=== PATIENT | female | born 1955 | race Caucasian/White ===

== ENCOUNTER 2017-12-20 14:30 | Outpatient (RCR) | payer OTHER, SELFPAY ==
--- NOTE | 2017-11-09 14:10 | HP.SP.AD ---
History - History Date of Eval: 11/09/17 Medical Diagnosis (from RX): cva Date of Onset of Diagnosis: October 22, 2017 Previous speech therapy: Yes Results: Patient was on [facility]'s rehab for 2 weeks. Other Relevant Medical History/Diagnoses/Surgery: Diabetes Hx Smoking: No - Pain Is pain an issue with your current prescribed condition?: No - Personal Education History: High school graduate Occupation: Retired as a cook chili Right Hearing Abillity: Normal Left Hearing Abillity: Normal Visual Assistive Devices: Glasses Patients Living Arrangements: With Family Subjective Oral Motor - Comments Comments: Patient reported that her speech is nearly back to normal. No difficulty with being understood. Patient reported that her speech is 90-95% back to normal. Objective Oral Motor - Oral Status Dentition: Upper Dentures, Lower Dentures - Labial Impairment: WNL Observation at Rest: WNL Closure: WNL Pucker: WNL Retraction: WNL Alternating Pucker/Retraction: WNL Involuntary Movement noted: No - Lingual Impairment: WNL Protrusion: WNL Retraction: WNL Lateralization: WNL Involuntary Movement: No - Respiratory Status Respiratory Status: Room Air Subjective Dysphagia - Symptoms Reported Other: No deficits reported. Diet upon leaving hospital was regular foods/ thin. - Current Diet Solids Current Diet: Regular - Current Diet Liquids Current Liquids: Thin Subjective Cog/Ling/Com - Subjective Cognitive/Linguistic/Communication: No cognitive deficits reported by patient. Cognitive was not focused on in inpatient rehab. Patient was able to hold conversation and answer questions appropriately. Subjective Articulation/Phon - Subjective Concerns: Patient has no concerns. Evaluation was recommended by inpatient rehab. Additional Information: Patient reported only getting slightly slurred speech when very tired. Subjective Artic/Phon - Articulation Errors include: Initial Position: No errors noted on any sounds. Other Impressions - Comments Volume -: Average dB level in conversation was 72 which is appropriate for conversation. Note deficits noted as this is an area that the hospital therapists were addressing per the patient. She reported that since being home she is doing much better. Plan - Plan Plan: Speech therapy is not warranted at this time. - Recommendations Treatment Warranted: No Education - Patient has Indicated that the Following Identified Educational Needs: None The Patient has indicated that they have no educational or learning abilities that may effect their care.: Yes - Patient Instruction Patient Education: Diagnosis, Treatment Plan Person Taught: Patient Response to teaching: Verbalize understanding, Has Prior Knowledge
--- NOTE | 2017-11-10 17:57 | HP.PTEVAL_ITS ---
Patient's Visit Information BETI JAUREGUI is a 62 year old F referred to Physical Therapy by Pablito WILHELM with a diagnosis of CVA. Date of Evaluation: 11/10/17 Physical Therapist: Zohra Hills - Visit Plan Frequency: 2-3x /Week Duration: 4-6 Weeks Plan: GERNERAL JENNIFER UE AND LE STRENGTHENIG TAKING PAIN (ESPECIALLY RIGHT SHOULDER ) INTO CONSIDERATION. GAIT TRAINING PROGRESSING TO LEAST ASSISTIVE DEVICE FOR INDEP AND SAFE GAIT. HEP INSTRUCTION. ENDURANCE TRAINING. - Subjective Subjective: Work/Leisure: RETIRED. Disability: NO. Present symptoms: PATIENT REPORTS SHE HAD TWO STROKES ABOUT October AND AND WANTS TO GET BUILT BACK UP. SHE REPORTS SHE NOTICED HER SPEECH FIRST AND SHE DIDN'T THINK ANYTHING ELSE WAS WRONG BUT SHE GETS TIRED VERY EASILY AND SHE GETS REAL WEAK IN HER LEGS STANDING FOR SHORT PERIODS OF TIME. Present since: October. DID START GETTING SOB BACK IN JULY THOUGH AND IT PROGRESSIVELY GOT WORSE. ALSO HAVING RIGHT SHOULDER PAIN, JENNIFER KNEE AND JENNIFER ANKLE PAIN. LBP TOO. Pain Scale: RIGHT SHOULDER 2-9/10, KNEES 0-5/10, ANKLES 0-7/10, LOW BACK 0-7/ 10. Commenced as a result of: NO APPARENT REASON OTHER THAN POSSIBLY CHF OR ONSET OF DIABETES. Symptoms at onset: SOB. Worse: STANDING, WALKING, QUICK MVMTS. Better: [place], SITTING. Disturbed sleep: BACK TO SLEEPING IN BED FLAT BUT BOUGHT A WEDGE SHE IS GOING TO TRY. SLEEP IS DISTURBED BY RIGHT SHOULDER PAIN. Previous history/Previous treatment: PRIOR LEVEL OF FUNCTION - PATIENT REPORTS SHE WAS ABLE TO COOK FOR HOURS, TALK ON THE PHONE FOR HOURS WITH HER CHILDREN AND GRANDCHILDREN, DRIVE, AND BE ON THE GO FOR HOURS PRIOR TO THIS STROKE. SHE USE TO TRAVEL OUT OF STATE TO SEE FAMILY TOO. ALL OF THESE THINGS ARE NOT POSSIBLE RIGHT NOW. SHE ALSO USE TO DO CRAFTS BUT THE DESIRE IS NOT THERE RIGHT NOW. INDEP GAIT WITHOUT AD BEFORE STROKE UNLIMITED. Gait: NOT USING ANY ASSISTIVE DEVICES OR FURNITURE WALKING IN THE HOUSE. ROLLATOR FOR LONG DISTANCES. TRANSFERS AND SHOWERS WITH LOOSE SUPERVISION ONLY AT THIS TIME. PMH: CHF?, NIDDM, HTN, H/O RIGHT SHOULDER PAIN AND CORTISONE SHOT A FEW YEARS AGO THEN INCREASED VALENTINES DAY WHILE LIFTING DURING COOKING. CHRONIC LOW BACK, KNEE AND ANKLE PAIN. NO RECENT FALLS. Recent major surgery: 11 FX'S/ INJURIES IN RIGHT ANKLE - NO SURGERY. PATIENTS DAUGHTER (BASIL) IS PRESENT AND HELPFUL WITH PATIENTS MEDICAL HISTORY. PATIENTS DAUGHTER REPORTS THAT PATIENT APPEARS TO LOSE HER CONCENTRATION AND STARTS TO SLUR HER SPEECH NOW WHEN TALKING ON THE PHONE WITH FAMILY. SHE SEEMS TO HESITATE TO RESPOND TO FAMILY ON THE PHONE AND FATIGUE MUCH MORE QUICKLY THAN BEFORE THE STROKE. - Objective THIS PATIENT AMBULATES INDEP INTO PT WITH X APPROX 300 FEET WITH A FOUR WHEELED WALKER. SHE IS ACCOMPANIED BY HER DAUGHTER BASIL. PATIENT IS NOT VERY DEPENDENT UPON THE WALKER FOR BALANCE BUT SHE HAS DECREASED CADANCE AND SLOWED DOWN EVEN MORE AFTER ABOUT 250 FEET. NO LOSS OF BALANCE NOTED. INDEP TRANSFER FROM SIT TO STAND WITHOUT UE ASSIST. INDEP GAIT IN THE TREATMENT ROOM WITHOUT AD WITH FAIR BALANCE. SLS X EA LE X APPROX 5 SECONDS EACH. JENNIFER UE AND LE ROM IS WFL EXCEPT THE RIGHT SHOULDER. HER RIGHT SHOULDER ROM IS WFL EXCEPT INTO INTERNAL ROTATION WHICH IS ABOUT 50% LIMITED AND PAINFUL WITH MVMT ALL PLANES. JENNIFER UE AND LE STRENGTH WITH MMT'ING IS GROSSLY 4/5 WITH MMT'ING EXCEPT THE RIGHT SHOULDER WHICH IS 3-/5 WITH POSSIBLE POSITIVE RIGHT ROTATOR CUFF TEST. SHE HAS POOR CORE STRENGTH. JENNIFER UE LIGHT TOUCH SENSATION IS INTACT AND SYMMETRICAL. - Goals Goal 1:: DECREASE C/O RIGHT SHOULDER AND GENERAL BACK AND LE PAIN. Goal Time Frame: 4-6 Weeks Goal 2:: IMPROVE ENDURANCE, STANDING, WALKING, ADL, COOKING, TRAVEL AND OTHER RECREATIONAL FUNCTION. Goal Time Frame: 4-6 Weeks Goal 3:: INDEP AND SAFE GAIT ON ALL SURFACES WITH LEAST ASSISTIVE DEVICE. Goal Time Frame: 4-6 Weeks Goal 4:: INDEP HEP Goal Time Frame: 4-6 Weeks - Rehabilitation Potential Rehabilitation Potential: Good - Anticipated Interventions Patient/Client Instruction: Educate patient on: Condition, Plan of Care, Risk Factors, Benefits of Fitness Program For the Purpose of:: To improve self management Therapeutic Exercise to Include: Strength training, Endurance training, Balance training, Gait and locomotor training, Dynamic Lumbar Stabilization For the Purpose of:: To improve ability of physical actions for home/community/ work/leisure Thank you for the opportunity to evaluate your patient. For Medicare and Medicare HMO plans, please review the plan of care and approve it. It will need to be FAXED BACK to us at [phone] for Medicare purposes. Please let me know if there are questions or concerns regarding this plan of care. Physician Signature: Date:
--- NOTE | 2017-12-20 15:27 | HP.PTDCSUM ---
HP - PT D/C Summary It has been my pleasure to treat BETI JAUREGUI under orders from Pablito Mahoney, for the diagnosis of CVA for a total of 8 visit(s). Discharge Date: 12/20/17 Please see the following information for a summary of their discharge status. - Subjective Subjective: PATIENT REPORTS SHE IS MOVING FASTER THAN SHE WAS AND HER BREATHING IS MUCH BETTER. SHE ALSO REPORTS SHE HAS MORE ENERGY AND SHE ALMOST FEELS BACK TO HER NORMAL. SHE REPORTS SHE IS DOING HER HOME EX PROGRAM AND FOR HER THE EX'S ARE NOT TOO EASY AND NOT TO HARD - JUST RIGHT FOR ME. PATIENT REPORTS THAT IF SHE IS EXTREMELY TIRED HER WORDS WILL STILL BLEND TOGETHER. SHE WENT TO [place] THIS WEEKEND AND WAS BUSY AND HER WORDS RAN TOGETHER. - Overall Improvement % Improvement: 90 - Objective Objective/Function: LEFS HAS IMPROVED FROM 27 TO 59. THIS PATIENT AMBULATES INDEP'LY INTO PT X APPROXIMATELY 300 FEET WITHOUT LOB, WITHOUT AD AND WITHOUT SOB. SHE IS ABLE TO SLS X > 10 SEC ON EACH LEG. INDEP TRANSFERS SIT TO STAND WITHOUT UE ASSIST. JENNIFER LE STRENGTH WFL. RIGHT UE NOW HAS ROM WFL INCLUDING IR BUT SHE CONTINUES TO HAVE RIGHT ROTATOR CUFF WEAKNESS GRADED 3+/5. SHE DENIES INCREASED PAIN WITH RIGHT SHOULDER TESTING TODAY BUT AGAIN OBVIOUS WEAKNESS WITH TESTING. INDEP WITH HEP. ALL GOALS MET. - Goals Goal 1:: DECREASE C/O RIGHT SHOULDER AND GENERAL BACK AND LE PAIN. Goal Progress: Goal Met Goal 2:: IMPROVE ENDURANCE, STANDING, WALKING, ADL, COOKING, TRAVEL AND OTHER RECREATIONAL FUNCTION. Goal Progress: Goal Met Goal 3:: INDEP AND SAFE GAIT ON ALL SURFACES WITH LEAST ASSISTIVE DEVICE. Goal Progress: Goal Met Goal 4:: INDEP HEP Goal Progress: Goal Met - Plan Plan: D/C TO INDEP HEP - D/C Information If there are questions or concerns regarding this patient's physical therapy, please feel free to call me at [phone]. Thank you for the referral of this patient. Sincerely, Zohra Hills
== END 2017-12-20 19:00 | disposition home or self-care (01) ==
LOC: PT 14:30
PROVIDERS: Visit Provider Physical Medicine & Rehabilitation
DX: Z86.73 Personal history of transient ischemic attack (TIA), and cerebral infarction without residual deficits (principal)
CPT/HCPCS: 92522; 97110; 97162; 97530

== ENCOUNTER → 2021-05-26 15:44 | Outpatient (CLI) | payer MEDICARE, SELFPAY ==
[2021-05-26 17:50] LABS: Hematocrit 29.1 % (37-47); Hemoglobin 8.9 g/dL (12.0-15.0); Mean Corp Hgb Conc 30.6 g/dL (32-36); Mean Corpuscular Hgb 23.8 pg (27.0-32.0); Mean Corpuscular Volume 77.8 fL (81-99); Platelet Count 605 K/mm3 (150-450); RBC Distribution Width CV 18.9 % (11.6-14.6); Red Blood Count 3.74 M/mm3 (4.2-5.4); White Blood Count 10.5 K/mm3 (4.4-11.0)
[2021-05-26 18:34] LABS: Ferritin 95 ng/mL (8-252); Iron 20 ug/dL (50-170)
[2021-05-28 16:09] LABS: Endomysial Antibody IgA Negative (Negative)
[2021-05-28 16:47] LABS: Immunoglobulin A 292 mg/dL (87-352); t-Transglutaminase IgA <2 U/mL (0-3)
== END ==
PROVIDERS: Referring Provider Internal Medicine Gastroenterology; Visit Provider Internal Medicine Gastroenterology
DX: D50.9 Iron deficiency anemia, unspecified (principal)
CPT/HCPCS: 36415; 82728; 82784; 83516; 83540; 85027; 86140; 86255

== ENCOUNTER → 2021-06-13 16:02 | Outpatient (CLI) | payer MEDICARE, SELFPAY ==
--- NOTE | 2021-06-13 16:11 | CT_ITS ---
STUDY: CT CHEST WITHOUT CONTRAST REASON FOR EXAM: Female, 66 years old. MALIGNANT NEOPLASM OF SIGMOID COLON-new diagnoses RADIATION DOSAGE (If Supplied By Facility): CTDIvol = ( 13.89 ) mGy, DLP = ( 399.00 ) mGycm TECHNIQUE: Transaxial imaging was performed without the administration of intravenous contrast material. Individualized dose optimization techniques were used for this CT. COMPARISON: None. FINDINGS: Lungs: Patchy infiltrates in both upper lobes and right middle lobe. Ill-defined pulmonary nodules scattered bilaterally, the largest is in the right upper lobe measuring about 1.1 cm on image 33 series 4. No evidence of pleural effusions. Mediastinum: Multiple calcified mediastinal and right hilar nodes. Additional noncalcified nodes in anterior mediastinum, aortopulmonic window and anterior to the heart, the largest measures about 1.9 cm. Cardiovascular structures: Borderline cardiomegaly. No evidence of pericardial effusion. Coronary calcifications. Chest wall and axilla: Unremarkable. Upper abdomen: No demonstrated acute process on this noncontrast examination. Osseous structures: Degenerative changes in the spine. No demonstrated destructive bony process. CT/Chest without Contrast IMPRESSION: 1. Patchy bilateral infiltrates concerning for pneumonia. 2. Multiple ill-defined pulmonary nodules as described above which could be infectious. Metastatic disease cannot be excluded. 3. Calcified mediastinal and hilar nodes consistent with old granulomatous disease. 4. Additional noncalcified mediastinal nodes which could be reactive. Neoplastic process cannot excluded. 5. Follow-up examination with contrast following treatment is recommended. Electronically Signed: Umair Sesay MD at 10:23 EDT Tel , Service support ,
== END ==
LOC: CT 16:03
PROVIDERS: Visit Provider Internal Medicine Hematology & Oncology
DX: C18.7 Malignant neoplasm of sigmoid colon (principal); C19 Malignant neoplasm of rectosigmoid junction; C78.7 Secondary malignant neoplasm of liver and intrahepatic bile duct; C77.2 Secondary and unspecified malignant neoplasm of intra-abdominal lymph nodes
CPT/HCPCS: 71250

== ENCOUNTER 2021-06-19 16:59 | Inpatient (IN) | payer MEDICARE, SELFPAY ==
[2021-06-19] VITALS (9 sets, daily range): BP systolic 102–148; BP diastolic 69–102; PULSE 75–83; RESP 16–24; TEMP 36.2–37.1; O2SAT 94–100; BMI 34.3; BMI 33.0
--- NOTE | 2021-06-19 17:05 | CT_ITS ---
STUDY: CT BRAIN WITHOUT CONTRAST REASON FOR EXAM: Female, 66 years old. Weakness. Left facial droop. Weakness. Hypoglycemia and hypertension. History of CVA. RADIATION DOSAGE (If Supplied By Facility): CTDIvol = ( 44.99 ) mGy, DLP = ( 745.49 ) mGycm TECHNIQUE: Transaxial CT imaging of the brain was performed without administration of intravenous contrast material. Individualized dose optimization techniques were used for this CT. COMPARISON: No relevant priors. FINDINGS: There are soft tissue calcifications of the scalp. Question sebaceous cysts. Normal calvarium. Normal size ventricles and extra-axial spaces for the patient''s age. Normal white matter tracts of the cerebral hemispheres. Normal basal ganglia and thalami. Normal brainstem. Normal cerebellum. There is no intracranial hemorrhage. There are no findings of an acute ischemic infarction. Normal visualized paranasal sinuses. CT/Brain/Head without Contrast IMPRESSION: No acute intracranial or calvarial abnormality. If there is continued concern for acute stroke, MRI is recommended. Electronically Signed: Isael Christianson DO at 18:16 EDT Tel [phone], Service support ,
--- NOTE | 2021-06-19 17:05 | EKG12_ITS ---
Test Reason : STROKE LIKE Blood Pressure : / mmHG Vent. Rate : 079 BPM Atrial Rate : 079 BPM P-R Int : 166 ms QRS Dur : 074 ms QT Int : 374 ms P-R-T Axes : 033 -28 031 degrees QTc Int : 428 ms Normal sinus rhythm Low voltage QRS Septal infarct , age undetermined Abnormal ECG Confirmed by LIZ SIFUENTES, BREONNA ([id number]), editor in chief newspaper DARRION GLOVER ([id number]) on 06/20/2021 1:53:24 PM Referred By: BAKARI Confirmed By:BREONNA HILL MD
[2021-06-19 17:20] LABS: Bedside Glucose 255 mg/dL (70-110)
--- NOTE | 2021-06-19 17:26 | RAD_ITS ---
STUDY: X-RAY CHEST REASON FOR EXAM: Female, 66 years old. Weakness. TECHNIQUE: Single AP portable view of the chest. COMPARISON: CT of the chest, 06/13/2021. FINDINGS: The lungs are well expanded. There is increased density in the lower lungs bilaterally consistent with interstitial disease in nodularity seen on the CT scan. There is no demonstrated pleural abnormality. Normal size heart. Normal mediastinum and charbel. Normal visualized pulmonary arteries. Normal visualized aortic arch and descending thoracic aorta. There are diffuse degenerative changes of the visualized thoracic spine. Normal visualized ribs, clavicles, and shoulders. There is no demonstrated abnormality of the visualized soft tissue structures of the upper abdomen. RAD/Chest 1 View (Portable) IMPRESSION: Bibasilar densities. The findings are consistent with the interstitial changes in nodules present on a CT of 6 days earlier. Electronically Signed: Isael Christianson DO at 17:45 EDT Tel [phone], Service support ,
[2021-06-19 17:31] LABS: Absolute Neutrophil Count 8.8 X10^3/uL (2.0-7.7); Basophil# 0.03 X10^3/uL; Basophil% 0.3 % (0-1); Eosinophils% 1.8 % (0-5); Hematocrit 28.1 % (37-47); Hemoglobin 8.5 g/dL (12.0-15.0); Lymphocyte % 9.9 % (19-41); Mean Corp Hgb Conc 30.2 g/dL (32-36); Mean Corpuscular Volume 79.4 fL (81-99); Mean Platelet Vol. 8.5 fl (6.2-12.0); Monocyte# 0.95 X10^3/uL; Monocyte% 8.6 % (0-10); NRBC Flagged by Analyzer 0 % (0-5); Neutrophil # 8.76 X10^3/uL (2.7-7.7); Neutrophil % 78.8 % (47-70); Platelet Count 501 K/mm3 (150-450); RBC Distribution Width CV 19.1 % (11.6-14.6); RBC Distribution Width SD 54.9 fl (35.1-43.9); Red Blood Count 3.54 M/mm3 (4.2-5.4); White Blood Count 11.1 K/mm3 (4.4-11.0)
[2021-06-19 17:37] LABS: Partial Thromboplast Time 26.5 Seconds (24.1-36.2)
[2021-06-19 17:39] LABS: International Normalized Ratio 1.3; Prothrombin Time (Protime)PT. 15.2 SECONDS (11.7-14.9)
[2021-06-19 17:45] LABS: Anion Gap 6 (5-15); BUN 12 mg/dL (7-18); BUN/Creat Ratio 13.1 RATIO (10-20); Calcium,Total 7.9 mg/dL (8.5-10.1); Chloride 104 mmol/L (98-107); Creatinine, Serum 0.91 mg/dL (0.55-1.02); EST Glomerular Filtration Rate 66 mL/min (>60); Est Glom Filt Rate - Afr Amer 79 mL/min (>60); Estimated Creatinine Clearance 43.68 ml/min; Glucose 228 mg/dL (74-106); Potassium 5.2 mmol/L (3.5-5.1); Sodium Level 136 mmol/L (136-145); Troponin-I HS 4 pg/mL (3.0-54.0)
--- NOTE | 2021-06-19 18:48 | CM.ED ---
SW Note Referral Source : Stroke Alert Referral Reason: Stroke Alert SW responded to stroke alert. Patient was alert x3. Reports her daughter is coming. SW met with patient and her daughter. They report no issues or concerns. No needs voiced. SW remains available. Plan: Emotional Support provided Merly RAMIREZ
--- NOTE | 2021-06-19 19:26 | TELEMED_ITS ---
[facility] Telemed has confirmed receipt of a request for visit. This document confirms receipt of the order initiating the consult. To find the results of the consultation, please view the patient's reports for the scanned Telemed Consult.
[2021-06-19] MEDS: Aspirin 81 MG TAB.CHEW PO (20:39)
--- NOTE | 2021-06-19 20:51 | EX.ED.DYSGE1 ---
HPI History of Present Illness Chief Complaint: Neuro S/Sx Narrative Narrative: Patient is a 66-year-old female with past medical history of CVA as well as new diagnosis of cancer. She states she was taken off her Plavix about 20 days ago as she is to have a port placed tomorrow. She states that today she was up around 8 or 9 AM and went to write a letter to her sister. She states when she went to this she could not write but only make lines which she realized was abnormal. She states this eventually resolved but then later and they noticed left-sided facial droop and with concern for stroke since she has had this in the past EMS was called to bring her in for evaluation [facility] Medical History Abnormal nuclear stress test Anemia Arthritis Cancer Cardiomyopathy Carotid artery stenosis Congenital talipes calcaneovalgus of left foot COPD (chronic obstructive pulmonary disease) Diabetes mellitus type II, uncontrolled Diastolic congestive heart failure Essential hypertension History of CHF (congestive heart failure) History of CVA (cerebrovascular accident) (10/21/17) History of pleural effusion (10/21/17) History of renal disease Hyperlipidemia Low iron Nonrheumatic mitral valve regurgitation Nonrheumatic tricuspid valve regurgitation Preop cardiovascular exam Renal insufficiency Shortness of breath on exertion Snoring Tricuspid regurgitation Wears dentures Home Medications atorvastatin 40 mg tablet 40 mg PO QHS 11/22/19 [History Last Taken 06/18/21] carvedilol 25 mg tablet 25 mg PO BID 11/22/19 [History Last Taken 06/19/21] furosemide 40 mg tablet 40 mg PO DAILY 11/22/19 [History Last Taken 06/19/21] metformin 500 mg tablet 500 mg PO DAILY 11/22/19 [History Last Taken 06/19/21] psyllium [Metamucil] 1 packet PO DAILY 06/18/21 [History Last Taken 06/19/21] amlodipine 5 mg PO DAILY 06/19/21 [History Last Taken 06/19/21] aspirin [Aspirin Low-Strength] 81 mg PO DAILY 06/19/21 [History Last Taken 06/17/21] cinnamon bark [Cinnamon] 1,000 mg PO BID 06/19/21 [History Last Taken 06/19/21] potassium chloride 16 meq PO DAILY 06/19/21 [History Last Taken 06/19/21] Allergy/AdvReac Type Severity Reaction Status Date / Time latex Allergy Severe Hives Verified 06/19/21 17:04 codeine AdvReac Unknown unknown Verified 06/19/21 17:04 Family History (Updated 11/22/19 @ 16:37 by Tegan Sanchez) Mother Bleeding disorder Diabetes CAD (coronary artery disease) Hypertension Hyperlipidemia Kidney disease Sister Asthma CAD (coronary artery disease) Hyperlipidemia Father Cancer CAD (coronary artery disease) Hypertension Hyperlipidemia CVA (cerebral vascular accident) Brother CAD (coronary artery disease) Hyperlipidemia Surgical History History of cardiac catheterization History of colonoscopy History of foot surgery Hx of cataract surgery Social History (Updated 11/22/19 @ 16:35 by Tegan Sanchez) Smoking Status: Never smoker ROS ROS ED Constitutional Constitutional ED: Denies chills or fever(s) ENT ENT ED: Denies sore throat Cardiovascular Cardiovascular: Denies chest pain Respiratory/Chest Respiratory/Chest: Denies cough or dyspnea Gastrointestinal Gastrointestinal: Denies abdominal pain, diarrhea, nausea or vomiting Genitourinary Genitourinary ED: Denies dysuria Musculoskeletal Musculoskeletal: Denies myalgias Integumentary Denies rash Neurologic Neurologic: Denies headache(s) Hematologic/Lymphatic Hematologic/Lymphatic: Reports easy bleeding and easy bruising EXAM Physical Exam Const Vital Signs: 06/19/21 17:05 06/19/21 17:49 06/19/21 18:31 Temperature 98.7 F Temperature Source Oral Pulse Rate 81 78 79 Respiratory Rate 20 H 20 H 18 Blood Pressure 117/69 136/78 H 102/70 Blood Pressure Mean 85 97 80 Pulse Ox 100 98 99 Oxygen Delivery Method Room Air Room Air Room Air 06/19/21 19:00 06/19/21 20:00 Temperature Temperature Source Pulse Rate 75 76 Respiratory Rate 21 H 24 H Blood Pressure 148/80 H 136/102 H Blood Pressure Mean 102 113 Pulse Ox 98 94 Oxygen Delivery Method Room Air Positive well nourished and well developed General Appearance ED: well developed HEENT Reports moist mucous membranes Eyes PERRL and EOMs intact bilaterally Neck supple Resp normal respiratory effort and clear to auscultation bilaterally Cardio regular rate and regular rhythm GI normal to inspection, nondistended, normoactive bowel sounds, non-tender, non-distended and no masses Auscultation: normoactive bowel sounds Palpation: soft Extremity Extremity Narrative: Patient has chronic +3 pitting edema to the bilateral lower extremities that is equal and symmetric Neuro oriented x3 Neuro Narrative: Patient has a left-sided facial droop noted and received an NIH stroke scale score of 1 for this otherwise neuro exam reveals no focal deficits Sensorium / Orientation: alert Psych mental status grossly normal Skin no rashes or lesions noted MDM MDM MDM Narrative Medical decision making narrative: Patient presented to the ER approximately 8 hours from the onset of her symptoms and is therefore outside of the TPA window. Her stroke scale score is also 1 and therefore there will be no need to provide anticoagulation at this time. A basic work-up was obtained which revealed no acute finding. Her stroke scale score remained at 1 while in the ER. The case was discussed with neurology. They recommend that based on her low stroke scale score and the fact that she is not had any worsening of symptoms that patient does not need a CTA at this time but can be admitted for an MRI in the morning. As she is to have a port placed they recommend holding off on Plavix but placing her on a baby aspirin. Neurology does state that if for some reason the neuro exam changes throughout the evening she can have an emergent CTA and then also given a full-strength aspirin at that time. The plan of care was discussed with the patient and she is agreeable to this plan Lab Data Attestation: I reviewed the patient's lab results. Labs: Laboratory Results - last 24 hr 06/19/21 06/19/21 06/19/21 17:10 17:18 17:18 WBC RBC Hgb Hct MCV MCH MCHC RDW Std Deviation RDW Coeff of Dann Plt Count MPV Immature Gran % (Auto) Neut % (Auto) Lymph % (Auto) Hubbard % (Auto) Eos % (Auto) Baso % (Auto) Absolute Neuts (auto) Absolute Lymphs (auto) Nucleated RBC % PT 15.2 H INR 1.3 APTT 26.5 Sodium 136 Potassium 5.2 H Chloride 104 Carbon Dioxide 26.0 Anion Gap 6 BUN 12 Creatinine 0.91 Estim Creat Clear Calc 43.68 Est GFR (MDRD) Af Amer 79 Est GFR (MDRD) Non-Af 66 BUN/Creatinine Ratio 13.1 Glucose 228 H Calcium 7.9 L Magnesium 2.0 Troponin I High Sens 4 POC Glucose 255 H 06/19/21 17:20 WBC 11.1 H RBC 3.54 L Hgb 8.5 L Hct 28.1 L MCV 79.4 L MCH 24.0 L MCHC 30.2 L RDW Std Deviation 54.9 H RDW Coeff of Dann 19.1 H Plt Count 501 H MPV 8.5 Immature Gran % (Auto) 0.600 Neut % (Auto) 78.8 H Lymph % (Auto) 9.9 L Hubbard % (Auto) 8.6 Eos % (Auto) 1.8 Baso % (Auto) 0.3 Absolute Neuts (auto) 8.8 H Absolute Lymphs (auto) 1.10 Nucleated RBC % 0 PT INR APTT Sodium Potassium Chloride Carbon Dioxide Anion Gap BUN Creatinine Estim Creat Clear Calc Est GFR (MDRD) Af Amer Est GFR (MDRD) Non-Af BUN/Creatinine Ratio Glucose Calcium Magnesium Troponin I High Sens POC Glucose Radiography Diagnostic Testing: Clinical Impression(s) from Imaging Studies Brain CT 06/19/21 17:05 IMPRESSION: No acute intracranial or calvarial abnormality. If there is continued concern for acute stroke, MRI is recommended. Electronically Signed: Isael Christianson DO at 18:16 EDT Tel [phone], Service support , Chest X-Ray 06/19/21 17:26 IMPRESSION: Bibasilar densities. The findings are consistent with the interstitial changes in nodules present on a CT of 6 days earlier. Electronically Signed: Isael Christianson DO at 17:45 EDT Tel [phone], Service support , Critical Care Time Critical Care Time: Yes Critical care time (excluding procedures): - (Please note critical care time of 33 minutes) Discharge Plan Triage Chief Complaint: Neuro S/Sx ED Provider: Jackson Leal Dx/Rx/DC Orders Clinical Impression: Acute CVA (cerebrovascular accident) Prescriptions: No Action atorvastatin [Lipitor] 40 mg tablet 40 mg PO QHS RF: 0 carvedilol [Coreg] 25 mg tablet 25 mg PO BID RF: 0 furosemide [Lasix] 40 mg tablet 40 mg PO DAILY RF: 0 metformin 500 mg tablet 500 mg PO DAILY RF: 0 Metamucil Packet 1 packet PO DAILY RF: 0 amlodipine 2.5 mg tablet 5 mg PO DAILY RF: 0 potassium chloride 8 mEq capsule, extended release 16 meq PO DAILY RF: 0 aspirin [Aspirin Low-Strength] 81 mg Tablet,Delayed Release (Dr/Ec) 81 mg PO DAILY RF: 0 cinnamon bark [Cinnamon] 500 mg Capsule 1,000 mg PO BID RF: 0 Primary Care Provider: Emani Delgado Referrals: Emani Delgado, [Primary Care Provider] - Disposition Disposition: Acute Care Hospital [facility]
--- NOTE | 2021-06-19 21:15 | HP.PCM_ITS ---
Documented by User: AGUSTINA Albert 06/19/21 21:33 HPI - General General Date of Admission: 06/19/21 Date of Service: 06/19/21 Chief Complaint: Facial droop HPI Narrative BETI JAUREGUI, is a 66 F who presents with reports of a facial droop. Patient states that earlier this morning she went to write a letter however she is only able to write lines and not letters. Patient said she waited and this did re solve however when her family came over tonight they noticed that she had a left-sided facial droop. Patient has an NIH score of 1. Patient reports a history of CVA with her most recent one being 3 years ago. Patient was previously on Plavix however patient has been off of her Plavix for 21 days for a port placement with Dr. Resendiz tomorrow as patient has recently been diagnosed with colon cancer. Patient denies any weakness or other neurological symptoms. [facility] Medical History Abnormal nuclear stress test Anemia Arthritis Cancer Cardiomyopathy Carotid artery stenosis Congenital talipes calcaneovalgus of left foot COPD (chronic obstructive pulmonary disease) Diabetes mellitus type II, uncontrolled Diastolic congestive heart failure Essential hypertension History of CHF (congestive heart failure) History of CVA (cerebrovascular accident) (10/21/17) History of pleural effusion (10/21/17) History of renal disease Hyperlipidemia Low iron Nonrheumatic mitral valve regurgitation Nonrheumatic tricuspid valve regurgitation Preop cardiovascular exam Renal insufficiency Shortness of breath on exertion Snoring Tricuspid regurgitation Wears dentures Home Medications atorvastatin 40 mg tablet 40 mg PO QHS 11/22/19 [History Last Taken 06/18/21] carvedilol 25 mg tablet 25 mg PO BID 11/22/19 [History Last Taken 06/19/21] furosemide 40 mg tablet 40 mg PO DAILY 11/22/19 [History Last Taken 06/19/21] metformin 500 mg tablet 500 mg PO DAILY 11/22/19 [History Last Taken 06/19/21] psyllium [Metamucil] 1 packet PO DAILY 06/18/21 [History Last Taken 06/19/21] amlodipine 5 mg PO DAILY 06/19/21 [History Last Taken 06/19/21] aspirin [Aspirin Low-Strength] 81 mg PO DAILY 06/19/21 [History Last Taken 06/17/21] cinnamon bark [Cinnamon] 1,000 mg PO BID 06/19/21 [History Last Taken 06/19/21] potassium chloride 16 meq PO DAILY 06/19/21 [History Last Taken 06/19/21] Allergy/AdvReac Type Severity Reaction Status Date / Time latex Allergy Severe Hives Verified 06/19/21 17:04 codeine AdvReac Unknown unknown Verified 06/19/21 17:04 Family History Mother Bleeding disorder Diabetes CAD (coronary artery disease) Hypertension Hyperlipidemia Kidney disease Sister Asthma CAD (coronary artery disease) Hyperlipidemia Father Cancer CAD (coronary artery disease) Hypertension Hyperlipidemia CVA (cerebral vascular accident) Brother CAD (coronary artery disease) Hyperlipidemia Surgical History History of cardiac catheterization History of colonoscopy History of foot surgery Hx of cataract surgery Social History Smoking Status: Never smoker ROS Constitutional Constitutional: Denies anorexia, chills, fatigue, fever(s) or weakness Cardiovascular Cardiovascular: Denies chest pain, edema, palpitations or syncope Respiratory/Chest Respiratory/Chest: Denies cough, shortness of breath at rest, shortness of breath with exertion or wheezing Gastrointestinal Gastrointestinal: Denies abdominal pain, constipation, diarrhea, nausea or vomiting Genitourinary Genitourinary: Denies dysuria Musculoskeletal Musculoskeletal: Denies back pain, extremity pain, joint pain or joint stiffness Integumentary Integumentary: Denies dry skin or jaundice Neurologic Neurologic: Reports other Details: Left-sided facial droop Psychiatric Psychiatric: Denies anxiety or depression Endocrine Endocrinology: Denies change in body appearance Hematologic/Lymphatic Hematologic/Lymphatic: Denies anemia Vital Signs Vital Signs Vital Signs: 06/19/21 17:05 06/19/21 17:49 06/19/21 18:31 Temperature 98.7 F Temperature Source Oral Pulse Rate 81 78 79 Respiratory Rate 20 H 20 H 18 Blood Pressure 117/69 136/78 H 102/70 Blood Pressure Mean 85 97 80 Pulse Ox 100 98 99 Oxygen Delivery Method Room Air Room Air Room Air 06/19/21 19:00 06/19/21 20:00 06/19/21 21:11 Temperature 98.5 F Temperature Source Oral Pulse Rate 75 76 78 Respiratory Rate 21 H 24 H 16 Blood Pressure 148/80 H 136/102 H 142/93 H Blood Pressure Mean 102 113 109 Pulse Ox 98 94 99 Oxygen Delivery Method Room Air Room Air Weight Weight: 175 lb 14.862 oz Body Mass Index (BMI) 34.3 Physical Exam Const alert, oriented x3 and no apparent distress General Appearance: cooperative HEENT normocephalic and head/scalp atraumatic Eyes conjunctivae normal and no scleral icterus Neck supple General: trachea midline Resp normal respiratory effort, normal air movement and clear to auscultation bilaterally Cardio regular rate, regular rhythm, S1 normal heart sound, S2 normal heart sound and peripheral pulses 2+ throughout GI normal to inspection, nondistended, normoactive bowel sounds, soft to palpation and non-tender Extremity normal capillary refill General Extremity: edema bilateral lower extremity Details: moderate and no tenderness to palpation of joints or extremities Skin General Skin Exam: no breakdown and turgor normal Lesions: no lesions Rashes: no rashes Neuro oriented x3, moves all extremities, no focal motor deficits and no sensory deficits noted Sensorium / Orientation: awake and alert Cranial Nerves: CN IV (trochlear), CN V (trigeminal), CN (abducens), CN VII (facial) Laterality: left CN VII - Left: Positive for facial droop and CN XII (hypoglossal) Speech: speech normal Motor Exam: Negative for general weakness Psych thought process normal, cooperative and affect normal Appearance: appropriate Results Lab / Micro Data Result Diagrams: 06/19/21 17:20 06/19/21 17:18 Labs: Laboratory Results - last 24 hr 06/19/21 17:10: POC Glucose 255 H 06/19/21 17:18: PT 15.2 H, INR 1.3, APTT 26.5 06/19/21 17:18: Sodium 136, Potassium 5.2 H, Chloride 104, Carbon Dioxide 26.0, Anion Gap 6, BUN 12, Creatinine 0.91, Estim Creat Clear Calc 43.68, Est GFR (MDRD) Af Amer 79, Est GFR (MDRD) Non-Af 66, BUN/Creatinine Ratio 13.1, Glucose 228 H, Calcium 7.9 L, Magnesium 2.0, Troponin I High Sens 4 06/19/21 17:20: WBC 11.1 H, RBC 3.54 L, Hgb 8.5 L, Hct 28.1 L, MCV 79.4 L, MCH 24.0 L, MCHC 30.2 L, RDW Std Deviation 54.9 H, RDW Coeff of Dann 19.1 H, Plt C ount 501 H, MPV 8.5, Immature Gran % (Auto) 0.600, Neut % (Auto) 78.8 H, Lymph % (Auto) 9.9 L, [place] % (Auto) 8.6, Eos % (Auto) 1.8, Baso % (Auto) 0.3, Absolute Neuts (auto) 8.8 H, Absolute Lymphs (auto) 1.10, Nucleated RBC % [address] 06/19/21 17:05 IMPRESSION: No acute intracranial or calvarial abnormality. If there is continued concern for acute stroke, MRI is recommended. Electronically Signed: Isael Christianson DO at 18:16 EDT Tel [phone], Service support , Chest X-Ray 06/19/21 17:26 IMPRESSION: Bibasilar densities. The findings are consistent with the interstitial changes in nodules present on a CT of 6 days earlier. Electronically Signed: Isael Christianson DO at 17:45 EDT Tel [phone], Service support , Assessment & Plan Assessment/Plan (1) Acute CVA (cerebrovascular accident): PLAN: 1. CVA -Admit to PCU for observation -Cardiac monitoring ordered -NIH stroke scale and vital signs every 4 hours per stroke protocol, current NIH score 1 -CT negative, MRI and MRA ordered for a.m. -Echocardiogram in a.m. -CBC, BMP, lipid panel, TSH, magnesium ordered -PT OT ST to eval and treat -Trend cardiac enzymes -Patient previously on Plavix however it has been on hold for 20 days due to pending surgical procedure 2. Hypertension -Will hold amlodipine and carvedilol at this time -Vital signs per protocol -As needed labetalol and hydralazine ordered -We will continue Lasix at this time due to patient history of congestive heart failure 3. Hyperlipidemia -Lipid panel ordered for a.m. -Continue atorvastatin 4. Diabetes mellitus type 2 -Will hold Metformin at this time -AC at bedtime blood sugars with sliding scale insulin ordered 5. Colon cancer -Patient recently diagnosed, patient is to go for port placement with Dr. Resendiz tomorrow and due to this has not been on her Plavix for past 20 days DVT prophylaxis-SCDs only This patient was seen by AGUSTINA Albert under the supervision of Dr. Frazier. Documented by User: Dr. Hal Frazier MD 06/19/21 21:38 HPI - General General Date of Admission: 06/19/21 [facility] Medical History Abnormal nuclear stress test Anemia Arthritis Cancer Cardiomyopathy Carotid artery stenosis Congenital talipes calcaneovalgus of left foot COPD (chronic obstructive pulmonary disease) Diabetes mellitus type II, uncontrolled Diastolic congestive heart failure Essential hypertension History of CHF (congestive heart failure) History of CVA (cerebrovascular accident) (10/21/17) History of pleural effusion (10/21/17) History of renal disease Hyperlipidemia Low iron Nonrheumatic mitral valve regurgitation Nonrheumatic tricuspid valve regurgitation Preop cardiovascular exam Renal insufficiency Shortness of breath on exertion Snoring Tricuspid regurgitation Wears dentures Home Medications atorvastatin 40 mg tablet 40 mg PO QHS 11/22/19 [History Last Taken 06/18/21] carvedilol 25 mg tablet 25 mg PO BID 11/22/19 [History Last Taken 06/19/21] furosemide 40 mg tablet 40 mg PO DAILY 11/22/19 [History Last Taken 06/19/21] metformin 500 mg tablet 500 mg PO DAILY 11/22/19 [History Last Taken 06/19/21] psyllium [Metamucil] 1 packet PO DAILY 06/18/21 [History Last Taken 06/19/21] amlodipine 5 mg PO DAILY 06/19/21 [History Last Taken 06/19/21] aspirin [Aspirin Low-Strength] 81 mg PO DAILY 06/19/21 [History Last Taken 06/17/21] cinnamon bark [Cinnamon] 1,000 mg PO BID 06/19/21 [History Last Taken 06/19/21] potassium chloride 16 meq PO DAILY 06/19/21 [History Last Taken 06/19/21] Allergy/AdvReac Type Severity Reaction Status Date / Time latex Allergy Severe Hives Verified 06/19/21 17:04 codeine AdvReac Unknown unknown Verified 06/19/21 17:04 Family History Mother Bleeding disorder Diabetes CAD (coronary artery disease) Hypertension Hyperlipidemia Kidney disease Sister Asthma CAD (coronary artery disease) Hyperlipidemia Father Cancer CAD (coronary artery disease) Hypertension Hyperlipidemia CVA (cerebral vascular accident) Brother CAD (coronary artery disease) Hyperlipidemia Surgical History History of cardiac catheterization History of colonoscopy History of foot surgery Hx of cataract surgery Social History Smoking Status: Never smoker Results Lab / Micro Data Result Diagrams: 06/19/21 17:20 06/19/21 17:18 Charges/Coding Addendum Addendum: Patient was seen and examined independently. I agree with assessment and plan by Marlena Hawk NP-Clement In Summary, Patient is a 66-year-old female with a significant history of a CVA x2 who presents to the emergency department with strokelike symptoms. Several hours before presentation patient who is left-handed noticed that she could not write. Then she noted that she could not open her left hand fully. Thereafter family noticed the patient had a left facial droop. Of note patient was on Plavix but on 27 May 2021 her Plavix was stopped because cardiology was considering a heart cath. However, patient's cardiology changed his/her mind about a heart cath and referred the patient to GI. It was found that patient has metastatic colon cancer. And the plan was to place a Port-A-Cath on 06/20/2021 for infusion so Plavix remain held At the emergency department CT of the brain was negative. Emergent department doctor discussed the case with teleneurologist who recommended keeping aspirin on hold for starting patient on aspirin; if patient's symptoms get worse to get CTA head and neck if patient remained stable with an MRI be obtained. Physical exam: General: Well-nourished, well-developed. Head: Normocephalic, atraumatic, no tenderness Eyes: Miotic pupil, EOMI ENT, no trauma, moist mucous membranes, no rhinorrhea Neck: Nontender, full range of motion, no spinal tenderness, deformities, step- off CVS: Regular rate and rhythm. S1-S2 present. No murmur, gallop or rub. Respiratory : clear to auscultation bilaterally, chest wall nontender, no wheezing Abdomen: Soft, nontender, nondistended, normal bowel sounds, no masses : Deferred Back: Nontender, no CVA tenderness, no midline spinal tenderness, deformities, step-offs Extremities: Bilateral leg swelling. Nontender full range of motion, no trauma Skin: Normal color, no trauma, abrasions Neuro: Alert, oriented, cranial nerves II through XII grossly intact except patient has miotic pupil. Mild flattening of left nasolabial fold. [id number] testing intact. Patient is unable to do heal to kelly test secondary to bilateral leg swelling and bilateral weakness Psychiatry: Normal mood. Normal affect. Not depressed. Not anxious. Strokelike symptom Serial NINDS NIH Scale ordered Impression of head CT by radiology is as above Upon my personal head CT image review: I agree with radiologist interpretation Lipid profile Physical therapy, occupational therapy and speech therapy to work with patient. N.p.o. until bedside swallow eval. Daily aspirin. High intensity statin Permissive hypertension. Control blood pressure with labetalol for systolic blood pressure of more than 220 or diastolic blood pressure of more than 120. Hold all home blood pressure medications. MRI/MRA of head; brain; and neck. Echocardiogram ordered. Heart failure Systolic or diastolic unspecified. Stable. Continue Lasix. Carvedilol held for permissive hypertension. Diabetes mellitus Metformin held. Accu-Chek with correction scale insulin ordered. DVT prophylaxis: SCD ordered Visit Charges OBSV E&M: 14625 Initial observation care L2
--- NOTE | 2021-06-19 21:34 | ECHOD_ITS ---
Reason For Study: TIA/CVA Procedure This was a 2D Doppler, Color Flow transthoracic echocardiogram. Exam performed portable in patient room. Left Ventricle Normal left ventricle. The estimated ejection fraction is EF 55-60 %. Right Ventricle Normal right ventricle. Normal systolic function. Atria Normal left atrium. Normal right atrium. Intact atrial septum. Mitral Valve The mitral valve is structurally normal. No prolapse or stenosis seen. Tricuspid Valve Normal tricuspid valve. Trivial tricuspid valve insufficiency. Aortic Valve Moderate diffuse aortic valve thickening. Mild aortic stenosis. Pulmonic Valve The pulmonic valve is not well visualized. Great Vessels Normal aortic root. Pericardium/Pleural No pericardial effusion. Medication Performed a rapid injection of agitated mix of 9 cc saline and 1cc air to assess for atrial septal defect. MMode/2D Measurements & Calculations LVIDd: 4.1 cm IVSd: 0.86 cm LVOT diam: 2.0 cm LVIDs: 2.8 cm LVPWd: 0.86 cm RVDd: 3.4 cm FS: 32.2 % LVOT area: 3.1 cm2 Ao root diam: 3.5 cm LAV(MOD-bp): 57.8 ml LVAd ap4: 25.8 cm2 LAV(MOD-bp) Indexed: 33.3 ml/m2 LVLd ap4: 8.0 cm LAV(MOD-sp2): 51.1 ml EDV(MOD-sp4): 69.8 ml LAV(MOD-sp4): 60.1 ml EDV(sp4-el): 70.2 ml LVAs ap4: 13.7 cm2 LVLs ap4: 5.7 cm ESV(MOD-sp4): 28.3 ml ESV(sp4-el): 27.5 ml EF(MOD-sp4): 59.5 % EF(sp4-el): 60.8 % LVAd ap2: 24.3 cm2 SV(MOD-sp4): 41.6 ml SV(MOD-sp2): 41.7 ml LVLd ap2: 7.8 cm EDV(MOD-sp2): 65.0 ml EDV(sp2-el): 64.2 ml LVAs ap2: 12.4 cm2 LVLs ap2: 5.8 cm ESV(MOD-sp2): 23.3 ml ESV(sp2-el): 22.5 ml EF(MOD-sp2): 64.2 % SV(sp4-el): 42.6 ml Aortic Valve Planimetry: 1.7 cm2 LA A4 area: 21.1 cm2 LA dimension(2D): 4.5 cm RA A4 area: 10.6 cm2 Doppler Measurements & Calculations MV E max lev: 99.1 cm/sec Lat Peak E' Lev: 11.1 cm/sec Med Peak E' Lev: 6.0 cm/sec MV A max lev: 74.8 cm/sec E/E' lat: 8.9 E/E' med: 16.5 MV E/A: 1.3 Ao V2 max: 211.6 cm/sec LV V1 max: 99.8 cm/sec SV(LVOT): 73.6 ml Ao max P.9 mmHg LV V1 max P.0 mmHg Ao V2 mean: 153.4 cm/sec LV V1 mean P.8 mmHg Ao mean P.3 mmHg LV V1 mean: 81.2 cm/sec Ao V2 VTI: 43.5 cm LV V1 VTI: 23.5 cm CARLOS(I,D): 1.7 cm2 CARLOS(V,D): 1.5 cm2 TR max lev: 309.4 cm/sec TR max P.3 mmHg ECHO/Echo Complete Interpretation Summary The estimated ejection fraction is EF 55-60 %. Normal LV systolic function Mild Aortic Stenosis CARLOS 1.5 cm2 Intact interatrial septum with negative buble study Ordering Physician: Marlena Hawk Referring Physician: LETICIA REYNOLDS Performed By: Ekta Francisco, PIPE, RVT
[2021-06-19] MEDS: Atorvastatin Calcium 40 MG Tablet PO (22:25)
[2021-06-19 22:41] LABS: Troponin-I HS 5 pg/mL (3.0-54.0)
[2021-06-19 23:28] LABS: Troponin-I HS 6 pg/mL (3.0-54.0)
[2021-06-19 23:30] LABS: Bedside Glucose 179 mg/dL (70-110)
[2021-06-20] VITALS (13 sets, daily range): BP systolic 114–158; BP diastolic 57–90; PULSE 73–86; RESP 16–18; TEMP 36.6–37.4; O2SAT 92–98; BMI 33.0
[2021-06-20 06:23] LABS: Absolute Lymphocyte Count 1.18 X10^3/uL (0.83-4.51); Absolute Neutrophil Count 7.6 X10^3/uL (2.0-7.7); Basophil# 0.06 X10^3/uL; Basophil% 0.6 % (0-1); Eosinophil# 0.38 X10^3/uL; Eosinophils% 3.6 % (0-5); Hematocrit 25.2 % (37-47); Hemoglobin 7.8 g/dL (12.0-15.0); Lymphocyte # 1.18 X10^3/ul (0.83-4.51); Lymphocyte % 11.3 % (19-41); Mean Corpuscular Hgb 24.1 pg (27.0-32.0); Mean Corpuscular Volume 77.8 fL (81-99); Mean Platelet Vol. 8.7 fl (6.2-12.0); Monocyte# 1.16 X10^3/uL; Monocyte% 11.1 % (0-10); NRBC Flagged by Analyzer 0 % (0-5); Neutrophil # 7.59 X10^3/uL (2.7-7.7); Neutrophil % 72.9 % (47-70); Platelet Count 468 K/mm3 (150-450); RBC Distribution Width CV 19.3 % (11.6-14.6); RBC Distribution Width SD 54.5 fl (35.1-43.9); Red Blood Count 3.24 M/mm3 (4.2-5.4); White Blood Count 10.4 K/mm3 (4.4-11.0)
[2021-06-20 06:26] LABS: Bedside Glucose 95 mg/dL (70-110)
[2021-06-20 07:05] LABS: Anion Gap 5 (5-15); BUN 9 mg/dL (7-18); BUN/Creat Ratio 13.7 RATIO (10-20); Calcium,Total 7.8 mg/dL (8.5-10.1); Chloride 104 mmol/L (98-107); Cholesterol 55 mg/dL (200); Creatinine, Serum 0.66 mg/dL (0.55-1.02); EST Glomerular Filtration Rate 96 mL/min (>60); Est Glom Filt Rate - Afr Amer 116 mL/min (>60); Estimated Creatinine Clearance 39.75 ml/min; Glucose 87 mg/dL (74-106); High Density Lipoprotein 29 mg/dL; Potassium 4.5 mmol/L (3.5-5.1); Sodium Level 134 mmol/L (136-145); Thyroid Stim Hormone (TSH) 2.64 uIU/mL (0.358-3.74); Triglycerides 58 mg/dL; Very Low Density Lipoprotein 12 mg/dL (5-40)
[2021-06-20] MEDS: Aspirin E.C. 81 MG Tablet PO (08:21)
--- NOTE | 2021-06-20 09:00 | MRI_ITS ---
STUDY: MRA NECK WITH AND WITHOUT CONTRAST REASON FOR EXAM: Female, 66 years old. CVA TECHNIQUE: 3-D cobd-up-njkeik (TOF) imaging was performed in an 1.5 T MRI scanner. dotarem 16ml iv was administered for the contrast enhanced images. COMPARISON: None. FINDINGS: RIGHT CAROTID ARTERIES: Antegrade flow within the right common carotid artery (CCA). Antegrade flow within the right carotid bulb. There is severe atherosclerotic plaque formation of the origin of the right internal carotid artery with a near complete occlusion. Antegrade flow within the visualized cervical portion of the right internal carotid artery. LEFT CAROTID ARTERIES: Antegrade flow within the left common carotid artery (CCA). Antegrade flow within the left common carotid bulb. There is mild atherosclerotic plaque formation of the origin of the left internal carotid artery with less than 50% cross sectional diameter stenosis. Antegrade flow within the visualized cervical portion of the left internal carotid artery. VERTEBRAL ARTERIES: Antegrade flow within the bilateral vertebral artery. MRI/MRA Neck WITH and W/O Contrast IMPRESSION: Near occlusion of the right ICA. Vascular surgical consultation is recommended. N.B. : The above Results were Read Back by Jenni Tejada MD to Charge Nurse TAURUS Santana, and understanding confirmed on 06/20/2021 11:22:03 (ET). Electronically Signed: Jenni Tejada MD at 11:23 EDT Tel , Service support ,
--- NOTE | 2021-06-20 09:00 | MRI_ITS ---
STUDY: MRI BRAIN WITHOUT CONTRAST REASON FOR EXAM: Female, 66 years old. stroke TECHNIQUE: Standardized multiplanar fat and water weighted pulse sequences were obtained. COMPARISON: Data from yesterday CT of the head FINDINGS: Normal size of the ventricles and extra-axial spaces for the patient''s age. There are multiple white matter hyperintensities, distributed throughout the deep white matter tracts of the cerebral hemispheres, consistent with moderate chronic white matter ischemic changes. There are multiple small foci of restricted diffusion involving the right centrum semiovale and frontoparietal region in a watershed distribution. There is drop of signal on ADC map, consistent with acute infarctions. Normal bilateral basal ganglia. Normal thalami. There is no extra-axial fluid accumulation. Normal flow voids within the major intracranial circulation suggesting patency by spin echo criteria. Normal sella turcica, pituitary gland, infundibular stalk, optic chiasm and hypothalamus. Normal tectal plate and pineal gland. Normal midbrain, casimiro and medulla. Normal cerebellum. Normal basal cisterns. MRI/Brain without Contrast IMPRESSION: Acute right cerebral infarction foci, watershed distribution. N.B. : The above Results were Read Back by Jenni Tejada MD to Charge Nurse Max [phone], and understanding confirmed on 06/20/2021 11:22:09 (ET). Electronically Signed: Jenni Tejada MD at 11:23 EDT Tel , Service support ,
--- NOTE | 2021-06-20 09:00 | MRI_ITS ---
STUDY: MRA OF THE HEAD WITHOUT CONTRAST REASON FOR EXAM: Female, 66 years old. CVA. CVA TECHNIQUE: 3-D zncm-gv-memngi (TOF) imaging was performed with MIPs. The study was performed unenhanced. COMPARISON: None. FINDINGS: Patent right cavernous carotid artery. Patent left cavernous carotid artery. Patent right A1 segments of the anterior cerebral artery. Patent left A1 segments of the anterior cerebral artery. Unremarkable anterior communicating artery (ACOM) region. Normal bilateral A2 segments of the anterior cerebral arteries. Patent right M1 and M2 segments of the middle cerebral arteries, with a unremarkable M1 bifurcation. Patent left M1 and M2 segments of the middle cerebral arteries, with a unremarkable M1 bifurcation. There is non-visualization of the right posterior communicating artery (PCOM). There is non-visualization of the left posterior communicating artery (PCOM). Patent basilar artery with a normal basilar bifurcation. Patent bilateral posterior cerebral arteries. MRI/MRA Head ONLY without Contrast IMPRESSION: No large vessel occlusion. Electronically Signed: Jenni Tejada MD at 11:11 EDT Tel , Service support ,
--- NOTE | 2021-06-20 10:38 | NURSING ---
0827-[facility] and VS completed at this time d/t pt planned to leave floor for imaging at 0900.
--- NOTE | 2021-06-20 10:38 | PCS.PANDOC ---
PANDEMIC DOCUMENTATION INITIATED: Date: 04/07/2021 Time: 190
[2021-06-20 11:05] LABS: Bedside Glucose 111 mg/dL (70-110)
[2021-06-20] MEDS: Furosemide 40 MG Tablet PO (11:31)
[2021-06-20] MEDS: Glucerna Shake 120 ML LIQUID PO (11:32)
[2021-06-20] MEDS: Ferrous Sulfate 325 MG Tablet PO (11:37)
--- NOTE | 2021-06-20 12:17 | CASEMGMT ---
According to the [employer] website, the following are in-network tertiary facilities: [facility], [place], [place], [facility], [facility], [facility], and . Sharee CONDON CM
--- NOTE | 2021-06-20 12:53 | CT_ITS ---
EXAM: CT ANGIOGRAPHY HEAD AND NECK WITH INTRAVENOUS CONTRAST CLINICAL INDICATION: Stroke TECHNIQUE: Grady of Scales/head and neck CT angiography protocol performed with intravenous contrast. This CT exam was performed using one or more of the following dose reduction techniques: automated exposure control, adjustment of the mA and/or kV according to patient size, and/or use of iterative reconstruction technique. This report was created using Jam[employer] report generation technology. MIP reconstructed images were created and reviewed. CONTRAST: IV 100mL [id number] COMPARISON: MRA head and neck 06.20.21 FINDINGS: HEAD: RIGHT ANTERIOR CEREBRAL ARTERY: Unremarkable. No significant stenosis at the visualized segments. Anterior communicating artery is present. No aneurysm. RIGHT MIDDLE CEREBRAL ARTERY: Unremarkable. No significant stenosis at the visualized segments. No aneurysm. RIGHT POSTERIOR CEREBRAL ARTERY: Unremarkable. No occlusion or significant stenosis. No aneurysm. LEFT ANTERIOR CEREBRAL ARTERY: Unremarkable. No significant stenosis at the visualized segments. No aneurysm. LEFT MIDDLE CEREBRAL ARTERY: Unremarkable. No significant stenosis at the visualized segments. No aneurysm. LEFT POSTERIOR CEREBRAL ARTERY: Unremarkable. No occlusion or significant stenosis. No aneurysm. BASILAR ARTERY: Unremarkable. No significant stenosis. No aneurysm. GREAT VESSELS OF AORTIC ARCH: Unremarkable. Normal anatomy, patent. OTHER VASCULATURE: No vascular malformation. NECK: RIGHT COMMON CAROTID ARTERY: Unremarkable. No significant stenosis. No dissection or occlusion. RIGHT INTERNAL CAROTID ARTERY: There is calcified plaque formation of the right cavernous carotid artery, with a mild stenosis (less than 50%). There is calcified plaque formation of the left cavernous carotid artery, with a mild stenosis (less than 50%). ALL ABOVE CRITERIA BY NASCET. RIGHT EXTERNAL CAROTID ARTERY: Unremarkable. No occlusion. RIGHT VERTEBRAL ARTERY: Unremarkable. No significant stenosis. No dissection or occlusion. LEFT COMMON CAROTID ARTERY: Unremarkable. No significant stenosis. No dissection or occlusion. LEFT INTERNAL CAROTID ARTERY: There is atherosclerotic plaque formation of the origin of the left internal carotid artery with less than 50% cross sectional diameter stenosis. There is severe atherosclerotic plaque formation of the origin right internal carotid artery with a calculated stenosis of over 80%. ALL ABOVE CRITERIA BY NASCET. LEFT EXTERNAL CAROTID ARTERY: Unremarkable. No occlusion. LEFT VERTEBRAL ARTERY: Unremarkable. No significant stenosis. No dissection or occlusion. THYROID: The thyroid is heterogenous. It contains nodules. This should be further evaluated with ultrasound. This can be performed as an outpatient. Largest nodule is in the left thyroid lobe measuring 6 mm. LUNG APICES: Bilateral apical pneumonia. There is a nodule in the right upper lobe measuring 8.2 mm. This is likely related to the pneumonia. MEDIASTINUM: Diffuse lytic calcified lymph nodes in the mediastinum. SOFT TISSUES: Unremarkable. CAROTID STENOSIS REFERENCE USING NASCET CRITERIA: % ICA stenosis = (1 - narrowest ICA diameter/diameter of distal cervical ICA) x 100. Mild - <50% stenosis. Moderate - 50-69% stenosis. Severe - 70-94% stenosis. Near occlusion - 95-99% stenosis. Occluded - 100% stenosis. CT/CTA Head AND Neck W/ Contrast IMPRESSION: 1. Bilateral apical pneumonia. There is a nodule in the right upper lobe measuring 8.2 mm. This is likely related to the pneumonia. 2. The thyroid is heterogenous. It contains nodules. This should be further evaluated with ultrasound. This can be performed as an outpatient. Largest nodule is in the left thyroid lobe measuring 6 mm. 3. There is calcified plaque formation of the right cavernous carotid artery, with a mild stenosis (less than 50%). There is calcified plaque formation of the left cavernous carotid artery, with a mild stenosis (less than 50%). ALL ABOVE CRITERIA BY NASCET. 4. There is atherosclerotic plaque formation of the origin of the left internal carotid artery with less than 50% cross sectional diameter stenosis. 5. There is severe atherosclerotic plaque formation of the origin right internal carotid artery with a calculated stenosis of over 80%. ALL ABOVE CRITERIA BY NASCET. Electronically Signed: Rosalino Chou MD at 14:38 EDT , Service support ,
[2021-06-20 13:11] LABS: Hemoglobin A1c 6.5 % (3.8-5.6)
--- NOTE | 2021-06-20 14:42 | EX.PCM.CON.S ---
Assessment & Plan Assessment/Plan (1) Acute CVA (cerebrovascular accident): (2) Carotid artery stenosis: QUALIFIERS: Laterality: right Qualified Code(s): I65.21 - Occlusion and stenosis of right carotid artery (3) Rectal cancer: (4) Rectal cancer metastasized to liver: (5) Acute blood loss anemia: PLAN: This was a 45-minute [id number] consultation with the patient's daughter present. This is reasonable complex. She has newly diagnosed rectal cancer with apparent metastasis to liver and probable lung. She has significant blood loss anemia with current hemoglobin of 7.8. She has a history of previous stroke and a history of carotid artery disease according to her. Now she appears to have high-grade lesion of the right internal carotid. I do recommend a confirmatory study of this with either carotid duplex imaging or a CTA of the carotids. Her GI blood loss anemia makes anticoagulation difficult. Even 81 mg aspirin would pose risk to the patient but certainly her carotid disease places her at risk as well. The patient continues to state that she has known coronary disease and yet no intervention. I do not have access to clarification of this at this time. The patient states she was to have a cardiac catheterization within the next week or 2. The patient states that she has an appointment with colorectal surgeon Dr. Keenan Son on June 24, 2021 at [facility]. At this point I do not feel comfortable trying to address her carotid disease locally. I recommend coordination of her cardiology and vascular surgery and colorectal surgery and oncologic medicine per the [facility] service. I am anticipating that she will require tertiary level management of the complexities of her presentation. I appreciate the opportunity of assisting with her surgical care. Darrell Fernandez M.D., F.A.C.S. HPI Consult Data Date of Consult: 06/20/21 HPI Narrative HPI Narrative: BETI JAUREGUI, is a 66 F who presents with findings of acute left facial weakness and left upper extremity and lower extremity weakness. She was admitted on June 19, 2021. Her hemoglobin at that time was 8.5 with a hematocrit of 28.1. Today her hemoglobin is 7.8 with hematocrit of 25.2. Current platelet count is 40 68,000. Current potassium is 4.5. BUN is 9 and creatinine 0.66. Hemoglobin A1c is 6.5. On June [address] she [address] a brain [address] with no acute findings. Previously on June 13, 2021 at the [facility] she had a chest CT. Patchy bilateral infiltrates concerning for pneumonia. Multiple ill-defined pulmonary nodules possibly infectious possibly metastatic. The patient by report has been taken off her anticoagulant by her retail pharmacy technician so that he could perform a cardiac catheterization because she has known cardiac disease. She was told 3 years ago that she has a maker but no intervention was done at that time. In addition she was scheduled by Dr. Terra Resendiz to have a port placed because she has newly diagnosed rectal cancer. She has metastatic disease to liver and? Spleen. I do not have copies of those studies. Because of the patient's presentation with stroke that procedure was canceled. Apparently her cardiac catheterization is scheduled for the near future and her port was scheduled for prior to the heart cath. The patient states in 2017 she had a stroke. She claims she had a speech deficit. Rehab therapy however suggest that she had extremity weakness. She claims her retail pharmacy technician Dr. Crane previously instructed to her that she had carotid disease in addition to her coronary disease but it does not appear that either were addressed as best I can tell from the patient. She adamantly denies that she has any coronary stent in place. [facility] Medical History Abnormal nuclear stress test Anemia Arthritis Cancer Cardiomyopathy Carotid artery stenosis Congenital talipes calcaneovalgus of left foot COPD (chronic obstructive pulmonary disease) Diabetes mellitus type II, uncontrolled Diastolic congestive heart failure Essential hypertension History of CHF (congestive heart failure) History of CVA (cerebrovascular accident) (10/21/17) History of pleural effusion (10/21/17) History of renal disease Hyperlipidemia Low iron Nonrheumatic mitral valve regurgitation Nonrheumatic tricuspid valve regurgitation Preop cardiovascular exam Renal insufficiency Shortness of breath on exertion Snoring Tricuspid regurgitation Wears dentures Home Medications atorvastatin 40 mg tablet 40 mg PO QHS 11/22/19 [History Last Taken 06/18/21] carvedilol 25 mg tablet 25 mg PO BID 11/22/19 [History Last Taken 06/19/21] furosemide 40 mg tablet 40 mg PO DAILY 11/22/19 [History Last Taken 06/19/21] metformin 500 mg tablet 500 mg PO DAILY 11/22/19 [History Last Taken 06/19/21] psyllium [Metamucil] 1 packet PO DAILY 06/18/21 [History Last Taken 06/19/21] amlodipine 5 mg PO DAILY 06/19/21 [History Last Taken 06/19/21] aspirin [Aspirin Low-Strength] 81 mg PO DAILY 06/19/21 [History Last Taken 06/17/21] cinnamon bark [Cinnamon] 1,000 mg PO BID 06/19/21 [History Last Taken 06/19/21] potassium chloride 16 meq PO DAILY 06/19/21 [History Last Taken 06/19/21] Allergy/AdvReac Type Severity Reaction Status Date / Time latex Allergy Severe Hives Verified 06/19/21 17:04 codeine AdvReac Unknown unknown Verified 06/19/21 17:04 Family History Mother Bleeding disorder Diabetes CAD (coronary artery disease) Hypertension Hyperlipidemia Kidney disease Sister Asthma CAD (coronary artery disease) Hyperlipidemia Father Cancer CAD (coronary artery disease) Hypertension Hyperlipidemia CVA (cerebral vascular accident) Brother CAD (coronary artery disease) Hyperlipidemia Surgical History History of cardiac catheterization History of colonoscopy History of foot surgery Hx of cataract surgery Social History Smoking Status: Never smoker Lab / Micro Data Result Diagrams: 06/20/21 05:40 06/20/21 05:40 Labs: Laboratory Results - last 24 hr 06/19/21 17:10: POC Glucose 255 H 06/19/21 17:18: PT 15.2 H, INR 1.3, APTT 26.5 06/19/21 17:18: Sodium 136, Potassium 5.2 H, Chloride 104, Carbon Dioxide 26.0, Anion Gap 6, BUN 12, Creatinine 0.91, Estim Creat Clear Calc 43.68, Est GFR (MDRD) Af Amer 79, Est GFR (MDRD) Non-Af 66, BUN/Creatinine Ratio 13.1, Glucose 228 H, Calcium 7.9 L, Magnesium 2.0, Troponin I High Sens 4 06/19/21 17:18: Magnesium Cancelled 06/19/21 17:20: WBC 11.1 H, RBC 3.54 L, Hgb 8.5 L, Hct 28.1 L, MCV 79.4 L, MCH 24.0 L, MCHC 30.2 L, RDW Std Deviation 54.9 H, RDW Coeff of Dann 19.1 H, Plt Count 501 H, MPV 8.5, Immature Gran % (Auto) 0.600, Neut % (Auto) 78.8 H, Lymph % (Auto) 9.9 L, Kittson % (Auto) 8.6, Eos % (Auto) 1.8, Baso % (Auto) 0.3, Absolute Neuts (auto) 8.8 H, Absolute Lymphs (auto) 1.10, Nucleated RBC % 0 06/19/21 21:55: Troponin I High Sens 5 06/19/21 22:23: POC Glucose 179 H 06/19/21 23:05: Troponin I High Sens 6 06/20/21 05:40: WBC 10.4, RBC 3.24 L, Hgb 7.8 L, Hct 25.2 L, MCV 77.8 L, MCH 24.1 L, MCHC 31.0 L, RDW Std Deviation 54.5 H, RDW Coeff of Dann 19.3 H, Plt Count 468 H, MPV 8.7, Immature Gran % (Auto) 0.500, Neut % (Auto) 72.9 H, Lymph % (Auto) 11.3 L, Kittson % (Auto) 11.1 H, Eos % (Auto) 3.6, Baso % (Auto) 0.6, Absolute Neuts (auto) 7.6, Absolute Lymphs (auto) 1.18, Nucleated RBC % 0 06/20/21 05:40: Sodium 134 L, Potassium 4.5, Chloride 104, Carbon Dioxide 25.0, Anion Gap 5, BUN 9, Creatinine 0.66, Estim Creat Clear Calc 39.75, Est GFR (MDRD) Af Amer 116, Est GFR (MDRD) Non-Af 96, BUN/Creatinine Ratio 13.7, Glucose 87, Calcium 7.8 L, Triglycerides 58, Cholesterol 55, LDL Cholesterol 14, VLDL Cholesterol 12, HDL Cholesterol 29 L, TSH 2.64 06/20/21 05:40: Hemoglobin A1c 6.5 H 06/20/21 06:17: POC Glucose 95 06/20/21 11:02: POC Glucose 111 H Radiology Impression Brain CT 06/19/21 17:05 IMPRESSION: No acute intracranial or calvarial abnormality. If there is continued concern for acute stroke, MRI is recommended. Electronically Signed: Isael Christianson DO at 18:16 EDT Tel [phone], Service support , Chest X-Ray 06/19/21 17:26 IMPRESSION: Bibasilar densities. The findings are consistent with the interstitial changes in nodules present on a CT of 6 days earlier. Electronically Signed: Isael Christianson DO at 17:45 EDT Tel [phone], Service support , Echocardiogram 06/19/21 21:34 Interpretation Summary The estimated ejection fraction is EF 55-60 %. Normal LV systolic function Mild Aortic Stenosis CARLOS 1.5 cm2 Intact interatrial septum with negative buble study Ordering Physician: Marlena Hawk Referring Physician: LETICIA REYNOLDS Performed By: Ekta Francisco, ELOCS, RVT Brain MRI 06/20/21 09:00 IMPRESSION: Acute right cerebral infarction foci, watershed distribution. N.B. : The above Results were Read Back by Jenni Tejada MD to Charge Nurse Max [phone] RN, and understanding confirmed on 06/20/2021 11:22:09 (ET). Electronically Signed: Jenni Tejada MD at 11:23 EDT Tel , Service support , ADDENDUM: 06/20/21 1129 IMPRESSION: Acute right cerebral infarction foci, watershed distribution. N.B. : The above Results were Read Back by Jenni Tejada MD to Charge Nurse aMx [id number], RN, and understanding confirmed on 06/20/2021 11:22:09 (ET). Electronically Signed: Jenni Tejada MD at 11:23 EDT Tel , Service support , Head MRA 06/20/21 09:00 IMPRESSION: No large vessel occlusion. Electronically Signed: Jenni Tejada MD at 11:11 EDT Tel , Service support , Neck MRA 06/20/21 09:00 IMPRESSION: Near occlusion of the right ICA. Vascular surgical consultation is recommended. N.B. : The above Results were Read Back by Jenni Tejada MD to Charge Nurse Santana, RN, and understanding confirmed on 06/20/2021 11:22:03 (ET). Electronically Signed: Jenni Tejada MD at 11:23 EDT Tel , Service support , ADDENDUM: 06/20/21 1130 IMPRESSION: Near occlusion of the right ICA. Vascular surgical consultation is recommended. N.B. : The above Results were Read Back by Jenni Tejada MD to Charge Nurse Santana, RN, and understanding confirmed on 06/20/2021 11:22:03 (ET). Electronically Signed: Jenni Tejada MD at 11:23 EDT Tel , Service support , Head/Neck CTA 06/20/21 12:53 IMPRESSION: 1. Bilateral apical pneumonia. There is a nodule in the right upper lobe measuring 8.2 mm. This is likely related to the pneumonia. 2. The thyroid is heterogenous. It contains nodules. This should be further evaluated with ultrasound. This can be performed as an outpatient. Largest nodule is in the left thyroid lobe measuring 6 mm. 3. There is calcified plaque formation of the right cavernous carotid artery, with a mild stenosis (less than 50%). There is calcified plaque formation of the left cavernous carotid artery, with a mild stenosis (less than 50%). ALL ABOVE CRITERIA BY NASCET. 4. There is atherosclerotic plaque formation of the origin of the left internal carotid artery with less than 50% cross sectional diameter stenosis. 5. There is severe atherosclerotic plaque formation of the origin right internal carotid artery with a calculated stenosis of over 80%. ALL ABOVE CRITERIA BY NASCET. Electronically Signed: Rosalino Chou MD at 14:38 EDT , Service support ,
--- NOTE | 2021-06-20 15:50 | CASEMGMT ---
SW completed a PHQ9 with patient as she had a Stroke. Patient scored a 2 which indicates minimal depression. Patient feels her low energy level and poor appetite is from her cancer diagnosis. Patient was positive and told SW God is in control. Sophie Valverde MSW STEPAN
--- NOTE | 2021-06-20 17:03 | NURSING ---
1400 [facility] late d/t pt meeting with Dr Fernandez and SOC consultation.
--- NOTE | 2021-06-20 17:20 | PCM.PN.HOSP ---
Documented by User: Polo TURCIOS 06/20/21 17:33 Subjective Subjective Patient is a 66-year-old female comfortably resting in bed, alert and orient x3. Patient still has moderate left-sided ataxia in the left upper extremity. Patient denies development of any new symptoms overnight. Patient does not appear in acute distress. Objective Data Objective Data Vital Signs: Vital Signs Temp Pulse Resp BP Pulse Ox 98.5 F 86 16 142/86 H 98 06/20/21 16:50 06/20/21 16:50 06/20/21 16:50 06/20/21 16:50 06/20/21 16:50 Oxygen Delivery Method Room Air Weight: 169 lb 8.568 oz Body Mass Index (BMI) 33.0 Intake & Output: Intake and Output for Last 24 Hours 06/18/21 06/19/21 06/20/21 23:59 23:59 23:59 Intake Total 640 / 640 Output Total 50 / 50 Balance 590 / 590 Medical Nutrition Assessment Dietitian: Malnutrition Criteria Met Start: 06/20/21 15:11 Freq: Status: Active Protocol: Document 06/20/21 16:46 RMA (Rec: 06/20/21 16:46 RMA [id number]) Nutrition Malnutrition Evidence of Malnutrition Exists Yes Malnutrition (severe): Acute Illness/Injury Evidenced By Suboptimal Energy Intake ( Severe),Weight Loss (Severe) Clinical Problem Acute Disease or Injury Related Malnutrition Etiology Severe protein/calorie malnutrition in the context of acute illness related to inadequate oral intake Signs/Symptoms as evidenced by ~23% wt loss x 12 months, PO meeting less than 50% estimated nutrition needs x 12 months and need for ONS Status Active Problem Recommendation Dietitian Recommendations/Changes Will adjust diet to Carbohydrate-Controlled (no caloric restriction); no added salt--monitor need to restrict fluids. Will d/c glucerna shake w/ medpass. Will add 240ml strawberry glucerna shake TID w/meals as tolerated per pt request. Lab / Micro Data Result Diagrams: 06/20/21 05:40 06/20/21 05:40 Labs: Laboratory Results - last 24 hr 06/19/21 17:10: POC Glucose 255 H 06/19/21 17:18: PT 15.2 H, INR 1.3, APTT 26.5 06/19/21 17:18: Sodium 136, Potassium 5.2 H, Chloride 104, Carbon Dioxide 26.0, Anion Gap 6, BUN 12, Creatinine 0.91, Estim Creat Clear Calc 43.68, Est GFR (MDRD) Af Amer 79, Est GFR (MDRD) Non-Af 66, BUN/Creatinine Ratio 13.1, Glucose 228 H, Calcium 7.9 L, Magnesium 2.0, Troponin I High Sens 4 06/19/21 17:18: Magnesium Cancelled 06/19/21 17:20: WBC 11.1 H, RBC 3.54 L, Hgb 8.5 L, Hct 28.1 L, MCV 79.4 L, MCH 24.0 L, MCHC 30.2 L, RDW Std Deviation 54.9 H, RDW Coeff of Dann 19.1 H, Plt Count 501 H, MPV 8.5, Immature Gran % (Auto) 0.600, Neut % (Auto) 78.8 H, Lymph % (Auto) 9.9 L, [place] % (Auto) 8.6, Eos % (Auto) 1.8, Baso % (Auto) 0.3, Absolute Neuts (auto) 8.8 H, Absolute Lymphs (auto) 1.10, Nucleated RBC % 0 06/19/21 21:55: Troponin I High Sens 5 06/19/21 22:23: POC Glucose 179 H 06/19/21 23:05: Troponin I High Sens 6 06/20/21 05:40: WBC 10.4, RBC 3.24 L, Hgb 7.8 L, Hct 25.2 L, MCV 77.8 L, MCH 24.1 L, MCHC 31.0 L, RDW Std Deviation 54.5 H, RDW Coeff of Dann 19.3 H, Plt Count 468 H, MPV 8.7, Immature Gran % (Auto) 0.500, Neut % (Auto) 72.9 H, Lymph % (Auto) 11.3 L, [place] % (Auto) 11.1 H, Eos % (Auto) 3.6, Baso % (Auto) 0.6, Absolute Neuts (auto) 7.6, Absolute Lymphs (auto) 1.18, Nucleated RBC % 0 06/20/21 05:40: Sodium 134 L, Potassium 4.5, Chloride 104, Carbon Dioxide 25.0, Anion Gap 5, BUN 9, Creatinine 0.66, Estim Creat Clear Calc 39.75, Est GFR (MDRD) Af Amer 116, Est GFR (MDRD) Non-Af 96, BUN/Creatinine Ratio 13.7, Glucose 87, Calcium 7.8 L, Triglycerides 58, Cholesterol 55, LDL Cholesterol 14, VLDL Cholesterol 12, HDL Cholesterol 29 L, TSH 2.64 06/20/21 05:40: Hemoglobin A1c 6.5 H 06/20/21 06:17: POC Glucose 95 06/20/21 11:02: POC Glucose 111 H Radiography Diagnostic Testing: Radiology Impression Brain CT 06/19/21 17:05 IMPRESSION: No acute intracranial or calvarial abnormality. If there is continued concern for acute stroke, MRI is recommended. Electronically Signed: Isael Christianson DO at 18:16 EDT Tel [phone], Service support , Chest X-Ray 06/19/21 17:26 IMPRESSION: Bibasilar densities. The findings are consistent with the interstitial changes in nodules present on a CT of 6 days earlier. Electronically Signed: Isael Christianson DO at 17:45 EDT Tel [phone], Service support , Echocardiogram 06/19/21 21:34 Interpretation Summary The estimated ejection fraction is EF 55-60 %. Normal LV systolic function Mild Aortic Stenosis CARLOS 1.5 cm2 Intact interatrial septum with negative buble study Ordering Physician: Marlena Hawk Referring Physician: LETICIA REYNOLDS Performed By: Ekta Francisco, RDCS, RVT Brain MRI 06/20/21 09:00 IMPRESSION: Acute right cerebral infarction foci, watershed distribution. N.B. : The above Results were Read Back by Jenni Tejada MD to Charge Nurse Santana [phone], RN, and understanding confirmed on 06/20/2021 11:22:09 (ET). Electronically Signed: Jenni Tejada MD at 11:23 EDT Tel , Service support , ADDENDUM: 06/20/21 1129 IMPRESSION: Acute right cerebral infarction foci, watershed distribution. N.B. : The above Results were Read Back by Jenni Tejada MD to Charge Nurse Santana [phone], RN, and understanding confirmed on 06/20/2021 11:22:09 (ET). Electronically Signed: Jenni Tejada MD at 11:23 EDT Tel , Service support , Head MRA 06/20/21 09:00 IMPRESSION: No large vessel occlusion. Electronically Signed: Jenni Tejada MD at 11:11 EDT Tel , Service support , Neck MRA 06/20/21 09:00 IMPRESSION: Near occlusion of the right ICA. Vascular surgical consultation is recommended. N.B. : The above Results were Read Back by Jenni Tejada MD to Charge Nurse Max RN, and understanding confirmed on 06/20/2021 11:22:03 (ET). Electronically Signed: Jenni Tejada MD at 11:23 EDT Tel , Service support , ADDENDUM: 06/20/21 1130 IMPRESSION: Near occlusion of the right ICA. Vascular surgical consultation is recommended. N.B. : The above Results were Read Back by Jenni Tejada MD to Charge Nurse TAURUS Santana, and understanding confirmed on 06/20/2021 11:22:03 (ET). Electronically Signed: Jenni Tejada MD at 11:23 EDT Tel , Service support , Head/Neck CTA 06/20/21 12:53 IMPRESSION: 1. Bilateral apical pneumonia. There is a nodule in the right upper lobe measuring 8.2 mm. This is likely related to the pneumonia. 2. The thyroid is heterogenous. It contains nodules. This should be further evaluated with ultrasound. This can be performed as an outpatient. Largest nodule is in the left thyroid lobe measuring 6 mm. 3. There is calcified plaque formation of the right cavernous carotid artery, with a mild stenosis (less than 50%). There is calcified plaque formation of the left cavernous carotid artery, with a mild stenosis (less than 50%). ALL ABOVE CRITERIA BY NASCET. 4. There is atherosclerotic plaque formation of the origin of the left internal carotid artery with less than 50% cross sectional diameter stenosis. 5. There is severe atherosclerotic plaque formation of the origin right internal carotid artery with a calculated stenosis of over 80%. ALL ABOVE CRITERIA BY NASCET. Electronically Signed: Rosalino Chou MD at 14:38 EDT , Service support , Physical Exam Const alert, oriented x3 and no apparent distress HEENT head/scalp atraumatic, moist oral mucous membranes and oropharynx normal Head and Scalp: normocephalic Eyes PERRL, EOMs intact bilaterally and conjunctivae normal Neck no lymphadenopathy, supple and no JVD Resp normal respiratory effort, no retractions, no use of accessory muscles and clear to auscultation bilaterally Cardio regular rate, regular rhythm, no murmurs and no JVD GI normal to inspection, nondistended, normoactive bowel sounds, soft to palpation and non-tender Extremity normal to inspection, full ROM and no clubbing, cyanosis or edema Peripheral Pulses: Yes pulses 2+ throughout Skin no rashes or lesions noted, no wounds, skin turgor normal and no jaundice Neuro CN's II-XII intact bilaterally Psych affect normal Assessment & Plan Assessment/Plan (1) Acute CVA (cerebrovascular accident): PLAN: Day one Discharge planning: Attempted to transfer patient to [facility] for tertiary care. 1) acute CVA Brain MRI demonstrated acute right cerebral infarct. Head MRA and head and neck CTA both demonstrated greater than 80% stenosis of the right internal carotid artery. Left internal coronary did have 50% stenosis. SOC consult ordered as well as vascular surgery consult. Vascular surgery recommends transfer of patient to tertiary facility given colorectal comorbidities and upcoming cancer on June 24 with [facility] physician. Transfer to [facility] initiated/pending. Continue aspirin and statin. 2) rectal cancer metastasized to liver Patient to have colorectal surgeon at [facility] on 06/24/2021. 3) acute on chronic iron deficiency anemia Hemoglobin currently 7.8 with an iron of twenty and iron saturation. Replace iron. Transfuse 1 unit PRBCs trend CBC in a.m. DVT prophylaxis - not indicated Patient seen by Polo Goldsmith PA-C, under the supervision of Dr. Hardy. Documented by User: Dr. Geetha Hardy MD 06/20/21 18:25 Objective Data Lab / Micro Data Result Diagrams: 06/20/21 05:40 06/20/21 05:40 Charges/Coding Addendum Addendum: This patient was seen in conjunction with TAM Monroe. I have independently interviewed and examined the patient and reviewed pertinent historical, laboratory, and other data. Please refer to TAM Monroe's note for his patient's presentation, findings, and recommendations. I have reviewed and his note and concur with his documentation Patient was seen and examined. Daughter was at the bedside. She stated that she was feeling better. MRI of the brain showed acute right cerebral infarction foci, watershed distribution MRA of the head and neck showed near occlusion of the right ICA. Vascular surgery was consulted, recommended CTA of the head and neck. This showed 80% stenosis of the right ICA. Physical Exam: Gen: Comfortable, not pale, not jaundiced CVS:HS I +II, regular, no murmurs RESP: Diminished at lung bases GI: BS present and normal, soft, nontender, no palpable organs EXT:No edema ASSESSMENT: 1. Acute CVA 2. Acute right ICA occlusion 3. History of CVA 4. Metastatic colon CA 5. Hypertension 6. Hyperlipidemia 7. Severe anemia 8. Newly diagnosed DM Plan: Check iron profile Transfused 1 unit of packed RBC Repeat H&H in a.m. Continue on aspirin Allow permissive hypertension Transfer to [facility] Visit Charges OBSV E&M: 00616 Subsequent observation care L3
[2021-06-20 18:56] LABS: Bedside Glucose 211 mg/dL (70-110)
[2021-06-20] MEDS: 0.9% Normal Saline 1,000 ML 75 ML IV (19:02)
[2021-06-20] MEDS: Insulin Lispro 100 UNIT/ML INSULN.PEN SC (19:03)
[2021-06-20 19:59] LABS: Ferritin 111 ng/mL (8-252); Iron 22 ug/dL (50-170); Iron Binding Capacity,Total 222 ug/dL (250-450); PERCENT IRON SATURATION 9.9 % (15.0-55.0)
[2021-06-20] MEDS: Atorvastatin Calcium 40 MG Tablet PO (22:16)
[2021-06-20 22:50] LABS: Bedside Glucose 169 mg/dL (70-110)
[2021-06-21] VITALS (10 sets, daily range): BP systolic 124–162; BP diastolic 63–85; PULSE 83–85; RESP 16–20; TEMP 37.1–37.4; O2SAT 95–96; BMI 33.0
[2021-06-21] MEDS: 0.9% Saline Lock 10 ML Syringe IV (00:08)
[2021-06-21 06:05] LABS: Absolute Lymphocyte Count 1.36 X10^3/uL (0.83-4.51); Absolute Neutrophil Count 11.2 X10^3/uL (2.0-7.7); Basophil# 0.07 X10^3/uL; Basophil% 0.5 % (0-1); Eosinophil# 0.44 X10^3/uL; Hematocrit 30.8 % (37-47); Hemoglobin 9.9 g/dL (12.0-15.0); Lymphocyte # 1.36 X10^3/ul (0.83-4.51); Lymphocyte % 9.2 % (19-41); Mean Corp Hgb Conc 32.1 g/dL (32-36); Mean Corpuscular Hgb 25.4 pg (27.0-32.0); Mean Corpuscular Volume 79.2 fL (81-99); Mean Platelet Vol. 8.5 fl (6.2-12.0); Monocyte# 1.54 X10^3/uL; Monocyte% 10.5 % (0-10); NRBC Flagged by Analyzer 0 % (0-5); Neutrophil % 76.1 % (47-70); POSITIVE DIFFERENTIAL YES; Platelet Count 438 K/mm3 (150-450); RBC Distribution Width CV 18.8 % (11.6-14.6); Red Blood Count 3.89 M/mm3 (4.2-5.4); White Blood Count 14.7 K/mm3 (4.4-11.0)
[2021-06-21 06:07] LABS: Differential Indicated SCAN CRITERIA MET
[2021-06-21 06:24] LABS: Differential Comment SCANNED
[2021-06-21 06:55] LABS: Bedside Glucose 94 mg/dL (70-110)
--- NOTE | 2021-06-21 07:54 | NURSING ---
Informed during bedside report by PM RN that he attempted to call report, they took phone number and said they would call back. At 0745 this RN attempted to call report to [facility] main at [phone]. Spoke to TAURUS Brandon and was told by her that she would call back in 5 mins. Informed Roma that pt has already left with transport.
--- NOTE | 2021-06-21 10:51 | PCM.DC.SUM ---
Documented by User: Polo TURCIOS 06/21/21 10:58 Providers Date of Admission: 06/20/21 Primary Care Physician: Dr. Emani Delgado, Consultations 06/20/21 11:45 Consult: Vascular Surgery Routine Consulting Provider: Darrell Fernandez Reason for Consult: Near occlusion of the right ICA EMERGENT Consult: No MD Notified: Yes Date Notified: 06/20/21 Time Notified: 11:45 Method of Notification: Page Reason For Visit: TIA Diagnosis Discharge Diagnosis (1) Acute CVA (cerebrovascular accident): Status: Acute Code(s): I63.9 - Cerebral infarction, unspecified Medications at Discharge Home Medications atorvastatin 40 mg tablet 40 mg PO QHS 11/22/19 carvedilol 25 mg tablet 25 mg PO BID 11/22/19 furosemide 40 mg tablet 40 mg PO DAILY 11/22/19 metformin 500 mg tablet 500 mg PO DAILY 11/22/19 psyllium [Metamucil] 1 packet PO DAILY 06/18/21 amlodipine 5 mg PO DAILY 06/19/21 aspirin [Aspirin Low-Strength] 81 mg PO DAILY 06/19/21 cinnamon bark [Cinnamon] 1,000 mg PO BID 06/19/21 potassium chloride 16 meq PO DAILY 06/19/21 Hospital Course Summary of Care Provided Minutes Spent on Discharge: 35 Hospital Course: Disposition: Patient to be transferred to [facility] for tertiary level of care. 1) acute CVA Brain MRI demonstrated acute right cerebral infarct. Head MRA and head and neck CTA both demonstrated greater than 80% stenosis of the right internal carotid artery. Left internal coronary did have 50% stenosis. SOC consult ordered as well as vascular surgery consult. Vascular surgery recommends transfer of patient to tertiary facility given colorectal comorbidities and upcoming surgery on June 24 with [facility] physician. Neurology concurs with recommendation from vascular surgery. Transfer to [facility] completed on morning of 06/21/2021. 2) rectal cancer metastasized to liver Patient to have colorectal surgery at [facility] on 06/24/2021. 3) acute on chronic iron deficiency anemia Hemoglobin currently 7.8 with an iron of twenty and iron saturation. Iron was replaced and patient was transfused 1 unit of PRBCs. Patient seen by Polo Goldsmith PA-C, under the supervision of Dr. Hardy. Physical Exam Narrative Physical exam could not be completed on day of transfer due to patient being transferred overnight. Please refer to progress note from 06/20/2021 for appropriate physical exam findings. Weight / BMI Weight Weight: 169 lb 8.568 oz Body Mass Index (BMI) 33.0 ABG / Lab / Microbiology Data Result Diagrams: 06/21/21 05:32 06/20/21 05:40 Laboratory: Laboratory Results - last 24 hr 06/20/21 05:40: Hemoglobin A1c 6.5 H 06/20/21 11:02: POC Glucose 111 H 06/20/21 18:31: Blood Type O POSITIVE, Antibody Screen TNP, Crossmatch See Detail 06/20/21 18:31: Iron 22 L, TIBC 222 L, Iron Saturation 9.9 L, Ferritin 111 06/20/21 18:31: Antibody Screen NEGATIVE 06/20/21 18:42: POC Glucose 211 H 06/20/21 22:10: POC Glucose 169 H 06/21/21 05:32: WBC 14.7 H, RBC 3.89 L, Hgb 9.9 L, Hct 30.8 L, MCV 79.2 L, MCH 25.4 L, MCHC 32.1, RDW Std Deviation 54.0 H, RDW Coeff of Dann 18.8 H, Plt Count 438, MPV 8.5, Immature Gran % (Auto) 0.700, Neut % (Auto) 76.1 H, Lymph % (Auto) 9.2 L, [place] % (Auto) 10.5 H, Eos % (Auto) 3.0, Baso % (Auto) 0.5, Absolute Neuts (auto) 11.2 H, Absolute Lymphs (auto) 1.36, Nucleated RBC % 0, Differential Comment SCANNED, Diff Path Review December06/21/21 06:44: POC Glucose 94 Radiography Diagnostic Testing: Radiology Impression Brain MRI 06/20/21 09:00 IMPRESSION: Acute right cerebral infarction foci, watershed distribution. N.B. : The above Results were Read Back by Jenni Tejada MD to Charge Nurse Max [id number], and understanding confirmed on 06/20/2021 11:22:09 (ET). Electronically Signed: Jenni Tejada MD at 11:23 EDT Tel , Service support , ADDENDUM: 06/20/21 1129 IMPRESSION: Acute right cerebral infarction foci, watershed distribution. N.B. : The above Results were Read Back by Jenni Tejada MD to Charge Nurse Max [phone], RN, and understanding confirmed on 06/20/2021 11:22:09 (ET). Electronically Signed: Jenni Tejada MD at 11:23 EDT Tel , Service support , Head MRA 06/20/21 09:00 IMPRESSION: No large vessel occlusion. Electronically Signed: Jenni Tejada MD at 11:11 EDT Tel , Service support , Neck MRA 06/20/21 09:00 IMPRESSION: Near occlusion of the right ICA. Vascular surgical consultation is recommended. N.B. : The above Results were Read Back by Jenni Tejada MD to Charge Nurse Max, RN, and understanding confirmed on 06/20/2021 11:22:03 (ET). Electronically Signed: Jenni Tejada MD at 11:23 EDT Tel , Service support , ADDENDUM: 06/20/21 1130 IMPRESSION: Near occlusion of the right ICA. Vascular surgical consultation is recommended. N.B. : The above Results were Read Back by Jenni Tejada MD to Charge Nurse Santana, RN, and understanding confirmed on 06/20/2021 11:22:03 (ET). Electronically Signed: Jenni Tejada MD at 11:23 EDT Tel , Service support , Head/Neck CTA 06/20/21 12:53 IMPRESSION: 1. Bilateral apical pneumonia. There is a nodule in the right upper lobe measuring 8.2 mm. This is likely related to the pneumonia. 2. The thyroid is heterogenous. It contains nodules. This should be further evaluated with ultrasound. This can be performed as an outpatient. Largest nodule is in the left thyroid lobe measuring 6 mm. 3. There is calcified plaque formation of the right cavernous carotid artery, with a mild stenosis (less than 50%). There is calcified plaque formation of the left cavernous carotid artery, with a mild stenosis (less than 50%). ALL ABOVE CRITERIA BY NASCET. 4. There is atherosclerotic plaque formation of the origin of the left internal carotid artery with less than 50% cross sectional diameter stenosis. 5. There is severe atherosclerotic plaque formation of the origin right internal carotid artery with a calculated stenosis of over 80%. ALL ABOVE CRITERIA BY NASCET. Electronically Signed: Rosalino Chou MD at 14:38 EDT , Service support , Meaningful Use Info Meaningful Use Diagnoses (Choose all that apply): Ischemic CVA CVA Therapy Assessed for PT,OT and/or ST?: Yes Ischemic Stroke Antithrombotic order at d/c?: No Reason antithrombotic not ordered: Procedure not Indicated (Patient transferred to tertiary level of care.) Dx of Atrial fib/flutter?: No Reason anticoagulant not ordered: Procedure not Indicated (Patient transferred to tertiary level of care.) Statins at discharge?: No Reason Statin not ordered: Procedure not Indicated (Patient transferred to tertiary level of care.) Primary Dx Acute Ischemic CVA?: Yes IV tPA ordered during stay?: No Reason IV t-PA not ordered: Treatment not Indicated Discharge Plan Admission Admit Date/Time: 06/20/21 15:17 Attending Provider: Geetha Hardy Primary Care Provider: Emani Delgado Consulting Providers: Darrell Fernandez Additional Instructions / Restrictions: Patient Problems: Altered Health Status related to Hospitalization Patient Goals: *Optimal Level of Health *Keep Appointments *Medication Compliance *Remain Safe Discharge Orders/Prescriptions Prescriptions: No Action atorvastatin [Lipitor] 40 mg tablet 40 mg PO QHS RF: 0 carvedilol [Coreg] 25 mg tablet 25 mg PO BID RF: 0 furosemide [Lasix] 40 mg tablet 40 mg PO DAILY RF: 0 metformin 500 mg tablet 500 mg PO DAILY RF: 0 Metamucil Packet 1 packet PO DAILY RF: 0 amlodipine 2.5 mg tablet 5 mg PO DAILY RF: 0 potassium chloride 8 mEq capsule, extended release 16 meq PO DAILY RF: 0 aspirin [Aspirin Low-Strength] 81 mg Tablet,Delayed Release (Dr/Ec) 81 mg PO DAILY RF: 0 cinnamon bark [Cinnamon] 500 mg Capsule 1,000 mg PO BID RF: 0 Referrals / Follow Up: Emain Delgado DO [Primary Care Provider] - Disposition Discharge Orders: Discharge Patient (Routine); Ordered 06/21/21 Ordered By: Dr. Geetha Hardy Documented by User: Dr. Geetha Hardy MD 06/22/21 07:35 Providers Date of Admission: 06/20/21 Date of Discharge: 06/21/21 Reason For Visit: TIA Medications at Discharge Home Medications atorvastatin 40 mg tablet 40 mg PO QHS 11/22/19 carvedilol 25 mg tablet 25 mg PO BID 11/22/19 furosemide 40 mg tablet 40 mg PO DAILY 11/22/19 metformin 500 mg tablet 500 mg PO DAILY 11/22/19 psyllium [Metamucil] 1 packet PO DAILY 06/18/21 amlodipine 5 mg PO DAILY 06/19/21 aspirin [Aspirin Low-Strength] 81 mg PO DAILY 06/19/21 cinnamon bark [Cinnamon] 1,000 mg PO BID 06/19/21 potassium chloride 16 meq PO DAILY 06/19/21 ABG / Lab / Microbiology Data Result Diagrams: 06/21/21 05:32 06/20/21 05:40 Discharge Plan Admission Admit Date/Time: 06/20/21 15:17 Attending Provider: Geetha Hardy Primary Care Provider: Emani Delgado Consulting Providers: Darrell Fernandez Instructions Additional Instructions / Restrictions: Patient Problems: Altered Health Status related to Hospitalization Patient Goals: *Optimal Level of Health *Keep Appointments *Medication Compliance *Remain Safe Discharge Orders/Prescriptions Prescriptions: No Action atorvastatin [Lipitor] 40 mg tablet 40 mg PO QHS RF: 0 carvedilol [Coreg] 25 mg tablet 25 mg PO BID RF: 0 furosemide [Lasix] 40 mg tablet 40 mg PO DAILY RF: 0 metformin 500 mg tablet 500 mg PO DAILY RF: 0 Metamucil Packet 1 packet PO DAILY RF: 0 amlodipine 2.5 mg tablet 5 mg PO DAILY RF: 0 potassium chloride 8 mEq capsule, extended release 16 meq PO DAILY RF: 0 aspirin [Aspirin Low-Strength] 81 mg Tablet,Delayed Release (Dr/Ec) 81 mg PO DAILY RF: 0 cinnamon bark [Cinnamon] 500 mg Capsule 1,000 mg PO BID RF: 0 Referrals / Follow Up: Emani Delgado DO [Primary Care Provider] - Disposition Discharge Orders: Discharge Patient (Routine); Ordered 06/21/21 Ordered By: Dr. Geetha Hardy Charges/Coding Addendum Addendum: This patient was seen in conjunction with TAM Monroe. I have independently interviewed and examined the patient and reviewed pertinent historical, laboratory, and other data. Please refer to TAM Monroe's note for his patient's presentation, findings, and recommendations. I have reviewed and his note and concur with his documentation 60-year-old female with multiple comorbidities including newly diagnosed colon CA, metastatic who comes in with facial droop and inability to write. This appears to have resolved by the time she got here. Patient was on Plavix and has been off her Plavix for 21 days for port placement by general surgery. Patient was found to have acute CVA of the right cerebral region. MRA of the head and neck showed near occlusion of the right ICA. CTA of the head and neck showed 80% stenosis of the right ICA. The original plan was to get patient to the vascular surgeon the [facility] within a week. This was however had to achieve with the results come in on Wednesday night. The best route for patient to get care as soon as possible was care patient transferred to the main [facility]. Patient was accepted. Physical Exam: Gen: Comfortable, not pale, not jaundiced CVS:HS I +II, regular, no murmurs RESP: Diminished at lung bases GI: BS present and normal, soft, nontender, no palpable organs EXT:No edema
[2021-06-23 12:45] LABS: Pathologist Review Reviewed
== END 2021-06-21 07:49 | disposition short-term general hospital (02) | DRG 65 ==
LOC: ED 20:57 → PCU 21:59
PROVIDERS: Nurse Practitioner Family; Physician Assistant; Admitting Provider Hospitalist; Emergency Provider Emergency Medicine; Visit Provider Internal Medicine
DX: I63.9 Cerebral infarction, unspecified (principal); C78.7 Secondary malignant neoplasm of liver and intrahepatic bile duct; C20 Malignant neoplasm of rectum; I50.32 Chronic diastolic (congestive) heart failure; D50.9 Iron deficiency anemia, unspecified; I65.21 Occlusion and stenosis of right carotid artery; I69.993 Ataxia following unspecified cerebrovascular disease; R29.810 Facial weakness; R29.701 NIHSS score 1; I11.0 Hypertensive heart disease with heart failure; E78.5 Hyperlipidemia, unspecified; E11.9 Type 2 diabetes mellitus without complications; Z79.84 Long term (current) use of oral hypoglycemic drugs; Z79.899 Other long term (current) drug therapy
CPT/HCPCS: 36415; 70450; 70496; 70498; 70544; 70549; 70551; 71045; 80048; 80061; 82728; 82962; 83036; 83540; 83550; 83735; 84443; 84484; 85025; 85610; 85730; 86850; 86900; 86901; 92523; 92611; 93005; 93306; 94762; 97162; 97166; 97802; 99285; A9575; J7030; P9016; Q9967; A4216

== ENCOUNTER 2022-03-14 13:23 | Observation (INO) | payer MEDICARE, SELFPAY ==
[2022-03-14] VITALS (8 sets, daily range): BP systolic 122–169; BP diastolic 62–72; PULSE 66–86; RESP 14–18; TEMP 36.6–36.8; O2SAT 97–100; BMI 32.2
--- NOTE | 2022-03-14 13:53 | EDS_ITS ---
HPI HPI - GI History of Present Illness Chief Complaint: GI Bleed Detail of Chief Complaint: Rectal bleeding that started this morning Informant: patient Narrative Narrative: Patient presents the emergency department complaint of rectal bleeding that started this morning. Patient states that she went to the bathroom this morning and had a small bowel movement and when she wiped she noted blood on the toilet paper. Patient states that this afternoon she went to the restroom again and noted blood with clots. Patient does have a known colon cancer near the rectum. Patient tells me that a month ago she had a pelvic ultrasound and the tech accidentally stuck the probe in her rectum instead of in her vagina. Patient states that she only had a small amount of spotting related to that event. Patient currently on chemotherapy and gets IV chemo every 3 weeks and her last dose was 2 weeks ago. She had radiation treatment months ago. Patient denies abdominal pain. She denies fever. She denies rectal pain. Patient is on Eliquis. [facility] Medical History Abnormal nuclear stress test Anemia Arthritis Cancer Cardiomyopathy Carotid artery stenosis Congenital talipes calcaneovalgus of left foot COPD (chronic obstructive pulmonary disease) Diabetes mellitus type II, uncontrolled Diastolic congestive heart failure Essential hypertension History of CHF (congestive heart failure) History of CVA (cerebrovascular accident) (10/21/17) History of pleural effusion (10/21/17) History of renal disease Hyperlipidemia Low iron Nonrheumatic mitral valve regurgitation Nonrheumatic tricuspid valve regurgitation Preop cardiovascular exam Renal insufficiency Shortness of breath on exertion Snoring Tricuspid regurgitation Wears dentures Home Medications atorvastatin 40 mg tablet (Lipitor) 40 mg PO QHS CHOLESTEROL 11/22/19 [History Last Taken 06/18/21] carvedilol 25 mg tablet (Coreg) 25 mg PO BID 11/22/19 [History Last Taken 06/19/21] furosemide 40 mg tablet (Lasix) 60 mg PO DAILY 11/22/19 [History Last Taken 06/19/21] metformin 500 mg tablet 500 mg PO DAILY 11/22/19 [History Last Taken 06/19/21] psyllium 1 packet PO DAILY 06/18/21 [History Last Taken 06/19/21] amlodipine 2.5 mg tablet 5 mg PO DAILY 06/19/21 [History Last Taken 06/19/21] aspirin 81 mg tablet,delayed release 325 mg PO DAILY HEALTH MAINTENANCE 06/19/21 [History Last Taken 06/17/21] cinnamon bark 500 mg capsule (Cinnamon) 1,000 mg PO BID SUPPLEMENT 06/19/21 [History Last Taken 06/19/21] potassium chloride 8 mEq capsule,extended release 16 meq PO DAILY SUPPLEMENT 06/19/21 [History Last Taken 06/19/21] apixaban 5 mg tablet (Eliquis) 1 tab PO BID 03/14/22 [History Last Taken Unknown] polyethylene glycol 3350 17 gram/dose oral powder (Miralax) 17 g PO DAILY 03/14/22 [History Last Taken Unknown] Allergy/AdvReac Type Severity Reaction Status Date / Time latex Allergy Severe Hives Verified 03/14/22 13:27 codeine AdvReac Unknown unknown Verified 03/14/22 13:27 Family History Mother Bleeding disorder Diabetes CAD (coronary artery disease) Hypertension Hyperlipidemia Kidney disease Sister Asthma CAD (coronary artery disease) Hyperlipidemia Father Cancer CAD (coronary artery disease) Hypertension Hyperlipidemia CVA (cerebral vascular accident) Brother CAD (coronary artery disease) Hyperlipidemia Surgical History History of cardiac catheterization History of colonoscopy History of foot surgery Hx of cataract surgery Social History Smoking Status: Never smoker ROS ROS ED Constitutional Constitutional ED: Reports systems reviewed and no addt'l complaints, except as documented; Denies body ache(s), change in weight or chills Eyes Eyes: Denies acute decrease in peripheral vision, change in vision, double vision or loss of vision ENT ENT ED: Reports none; Denies ear pain, lip swelling, loss taste/smell, neck pain, otalgia or sore throat Cardiovascular Cardiovascular: Reports none; Denies abdominal pain, chest pain with activity, leg edema, lightheadedness, palpitations, rapid heart rate or syncope Respiratory/Chest Respiratory/Chest: Reports none; Denies change in mental status, dry cough, dyspnea, hemoptysis, shortness of breath at rest or shortness of breath with exertion Gastrointestinal Gastrointestinal: Reports none, hematochezia and rectal bleeding; Denies abdominal pain, change in stool character, diarrhea, hematemesis, melena or vomiting Genitourinary Genitourinary ED: Reports none; Denies abdominal discomfort, anuria, dysuria, genital pain or polyuria Musculoskeletal Musculoskeletal: Reports none; Denies arthralgias, back pain, difficulty walking, extremity pain, muscle weakness or myalgias Integumentary Reports none; Denies abscess or rash Neurologic Neurologic: Reports none; Denies abnormal gait, confusion, focal weakness, frequent falls, headache(s), loss of vision, numbness, paresthesias, radicular pain, vertigo or weakness Psychiatric Psychiatric: Reports systems reviewed and no addt'l complaints, except as documented and none; Denies behavioral changes, confusion, difficulty conc entrating, hallucinations, suicidal ideation, tactile hallucinations or visual hallucinations Endocrine Endocrinology: Denies none, cold intolerance, excessive sweating, fatigue or heat intolerance Hematologic/Lymphatic Hematologic/Lymphatic: Reports none; Denies anemia, easy bleeding or easy bruising Allergic/Immunologic Allergic/Immunologic ED: Denies as per HPI, none, lip swelling, mouth swelling, throat swelling, tongue swelling or hives EXAM Physical Exam Const Vital Signs: 03/14/22 13:24 Temperature 98.3 F Temperature Source Temporal Pulse Rate 81 Respiratory Rate 14 Blood Pressure 163/67 H Blood Pressure Mean 99 Pulse Ox 100 Oxygen Delivery Method Room Air Positive well nourished and well developed General Appearance ED: well developed and NAD HEENT Reports TM's clear and moist mucous membranes normocephalic and atraumatic; Negative for trauma or tenderness Tympanic Membrane ED: Yes TM's clear Eyes PERRL and EOMs intact bilaterally General Eye ED: Negative for pale conjunctiva or scleral icterus Neck no lymphadenopathy, supple and no JVD General: Negative for tenderness Chest Wall inspection of chest normal and palpation of chest normal Chest: Negative for tenderness Resp normal respiratory effort and clear to auscultation bilaterally Effort and Inspection: Negative for respiratory distress or pain with movement Auscultation: Negative for rhonchi, wheezes or diminished lung sounds Cardio regular rate, regular rhythm, S1 normal heart sound, S2 normal heart sound and no murmurs Peripheral Pulses: pulses 2+ throughout GI normal to inspection, nondistended, normoactive bowel sounds, soft to palpation, non-tender, non-distended and no masses GI Narrative: Rectal exam-no fissures noted and no hemorrhoids noted. No significant masses palpated in the rectal vault and she had brown stool. Hemoccult was sent. No gross blood present. Back/Spine no CVA tenderness and no thoracic nor lumbar tenderness Extremity normal to inspection General Extremety ED: Negative for edema General Extremity: Negative for edema Neuro oriented x3, CN's II-XII intact bilaterally, no sensory deficits noted and gait normal Sensorium / Orientation: awake, alert, oriented to person, oriented to place and oriented to time Motor Exam: strength 5/5 throughout and strength abnormal Psych mental status grossly normal Skin no rashes or lesions noted and no wounds MDM MDM MDM Narrative Medical decision making narrative: Line established on arrival. Patient had a type and screen ordered. Patient has a hemoglobin of 8.5. Last hemoglobin in May 2021 was 9.9. Due to the fact that patient chronically anticoagulated with Eliquis and having bright red blood per rectum recommended admission for at least observation and serial H&H's. Source of the bleeding is unclear. Lab Data Attestation: I reviewed the patient's lab results. Labs: Laboratory Results - last 24 hr 03/14/22 03/14/22 03/14/22 14:20 14:20 14:20 WBC 6.4 RBC 3.31 L Hgb 8.5 L Hct 28.3 L MCV 85.5 MCH 25.7 L MCHC 30.0 L RDW Std Deviation 47.8 H RDW Coeff of Dann 15.2 H Plt Count 401 MPV 8.2 Immature Gran % (Auto) 0.300 Neut % (Auto) 70.3 H Lymph % (Auto) 13.7 L King % (Auto) 10.2 H Eos % (Auto) 4.7 Baso % (Auto) 0.8 Absolute Neuts (auto) 4.5 Absolute Lymphs (auto) 0.87 Nucleated RBC % 0 Sodium 141 Potassium 3.8 Chloride 110 H Carbon Dioxide 24.0 Anion Gap 7 BUN 20 H Creatinine 1.14 H Estim Creat Clear Calc 34.87 Est GFR (MDRD) Af Amer 61 Est GFR (MDRD) Non-Af 51 L BUN/Creatinine Ratio 17.5 Glucose 126 H Calcium 8.8 Blood Type Not Reportable Antibody Screen TNP Antibody Identification 03/14/22 14:20 WBC RBC Hgb Hct MCV MCH MCHC RDW Std Deviation RDW Coeff of Dann Plt Count MPV Immature Gran % (Auto) Neut % (Auto) Lymph % (Auto) King % (Auto) Eos % (Auto) Baso % (Auto) Absolute Neuts (auto) Absolute Lymphs (auto) Nucleated RBC % Sodium Potassium Chloride Carbon Dioxide Anion Gap BUN Creatinine Estim Creat Clear Calc Est GFR (MDRD) Af Amer Est GFR (MDRD) Non-Af BUN/Creatinine Ratio Glucose Calcium Blood Type O POSITIVE Antibody Screen POSITIVE Antibody Identification ANTI-M Discharge Plan Dx/Rx/DC Orders Clinical Impression: Rectal bleeding, Chronic anticoagulation, Anemia Disposition Disposition: Acute Care Hospital [facility]
[2022-03-14] MEDS: 0.9% Normal Saline 1,000 ML 125 ML IV ×2 (14:30→20:58)
[2022-03-14 14:32] LABS: Absolute Lymphocyte Count 0.87 X10^3/uL (0.83-4.51); Absolute Neutrophil Count 4.5 X10^3/uL (2.0-7.7); Basophil# 0.05 X10^3/uL; Basophil% 0.8 % (0-1); Eosinophils% 4.7 % (0-5); Hematocrit 28.3 % (37-47); Hemoglobin 8.5 g/dL (12.0-15.0); Lymphocyte # 0.87 X10^3/ul (0.83-4.51); Lymphocyte % 13.7 % (19-41); Mean Corpuscular Hgb 25.7 pg (27.0-32.0); Mean Corpuscular Volume 85.5 fL (81-99); Mean Platelet Vol. 8.2 fl (6.2-12.0); Monocyte# 0.65 X10^3/uL; Monocyte% 10.2 % (0-10); NRBC Flagged by Analyzer 0 % (0-5); Neutrophil # 4.48 X10^3/uL (2.7-7.7); Neutrophil % 70.3 % (47-70); Platelet Count 401 K/mm3 (150-450); RBC Distribution Width CV 15.2 % (11.6-14.6); RBC Distribution Width SD 47.8 fl (35.1-43.9); Red Blood Count 3.31 M/mm3 (4.2-5.4); White Blood Count 6.4 K/mm3 (4.4-11.0)
[2022-03-14 14:44] LABS: Anion Gap 7 (5-15); BUN 20 mg/dL (7-18); BUN/Creat Ratio 17.5 RATIO (10-20); Calcium,Total 8.8 mg/dL (8.5-10.1); Chloride 110 mmol/L (98-107); Creatinine, Serum 1.14 mg/dL (0.55-1.02); EST Glomerular Filtration Rate 51 mL/min (>60); Est Glom Filt Rate - Afr Amer 61 mL/min (>60); Estimated Creatinine Clearance 34.87 ml/min; Glucose 126 mg/dL (74-106); Potassium 3.8 mmol/L (3.5-5.1); Sodium Level 141 mmol/L (136-145)
--- NOTE | 2022-03-14 15:23 | HP.PCM.HOS_ITS ---
HPI - General General Date of Admission: 03/14/22 Date of Service: 03/14/22 Chief Complaint: recta; bleeding HPI Narrative BETI JAUREGUI, is a 66 F with a PMH as outlined who presents via the ED with a complaint of rectal bleeding which started on the morning of admission. She went to the bathroom and noticed blood on wiping herself. She subsequently started having blood with clots. She has a history of colon cancer, with the tumor being close to the rectum; she is on chemotherapy, with her last dose being 2 weeks ago. She also had radiation some months ago. She denied any dizziness, nausea, vomiting or palpitations. She is on eliquis for a history of DVT. Vitals in the ED were BP of 163/67, W[place] of 81, RR of 14 and temp of 98.3F. She was saturating at 100% on room air. CBC showed hb of 8.5, wbc of 6.4, platelets of 401 and chemistry showed sodium of 141, potassium of 3.8 and Cr of 1.14. Stool for occult blood was positive. She is being admitted to be managed for rectal bleeding likely due to colorectal malignancy and exacerbated by eliquis. [facility] Medical History Abnormal nuclear stress test Anemia Arthritis Cancer Cardiomyopathy Carotid artery stenosis Congenital talipes calcaneovalgus of left foot COPD (chronic obstructive pulmonary disease) Diabetes mellitus type II, uncontrolled Diastolic congestive heart failure Essential hypertension History of CHF (congestive heart failure) History of CVA (cerebrovascular accident) (10/21/17) History of pleural effusion (10/21/17) History of renal disease Hyperlipidemia Low iron Nonrheumatic mitral valve regurgitation Nonrheumatic tricuspid valve regurgitation Preop cardiovascular exam Renal insufficiency Shortness of breath on exertion Snoring Tricuspid regurgitation Wears dentures Home Medications atorvastatin 40 mg tablet (Lipitor) 40 mg PO QHS CHOLESTEROL 11/22/19 [History Last Taken 06/18/21] carvedilol 25 mg tablet (Coreg) 25 mg PO BID 11/22/19 [History Last Taken 06/19/21] furosemide 40 mg tablet (Lasix) 60 mg PO DAILY 11/22/19 [History Last Taken 06/19/21] metformin 500 mg tablet 500 mg PO DAILY 11/22/19 [History Last Taken 06/19/21] psyllium 1 packet PO DAILY 06/18/21 [History Last Taken 06/19/21] amlodipine 2.5 mg tablet 5 mg PO DAILY 06/19/21 [History Last Taken 06/19/21] aspirin 81 mg tablet,delayed release 325 mg PO DAILY HEALTH MAINTENANCE 06/19/21 [History Last Taken 06/17/21] cinnamon bark 500 mg capsule (Cinnamon) 1,000 mg PO BID SUPPLEMENT 06/19/21 [History Last Taken 06/19/21] potassium chloride 8 mEq capsule,extended release 16 meq PO DAILY SUPPLEMENT 06/19/21 [History Last Taken 06/19/21] apixaban 5 mg tablet (Eliquis) 1 tab PO BID 03/14/22 [History Last Taken Unknown] polyethylene glycol 3350 17 gram/dose oral powder (Miralax) 17 g PO DAILY 03/14/22 [History Last Taken Unknown] Allergy/AdvReac Type Severity Reaction Status Date / Time latex Allergy Severe Hives Verified 03/14/22 13:27 codeine AdvReac Unknown unknown Verified 03/14/22 13:27 Family History Mother Bleeding disorder Diabetes CAD (coronary artery disease) Hypertension Hyperlipidemia Kidney disease Sister Asthma CAD (coronary artery disease) Hyperlipidemia Father Cancer CAD (coronary artery disease) Hypertension Hyperlipidemia CVA (cerebral vascular accident) Brother CAD (coronary artery disease) Hyperlipidemia Surgical History History of cardiac catheterization History of colonoscopy History of foot surgery Hx of cataract surgery Social History Smoking Status: Never smoker ROS Review of Systems ROS Unobtainable: Denies due to encephalopathy Constitutional Constitutional: Denies anorexia, chills, fatigue, fever(s), malaise or weakness Eyes Eyes: Denies change in vision ENT HEENT: Denies dysphagia, headache(s) or sore throat Cardiovascular Cardiovascular: Denies chest pain, dyspnea on exertion, edema, lightheadedness, orthopnea, palpitations, paroxysmal nocturnal dyspnea, rapid heart rate or syncope Respiratory/Chest Respiratory/Chest: Denies cough, dyspnea, hemoptysis, productive cough, shortness of breath at rest, shortness of breath with exertion or wheezing Gastrointestinal Gastrointestinal: Reports hematochezia; Denies abdominal pain, coffee ground emesis, constipation, diarrhea, dyspepsia, hematemesis, loose stools, melena, nausea or vomiting Genitourinary Genitourinary: Denies burning urination or dysuria Musculoskeletal Musculoskeletal: Denies joint pain Neurologic Neurologic: Denies confusion, dizziness, focal weakness, headache(s), numbness, seizures, syncope or tremor(s) Psychiatric Psychiatric: Denies anxiety or depression Hematologic/Lymphatic Hematologic/Lymphatic: Denies anemia Vital Signs Vital Signs Vital Signs: 03/14/22 13:24 Temperature 98.3 F Temperature Source Temporal Pulse Rate 81 Respiratory Rate 14 Blood Pressure 163/67 H Blood Pressure Mean 99 Pulse Ox 100 Oxygen Delivery Method Room Air Weight Weight: 165 lb Body Mass Index (BMI) 32.2 Physical Exam Const alert, oriented x3 and no apparent distress General Appearance: cooperative HEENT normocephalic, head/scalp atraumatic and hearing grossly normal bilaterally HEENT Narrative: has healing superficial ulcers on lips Eyes PERRL, EOMs intact bilaterally and conjunctivae normal Neck no lymphadenopathy and supple Resp normal respiratory effort, no retractions, no use of accessory muscles and clear to auscultation bilaterally Cardio regular rate, regular rhythm, S1 normal heart sound, S2 normal heart sound and no murmurs GI normal to inspection, nondistended, normoactive bowel sounds, soft to palpation, non-tender and non-distended Extremity normal to inspection, full ROM and no clubbing, cyanosis or edema Neuro oriented x3, CN's II-XII intact bilaterally and moves all extremities Sensorium / Orientation: awake and alert Motor Exam: strength 5/5 throughout Psych affect normal Results Lab / Micro Data Result Diagrams: 03/14/22 14:20 03/14/22 14:20 Labs: Laboratory Results - last 24 hr 03/14/22 14:20: WBC 6.4, RBC 3.31 L, Hgb 8.5 L, Hct 28.3 L, MCV 85.5, MCH 25.7 L , MCHC 30.0 L, RDW Std Deviation 47.8 H, RDW Coeff of Dann 15.2 H, Plt Count 401, MPV 8.2, Immature Gran % (Auto) 0.300, Neut % (Auto) 70.3 H, Lymph % (Auto) 13.7 L, [place]field % (Auto) 10.2 H, Eos % (Auto) 4.7, Baso % (Auto) 0.8, Absolute Neuts (auto) 4.5, Absolute Lymphs (auto) 0.87, Nucleated RBC % 0 03/14/22 14:20: Sodium 141, Potassium 3.8, Chloride 110 H, Carbon Dioxide 24.0, Anion Gap 7, BUN 20 H, Creatinine 1.14 H, Estim Creat Clear Calc 34.87, Est GFR (MDRD) Af Amer 61, Est GFR (MDRD) Non-Af 51 L, BUN/Creatinine Ratio 17.5, Glucose 126 H, Calcium 8.8 03/14/22 14:20: Blood Type Not Reportable, Antibody Screen TNP 03/14/22 14:20: Blood Type O POSITIVE, Antibody Screen POSITIVE, Antibody Identification ANTI-M Micro: Microbiology 03/14/22 14:00 Stool Stool Occult Blood (ALEJANDRA) - Final Occult Blood Positive Assessment & Plan Assessment/Plan (1) Rectal bleeding: PLAN: Plan #Rectal bleeding * in the setting of rectal cancer nad being on eliquis * I think this is likely due to her rectal cancer * admit to med surg * cycle H&H * hold eliquis and aspirin * she is on eliquis o/a of history of DVT in July 2021 * consult oncology * hydrate gently with IVF * type and cross for blood * #Rectal cancer s/p radiation * had radiation in June 2021 * now on keytruda * #History of DVT * had DVT in both LEs in July 2021 * on eliquis; will hold eliquis for now * #History of CVA * hold aspirin. On high iintensity statin * #HFrEF: not i exacerbation. on lasix. #Hypertension: on amlodipine and carvedilol #type 2 diabetes mellitus: hold metformin. ISS. Accuchecks ACHS DVT prophylaxis: SCDs Code status: full code * Patient and daughter counseled extensively about different types of CODE STATUS including full code, DNR CCA and DNR CCA. Patient elects to be full code. Total [id number] time 17 minutes. Charges/Coding Visit Charges OBSV E&M: 52827 Initial observation care L3 Procedures Hospitalists Procedures: 05034 Advncd Care Plan 30 Min
[2022-03-14] MEDS: Carvedilol 25 MG Tablet PO (20:58)
[2022-03-15] MEDS: 0.9% Normal Saline 1,000 ML 125 ML IV (03:33)
[2022-03-15 03:36] VITALS: BP 125/65; PULSE 80; RESP 18; TEMP 37.1; O2SAT 96
[2022-03-15] MEDS: 0.9% Saline Lock 10 ML Syringe IV (04:26)
[2022-03-15 04:32] LABS: Absolute Lymphocyte Count 0.68 X10^3/uL (0.83-4.51); Absolute Neutrophil Count 4.5 X10^3/uL (2.0-7.7); Basophil# 0.02 X10^3/uL; Basophil% 0.3 % (0-1); Eosinophil# 0.24 X10^3/uL; Hematocrit 25.7 % (37-47); Hemoglobin 7.8 g/dL (12.0-15.0); Lymphocyte # 0.68 X10^3/ul (0.83-4.51); Lymphocyte % 11.2 % (19-41); Mean Corp Hgb Conc 30.4 g/dL (32-36); Mean Corpuscular Volume 85.7 fL (81-99); Mean Platelet Vol. 7.9 fl (6.2-12.0); Monocyte# 0.62 X10^3/uL; Monocyte% 10.2 % (0-10); NRBC Flagged by Analyzer 0 % (0-5); Neutrophil # 4.48 X10^3/uL (2.7-7.7); Platelet Count 311 K/mm3 (150-450); RBC Distribution Width CV 15.1 % (11.6-14.6); RBC Distribution Width SD 46.7 fl (35.1-43.9); White Blood Count 6.1 K/mm3 (4.4-11.0)
[2022-03-15 04:47] LABS: Anion Gap 7 (5-15); BUN 17 mg/dL (7-18); BUN/Creat Ratio 18.5 RATIO (10-20); Calcium,Total 8.2 mg/dL (8.5-10.1); Chloride 113 mmol/L (98-107); Creatinine, Serum 0.92 mg/dL (0.55-1.02); EST Glomerular Filtration Rate 65 mL/min (>60); Est Glom Filt Rate - Afr Amer 78 mL/min (>60); Estimated Creatinine Clearance 43.21 ml/min; Glucose 104 mg/dL (74-106); Potassium 3.8 mmol/L (3.5-5.1); Sodium Level 143 mmol/L (136-145)
[2022-03-15] MEDS: Furosemide 20 MG Tablet 60 MG PO (08:19)
[2022-03-15] MEDS: amLODIPine 5 MG Tablet PO (08:19)
[2022-03-15] MEDS: Carvedilol 25 MG Tablet PO ×2 (08:19→21:14)
[2022-03-15] MEDS: Potassium Chloride Oral Soln 20 MEQ/15 ML UDC 10 MEQ PO (08:19)
[2022-03-15] MEDS: Polyethylene Glycol 3350 17 GM PACKET PO (08:22)
[2022-03-15 08:35] VITALS: BP 159/73; PULSE 74; RESP 18; TEMP 36.7; O2SAT 100
--- NOTE | 2022-03-15 09:30 | PN.HOSP_ITS ---
Subjective Subjective Patient seen and examined. She had no active complaints. She hasnt had any more rectal bleeding overnight. Review of systems is otherwise negative. Objective Data Objective Data Vital Signs: Vital Signs Temp Pulse Resp BP Pulse Ox O2 Del Method 98.0 F 74 18 159/73 H 100 Room Air 03/15/22 08:35 03/15/22 08:35 03/15/22 08:35 03/15/22 08:35 03/15/22 08:35 03/15/22 08:35 Oxygen Delivery Method Room Air Weight: 165 lb Body Mass Index (BMI) 32.2 Intake & Output: Intake and Output for Last 24 Hours 03/13/22 03/14/22 03/15/22 23:59 23:59 23:59 Intake Total 1353.33 / 1353.33 822.92 / 822.92 Output Total 500 / 500 Balance 853.33 / 853.33 822.92 / 822.92 Lab / Micro Data Result Diagrams: 03/15/22 04:25 03/15/22 04:25 Labs: Laboratory Results - last 24 hr 03/14/22 14:20: WBC 6.4, RBC 3.31 L, Hgb 8.5 L, Hct 28.3 L, MCV 85.5, MCH 25.7 L , MCHC 30.0 L, RDW Std Deviation 47.8 H, RDW Coeff of Dann 15.2 H, Plt Count 401, MPV 8.2, Immature Gran % (Auto) 0.300, Neut % (Auto) 70.3 H, Lymph % (Auto) 13.7 L, Brantley % (Auto) 10.2 H, Eos % (Auto) 4.7, Baso % (Auto) 0.8, Absolute Neuts (a uto) 4.5, Absolute Lymphs (auto) 0.87, Nucleated RBC % 0 03/14/22 14:20: Sodium 141, Potassium 3.8, Chloride 110 H, Carbon Dioxide 24.0, Anion Gap 7, BUN 20 H, Creatinine 1.14 H, Estim Creat Clear Calc 34.87, Est GFR (MDRD) Af Amer 61, Est GFR (MDRD) Non-Af 51 L, BUN/Creatinine Ratio 17.5, Glucose 126 H, Calcium 8.8 03/14/22 14:20: Blood Type Not Reportable, Antibody Screen TNP 03/14/22 14:20: Blood Type O POSITIVE, Antibody Screen POSITIVE, Antibody Identification ANTI-M 03/15/22 04:25: WBC 6.1, RBC 3.00 L, Hgb 7.8 L, Hct 25.7 L, MCV 85.7, MCH 26.0 L , MCHC 30.4 L, RDW Std Deviation 46.7 H, RDW Coeff of Dann 15.1 H, Plt Count 311, MPV 7.9, Immature Gran % (Auto) 0.300, Neut % (Auto) 74.0 H, Lymph % (Auto) 11.2 L, Brantley % (Auto) 10.2 H, Eos % (Auto) 4.0, Baso % (Auto) 0.3, Absolute Neuts (auto) 4.5, Absolute Lymphs (auto) 0.68 L, Nucleated RBC % 0 03/15/22 04:25: Sodium 143, Potassium 3.8, Chloride 113 H, Carbon Dioxide 23.0, Anion Gap 7, BUN 17, Creatinine 0.92, Estim Creat Clear Calc 43.21, Est GFR (MDRD) Af Amer 78, Est GFR (MDRD) Non-Af 65, BUN/Creatinine Ratio 18.5, Glucose 104, Calcium 8.2 L Micro: Microbiology 03/14/22 14:00 Stool Stool Occult Blood (ALEJANDRA) - Final Occult Blood Positive Physical Exam Const alert, oriented x3 and no apparent distress General Appearance: cooperative HEENT normocephalic, head/scalp atraumatic and hearing grossly normal bilaterally Head and Scalp: normocephalic Mouth: oral and palatal mucosa normal Eyes PERRL, EOMs intact bilaterally and conjunctivae normal Neck no lymphadenopathy and supple Resp normal respiratory effort, no retractions, no use of accessory muscles and clear to auscultation bilaterally Cardio regular rate, regular rhythm, S1 normal heart sound, S2 normal heart sound and no murmurs GI normal to inspection, nondistended, normoactive bowel sounds, soft to palpation, non-tender and non-distended Extremity normal to inspection, full ROM and no clubbing, cyanosis or edema Neuro oriented x3, CN's II-XII intact bilaterally, moves all extremities and no focal motor deficits Sensorium / Orientation: awake and alert Motor Exam: strength 5/5 throughout Psych affect normal Assessment & Plan Assessment/Plan (1) Rectal bleeding: PLAN: Plan #Rectal bleeding * in the setting of rectal cancer and being on eliquis * I think this is likely due to her rectal cancer * bleeding didnt recur overnight * Hb has dropped to 7.8 from 8.5 * eliquis and aspirin on hold * discussed with Dr Menjivar this morning; he is in agreement with stopping eliquis and aspirin for now. Patient will benefit from radiation therapy for cancer; to be set up by oncology when she follows up in the clinic. * * #Rectal cancer s/p radiation * had radiation in June 2021 * now on keytruda * #History of DVT * had DVT in both LEs in July 2021 * eliquis remains on hold. Per discussion with oncology, to dc eliquis and aspirin. * #History of CVA * hold aspirin. On high intensity statin * #HFrEF: not in exacerbation. on lasix. #Hypertension: on amlodipine and carvedilol #type 2 diabetes mellitus: hold metformin. ISS. Accuchecks ACHS DVT prophylaxis: SCDs Code status: full code * Disposition: for likely DC home tomorrow. She has an appointment with Dr Menjivar tomorrow afternoon. Charges/Coding Visit Charges Inpatient E&M: 14331 Subs Hosp L2
[2022-03-15 14:30] VITALS: BP 167/67; PULSE 81; RESP 18; TEMP 37; O2SAT 98
[2022-03-15 21:10] VITALS: BP 131/65; PULSE 82; RESP 18; TEMP 37; O2SAT 94
[2022-03-15] MEDS: Atorvastatin Calcium 40 MG Tablet PO (21:14)
[2022-03-16 04:00] VITALS: BP 125/60; PULSE 71; RESP 18; TEMP 36.5; O2SAT 94
[2022-03-16 04:46] LABS: Absolute Lymphocyte Count 0.98 X10^3/uL (0.83-4.51); Absolute Neutrophil Count 4.3 X10^3/uL (2.0-7.7); Basophil# 0.06 X10^3/uL; Eosinophil# 0.29 X10^3/uL; Eosinophils% 4.6 % (0-5); Hematocrit 27.7 % (37-47); Hemoglobin 8.3 g/dL (12.0-15.0); Lymphocyte # 0.98 X10^3/ul (0.83-4.51); Lymphocyte % 15.6 % (19-41); Mean Corpuscular Hgb 25.5 pg (27.0-32.0); Mean Platelet Vol. 8.1 fl (6.2-12.0); Monocyte# 0.69 X10^3/uL; NRBC Flagged by Analyzer 0 % (0-5); Neutrophil # 4.27 X10^3/uL (2.7-7.7); Neutrophil % 67.6 % (47-70); Platelet Count 383 K/mm3 (150-450); RBC Distribution Width CV 15.1 % (11.6-14.6); RBC Distribution Width SD 46.9 fl (35.1-43.9); Red Blood Count 3.26 M/mm3 (4.2-5.4); White Blood Count 6.3 K/mm3 (4.4-11.0)
[2022-03-16 05:00] LABS: Anion Gap 5 (5-15); BUN 15 mg/dL (7-18); BUN/Creat Ratio 16.1 RATIO (10-20); Calcium,Total 8.5 mg/dL (8.5-10.1); Chloride 111 mmol/L (98-107); Creatinine, Serum 0.93 mg/dL (0.55-1.02); EST Glomerular Filtration Rate 64 mL/min (>60); Est Glom Filt Rate - Afr Amer 77 mL/min (>60); Estimated Creatinine Clearance 42.74 ml/min; Glucose 117 mg/dL (74-106); Potassium 3.9 mmol/L (3.5-5.1); Sodium Level 141 mmol/L (136-145)
--- NOTE | 2022-03-16 08:10 | DS.PCM_ITS ---
Providers Date of Admission: 03/14/22 Primary Care Physician: Dr. Emani Delgado, DO Consultations 03/14/22 16:23 Consult: Oncology/Hematology Routine Consulting Provider: [facility] Reason for Consult: rectal bleeding, history of rectal cancer EMERGENT Consult: No MD Notified: Yes Date Notified: 03/14/22 Time Notified: 16:23 Method of Notification: Verbal Method of Consult:: In-Person Comments:: dr dalton answered to page and said he is covering Reason For Visit: RECTAL BLEED Diagnosis Discharge Diagnosis (1) Rectal bleeding: Status: Acute Code(s): K62.5 - Hemorrhage of anus and rectum Plan #Rectal bleeding * in the setting of rectal cancer and being on eliquis * I think this is likely due to her rectal cancer * bleeding didnt recur overnight * Hb has dropped to 7.8 from 8.5 * eliquis and aspirin on hold * discussed with Dr Gonzalez this morning; he is in agreement with stopping eliquis and aspirin for now. Patient will benefit from radiation therapy for cancer; to be set up by oncology when she follows up in the clinic. * * #Rectal cancer s/p radiation * had radiation in June 2021 * now on keytruda * #History of DVT * had DVT in both LEs in July 2021 * eliquis remains on hold. Per discussion with oncology, to dc eliquis and aspirin. * #History of CVA * hold aspirin. On high intensity statin * #HFrEF: not in exacerbation. on lasix. #Hypertension: on amlodipine and carvedilol #type 2 diabetes mellitus: hold metformin. ISS. Accuchecks ACHS DVT prophylaxis: SCDs Code status: full code * Disposition: for likely DC home tomorrow. She has an appointment with Dr Gonzalez tomorrow afternoon. Medications at Discharge Home Medications atorvastatin 40 mg tablet (Lipitor) 40 mg PO QHS CHOLESTEROL 11/22/19 carvedilol 25 mg tablet (Coreg) 25 mg PO BID 11/22/19 furosemide 40 mg tablet (Lasix) 60 mg PO DAILY 11/22/19 metformin 500 mg tablet 500 mg PO DAILY 11/22/19 psyllium 1 packet PO DAILY 06/18/21 amlodipine 2.5 mg tablet 5 mg PO DAILY 06/19/21 cinnamon bark 500 mg capsule (Cinnamon) 1,000 mg PO BID SUPPLEMENT 06/19/21 potassium chloride 8 mEq capsule,extended release 16 meq PO DAILY SUPPLEMENT 06/19/21 polyethylene glycol 3350 17 gram/dose oral powder (Miralax) 17 g PO DAILY 03/14/22 Hospital Course Operations None Procedures None Summary of Care Provided Minutes Spent on Discharge: 37 Hospital Course: BETI JAUREGUI, is a 66 F with a PMH as outlined who presents via the ED with a complaint of rectal bleeding which started on the morning of admission. She went to the bathroom and noticed blood on wiping herself. She subsequently started having blood with clots. She has a history of colorectal cancer, with the tumor being close to the rectum; she is on chemotherapy, with her last dose being 2 weeks ago. She also had radiation some months ago. She denied any dizziness, nausea, vomiting or palpitations. She is on eliquis for a history of DVT. Vitals in the ED were BP of 163/67, AZ of 81, RR of 14 and temp of 98.3F. She was saturating at 100% on room air. CBC showed hb of 8.5, wbc of 6.4, platelets of 401 and chemistry showed sodium of 141, potassium of 3.8 and Cr of 1.14. Stool for occult blood was positive. She was admitted to be managed for rectal bleeding likely due to colorectal malignancy and exacerbated by eliquis. The eliquis and aspirin were held and she was hydrated with IVF. The rectal bleeding didnt recur. Hemoglobin dropped initially to 7.8, but came up to 8.3, which was around her baseline. I discussed with her oncologist Dr Gonzalez about discontinuing her eliquis and aspirin, and he was in agreement. Patient remained stable and was discharged home on 03/16/2022. The eliquis and aspirin were discontinued for now, and her oncologist will determine when she can resume them. Per her oncologist, she will also see radiation oncology for further radiation to the rectal tumor. Patient was seen and examined prior to discharge. She felt well and had no active complaints. Rectal bleeding had not recurred. Review of symptoms otherwise negative. Labs and vitals reviewed. Home medication reviewed and reconciled. Physical Exam Const alert, oriented x3 and no apparent distress General Appearance: cooperative and comfortable Orientation / Consciousness: awake Exam Limitations: no limitations HEENT normocephalic, head/scalp atraumatic, hearing grossly normal bilaterally and moist oral mucous membranes HEENT Narrative: Has multiple oral ulcers. Eyes PERRL, EOMs intact bilaterally and conjunctivae normal Neck no lymphadenopathy and supple Resp normal respiratory effort, no retractions, no use of accessory muscles and clear to auscultation bilaterally Cardio regular rate, regular rhythm, S1 normal heart sound, S2 normal heart sound and no murmurs GI normal to inspection, nondistended, normoactive bowel sounds, soft to palpation, non-tender and non-distended Extremity normal to inspection, full ROM and no clubbing, cyanosis or edema Skin no rashes or lesions noted Neuro oriented x3, CN's II-XII intact bilaterally, moves all extremities and no focal motor deficits Sensorium / Orientation: awake and alert Motor Exam: strength 5/5 throughout Psych affect normal Weight / BMI Weight Weight: 165 lb Body Mass Index (BMI) 32.2 ABG / Lab / Microbiology Data Result Diagrams: 03/16/22 04:30 03/16/22 04:30 Laboratory: Laboratory Results - last 24 hr 03/16/22 04:30: WBC 6.3, RBC 3.26 L, Hgb 8.3 L, Hct 27.7 L, MCV 85.0, MCH 25.5 L , MCHC 30.0 L, RDW Std Deviation 46.9 H, RDW Coeff of Dann 15.1 H, Plt Count 383, MPV 8.1, Immature Gran % (Auto) 0.200, Neut % (Auto) 67.6, Lymph % (Auto) 15.6 L , Isabella % (Auto) 11.0 H, Eos % (Auto) 4.6, Baso % (Auto) 1.0, Absolute Neuts (auto) 4.3, Absolute Lymphs (auto) 0.98, Nucleated RBC % 0 03/16/22 04:30: Sodium 141, Potassium 3.9, Chloride 111 H, Carbon Dioxide 25.0, Anion Gap 5, BUN 15, Creatinine 0.93, Estim Creat Clear Calc 42.74, Est GFR (MDRD) Af Amer 77, Est GFR (MDRD) Non-Af 64, BUN/Creatinine Ratio 16.1, Glucose 117 H, Calcium 8.5 Microbiology: Microbiology 03/14/22 14:00 Stool Stool Occult Blood (ALEJANDRA) - Final Occult Blood Positive D/C Instructions Discharge Diet: 1800 Calorie Control Diet Call your doctor if you observe: Shortness of breath, Dizziness, Fainting spells and Uncontrolled pain Meaningful Use Info Meaningful Use Diagnoses (Choose all that apply): None applicable Discharge Plan Admission Admit Date/Time: 03/14/22 15:29 Primary Reason for Your Visit: lower GI bleed Attending Provider: Gisell Buchanan Primary Care Provider: Emani Delgado Consulting Providers: Des Lopez ; Geeta Greene ; Ariadna Shepard ; Saman Polanco ; Taye Gonzalez Instructions Patient Instructions: ED Lower GI Bleeding (Stable) Additional Instructions / Restrictions: aspirin and eliquis stopped. Dr Gonzalez to determine if and when it can be resumed. TO follow up with Dr Gonzalez and Dr Squires (radiation oncologist at [facility]) today Discharge Orders/Prescriptions Prescriptions: Continued atorvastatin [Lipitor] 40 mg tablet 40 mg PO QHS carvedilol [Coreg] 25 mg tablet 25 mg PO BID Rx Instructions: must administer with a meal/food furosemide [Lasix] 40 mg tablet 60 mg PO DAILY metformin 500 mg tablet 500 mg PO DAILY psyllium Packet 1 packet PO DAILY amlodipine 2.5 mg tablet 5 mg PO DAILY potassium chloride 8 mEq capsule, extended release 16 meq PO DAILY cinnamon bark [Cinnamon] 500 mg Capsule 1,000 mg PO BID polyethylene glycol 3350 [Miralax] 17 gram/dose Powder 17 g PO DAILY Discontinued aspirin [Aspirin Low-Strength] 81 mg Tablet,Delayed Release (Dr/Ec) 325 mg PO DAILY Label Comments: PT STATES HAS BEEN OFF FOR A FEW DAYS FOR UPCOMING SURGERY ON 06/20/21. Eliquis 5 mg tablet 1 tab PO BID Referrals / Follow Up: Emani Delgado DO [Primary Care Provider] - Within 2 Weeks Taye Gonzalez DO [STAFF PHYSICIAN] - (follow up with Dr Gonzalez as scheduled today) Disposition Disposition (needs filled in before D/C Order can be placed): Home, Self Care Charges/Coding Visit Charges Inpatient E&M: 60057 Disch Hosp
[2022-03-16 08:11] VITALS: BP 132/64; PULSE 78; RESP 18; TEMP 36.7; O2SAT 100
[2022-03-16] MEDS: amLODIPine 5 MG Tablet PO (08:20)
[2022-03-16] MEDS: Carvedilol 25 MG Tablet PO (08:20)
[2022-03-16] MEDS: Atorvastatin Calcium 40 MG Tablet PO (08:20)
--- NOTE | 2022-03-16 10:16 | PHA.DC.MR ---
Pharmacy Service has performed discharge medication reconciliation for this patient. The patient's discharge medication list was reviewed for discrepancies and discrepancies were resolved. Home Medications atorvastatin 40 mg tablet (Lipitor) 40 mg PO QHS CHOLESTEROL 11/22/19 carvedilol 25 mg tablet (Coreg) 25 mg PO BID 11/22/19 furosemide 40 mg tablet (Lasix) 60 mg PO DAILY 11/22/19 metformin 500 mg tablet 500 mg PO DAILY 11/22/19 psyllium 1 packet PO DAILY 06/18/21 amlodipine 2.5 mg tablet 5 mg PO DAILY 06/19/21 cinnamon bark 500 mg capsule (Cinnamon) 1,000 mg PO BID SUPPLEMENT 06/19/21 potassium chloride 8 mEq capsule,extended release 16 meq PO DAILY SUPPLEMENT 06/19/21 polyethylene glycol 3350 17 gram/dose oral powder (Miralax) 17 g PO DAILY 03/14/22
--- NOTE | 2022-03-16 10:24 | CASEMGMT ---
TAURUS LAGOS in to discuss SKINNER form with patient. TAURUS LAGOS explained SKINNER form, patient voiced understanding. Pt signed form and filed in chart. Pt provided with a copy of signed SKINNER form. Pt with family member at bedside. Pt denies concerns regarding going home. States she feels safe and is up indep at home. Patient had no further questions or concerns at this time.
[2022-03-16] MEDS: 0.9% Saline Lock 10 ML Syringe IV (10:26)
== END 2022-03-16 10:48 | disposition home or self-care (01) ==
LOC: ED 15:33 → MS3 15:56
PROVIDERS: Admitting Provider Student in an Organized Health Care Education/Training Program; Emergency Provider Emergency Medicine; Visit Provider Student in an Organized Health Care Education/Training Program
DX: C20 Malignant neoplasm of rectum (principal); J44.9 Chronic obstructive pulmonary disease, unspecified; I11.0 Hypertensive heart disease with heart failure; I42.9 Cardiomyopathy, unspecified; I50.32 Chronic diastolic (congestive) heart failure; E11.9 Type 2 diabetes mellitus without complications; K62.5 Hemorrhage of anus and rectum; Z86.718 Personal history of other venous thrombosis and embolism; Z79.84 Long term (current) use of oral hypoglycemic drugs; Z79.01 Long term (current) use of anticoagulants; E78.5 Hyperlipidemia, unspecified; Z79.82 Long term (current) use of aspirin; Z79.899 Other long term (current) drug therapy
CPT/HCPCS: 80048; 82274; 85025; 86850; 86870; 86900; 86901; 86902; 96360; 96361; 97802; 99218; 99283; J7030; A4216; G0378

== ENCOUNTER 2022-09-27 15:06 | Inpatient (IN) | payer MEDICARE, SELFPAY ==
[2022-09-27 15:08] VITALS: BP 154/77; PULSE 92; RESP 16; TEMP 36.1; O2SAT 99; BMI 31.2
--- NOTE | 2022-09-27 15:26 | EDS_ITS ---
HPI <TAM Craig - Last Filed: 09/27/22 18:33> History of Present Illness Chief Complaint: GI Bleed Narrative Narrative: 67-year-old female with PMH with rectal cancer, anemia, DVT on Eliquis presents with rectal bleeding. She has had 5 episodes of bright red blood and quarter size clots today. She states there is no stool, only blood. There is no associated abdominal pain, nausea or vomiting, dizziness or lightheadedness. She had an episode of GI bleeding in February 2022 and states she had a colonoscopy after that but was not sure of the results. She has had no bleeding again until today. She is on Eliquis due to history of bilateral leg DVTs. Her rectal cancer was diagnosed in May 2022 with mets to the liver. She is completed 2 rounds of radiation, chemotherapy, and is currently only on Keytruda. She is a patient of Dr. Menjivar. [facility] <TAM Craig - Last Filed: 09/27/22 18:33> [facility] Medical History Abnormal nuclear stress test Anemia Anemia Arthritis Cancer Cardiomyopathy Carotid artery stenosis Chronic anticoagulation Congenital talipes calcaneovalgus of left foot COPD (chronic obstructive pulmonary disease) Diabetes mellitus type II, uncontrolled Diastolic congestive heart failure Essential hypertension History of CHF (congestive heart failure) History of CVA (cerebrovascular accident) (10/21/17) History of pleural effusion (10/21/17) History of renal disease Hyperlipidemia Low iron Nonrheumatic mitral valve regurgitation Nonrheumatic tricuspid valve regurgitation Preop cardiovascular exam Rectal bleeding Renal insufficiency Shortness of breath on exertion Snoring Tricuspid regurgitation Wears dentures Home Medications atorvastatin 40 mg tablet (Lipitor) 40 mg PO QHS CHOLESTEROL 11/22/19 [History Last Taken 09/27/22 0700] carvedilol 25 mg tablet (Coreg) 6.25 mg PO BID Hypertension 11/22/19 [History La st Taken 09/27/22 0700] furosemide 40 mg tablet (Lasix) 60 mg PO DAILY 11/22/19 [History Last Taken 06/19/21] cinnamon bark 500 mg capsule (Cinnamon) 1,000 mg PO BID SUPPLEMENT 06/19/21 [History Last Taken 09/27/22 07] potassium chloride 8 mEq capsule,extended release 20 meq PO DAILY SUPPLEMENT 06/19/21 [History Last Taken 09/27/22 07] apixaban 2.5 mg tablet (Eliquis) 2.5 mg PO BID Blood thinner 09/27/22 [History Last Taken 09/27/22 07] dexamethasone 0.5 mg/5 mL oral elixir 1 mg PO Q6H Hypertensioin 09/27/22 [History Last Taken 09/27/22 07] empagliflozin 10 mg tablet (Jardiance) 10 mg PO DAILY Diabetes 09/27/22 [History Last Taken 09/27/22 07] glipizide 5 mg tablet 5 mg PO DAILY Diabetes 09/27/22 [History Last Taken 09/27/22699] Allergy/AdvReac Type Severity Reaction Status Date / Time latex Allergy Severe Hives Verified 09/27/22 15:10 codeine AdvReac Unknown unknown Verified 09/27/22 15:10 Family History Mother Bleeding disorder Diabetes CAD (coronary artery disease) Hypertension Hyperlipidemia Kidney disease Sister Asthma CAD (coronary artery disease) Hyperlipidemia Father Cancer CAD (coronary artery disease) Hypertension Hyperlipidemia CVA (cerebral vascular accident) Brother CAD (coronary artery disease) Hyperlipidemia Surgical History History of cardiac catheterization History of colonoscopy History of foot surgery Hx of cataract surgery Social History Smoking Status: Never smoker ROS <TAM Craig - Last Filed: 09/27/22 18:33> ROS ED ROS Narrative Constitutional: Negative for fever, chills, malaise. CVS: Negative for palpitations, chest pain, syncope. Respiratory: Negative for shortness of breath, cough, orthopnea. GI: Negative for abdominal pain, nausea, vomiting, diarrhea, constipation. Skin: Negative for rash, abscess, or wound. Musc: Negative for joint pain, swelling, trauma. EXAM <TAM Craig - Last Filed: 09/27/22 18:33> Physical Exam Narrative Exam Narrative: CONST: Patient sitting in no acute distress. NECK: Normal inspection. RESP: No respiratory distress, CTAB. CVS: Regular rate and rhythm, no murmur, no gallop. ABD: Soft and nontender, no guarding or rebound, nondistended. SKIN: Color normal, no rash, warm, dry, intact. EXTREMITIES: Normal appearance, no pedal edema. NEURO: Oriented x4. PSYCH: Normal affect. Const Vital Signs: 09/27/22 15:08 09/27/22 16:07 Temperature 97 F L Temperature Source Temporal Pulse Rate 92 Pulse Rate [Lying] 85 Pulse Rate [Sitting (for 1 minute prior to obtaining)] 87 Pulse Rate [Standing (for 1 minute prior to obtaining)] 90 Respiratory Rate 16 Blood Pressure 154/77 H Blood Pressure [Lying] 146/74 H Blood Pressure [Sitting (for 1 minute prior to obtaining)] 147/76 H Blood Pressure [Standing (for 1 minute prior to obtaining)] 121/64 H Blood Pressure Mean 102 Blood Pressure Mean [Lying] 98 Blood Pressure Mean [Sitting (for 1 minute prior to obtaining)] 99 Blood Pressure Mean [Standing (for 1 minute prior to obtaining)] 83 Pulse Ox 99 Oxygen Delivery Method Room Air <Dr. Dameon Bautista MD - Last Filed: 09/27/22 23:19> Physical Exam Const Vital Signs: 09/27/22 15:08 09/27/22 16:07 Temperature 97 F L Temperature Source Temporal Pulse Rate 92 Pulse Rate [Lying] 85 Pulse Rate [Sitting (for 1 minute prior to obtaining)] 87 Pulse Rate [Standing (for 1 minute prior to obtaining)] 90 Respiratory Rate 16 Blood Pressure 154/77 H Blood Pressure [Lying] 146/74 H Blood Pressure [Sitting (for 1 minute prior to obtaining)] 147/76 H Blood Pressure [Standing (for 1 minute prior to obtaining)] 121/64 H Blood Pressure Mean 102 Blood Pressure Mean [Lying] 98 Blood Pressure Mean [Sitting (for 1 minute prior to obtaining)] 99 Blood Pressure Mean [Standing (for 1 minute prior to obtaining)] 83 Pulse Ox 99 Oxygen Delivery Method Room Air MDM <TAM Craig - Last Filed: 09/27/22 18:33> MDM MDM Narrative Medical decision making narrative: I have personally performed a face to face assessment of the patient and have reviewed the GRETEL Note. I performed a substantive portion of the visit including all aspects of the following. My weinberg findings include: History is remarkable for bright red blood per rectum with clots the size of walnuts and larger. Patient is on anticoagulant because of bilateral lower extremity DVTs. She states she had a similar presentation for GI bleed. She had a 24-hour stay and was discharged to home. She denies orthostatic symptoms. She denies abdominal discomfort. Her care originated at [facility]. Her local oncologist is Dr. Taye Menjivar. She denies history of hemorrhoids. She denies dyspnea or dyspnea on exertion. She denies orthopnea. Patient states that her lower extremity are swollen due to prednisone that was started 3 weeks ago. She states she has stage IV colon cancer. She is uncertain if there are pelvic lymph nodes etc. Concern that this lymphedema is obstructive due to rectal carcinoma. Exam is H EENT exam is unremarkable. Conjunctive is pink. Heart is regular. There is no murmur, gallop or rub. Patient has a port that was placed at the [facility] right subclavian area. Lungs revealed no wheeze, rales or rhonchi. Abdomen is soft nontender. Bowel sounds are slightly diminished. There are no fissures, fistulas or hemorrhoids noted on rectal exam. The rectal mass is palpable on digital exam. There is brownish-red material noted in the rectal vault. This is consistent with blood. Patient does have significant edema of both the right and left lower extremity. Medical Decision Making Will obtain CBC to evaluate H&H. BMP was obtained to assess renal function, electrolytes and CO2 anion gap. She was typed and screened. She is on anticoagulant. She is presently on anticoagulant because of bilateral DVTs at multiple sites. This was diagnosed several months prior to her diagnosis of colon cancer, May 2022. Patient will require admission. Other additions or changes: Review of prior records confirms that patient had port placed to [facility]. Confirmed the patient has stage IV colon rectal cancer. Prior blood work was assessed. Hemoglobin is higher than most recent that was dated March 16, 2022. Creatinine is slightly elevated. It was elevated in February. It did normalize. Lab Data Attestation: I reviewed the patient's lab results. Lab results narrative: Patient with history of rectal cancer presents with rectal bleeding. She has had 5 large episodes of blood with clots today. She is on Eliquis. She appears well and nontoxic with normal vital signs. She does not appear pale. Abdomen is soft, nontender. Blood work will be obtained. CBC shows hemoglobin of 10.2. It looks like her baseline is around 8?10. BUN/creatinine is 19/1.11. Plan will be to hold Eliquis and patient will require admission for observation deletes to recheck an H&H. Case was discussed with the hospitalist. Labs: Laboratory Results - last 24 hr 09/27/22 09/27/22 09/27/22 15:52 15:52 15:52 WBC 10.1 RBC 3.63 L Hgb 10.2 L Hct 32.8 L MCV 90.4 MCH 28.1 MCHC 31.1 L RDW Std Deviation 55.8 H RDW Coeff of Dann 16.9 H Plt Count 397 MPV 8.2 Immature Gran % (Auto) 2.100 H Neut % (Auto) 75.5 H Lymph % (Auto) 9.9 L [place] % (Auto) 11.4 H Eos % (Auto) 0.4 Baso % (Auto) 0.7 Absolute Neuts (auto) 7.7 Absolute Lymphs (auto) 1.00 Nucleated RBC % 0 Sodium 138 Potassium 3.5 Chloride 106 Carbon Dioxide 25.0 Anion Gap 7 BUN 19 H Creatinine 1.11 H Estim Creat Clear Calc 35.33 Est GFR (MDRD) Af Amer 63 Est GFR (MDRD) Non-Af 52 L BUN/Creatinine Ratio 17.1 Glucose 105 Calcium 8.3 L Blood Type O POSITIVE Antibody Screen POSITIVE H Antibody Identification ANTI-M Antigen Identification E ANTIGEN - POSITIVE Crossmatch 09/27/22 15:52 WBC RBC Hgb Hct MCV MCH MCHC RDW Std Deviation RDW Coeff of Dann Plt Count MPV Immature Gran % (Auto) Neut % (Auto) Lymph % (Auto) [place] % (Auto) Eos % (Auto) Baso % (Auto) Absolute Neuts (auto) Absolute Lymphs (auto) Nucleated RBC % Sodium Potassium Chloride Carbon Dioxide Anion Gap BUN Creatinine Estim Creat Clear Calc Est GFR (MDRD) Af Amer Est GFR (MDRD) Non-Af BUN/Creatinine Ratio Glucose Calcium Blood Type Antibody Screen Antibody Identification Antigen Identification Crossmatch See Detail EKG Initial EKG: Comments: ED attending interpretation of EKG is normal sinus rhythm with no ischemic changes, 88 bpm OH interval 152 ms, QRS duration 84 ms, QTC 411 ms <Dr. Dameon Bautista MD - Last Filed: 09/27/22 23:19> [facility] MDM Narrative Medical decision making narrative: I have personally performed a face to face assessment of the patient and have reviewed the GRETEL Note. I performed a substantive portion of the visit including all aspects of the following. My weinberg findings include: History is remarkable for bright red blood per rectum with clots the size of walnuts and larger. Patient is on anticoagulant because of bilateral lower extremity DVTs. She states she had a similar presentation for GI bleed. She had a 24-hour stay and was discharged to home. She denies orthostatic symptoms. She denies abdominal discomfort. Her care originated at [facility]. Her local oncologist is Dr. Taye Menjivar. She denies history of h emorrhoids. She denies dyspnea or dyspnea on exertion. She denies orthopnea. Patient states that her lower extremity are swollen due to prednisone that was started 3 weeks ago. She states she has stage IV colon cancer. She is uncertain if there are pelvic lymph nodes etc. Concern that this lymphedema is obstructive due to rectal carcinoma. Exam is H EENT exam is unremarkable. Conjunctive is pink. Heart is regular. There is no murmur, gallop or rub. Patient has a port that was placed at the [facility] right subclavian area. Lungs revealed no wheeze, rales or rhonchi. Abdomen is soft nontender. Bowel sounds are slightly diminished. There are no fissures, fistulas or hemorrhoids noted on rectal exam. The rectal mass is palpable on digital exam. There is brownish-red material noted in the rectal vault. This is consistent with blood. Patient does have significant edema of both the right and left lower extremity. Medical Decision Making Will obtain CBC to evaluate H&H. BMP was obtained to assess renal function, electrolytes and CO2 anion gap. She was typed and screened. She is on anticoagulant. She is presently on anticoagulant because of bilateral DVTs at multiple sites. This was diagnosed several months prior to her diagnosis of colon cancer, May 2022. Patient will require admission. Other additions or changes: Review of prior records confirms that patient had port placed to [facility]. Confirmed the patient has stage IV colon rectal cancer. Prior blood work was assessed. Hemoglobin is higher than most recent that was dated March 16, 2022. Creatinine is slightly elevated. It was elevated in February. It did normalize. Lab Data Labs: Laboratory Results - last 24 hr 09/27/22 09/27/22 09/27/22 15:52 15:52 15:52 WBC 10.1 RBC 3.63 L Hgb 10.2 L Hct 32.8 L MCV 90.4 MCH 28.1 MCHC 31.1 L RDW Std Deviation 55.8 H RDW Coeff of Dann 16.9 H Plt Count 397 MPV 8.2 Immature Gran % (Auto) 2.100 H Neut % (Auto) 75.5 H Lymph % (Auto) 9.9 L [place] % (Auto) 11.4 H Eos % (Auto) 0.4 Baso % (Auto) 0.7 Absolute Neuts (auto) 7.7 Absolute Lymphs (auto) 1.00 Nucleated RBC % 0 Sodium 138 Potassium 3.5 Chloride 106 Carbon Dioxide 25.0 Anion Gap 7 BUN 19 H Creatinine 1.11 H Estim Creat Clear Calc 35.33 Est GFR (MDRD) Af Amer 63 Est GFR (MDRD) Non-Af 52 L BUN/Creatinine Ratio 17.1 Glucose 105 Calcium 8.3 L Blood Type O POSITIVE Antibody Screen POSITIVE H Antibody Identification ANTI-M Antigen Identification E ANTIGEN - POSITIVE Crossmatch 09/27/22 15:52 WBC RBC Hgb Hct MCV MCH MCHC RDW Std Deviation RDW Coeff of Dann Plt Count MPV Immature Gran % (Auto) Neut % (Auto) Lymph % (Auto) [place] % (Auto) Eos % (Auto) Baso % (Auto) Absolute Neuts (auto) Absolute Lymphs (auto) Nucleated RBC % Sodium Potassium Chloride Carbon Dioxide Anion Gap BUN Creatinine Estim Creat Clear Calc Est GFR (MDRD) Af Amer Est GFR (MDRD) Non-Af BUN/Creatinine Ratio Glucose Calcium Blood Type Antibody Screen Antibody Identification Antigen Identification Crossmatch See Detail EKG Initial EKG: Attestation: I personally reviewed and interpreted this EKG as follows: Interpretation: Sinus Rhythm (Sinus rhythm with a ventricular rate of 88. OH interval is 152 ms. QS duration 84 ms. QT duration 340 ms. Placida is normal. There is decreased anterior force.) Prior: Unchanged Discharge Plan Dx/Rx/DC Orders Clinical Impression: Acute GI bleeding, History of rectal cancer, Anemia, Hyperlipidemia, Elevated blood pressure reading, Anticoagulant long-term use, History of deep venous thrombosis (DVT) of distal vein of left lower extremity, History of deep venous thrombosis (DVT) of distal vein of right lower extremity, History of diabetes mellitus, type II Disposition Disposition: Acute Care Hospital [facility] Discharge Date/Time: 09/27/22 18:38
--- NOTE | 2022-09-27 15:34 | EKG12_ITS ---
Test Reason : GI BLEED Blood Pressure : / mmHG Vent. Rate : 088 BPM Atrial Rate : 088 BPM P-R Int : 152 ms QRS Dur : 084 ms QT Int : 340 ms P-R-T Axes : 004 -29 053 degrees QTc Int : 411 ms Normal sinus rhythm Minimal voltage criteria for LVH, may be normal variant ( R in aVL ) Septal infarct , age undetermined Abnormal ECG Confirmed by BULMARO SIFUENTES, KALLI ([id number]), index editor DARRION GLOVER ([id number]) on 09/28/2022 1:10:11 PM Referred By: Confirmed By:KALLI CHAMBERLAIN MD
[2022-09-27 16:07] VITALS: BP 121/64; BP 146/74; BP 147/76; PULSE 85; PULSE 87; PULSE 90
[2022-09-27 16:12] LABS: Anion Gap 7 (5-15); BUN 19 mg/dL (7-18); BUN/Creat Ratio 17.1 RATIO (10-20); Calcium,Total 8.3 mg/dL (8.5-10.1); Chloride 106 mmol/L (98-107); Creatinine, Serum 1.11 mg/dL (0.55-1.02); EST Glomerular Filtration Rate 52 mL/min (>60); Est Glom Filt Rate - Afr Amer 63 mL/min (>60); Estimated Creatinine Clearance 35.33 ml/min; Glucose 105 mg/dL (74-106); Potassium 3.5 mmol/L (3.5-5.1); Sodium Level 138 mmol/L (136-145)
[2022-09-27 16:31] LABS: Absolute Neutrophil Count 7.7 X10^3/uL (2.0-7.7); Basophil# 0.07 X10^3/uL; Basophil% 0.7 % (0-1); Eosinophil# 0.04 X10^3/uL; Eosinophils% 0.4 % (0-5); Hematocrit 32.8 % (37-47); Hemoglobin 10.2 g/dL (12.0-15.0); Lymphocyte % 9.9 % (19-41); Mean Corp Hgb Conc 31.1 g/dL (32-36); Mean Corpuscular Hgb 28.1 pg (27.0-32.0); Mean Corpuscular Volume 90.4 fL (81-99); Mean Platelet Vol. 8.2 fl (6.2-12.0); Monocyte# 1.16 X10^3/uL; Monocyte% 11.4 % (0-10); NRBC Flagged by Analyzer 0 % (0-5); Neutrophil # 7.66 X10^3/uL (2.7-7.7); Neutrophil % 75.5 % (47-70); Platelet Count 397 K/mm3 (150-450); RBC Distribution Width CV 16.9 % (11.6-14.6); RBC Distribution Width SD 55.8 fl (35.1-43.9); Red Blood Count 3.63 M/mm3 (4.2-5.4); White Blood Count 10.1 K/mm3 (4.4-11.0)
--- NOTE | 2022-09-27 17:45 | PCM.HP.STD ---
[facility] - [facility] Date of Service: 09/27/22 Chief Complaint: rectal bleeding. [facility] Narrative BETI JAUREGUI, is a 67 F who presents with rectal bleeding. Symptoms began this morning where patient had some bleeding and blood clots in the bowl. Went to jehovah's witness and continue to progress and so came into the emergency room for evaluation. In total, patient had 5 bloody bowel movements. This is similar to her presentation that she had last year. Patient did not have any endoscopy during that time but did follow-up with Dr. Keene and he attempted a colonoscopy or sigmoidoscopy was unable to advance the scope beyond the rectal mass that she has. Patient has not had any further bleeding since then and has continued to take her blood thinners with exception of holding it for bronchoscopy at some point. [facility] Medical History Abnormal nuclear stress test Anemia Anemia Arthritis Cancer Cardiomyopathy Carotid artery stenosis Chronic anticoagulation Congenital talipes calcaneovalgus of left foot COPD (chronic obstructive pulmonary disease) Diabetes mellitus type II, uncontrolled Diastolic congestive heart failure Essential hypertension History of CHF (congestive heart failure) History of CVA (cerebrovascular accident) (10/21/17) History of pleural effusion (10/21/17) History of renal disease Hyperlipidemia Low iron Nonrheumatic mitral valve regurgitation Nonrheumatic tricuspid valve regurgitation Preop cardiovascular exam Rectal bleeding Renal insufficiency Shortness of breath on exertion Snoring Tricuspid regurgitation Wears dentures Home Medications atorvastatin 40 mg tablet (Lipitor) 40 mg PO QHS CHOLESTEROL 11/22/19 [History Last Taken 06/18/21] carvedilol 25 mg tablet (Coreg) 25 mg PO BID 11/22/19 [History Last Taken 06/19/21] furosemide 40 mg tablet (Lasix) 60 mg PO DAILY 11/22/19 [History Last Taken 06/19/21] metformin 500 mg tablet 500 mg PO DAILY 11/22/19 [History Last Taken 06/19/21] psyllium 1 packet PO DAILY 06/18/21 [History Last Taken 06/19/21] amlodipine 2.5 mg tablet 5 mg PO DAILY 06/19/21 [History Last Taken 06/19/21] cinnamon bark 500 mg capsule (Cinnamon) 1,000 mg PO BID SUPPLEMENT 06/19/21 [History Last Taken 06/19/21] potassium chloride 8 mEq capsule,extended release 16 meq PO DAILY SUPPLEMENT 06/19/21 [History Last Taken 06/19/21] polyethylene glycol 3350 17 gram/dose oral powder (Miralax) 17 g PO DAILY 03/14/22 [History Last Taken Unknown] Allergy/AdvReac Type Severity Reaction Status Date / Time latex Allergy Severe Hives Verified 09/27/22 15:10 codeine AdvReac Unknown unknown Verified 09/27/22 15:10 Family History Mother Bleeding disorder Diabetes CAD (coronary artery disease) Hypertension Hyperlipidemia Kidney disease Sister Asthma CAD (coronary artery disease) Hyperlipidemia Father Cancer CAD (coronary artery disease) Hypertension Hyperlipidemia CVA (cerebral vascular accident) Brother CAD (coronary artery disease) Hyperlipidemia Surgical History History of cardiac catheterization History of colonoscopy History of foot surgery Hx of cataract surgery Social History Smoking Status: Never smoker ROS ROS Narrative No abdominal pain. Patient does have a chronic lower extremity edema but is actually improved from previous. All review of systems were negative except as mentioned above in the history of present illness and the other review of systems. Vital Signs Vital Signs Vital Signs: 09/27/22 15:08 09/27/22 16:07 Temperature 36.1 C L Temperature Source Temporal Pulse Rate 92 Pulse Rate [Lying] 85 Pulse Rate [Sitting (for 1 minute prior to obtaining)] 87 Pulse Rate [Standing (for 1 minute prior to obtaining)] 90 Respiratory Rate 16 Blood Pressure 154/77 H Blood Pressure [Lying] 146/74 H Blood Pressure [Sitting (for 1 minute prior to obtaining)] 147/76 H Blood Pressure [Standing (for 1 minute prior to obtaining)] 121/64 H Blood Pressure Mean 102 Blood Pressure Mean [Lying] 98 Blood Pressure Mean [Sitting (for 1 minute prior to obtaining)] 99 Blood Pressure Mean [Standing (for 1 minute prior to obtaining)] 83 Pulse Ox 99 Oxygen Delivery Method Room Air Weight Weight: 72.575 kg Body Mass Index (BMI) 31.2 Physical Exam Const alert and no apparent distress HEENT normocephalic, head/scalp atraumatic, hearing grossly normal bilaterally and moist oral mucous membranes Resp normal respiratory effort, no retractions, no use of accessory muscles and clear to auscultation bilaterally Cardio regular rate, regular rhythm, S1 normal heart sound and S2 normal heart sound GI normal to inspection, nondistended, normoactive bowel sounds, soft to palpation, non-tender and non-distended GI Narrative: Rectal exam. No obvious hemorrhoids or fissures. Extremity Extremity Narrative: 2+ lower extremity edema Neuro moves all extremities Psych affect normal Results Lab / Micro Data Result Diagrams: 09/27/22 15:52 09/27/22 15:52 Labs: Laboratory Results - last 24 hr 09/27/22 15:52: WBC 10.1, RBC 3.63 L, Hgb 10.2 L, Hct 32.8 L, MCV 90.4, MCH 28.1, MCHC 31.1 L, RDW Std Deviation 55.8 H, RDW Coeff of Dann 16.9 H, Plt Count 397, MPV 8.2, Immature Gran % (Auto) 2.100 H, Neut % (Auto) 75.5 H, Lymph % (Auto) 9.9 L, [place] % (Auto) 11.4 H, Eos % (Auto) 0.4, Baso % (Auto) 0.7, Absolute Neuts (auto) 7.7, Absolute Lymphs (auto) 1.00, Nucleated RBC % 0 09/27/22 15:52: Sodium 138, Potassium 3.5, Chloride 106, Carbon Dioxide 25.0, Anion Gap 7, BUN 19 H, Creatinine 1.11 H, Estim Creat Clear Calc 35.33, Est GFR (MDRD) Af Amer 63, Est GFR (MDRD) Non-Af 52 L, BUN/Creatinine Ratio 17.1, Glucose 105, Calcium 8.3 L 09/27/22 15:52: Blood Type O POSITIVE, Antibody Screen POSITIVE H Assessment & Plan Assessment/Plan (1) GI bleed: PLAN: Presumably, this is due to her known rectal cancer but also being on apixaban for history of DVTs. Hemoglobin is currently stable at 10.2. Patient does not require transfusion at this point I do not feel that she has an ulcer as this is blood and she stable so I would not be start her on any PPIs I did recommend gastroenterology to see her. She is unsure as she would prefer to follow-up with Dr. Sorenson. She understands the Dr. Keene does not come into the hospital anymore. She would like to think about it. Told her that if she does not wish to see her counter weigher to let us know sooner if she is able. Additionally, we will hold the apixaban. Would recommend holding that for the next 48 to 96 hours. Clear liquid diet for now PLAN: Plan Chronic conditions VTE: Apixaban on hold given GI bleed Rectal cancer: Patient does take Keytruda. Follows with Dr. Menjivar Diabetes mellitus type 2: Hold metformin. Sliding scale insulin. Check an A1c. Sarcoidosis: Had been on prednisone but discontinued due to extremely high blood sugars. Follow-up with pulmonology as outpatient. Lower extremity edema: Not heart failure at this point in time. Patient did have an echocardiogram from May 2021 where her EF was 55 to 60%. Continue with furosemide and potassium supplementation. VTE prophylaxis: SCDs. Charges/Coding Visit Charges Inpatient E&M: 52890 Init Hosp L3
--- NOTE | 2022-09-27 18:14 | NURSING ---
MED SURG JOPPERI GI BLEED
[2022-09-27 18:20] VITALS: BP 139/81; PULSE 70; RESP 16; TEMP 36.7; O2SAT 97
[2022-09-27 18:56] VITALS: BMI 31.2
[2022-09-27 19:01] VITALS: BP 149/71; PULSE 86; RESP 18; TEMP 36.7; O2SAT 100
[2022-09-27 19:31] LABS: Bedside Glucose 74 mg/dL (74-106)
[2022-09-27] MEDS: Carvedilol 25 MG Tablet PO (22:22)
[2022-09-27 22:32] LABS: Hematocrit 29.2 % (37-47); Hemoglobin 9.5 g/dL (12.0-15.0)
[2022-09-27 22:50] LABS: Bedside Glucose 123 mg/dL (74-106)
[2022-09-27 23:42] VITALS: BP 150/70; PULSE 86; RESP 16; TEMP 37; O2SAT 94
[2022-09-28 06:00] VITALS: BP 126/78; PULSE 82; RESP 16; TEMP 36.9; O2SAT 92
[2022-09-28 06:12] LABS: Absolute Lymphocyte Count 0.91 X10^3/uL (0.83-4.51); Absolute Neutrophil Count 6.5 X10^3/uL (2.0-7.7); Basophil# 0.04 X10^3/uL; Basophil% 0.5 % (0-1); Eosinophil# 0.03 X10^3/uL; Eosinophils% 0.4 % (0-5); Hematocrit 29.6 % (37-47); Hemoglobin 9.2 g/dL (12.0-15.0); Lymphocyte # 0.91 X10^3/ul (0.83-4.51); Lymphocyte % 10.7 % (19-41); Mean Corp Hgb Conc 31.1 g/dL (32-36); Mean Corpuscular Hgb 27.8 pg (27.0-32.0); Mean Corpuscular Volume 89.4 fL (81-99); Mean Platelet Vol. 8.3 fl (6.2-12.0); Monocyte# 0.84 X10^3/uL; Monocyte% 9.9 % (0-10); NRBC Flagged by Analyzer 0 % (0-5); Neutrophil # 6.52 X10^3/uL (2.7-7.7); Platelet Count 319 K/mm3 (150-450); Red Blood Count 3.31 M/mm3 (4.2-5.4); White Blood Count 8.5 K/mm3 (4.4-11.0)
[2022-09-28 06:26] LABS: International Normalized Ratio 1.3; Prothrombin Time (Protime)PT. 15.7 SECONDS (11.7-14.9)
[2022-09-28 06:54] LABS: Anion Gap 7 (5-15); BUN 17 mg/dL (7-18); BUN/Creat Ratio 20.1 RATIO (10-20); Calcium,Total 8.1 mg/dL (8.5-10.1); Chloride 106 mmol/L (98-107); Creatinine, Serum 0.85 mg/dL (0.55-1.02); EST Glomerular Filtration Rate 71 mL/min (>60); Est Glom Filt Rate - Afr Amer 86 mL/min (>60); Estimated Creatinine Clearance 46.13 ml/min; Glucose 73 mg/dL (74-106); Potassium 3.2 mmol/L (3.5-5.1); Sodium Level 139 mmol/L (136-145)
[2022-09-28 07:15] LABS: Bedside Glucose 73 mg/dL (74-106)
--- NOTE | 2022-09-28 07:40 | PN.HOSP_ITS ---
Subjective Subjective Patient is a 67-year-old lady with past medical history significant rectal CA, history of DVTs on apixaban presented to the emergency department with rectal bleeding with clots Objective Data Objective Data Vital Signs: Vital Signs Temp Pulse Resp BP Pulse Ox O2 Del Method 98.5 F 82 16 126/78 H 92 Room Air 09/28/22 06:00 09/28/22 06:00 09/28/22 06:00 09/28/22 06:00 09/28/22 06:00 09/28/22 06:00 Oxygen Delivery Method Room Air Weight: 72.575 kg Body Mass Index (BMI) 31.2 Lab / Micro Data Result Diagrams: 09/28/22 05:53 09/28/22 05:53 Labs: Laboratory Results - last 24 hr 09/27/22 15:52: WBC 10.1, RBC 3.63 L, Hgb 10.2 L, Hct 32.8 L, MCV 90.4, MCH 28.1, MCHC 31.1 L, RDW Std Deviation 55.8 H, RDW Coeff of Dann 16.9 H, Plt Count 397, MPV 8.2, Immature Gran % (Auto) 2.100 H, Neut % (Auto) 75.5 H, Lymph % (Auto) 9.9 L, [place] % (Auto) 11.4 H, Eos % (Auto) 0.4, Baso % (Auto) 0.7, Absolute Neuts (auto) 7.7, Absolute Lymphs (auto) 1.00, Nucleated RBC % 0 09/27/22 15:52: Sodium 138, Potassium 3.5, Chloride 106, Carbon Dioxide 25.0, Anion Gap 7, BUN 19 H, Creatinine 1.11 H, Estim Creat Clear Calc 35.33, Est GFR (MDRD) Af Amer 63, Est GFR (MDRD) Non-Af 52 L, BUN/Creatinine Ratio 17.1, Glucose 105, Calcium 8.3 L 09/27/22 15:52: Blood Type O POSITIVE, Antibody Screen POSITIVE H, Antibody Identification ANTI-M, Antigen Identification E ANTIGEN - POSITIVE 09/27/22 15:52: Crossmatch See Detail 09/27/22 19:07: POC Glucose 74 09/27/22 22:25: Hgb 9.5 L, Hct 29.2 L 09/27/22 22:26: POC Glucose 123 H 09/28/22 05:53: WBC 8.5, RBC 3.31 L, Hgb 9.2 L, Hct 29.6 L, MCV 89.4, MCH 27.8, MCHC 31.1 L, RDW Std Deviation 55.0 H, RDW Coeff of Dann 17.0 H, Plt Count 319, MPV 8.3, Immature Gran % (Auto) 1.500 H, Neut % (Auto) 77.0 H, Lymph % (Auto) 10.7 L, [place] % (Auto) 9.9, Eos % (Auto) 0.4, Baso % (Auto) 0.5, Absolute Neuts (auto) 6.5, Absolute Lymphs (auto) 0.91, Nucleated RBC % 0 09/28/22 05:53: PT 15.7 H, INR 1.3 09/28/22 05:53: Sodium 139, Potassium 3.2 L, Chloride 106, Carbon Dioxide 26.0, Anion Gap 7, BUN 17, Creatinine 0.85, Estim Creat Clear Calc 46.13, Est GFR (MDRD) Af Amer 86, Est GFR (MDRD) Non-Af 71, BUN/Creatinine Ratio 20.1 H, Glucose 73 L, Calcium 8.1 L 09/28/22 06:27: POC Glucose 73 L Assessment & Plan Assessment/Plan (1) Acute GI bleeding: PLAN: Plan Patient is a 67-year-old lady with past medical history significant rectal CA, history of DVTs on apixaban presented to the emergency department with rectal bleeding with clots 1. Rectal bleed ? Secondary to rectal carcinoma in the setting of systemic anticoagulation use. Admitted to regular nursing floor monitor H&H. Patient apparently will prefer to follow-up with her own human resources designate Dr. Keene ? 09/28/2022 Case was discussed with Dr. Turner Keene patient human resources designate plan is to observe patient for 1 more day and obtain CT of the abdomen and pelvis to rule out diverticulitis. Keytruda induced colitis also possibility. 2. Rectal carcinoma ? Patient is on Keytruda. With Dr. Menjivar as outpatient 3. Lower extremity DVT ? Patient is on apixaban held in view of rectal bleed 4. Sarcoidosis ? Patient is followed by pulmonology here as outpatient 5. Diabetes mellitus type 2 ? On metformin held please on Accu-Cheks before meals and at bedtime with sliding scale coverage 6. DVT prophylaxis ? Bilateral SCDs Time spent in the patient's overall evaluation,decision-making process, review of diagnostic data, adjustment of management, discussion with other providers, nursing nursing and ancillary staff involved in patient's care documentation 38 Minutes Charges/Coding Visit Charges Inpatient E&M: 23150 Subs Hosp L2
[2022-09-28 08:50] VITALS: BP 130/64; PULSE 79; RESP 16; TEMP 37; O2SAT 96
[2022-09-28 08:52] LABS: Hemoglobin A1c 8.5 % (3.8-5.6)
[2022-09-28] MEDS: Furosemide 20 MG Tablet 60 MG PO (08:53)
[2022-09-28] MEDS: Carvedilol 25 MG Tablet PO ×2 (08:53→16:29)
[2022-09-28] MEDS: Atorvastatin Calcium 40 MG Tablet PO (08:53)
[2022-09-28] MEDS: amLODIPine 5 MG Tablet PO (08:53)
[2022-09-28] MEDS: Potassium Chloride Oral Tablet 20 MEQ PO (08:53)
--- NOTE | 2022-09-28 09:33 | CT_ITS ---
STUDY: CT ABDOMEN AND PELVIS WITH CONTRAST REASON FOR EXAM: Female, 67 years old. History of prior rectal cancer. Rectal bleeding. RADIATION DOSAGE (If Supplied By Facility): CTDIvol = ( 15.79 ) mGy, DLP = ( 1144.44 ) mGycm TECHNIQUE: Transaxial images were obtained from the dome of the diaphragm to the symphysis pubis with oral contrast. Oral and amp;amp; IV Gastrografin and amp;amp; 100mL Isovue-300 was administered. Sagittal and coronal images were reconstructed. Individualized dose optimization techniques were used for this CT. COMPARISON: Comparison is made with prior CT scan of the chest dated 06/13/2021. FINDINGS: Persistent nodular density in the lingular segment of the left upper lobe. This has decreased in size. It presently measures 1.8 cm x 1.3 cm. Persistent bronchiectasis and scarring in the posterior aspect of the right middle lobe as well as at the lung bases. Coronary artery calcification. There is decreased attenuation of the liver consistent with steatosis. There is a 2.3 cm x 2.1 cm hypodensity in the lateral aspect of the right lobe of liver with peripheral enhancement suggestive of possible hemangioma. A neoplastic process cannot be ruled out. Normal gallbladder and extrahepatic biliary system. Normal spleen. Normal pancreas. There is a small, circumscribed, smooth, low attenuation left adrenal mass, consistent with an adrenal adenoma. Normal right adrenal gland. Mild to moderate degree of right hydronephrosis and the right hydroureter down to the right ureterovesical junction. Questionable tiny stone at that site. Normal left kidney. Normal visualized stomach. Normal small intestine. There are multiple colonic diverticula consistent with diverticulosis. There is diffuse circumferential wall thickening of the rectum. Findings suggestive of colitis of the rectosigmoid colon. The appendix is visualized and appears normal. There is diffuse atherosclerotic calcification of the abdominal aorta, without a demonstrated aneurysm. Normal inferior vena cava. Normal retroperitoneum. Diffuse wall thickening of the urinary bladder. Cystitis should BE ruled out. Normal abdominal wall. There are diffuse degenerative changes of the visualized lumbar spine. Mild degree of anterior listhesis of L4 on L5. CT/Abdomen/Pelvis WITH Contrast IMPRESSION: Persistent nodular densities and scarring at the lung bases although there has been improvement as compared to prior study. Moderate degree of right hydronephrosis and right hydroureter due to a tiny calculus in the distal portion of the right ureter just proximal to the ureterovesical junction. Findings suggestive of colitis of the rectosigmoid colon. Electronically Signed: Carloz Velasquez MD at 13:57 EST ,
--- NOTE | 2022-09-28 10:50 | CASEMGMT ---
RN?CM?STORAGE BATTERY INSPECTOR?CM?to room to meet with patient for initial transition planning/care coordination?assessment.?RN?CM?introduced self and role at [facility].? Pt voices understanding and consents to?assessment?at this time.? Pt resting in bed in no distress at this time.?Pt's friend @ bedside and pt agreeable to her being present during assessment. Pt is A/O at this time and answers all questions appropriately.?? Care providers, pharmacy, and demographics verified/updated at this time.? PCP:?Dr Delgado in [place]. Pt states she is switching to another PCP in [place], but does not remember the name Specialists:?Dr Menjivar-oncology, Dr Crane- vp cardiovascular service line in [place], Dr Kathy eNves-pulmonology Preferred Pharmacy:?[facility] Insurance:?[place] [facility] Prescription Benefit:??Yes Living Will/HPOA:??Has both LW and HCPOA, who is her daughter, Padmini LNOK:?dtr/POA, Padmini. Brother, Silvio Living Arrangements:?Lives w/her in one-story home w/5 steps to enter w/railing on both sides. Independent and manages her own medications. helps w/laundry. Transportation:?Pt states drives self and states no transportation concerns at this time.?? does not drive. DME: ?States has the following DME:??functioning glucometer w/supplies. Has a shower chair. Also has a cane and walker, but does not use. ? Pt states no need for further DME at this time.?? HHC/SNF:?No hx of SNF. Has had HHC in the past. Pt denies need of HHC @ discharge. Pt wishes to return home and states has no concerns with going home at time of discharge.???CM?to follow for any discharge planning/needs.? Pt voices no concerns/needs at this time.? Advised pt to ask for?CM?if any questions/concerns/needs arise.? Voices understanding.? PLAN:??[facility] [place] BSN?RN?CM
[2022-09-28] MEDS: Ondansetron 4 MG/2 ML Vial IV (11:59)
[2022-09-28 12:06] LABS: Bedside Glucose 104 mg/dL (74-106)
[2022-09-28 14:39] VITALS: BP 115/61; PULSE 86; RESP 16; TEMP 36.6; O2SAT 97
[2022-09-28 16:56] LABS: Bedside Glucose 276 mg/dL (74-106)
[2022-09-28 20:29] VITALS: BP 155/62; PULSE 85; RESP 16; TEMP 37.1; O2SAT 97
[2022-09-28 22:51] LABS: Bedside Glucose 138 mg/dL (74-106)
[2022-09-29 02:54] VITALS: BP 115/54; PULSE 81; RESP 16; TEMP 36.9; O2SAT 95
[2022-09-29] MEDS: 0.9% Saline Lock 10 ML Syringe IV ×3 (05:02→14:02)
[2022-09-29 05:23] LABS: Absolute Lymphocyte Count 0.86 X10^3/uL (0.83-4.51); Absolute Neutrophil Count 6.7 X10^3/uL (2.0-7.7); Basophil# 0.04 X10^3/uL; Basophil% 0.5 % (0-1); Eosinophil# 0.05 X10^3/uL; Eosinophils% 0.6 % (0-5); Hematocrit 29.3 % (37-47); Hemoglobin 9.2 g/dL (12.0-15.0); Lymphocyte # 0.86 X10^3/ul (0.83-4.51); Lymphocyte % 9.8 % (19-41); Mean Corp Hgb Conc 31.4 g/dL (32-36); Mean Corpuscular Hgb 28.1 pg (27.0-32.0); Mean Corpuscular Volume 89.6 fL (81-99); Mean Platelet Vol. 8.3 fl (6.2-12.0); Monocyte# 0.97 X10^3/uL; NRBC Flagged by Analyzer 0.2 % (0-5); Neutrophil # 6.74 X10^3/uL (2.7-7.7); Neutrophil % 76.5 % (47-70); Platelet Count 324 K/mm3 (150-450); RBC Distribution Width CV 17.1 % (11.6-14.6); RBC Distribution Width SD 55.6 fl (35.1-43.9); Red Blood Count 3.27 M/mm3 (4.2-5.4); White Blood Count 8.8 K/mm3 (4.4-11.0)
[2022-09-29 05:41] LABS: Anion Gap 8 (5-15); BUN 13 mg/dL (7-18); BUN/Creat Ratio 13.6 RATIO (10-20); Chloride 105 mmol/L (98-107); Creatinine, Serum 0.95 mg/dL (0.55-1.02); EST Glomerular Filtration Rate 62 mL/min (>60); Est Glom Filt Rate - Afr Amer 75 mL/min (>60); Estimated Creatinine Clearance 41.28 ml/min; Glucose 112 mg/dL (74-106); Phosphorus 3.1 mg/dL (2.5-4.9); Potassium 3.2 mmol/L (3.5-5.1); Sodium Level 139 mmol/L (136-145)
[2022-09-29 07:11] LABS: Bedside Glucose 115 mg/dL (74-106)
--- NOTE | 2022-09-29 07:52 | PCM.PN.HOSP ---
Subjective Subjective Denies any further bleeding. Case was discussed with patient oncologist Dr. Menjivar patient will be discharged home and her apixaban held.. Patient also to follow-up with Dr. Keene as outpatient Objective Data Objective Data Vital Signs: Vital Signs Temp Pulse Resp BP Pulse Ox O2 Del Method 98.4 F 81 16 115/54 L 95 Room Air 09/29/22 02:54 09/29/22 02:54 09/29/22 02:54 09/29/22 02:54 09/29/22 02:54 09/29/22 02:54 Oxygen Delivery Method Room Air Weight: 72.575 kg Body Mass Index (BMI) 31.2 Intake & Output: Intake and Output for Last 24 Hours 09/27/22 09/28/22 09/29/22 23:59 23:59 23:59 Intake Total 600 / 600 Output Total 400 / 400 Balance 200 / 200 Lab / Micro Data Result Diagrams: 09/29/22 05:00 09/29/22 05:00 Labs: Laboratory Results - last 24 hr 09/28/22 05:53: Hemoglobin A1c 8.5 H 09/28/22 11:43: POC Glucose 104 09/28/22 16:28: POC Glucose 276 H 09/28/22 22:22: POC Glucose 138 H 09/29/22 05:00: WBC 8.8, RBC 3.27 L, Hgb 9.2 L, Hct 29.3 L, MCV 89.6, MCH 28.1, MCHC 31.4 L, RDW Std Deviation 55.6 H, RDW Coeff of Dann 17.1 H, Plt Count 324, MPV 8.3, Immature Gran % (Auto) 1.600 H, Neut % (Auto) 76.5 H, Lymph % (Auto) 9.8 L, [place] % (Auto) 11.0 H, Eos % (Auto) 0.6, Baso % (Auto) 0.5, Absolute Neuts (auto) 6.7, Absolute Lymphs (auto) 0.86, Nucleated RBC % 0.2 09/29/22 05:00: Sodium 139, Potassium 3.2 L, Chloride 105, Carbon Dioxide 26.0, Anion Gap 8, BUN 13, Creatinine 0.95, Estim Creat Clear Calc 41.28, Est GFR (MDRD) Af Amer 75, Est GFR (MDRD) Non-Af 62, BUN/Creatinine Ratio 13.6, Glucose 112 H, Calcium 8.0 L, Phosphorus 3.1, Magnesium 2.0 09/29/22 06:23: POC Glucose 115 H Radiography Diagnostic Testing: Radiology Impression Abdomen/Pelvis CT 09/28/22 09:33 IMPRESSION: Persistent nodular densities and scarring at the lung bases although there has been improvement as compared to prior study. Moderate degree of right hydronephrosis and right hydroureter due to a tiny calculus in the distal portion of the right ureter just proximal to the ureterovesical junction. Findings suggestive of colitis of the rectosigmoid colon. Electronically Signed: Carloz Velasquez MD at 13:57 EST , Physical Exam Narrative GENERAL: cooperative HEENT: Atraumatic; normocephalic EYES; Anicteric, Normal Conjunctiva NECK; supple, normal thyroid, RESPIRATORY: Diminished to auscultation CARDIOVASCULAR: Regular S1 S2, GI: soft, normoactive bowel sounds, : No Renal angle tenderness; EXTREMITIES: No edema, no clubbing, MUSCULOSKELETAL: no muscle wasting NEURO: Awake; no lateralizing signs. SKIN: No Rash PSYCH; Flat affect Assessment & Plan Assessment/Plan (1) Acute GI bleeding: PLAN: Plan Patient is a 67-year-old lady with past medical history significant rectal CA, history of DVTs on apixaban presented to the emergency department with rectal bleeding with clots 1. Rectal bleed ? Secondary to rectal carcinoma in the setting of systemic anticoagulation use. Admitted to regular nursing floor monitor H&H. Patient apparently will prefer to follow-up with her own slice cutting machine operator Dr. Keene ? 09/28/2022 Case was discussed with Dr. Turner Keene patient slice cutting machine operator plan is to observe patient for 1 more day and obtain CT of the abdomen and pelvis to rule out diverticulitis. Keytruda induced colitis also possibility. ?09/29/2022 CT of the abdomen and pelvis that showed Persistent nodular densities and scarring at the lung bases although there has been improvement as compared to prior study. Moderate degree of right hydronephrosis and right hydroureter due to a tiny calculus in the distal portion of the right ureter just proximal to theureterovesical junction.Findings suggestive of colitis of the rectosigmoid colon. -Denies any further bleeding. Case was discussed with patient oncologist Dr. Menjivar patient will be discharged home and her apixaban held.. Patient also to follow-up with Dr. Keene as outpatient 2. Rectal carcinoma ? Patient is on Keytruda. With Dr. Menjivar as outpatient 3. Lower extremity DVT ? Patient is on apixaban held in view of rectal bleed 4. Sarcoidosis ? Patient is followed by pulmonology here as outpatient 5. Diabetes mellitus type 2 ? On metformin held please on Accu-Cheks before meals and at bedtime with sliding scale coverage 6. DVT prophylaxis ? Bilateral SCDs Time spent in the patient's overall evaluation,decision-making process, review of diagnostic data, adjustment of management, discussion with other providers, nursing nursing and ancillary staff involved in patient's care documentation 38 Minutes Charges/Coding Visit Charges Inpatient E&M: 63044 Subs Hosp L2 Reason for Visit Reason for Visit: Diagnoses Gastrointestinal hemorrhage, unspecified (09/27/22)
[2022-09-29 08:07] VITALS: BP 115/74; PULSE 86; RESP 22; TEMP 36.6; O2SAT 98
[2022-09-29] MEDS: Potassium Chloride Oral Tablet 20 MEQ PO (08:59)
[2022-09-29] MEDS: Carvedilol 25 MG Tablet PO (08:59)
[2022-09-29] MEDS: Furosemide 20 MG Tablet 60 MG PO (09:00)
[2022-09-29] MEDS: amLODIPine 5 MG Tablet PO (09:01)
[2022-09-29] MEDS: Atorvastatin Calcium 40 MG Tablet PO (09:01)
[2022-09-29] MEDS: Potassium Chloride 10mEq/100mL 10 MEQ/100 ML IV.SOLN. 100 MEQ IV BOLUS ×4 (09:28→12:50)
--- NOTE | 2022-09-29 09:28 | DS.PCM_ITS ---
Providers Date of Admission: 09/27/22 Date of Discharge: 09/29/22 Primary Care Physician: Dr. Emani Delgado, Reason For Visit: GI BLEED Diagnosis Discharge Diagnosis (1) Acute GI bleeding: Status: Acute Code(s): K92.2 - Gastrointestinal hemorrhage, unspecified Plan Patient is a 67-year-old lady with past medical history significant rectal CA, history of DVTs on apixaban presented to the emergency department with rectal bleeding with clots 1. Rectal bleed ? Secondary to rectal carcinoma in the setting of systemic anticoagulation use. Admitted to regular nursing floor monitor H&H. Patient apparently will prefer to follow-up with her own preventive maintenance coordinator Dr. Keene ? 09/28/2022 Case was discussed with Dr. Turner Keene patient preventive maintenance coordinator plan is to observe patient for 1 more day and obtain CT of the abdomen and pelvis to rule out diverticulitis. Keytruda induced colitis also possibility. ?09/29/2022 CT of the abdomen and pelvis that showed Persistent nodular densities and scarring at the lung bases although there has been improvement as compared to prior study. Moderate degree of right hydronephrosis and right hydroureter due to a tiny calculus in the distal portion of the right ureter just proximal to theureterovesical junction.Findings suggestive of colitis of the rectosigmoid colon. -Denies any further bleeding. Case was discussed with patient oncologist Dr. Yasmeen murphy patient will be discharged home and her apixaban held.. Patient also to follow-up with Dr. Keene as outpatient 2. Rectal carcinoma ? Patient is on Keytruda. With Dr. Menjivar as outpatient 3. Lower extremity DVT ? Patient is on apixaban held in view of rectal bleed 4. Sarcoidosis ? Patient is followed by pulmonology here as outpatient 5. Diabetes mellitus type 2 ? On metformin held please on Accu-Cheks before meals and at bedtime with sliding scale coverage 6. DVT prophylaxis ? Bilateral SCDs Time spent in the patient's overall evaluation,decision-making process, review of diagnostic data, adjustment of management, discussion with other providers, nursing nursing and ancillary staff involved in patient's care documentation 38 Minutes Medications at Discharge Home Medications atorvastatin 40 mg tablet (Lipitor) 40 mg PO QHS CHOLESTEROL 11/22/19 carvedilol 25 mg tablet (Coreg) 6.25 mg PO BID Hypertension 11/22/19 furosemide 40 mg tablet (Lasix) 60 mg PO DAILY 11/22/19 cinnamon bark 500 mg capsule (Cinnamon) 1,000 mg PO BID SUPPLEMENT 06/19/21 potassium chloride 8 mEq capsule,extended release 20 meq PO DAILY SUPPLEMENT 06/19/21 apixaban 2.5 mg tablet (Eliquis) 2.5 mg PO BID Blood thinner 09/27/22 empagliflozin 10 mg tablet (Jardiance) 10 mg PO DAILY Diabetes 09/27/22 glipizide 5 mg tablet 5 mg PO DAILY Diabetes 09/27/22 Hospital Course Summary of Care Provided Minutes Spent on Discharge: 38 Physical Exam Narrative GENERAL: cooperative HEENT: Atraumatic; normocephalic EYES; Anicteric, Normal Conjunctiva NECK; supple, normal thyroid, RESPIRATORY: Diminished to auscultation CARDIOVASCULAR: Regular S1 S2, GI: soft, normoactive bowel sounds, : No Renal angle tenderness; EXTREMITIES: No edema, no clubbing, MUSCULOSKELETAL: no muscle wasting NEURO: Awake; no lateralizing signs. SKIN: No Rash PSYCH; Flat affect Weight / BMI Weight Weight: 72.575 kg Body Mass Index (BMI) 31.2 ABG / Lab / Microbiology Data Result Diagrams: 09/29/22 05:00 09/29/22 05:00 Laboratory: Laboratory Results - last 24 hr 09/28/22 11:43: POC Glucose 104 09/28/22 16:28: POC Glucose 276 H 09/28/22 22:22: POC Glucose 138 H 09/29/22 05:00: WBC 8.8, RBC 3.27 L, Hgb 9.2 L, Hct 29.3 L, MCV 89.6, MCH 28.1, MCHC 31.4 L, RDW Std Deviation 55.6 H, RDW Coeff of Dann 17.1 H, Plt Count 324, MPV 8.3, Immature Gran % (Auto) 1.600 H, Neut % (Auto) 76.5 H, Lymph % (Auto) 9.8 L, [place] % (Auto) 11.0 H, Eos % (Auto) 0.6, Baso % (Auto) 0.5, Absolute Neuts (auto) 6.7, Absolute Lymphs (auto) 0.86, Nucleated RBC % 0.2 09/29/22 05:00: Sodium 139, Potassium 3.2 L, Chloride 105, Carbon Dioxide 26.0, Anion Gap 8, BUN 13, Creatinine 0.95, Estim Creat Clear Calc 41.28, Est GFR (MDRD) Af Amer 75, Est GFR (MDRD) Non-Af 62, BUN/Creatinine Ratio 13.6, Glucose 112 H, Calcium 8.0 L, Phosphorus 3.1, Magnesium 2.0 09/29/22 06:23: POC Glucose 115 H Radiography Diagnostic Testing: Radiology Impression Abdomen/Pelvis CT 09/28/22 09:33 IMPRESSION: Persistent nodular densities and scarring at the lung bases although there has been improvement as compared to prior study. Moderate degree of right hydronephrosis and right hydroureter due to a tiny calculus in the distal portion of the right ureter just proximal to the ureterovesical junction. Findings suggestive of colitis of the rectosigmoid colon. Electronically Signed: Carloz Velasquez MD at 13:57 EST , D/C Instructions Discharge Diet: No restrictions Discharge Activity: Return to Normal Activity Call your doctor if you observe: Fever of 101 or Higher, Shortness of breath, Fainting spells and Chest pain Meaningful Use Info Meaningful Use Diagnoses (Choose all that apply): None applicable Discharge Plan Admission Admit Date/Time: 09/27/22 17:41 Attending Provider: Reilly Gomes Primary Care Provider: Emani Delgado Consulting Providers: Mario Gutierrez Discharge Orders/Prescriptions Prescriptions: Continued atorvastatin [Lipitor] 40 mg tablet 40 mg PO QHS carvedilol [Coreg] 25 mg tablet 6.25 mg PO BID Rx Instructions: must administer with a meal/food furosemide [Lasix] 40 mg tablet 60 mg PO DAILY Rx Instructions: 40 mg in the morning, 20 mg at 1500 potassium chloride 8 mEq capsule, extended release 20 meq PO DAILY cinnamon bark [Cinnamon] 500 mg Capsule 1,000 mg PO BID glipizide 5 mg tablet 5 mg PO DAILY Jardiance 10 mg tablet 10 mg PO DAILY Held Eliquis 2.5 mg tablet 2.5 mg PO BID Hold Instructions: Resume on 10/14/22. Label Comments: TAKE 1 TABLET BY MOUTH TWICE A DAY Referrals / Follow Up: Emani Delgado DO [Primary Care Provider] - Taye Menjivar DO [Med Staff - Active Staff] - 10/05/22 Turner Keene MD [Non-Staff] - In 1 Week NOT,DEFINED [Non-Staff] - Disposition Disposition (needs filled in before D/C Order can be placed): Home, Self Care Charges/Coding Visit Charges Inpatient E&M: 12644 Disch Hosp >30min
--- NOTE | 2022-09-29 11:15 | PHA.DC.MR ---
Pharmacy Service has performed discharge medication reconciliation for this patient. The patient's discharge medication list was reviewed for discrepancies and discrepancies were resolved. Home Medications atorvastatin 40 mg tablet (Lipitor) 40 mg PO QHS CHOLESTEROL 11/22/19 carvedilol 25 mg tablet (Coreg) 6.25 mg PO BID Hypertension 11/22/19 furosemide 40 mg tablet (Lasix) 60 mg PO DAILY 11/22/19 cinnamon bark 500 mg capsule (Cinnamon) 1,000 mg PO BID SUPPLEMENT 06/19/21 potassium chloride 8 mEq capsule,extended release 20 meq PO DAILY SUPPLEMENT 06/19/21 apixaban 2.5 mg tablet (Eliquis) 2.5 mg PO BID Blood thinner 09/27/22 empagliflozin 10 mg tablet (Jardiance) 10 mg PO DAILY Diabetes 09/27/22 glipizide 5 mg tablet 5 mg PO DAILY Diabetes 09/27/22
[2022-09-29 12:01] LABS: Bedside Glucose 239 mg/dL (74-106)
[2022-09-29 12:48] VITALS: BP 114/61; PULSE 79; RESP 16; TEMP 36.4; O2SAT 95
== END 2022-09-29 15:00 | disposition home or self-care (01) | DRG 378 ==
LOC: ED 18:10 → MS3 18:16
PROVIDERS: Physician Assistant; Emergency Provider Emergency Medicine; Visit Provider Internal Medicine
DX: K92.2 Gastrointestinal hemorrhage, unspecified (principal); C20 Malignant neoplasm of rectum; I42.9 Cardiomyopathy, unspecified; I50.32 Chronic diastolic (congestive) heart failure; I11.0 Hypertensive heart disease with heart failure; E11.9 Type 2 diabetes mellitus without complications; J44.9 Chronic obstructive pulmonary disease, unspecified; E78.5 Hyperlipidemia, unspecified; D86.9 Sarcoidosis, unspecified; T45.515A Adverse effect of anticoagulants, initial encounter; Z79.84 Long term (current) use of oral hypoglycemic drugs; Z79.01 Long term (current) use of anticoagulants; Z79.899 Other long term (current) drug therapy; Z86.73 Personal history of transient ischemic attack (TIA), and cerebral infarction without residual deficits; Z86.718 Personal history of other venous thrombosis and embolism
CPT/HCPCS: 36591; 74177; 80048; 82962; 83036; 83735; 84100; 85014; 85018; 85025; 85610; 86850; 86870; 86900; 86901; 86902; 86905; 86920; 86922; 93005; 99285; Q9967; A4216; J2405

== ENCOUNTER 2022-10-13 18:04 | Observation (INO) | payer MEDICARE, SELFPAY ==
[2022-10-13 18:05] VITALS: PULSE 87; RESP 14; TEMP 36.7; O2SAT 96; BMI 36.4
--- NOTE | 2022-10-13 18:21 | EX.ED.DYSGE1 ---
HPI History of Present Illness Chief Complaint: Hypoglycemia Narrative Narrative: 67-year-old female past medical history of hypertension, diabetes, on oral medications only presents via EMS with hypoglycemic episode. She states that she took her glipizide this morning but did not take her Jardiance. She had cottage cheese for breakfast, then sweet potatoes and small amount of green beans for lunch, then they went to [facility] after her appointment for iron infusion this morning, and she had a few fries and chicken nuggets or 2. She felt weak getting out of the car, and was seeing double vision converging into 1. She states she fell onto her buttocks, but did not strike her head or lose consciousness afterwards, but she was walking, felt weak, and the next thing she remembers she was on the ground. She denies any headache currently, patient presents reporting that her blood sugar was low at 33. Upon arrival to the emergency department is in the 50s. [facility] Medical History Abnormal nuclear stress test Anemia Anemia Arthritis Cancer Cardiomyopathy Carotid artery stenosis Chronic anticoagulation Congenital talipes calcaneovalgus of left foot COPD (chronic obstructive pulmonary disease) Diabetes mellitus type II, uncontrolled Diastolic congestive heart failure Essential hypertension History of CHF (congestive heart failure) History of CVA (cerebrovascular accident) (10/21/17) History of deep venous thrombosis (DVT) of distal vein of left lower extremity History of deep venous thrombosis (DVT) of distal vein of right lower extremity History of pleural effusion (10/21/17) History of renal disease Hyperlipidemia Low iron Nonrheumatic mitral valve regurgitation Nonrheumatic tricuspid valve regurgitation Preop cardiovascular exam Rectal bleeding Renal insufficiency Shortness of breath on exertion Snoring Tricuspid regurgitation Wears dentures Home Medications atorvastatin 40 mg tablet (Lipitor) 40 mg PO QHS CHOLESTEROL 11/22/19 [History Last Taken 09/27/22 0700] carvedilol 25 mg tablet (Coreg) 6.25 mg PO BID Hypertension 11/22/19 [History Last Taken 09/27/22 07] furosemide 40 mg tablet (Lasix) 60 mg PO DAILY 11/22/19 [History Last Taken 06/19/21] cinnamon bark 500 mg capsule (Cinnamon) 1,000 mg PO BID SUPPLEMENT 06/19/21 [History Last Taken 09/27/22 0700] potassium chloride 8 mEq capsule,extended release 20 meq PO DAILY SUPPLEMENT 06/19/21 [History Last Taken 09/27/22 07] apixaban 2.5 mg tablet (Eliquis) 2.5 mg PO BID Blood thinner 09/27/22 [History Last Taken 09/27/22 07] empagliflozin 10 mg tablet (Jardiance) 10 mg PO DAILY Diabetes 09/27/22 [History Last Taken 09/27/22 07] glipizide 5 mg tablet 5 mg PO DAILY Diabetes 09/27/22 [History Last Taken 09/27/22 07] Allergy/AdvReac Type Severity Reaction Status Date / Time latex Allergy Severe Hives Verified 10/13/22 18:10 codeine AdvReac Unknown unknown Verified 10/13/22 18:10 Family History Mother Bleeding disorder Diabetes CAD (coronary artery disease) Hypertension Hyperlipidemia Kidney disease Sister Asthma CAD (coronary artery disease) Hyperlipidemia Father Cancer CAD (coronary artery disease) Hypertension Hyperlipidemia CVA (cerebral vascular accident) Brother CAD (coronary artery disease) Hyperlipidemia Surgical History History of cardiac catheterization History of colonoscopy History of foot surgery Hx of cataract surgery Social History Smoking Status: Never smoker ROS ROS ED ROS Narrative Constitutional: No fever, no chills. HEENT: No sore throat. No neck pain. No loss of vision. No rhinorrhea. Double vision. Cardiovascular: No chest pain. No palpitations. No pedal edema. Respiratory: No cough, no shortness of breath. Abdominal: No abdominal pain. No nausea. No vomiting. Genitourinary: No dysuria. No hematuria. Musculoskeletal: No myalgias. No arthralgias. Neurologic: No headaches. No dizziness. No lightheadedness. Generalized weakness. Skin: No rash. No change in color. Psychiatric: No depression. No anxiety. EXAM Physical Exam Const Vital Signs: 10/13/22 18:05 10/13/22 18:10 10/13/22 20:00 Temperature 98.0 F Temperature Source Temporal Pulse Rate 87 87 Respiratory Rate 14 16 Respiratory Effort Normal Non-Labored Respiratory Pattern Normal Blood Pressure 153/103 H Blood Pressure Mean 119 Pulse Ox 96 94 Oxygen Delivery Method Room Air Room Air MDM MDM MDM Narrative Medical decision making narrative: Patient does take Eliquis. She is unsure if she hit her head. Given her syncopal episode I will obtain an EKG and CT imaging of her brain as she may be a head injury on anticoagulant. I will also check basic laboratory work. She was given a p.o. challenge, regular diet here. I reviewed her laboratory work and she has slightly elevated white count of 14.6, hemoglobin stable at 7.9, chronic anemia. Platelet count normal at 359. Her electrolyte panel shows a BUN of 33 with a creatinine of 1.0. Glucose borderline normal/low at 70 with an anion gap of 7. CT of the brain was obtained, and I reviewed the radiology results which shows no evidence of acute hemorrhage. She did eat a few crackers and drink orange juice, but her blood sugar was reported to be low at 52. She was given an amp of D50 and told that it is important that she eat more in the emergency department. After her amp of D50, her blood sugar was in the 160s, but upon repeat examination, it has dropped back down to 82. Her relative who is at the bedside states that her blood sugars have been fluctuating all week. Patient reiterated that she did not take her Jardiance today. They also took her off her Lasix. She is on Keytruda and sees Dr. Menjivar. She does have history of stage IV colon cancer. I fear that her blood sugar will continue to drop as it should have remained elevated after the amp of D50 and her eating. I will discuss the patient with Dr. Boyd for observation. Disposition is assigned to observation. Patient is in stable condition. Lab Data Attestation: I reviewed the patient's lab results. Labs: Laboratory Results - last 24 hr 10/13/22 10/13/22 10/13/22 18:10 18:30 18:30 WBC 14.6 H RBC 2.78 L Hgb 7.9 L Hct 25.0 L MCV 89.9 MCH 28.4 MCHC 31.6 L RDW Std Deviation 59.8 H RDW Coeff of Dann 18.3 H Plt Count 359 MPV 8.5 Immature Gran % (Auto) 2.400 H Neut % (Auto) 86.4 H Lymph % (Auto) 4.2 L Glynn % (Auto) 5.4 Eos % (Auto) 1.3 Baso % (Auto) 0.3 Absolute Neuts (auto) 12.6 H Absolute Lymphs (auto) 0.61 L Nucleated RBC % 0 Sodium 136 Potassium 4.4 Chloride 106 Carbon Dioxide 23.0 Anion Gap 7 BUN 33 H Creatinine 1.01 Estim Creat Clear Calc 38.82 Est GFR (MDRD) Af Amer 70 Est GFR (MDRD) Non-Af 58 L BUN/Creatinine Ratio 32.7 H Glucose 70 L Calcium 7.7 L POC Glucose 52 L 10/13/22 10/13/22 10/13/22 19:23 19:50 21:13 WBC RBC Hgb Hct MCV MCH MCHC RDW Std Deviation RDW Coeff of Dann Plt Count MPV Immature Gran % (Auto) Neut % (Auto) Lymph % (Auto) Glynn % (Auto) Eos % (Auto) Baso % (Auto) Absolute Neuts (auto) Absolute Lymphs (auto) Nucleated RBC % Sodium Potassium Chloride Carbon Dioxide Anion Gap BUN Creatinine Estim Creat Clear Calc Est GFR (MDRD) Af Amer Est GFR (MDRD) Non-Af BUN/Creatinine Ratio Glucose Calcium POC Glucose 56 L 167 H 82 Radiography Diagnostic Testing: Clinical Impression(s) from Imaging Studies Brain CT 10/13/22 18:24 IMPRESSION: Mild periventricular white matter ischemic changes. No evidence for acute intracranial bleed. Electronically Signed: Ector Goss MD at 19:20 EST , Discharge Plan Dx/Rx/DC Orders Clinical Impression: Hypoglycemia, Renal insufficiency, Rectal cancer metastasized to liver, Fall Disposition Disposition: Acute Care [facility]
--- NOTE | 2022-10-13 18:24 | CT_ITS ---
STUDY: CT BRAIN WITHOUT CONTRAST REASON FOR EXAM: Female, 67 years old. Head injury on anticoagulant RADIATION DOSAGE (If Supplied By Facility): CTDIvol = ( 44.99 ) mGy, DLP = ( 812.98 ) mGycm TECHNIQUE: Transaxial CT imaging of the brain was performed without administration of intravenous contrast material. Individualized dose optimization techniques were used for this CT. COMPARISON: No relevant priors. FINDINGS: Calcified density noted within the scalp overlying the left parietal lobe. No evidence for acute skull fracture Normal size ventricles and extra-axial spaces for the patient''s age. Mild periventricular white matter ischemic changes.. Normal basal ganglia and thalami. Normal brainstem. Normal cerebellum. There is no intracranial hemorrhage. There are no findings of an acute ischemic infarction. Postsurgical changes of the orbits Normal visualized paranasal sinuses. Right carotid stent is noted CT/Brain/Head without Contrast IMPRESSION: Mild periventricular white matter ischemic changes. No evidence for acute intracranial bleed. Electronically Signed: Ector Goss MD at 19:20 EST ,
--- NOTE | 2022-10-13 18:24 | EKG12_ITS ---
Test Reason : DYSRHYTHMIA Blood Pressure : / mmHG Vent. Rate : 086 BPM Atrial Rate : 086 BPM P-R Int : 150 ms QRS Dur : 086 ms QT Int : 368 ms P-R-T Axes : 022 004 034 degrees QTc Int : 440 ms Sinus rhythm with Premature atrial complexes Septal infarct , age undetermined Abnormal ECG Confirmed by BULMARO SIFUENTES, KALLI ([id number]), scientific editor DARRION GLOVER ([id number]) on 10/14/2022 9:03:49 AM Referred By: PASCUAL Confirmed By:KALLI CHAMBERLAIN MD
[2022-10-13 18:30] LABS: Bedside Glucose 52 mg/dL (74-106)
[2022-10-13 18:43] LABS: Absolute Lymphocyte Count 0.61 X10^3/uL (0.83-4.51); Absolute Neutrophil Count 12.6 X10^3/uL (2.0-7.7); Basophil# 0.04 X10^3/uL; Basophil% 0.3 % (0-1); Eosinophil# 0.19 X10^3/uL; Eosinophils% 1.3 % (0-5); Hemoglobin 7.9 g/dL (12.0-15.0); Lymphocyte # 0.61 X10^3/ul (0.83-4.51); Lymphocyte % 4.2 % (19-41); Mean Corp Hgb Conc 31.6 g/dL (32-36); Mean Corpuscular Hgb 28.4 pg (27.0-32.0); Mean Corpuscular Volume 89.9 fL (81-99); Mean Platelet Vol. 8.5 fl (6.2-12.0); Monocyte# 0.78 X10^3/uL; Monocyte% 5.4 % (0-10); NRBC Flagged by Analyzer 0 % (0-5); Neutrophil % 86.4 % (47-70); Platelet Count 359 K/mm3 (150-450); RBC Distribution Width CV 18.3 % (11.6-14.6); RBC Distribution Width SD 59.8 fl (35.1-43.9); Red Blood Count 2.78 M/mm3 (4.2-5.4); White Blood Count 14.6 K/mm3 (4.4-11.0)
[2022-10-13 18:56] LABS: Anion Gap 7 (5-15); BUN 33 mg/dL (7-18); BUN/Creat Ratio 32.7 RATIO (10-20); Calcium,Total 7.7 mg/dL (8.5-10.1); Chloride 106 mmol/L (98-107); Creatinine, Serum 1.01 mg/dL (0.55-1.02); EST Glomerular Filtration Rate 58 mL/min (>60); Est Glom Filt Rate - Afr Amer 70 mL/min (>60); Estimated Creatinine Clearance 38.82 ml/min; Glucose 70 mg/dL (74-106); Potassium 4.4 mmol/L (3.5-5.1); Sodium Level 136 mmol/L (136-145)
--- NOTE | 2022-10-13 18:57 | ED.RN ---
MULTIPLE FAMILY MEMBERS IN PT ROOMS. EXPLAINED ONLY TWO VISITORS AND NO SWITCHING. THIS IS STUPID, WHY CAN'T WE WAIT IN THE WAITING ROOM, WE DID WHEN WE WERE HERE A COUPLE OF WEEKS AGO. EXPLAINED THAT THERE ARE SPECIAL CIRCUMSTANCES, WELL WHAT ARE THOSE?. , HOSPICE, LIFE FLIGHT, ANY THING THAT THE NURSE FEELS IS CRITICAL. YOU ARE MEAN AND RIDICULOUS. FAMILY MUMBLING UNDER THERE BREATH ABOUT THIS RN. THIS RN APOLOGIZED MULTIPLE TIMES, YEAH RIGHT YOU ARE.
[2022-10-13] MEDS: Dextrose 50%-Water 25 GM/50 ML DISP.SYRIN IV (19:37)
[2022-10-13 19:46] LABS: Bedside Glucose 56 mg/dL (74-106)
[2022-10-13 20:00] VITALS: BP 153/103; PULSE 87; RESP 16; O2SAT 94
[2022-10-13 20:11] LABS: Bedside Glucose 167 mg/dL (74-106)
[2022-10-13 21:31] LABS: Bedside Glucose 82 mg/dL (74-106)
--- NOTE | 2022-10-13 21:34 | PCM.HP.STD ---
HPI - General General Date of Admission: 10/13/22 Date of Service: 10/13/22 Chief Complaint: Syncope event with hypoglycemia HPI Narrative The patient is a 67 y/o F w/ PMHx: Obesity, Diastolic CHF, Hx CVA, HTN, HLD, COPD, Chronic anemia/Fe Deficiency anemia w/ recent GI Bleeding as noted, Rectal carcinoma s/p radiation and ongoing chemotherapy on Keytruda following with Dr. Menjivar and GI Dr. Keene, Recent LE DVT, Sarcoidosis following with Pulmonary, Diabetes mellitus type II, recent discharge 09/29/22 following admission for acute GI bleed with rectal bleeding secondary to rectal carcinoma in the setting of systemic anticoagulation with some concern for possibly Keytruda induced colitis with CT abdomen pelvis noting colitis of the rectosigmoid colon region with upon discharge at that time apixaban held with follow-up with Dr. Keene patient's director of residential services who now re-presents to the [facility] ED on 10/13/22 with history of taking her glipizide this morning however she did not take her Jardiance with an appropriate amount of oral intake supposedly also going to 1 days after her iron infusion and despite this she felt weak getting out of the car with onset of double vision, lightheadedness with a fall onto her buttock with no loss of consciousness or trauma to the head but continued weakness and fatigue with EMS call as she eventually quite potentially lost consciousness secondary to hypoglycemia with EMS noting blood sugars in the 30s prompting ED D transition for evaluation. Her family notes that she has been having issues with hypoglycemia through the week. Patient in August toward the end of the month reports being started on Jardiance in addition to glipizide secondary to hyperglycemia at that time with issues with hypoglycemia more pronounced over the last several weeks. She does report that since her discharge she has followed up with both gastroenterology and oncology. She is yet to be restarted on her anticoagulant therapy and has had occasional rectal bleeding but not as severe as it had been upon presentation during her recent admission. She had at her discharge prior gone home and had recurrent bleeding with clots however this subsided in 12 to 24 hours therefore she did not represent to the ED. Work-up in the ED included T98, heart rate 87, BP 153/103, respiratory rate 14, 96% on room air, CBC with WBC 14.6, hemoglobin 7.9, MCV 89.9, platelets 359 with left shift and lymphopenia, BMP with BUN/creatinine 33/1.01, glucose 70, calcium 7.7, glucose POC assessments with initial 18:10 blood sugar 52 with repeat 19:23 blood sugar 56 and most recently 19:50 blood sugar 167 and most recent repeat 82, CT head with mild periventricular white matter ischemic changes with no evidence of any acute intracranial findings. In the ED patient administered dextrose amp and allowed a general liberalize diet. [facility] Medical History Abnormal nuclear stress test Anemia Anemia Arthritis Cancer Cardiomyopathy Carotid artery stenosis Chronic anticoagulation Congenital talipes calcaneovalgus of left foot COPD (chronic obstructive pulmonary disease) Diabetes mellitus type II, uncontrolled Diastolic congestive heart failure Essential hypertension History of CHF (congestive heart failure) History of CVA (cerebrovascular accident) (10/21/17) History of deep venous thrombosis (DVT) of distal vein of left lower extremity History of deep venous thrombosis (DVT) of distal vein of right lower extremity History of pleural effusion (10/21/17) History of renal disease Hyperlipidemia Low iron Nonrheumatic mitral valve regurgitation Nonrheumatic tricuspid valve regurgitation Preop cardiovascular exam Rectal bleeding Renal insufficiency Shortness of breath on exertion Snoring Tricuspid regurgitation Wears dentures Home Medications atorvastatin 40 mg tablet (Lipitor) 40 mg PO QHS CHOLESTEROL 11/22/19 [History Last Taken 09/27/22 07] carvedilol 25 mg tablet (Coreg) 6.25 mg PO BID Hypertension 11/22/19 [History Last Taken 09/27/22 07] furosemide 40 mg tablet (Lasix) 60 mg PO DAILY 11/22/19 [History Last Taken 06/19/21] cinnamon bark 500 mg capsule (Cinnamon) 1,000 mg PO BID SUPPLEMENT 06/19/21 [History Last Taken 09/27/22 07] potassium chloride 8 mEq capsule,extended release 20 meq PO DAILY SUPPLEMENT 06/19/21 [History Last Taken 09/27/22 07] apixaban 2.5 mg tablet (Eliquis) 2.5 mg PO BID Blood thinner 09/27/22 [History Last Taken 09/27/22 07] empagliflozin 10 mg tablet (Jardiance) 10 mg PO DAILY Diabetes 09/27/22 [History Last Taken 09/27/22 07] glipizide 5 mg tablet 5 mg PO DAILY Diabetes 09/27/22 [History Last Taken 09/27/22 0700] Allergy/AdvReac Type Severity Reaction Status Date / Time latex Allergy Severe Hives Verified 10/13/22 18:10 codeine AdvReac Unknown unknown Verified 10/13/22 18:10 Family History Mother Bleeding disorder Diabetes CAD (coronary artery disease) Hypertension Hyperlipidemia Kidney disease Sister Asthma CAD (coronary artery disease) Hyperlipidemia Father Cancer CAD (coronary artery disease) Hypertension Hyperlipidemia CVA (cerebral vascular accident) Brother CAD (coronary artery disease) Hyperlipidemia Surgical History History of cardiac catheterization History of colonoscopy History of foot surgery Hx of cataract surgery Social History (Updated 10/13/22 @ 22:[address] Alexia Boyd MD) household members: spouse Smoking Status: Never smoker alcohol intake: never substance use type: does not use ROS ROS Narrative Admission Review of Systems: CONSTITUTIONAL: No weight loss, fever, chills, + weakness or fatigue. HEENT: + Lightheaded, dizzy, double vision with syncopal event. Eyes: No yellow sclerae. Ears, Nose, Throat: No hearing loss, sneezing, congestion, runny nose or sore throat. SKIN: No rash or itching, lesions, wounds. CARDIOVASCULAR: + Syncopal event, chronic bilateral lower extremity edema. No chest pain, chest pressure or chest discomfort, palpitations, orthopnea. RESPIRATORY: No shortness of breath, cough or sputum, wheezing, hemoptysis. GASTROINTESTINAL: + Still occasional intermittent bright red blood per rectum. No anorexia, nausea, vomiting or diarrhea, abdominal pain, melena. GENITOURINARY: No dysuria, frequency, urgency or retention. NEUROLOGICAL: + Lightheadedness, dizziness, syncopal event. No headache, paralysis, ataxia, numbness or tingling in the extremities, focal weakness, change in bowel or bladder control, seizure. MUSCULOSKELETAL: + muscle, back pain, joint pain or stiffness. HEMATOLOGIC: + anemia, bleeding or bruising. LYMPHATICS: No enlarged nodes. No history of splenectomy. PSYCHIATRIC: No history of depression or anxiety. ENDOCRINOLOGIC: No reports of sweating, cold or heat intolerance. No polyuria or polydipsia. ALLERGIES: + history of hives. Vital Signs Vital Signs Vital Signs: 10/13/22 18:05 10/13/22 18:10 10/13/22 20:00 Temperature 98.0 F Temperature Source Temporal Pulse Rate 87 87 Respiratory Rate 14 16 Respiratory Effort Normal Non-Labored Respiratory Pattern Normal Blood Pressure 153/103 H Blood Pressure Mean 119 Pulse Ox 96 94 Oxygen Delivery Method Room Air Room Air Weight Weight: 186 lb 8.177 oz Body Mass Index (BMI) 36.4 Physical Exam Narrative Physical Examination: General: Awake, alert, oriented x 3 and cooperative, seated upright in the ED bed, fatigued appearing otherwise denies any acute distress. Skin: Normal color, normal turgor, no icterus, no cyanosis except occasional staged ecchymoses. HEENT: AT/NC, EOMI, PERRLA, mildly dry MM, no carotid bruits or JVD noted. Lungs: Mildly diminished, bases, appropriate effort no rales, ronchi or wheezing. Heart: Regular rate and rhythm; no gallop, rub audible. Abdomen: Soft, obese, NTTP, ND, mildly hyperactive diffuse BS, no markedly noted HSM. Extremities: No cyanosis, no clubbing, significant pedal to proximal kelly 3+ pitting edema which she notes is chronic. Neurological: Patient awake, alert, oriented as noted, cognitive function intact; pupils equally reactive to light and accommodation, cranial nerves II-XII grossly normal, moving all 4 extremities, no focal deficits, strength moderately global decrease secondary to acute presentation and underlying comorbidities Psychiatric: Affect appears flat, fatigued, no acute evidence of depressive or anxiety feelings. Results Lab / Micro Data Result Diagrams: 10/13/22 18:30 10/13/22 18:30 Labs: Laboratory Results - last 24 hr 10/13/22 18:10: POC Glucose 52 L 10/13/22 18:30: WBC 14.6 H, RBC 2.78 L, Hgb 7.9 L, Hct 25.0 L, MCV 89.9, MCH 28.4, MCHC 31.6 L, RDW Std Deviation 59.8 H, RDW Coeff of Dann 18.3 H, Plt Count 359, MPV 8.5, Immature Gran % (Auto) 2.400 H, Neut % (Auto) 86.4 H, Lymph % (Auto) 4.2 L, Nobles % (Auto) 5.4, Eos % (Auto) 1.3, Baso % (Auto) 0.3, Absolute Neuts (auto) 12.6 H, Absolute Lymphs (auto) 0.61 L, Nucleated RBC % 0 10/13/22 18:30: Sodium 136, Potassium 4.4, Chloride 106, Carbon Dioxide 23.0, Anion Gap 7, BUN 33 H, Creatinine 1.01, Estim Creat Clear Calc 38.82, Est GFR (MDRD) Af Amer 70, Est GFR (MDRD) Non-Af 58 L, BUN/Creatinine Ratio 32.7 H, Glucose 70 L, Calcium 7.7 L 10/13/22 19:23: POC Glucose 56 L 10/13/22 19:50: POC Glucose 167 H 10/13/22 21:13: POC Glucose [address] 10/13/22 18:24 IMPRESSION: Mild periventricular white matter ischemic changes. No evidence for acute intracranial bleed. Electronically Signed: Ector Goss MD at 19:20 EST Reading Location ID and State: [facility] / [place] , Service support , Assessment & Plan Assessment/Plan (1) Hypoglycemia: PLAN: Plan The patient is a 67 y/o F w/ PMHx: Obesity, Diastolic CHF, Hx CVA, HTN, HLD, COPD, Chronic anemia/Fe Deficiency anemia w/ recent GI Bleeding as noted, Rectal carcinoma s/p radiation and ongoing chemotherapy on Keytruda following with Dr. Menjivar and GI Dr. Keene, Recent LE DVT, Sarcoidosis following with Pulmonary, Diabetes mellitus type II, recent discharge 09/29/22 following admission for acute GI bleed with rectal bleeding secondary to rectal carcinoma in the setting of systemic anticoagulation who now re-presents to the [facility] ED on 10/13/22 with history of taking her glipizide this morning however she did not take her Jardiance with an appropriate amount of oral intake supposedly also going to 1 days after her iron infusion and despite this she felt weak getting out of the car with onset of double vision, lightheadedness with a fall onto her buttock with no loss of consciousness or trauma to the head but continued weakness and fatigue with EMS call as she eventually quite potentially lost consciousness secondary to hypoglycemia with EMS noting blood sugars in the 30s. #1. Syncopal event secondary to Acute Hypoglycemia with recurrent reported events of hypoglycemia, likely medication related: Will admit to PCU to be cautious and for frequent BS assessments, will continue liberalize diet, hold all oral diabetic regimen, hemoglobin A1c requested, will check blood sugars every 30 minutes until clinically improving and blood sugars greater than 110x4 with transition to more liberal blood sugar assessment if appropriate, once improving we will transition also to Accu-Chek with insulin sliding scale and will request nutrition involvement for education and teaching on appropriate oral intake and diabetic education, maintain on fall and aspiration precautions, if not improving low threshold to transition to a dextrose drip. Given onset of hypoglycemic events following initiation of Jardiance in addition to patient's glipizide, likely etiology and would certainly plan discontinuation of this medication. #2. Chronic normocytic anemia/iron deficiency anemia with recent acute blood loss anemia secondary to GI bleed: Admission hemoglobin 7.9, baseline hemoglobin has vacillated between primarily 7-9, most recently prior hemoglobin 9.2, will continue to closely trend. Patient continues to have outpatient iron transfusions including 1 on day of presentation and one 1 week prior #3. Recent acute GI bleed secondary to rectal bleeding suspected secondary to colitis possibly treated induced: Patient has noted with recent discharge 09/29/2022, CT scan with evidence of colitis at that time, discharged with close follow-up with oncology as well as patient's director of residential services with ongoing hold on her anticoagulant therapy, continue to closely monitor CBC. #4. Rectal carcinoma: Patient s/p radiation and ongoing chemotherapy on Keytruda following with Dr. Menjivar and GI Dr. Keene, encourage continued outpatient follow-up and evaluation, complicated by recent admission with GI bleed felt secondary to colitis possibly Keytruda induced. #5. Chronic bilateral lower extremity swelling/lymphedema: Patient with chronic lower extremity swelling unable to tolerate any compression stockings and refused placement of Brock wrap's at this time. Patient recently also had been taken off of her Lasix but the reasoning is not quite clear but encouraged strongly close early follow-up as she would benefit from bilateral lower extremity snug Brock wraps, elevation and diuresis. #6. Recent LE DVT: Patient followed up following her recent GI bleed with gastroenterology, she has yet to restart her low-dose Eliquis therapy and is closely following with oncology as well. #7. Chart Reported Diastolic CHF: 06/19/2021 echocardiogram with EF 55 to 60%, normal LV systolic function, mild aortic stenosis, CARLOS 1.5 cm?, negative bubble study at that time with no mention of diastolic function patient has not resumed her low dose Eliquis but is closely following with GI and oncology, we will continue patient statin, Coreg, recently taken off her lasix regimen for unclear exact reasons with recommendation for early follow-up and resumption if amenable, not on BROCK/ARB. #8. Sarcoidosis, unclear exact extent: Per records patient following with Pulmonary, no CT chest imaging noted in the system, encourage continued outpatient follow-up. #9. History CVA: Patient has not resumed her low dose Eliquis but is closely following with GI and oncology, we will continue patient statin, Coreg. #10. Chronic COPD: Not on any chronic inhalers nor chronic oxygen supplementation, PRN albuterol, HOB, IS parameters. #11. Hypertension: Continue home regimen including Coreg with hold parameters as needed, PRN hydralazine. Patient previously had also been on Lasix but she reports this was recently held but unfortunately the reasoning given is unclear. Would benefit from resumption especially given significant lower extremity swelling which is chronic. #12. Hyperlipidemia: We will continue patient home statin therapy. #13. Obesity: Weight loss and lifestyle changes encouraged. #14. DVT prophylaxis: SCDs if patient is able to tolerate, patient still with ongoing hold on her low-dose Eliquis therapy, following outpatient closely with GI and oncology. #15. CODE status: Patient DOMINIC is her daughter and living will is currently in place. Discussed CODE status at length including difference between FULL code, DNR-CCA and DNR-CC status. Following discussions about the differences in these status, requested Full Code status at this time she notes. Advanced Care Planning Face to Face Time: 17 minutes. Admission Evaluation Time spent evaluating chart, patient history, patient evaluation, care planning and discussion with specialists: 60 minutes. Charges/Coding Visit Charges Inpatient E&M: 54897 Init Hosp L2 Procedures Hospitalists Procedures: 40727 Advncd Care Plan 30 Min
[2022-10-14 00:06] VITALS: BP 157/79; PULSE 96; RESP 21; TEMP 36.7; O2SAT 94
[2022-10-14 00:22] VITALS: BMI 32.6
[2022-10-14 00:40] VITALS: BP 150/52; PULSE 96; RESP 18; TEMP 36.9; O2SAT 94
[2022-10-14 01:16] LABS: Bedside Glucose 58 mg/dL (74-106)
--- NOTE | 2022-10-14 01:58 | CPS ---
Pt sleeping, IS and PEP left in room
[2022-10-14] MEDS: 0.9% Saline Lock 10 ML Syringe IV ×4 (02:37→14:36)
[2022-10-14] MEDS: Dextrose 5%/0.9% NaCl 1,000 ML 100 ML IV (02:37)
[2022-10-14 03:26] LABS: Bedside Glucose 85 mg/dL (74-106)
[2022-10-14 03:26] LABS: Bedside Glucose 94 mg/dL (74-106)
[2022-10-14 03:26] LABS: Bedside Glucose 87 mg/dL (74-106)
[2022-10-14 03:26] LABS: Bedside Glucose 99 mg/dL (74-106)
[2022-10-14 03:53] VITALS: BP 150/52; PULSE 96; RESP 18; TEMP 36.9; O2SAT 94
[2022-10-14 04:51] LABS: Bedside Glucose 105 mg/dL (74-106)
[2022-10-14 04:51] LABS: Bedside Glucose 110 mg/dL (74-106)
[2022-10-14 04:51] LABS: Bedside Glucose 118 mg/dL (74-106)
[2022-10-14 05:00] VITALS: BP 107/46; PULSE 95; RESP 18; TEMP 37.3; O2SAT 93
[2022-10-14 05:53] VITALS: BMI 32.6
[2022-10-14 06:09] LABS: Absolute Lymphocyte Count 0.66 X10^3/uL (0.83-4.51); Basophil# 0.03 X10^3/uL; Basophil% 0.3 % (0-1); Eosinophil# 0.16 X10^3/uL; Eosinophils% 1.5 % (0-5); Hematocrit 23.4 % (37-47); Hemoglobin 7.4 g/dL (12.0-15.0); Lymphocyte # 0.66 X10^3/ul (0.83-4.51); Mean Corp Hgb Conc 31.6 g/dL (32-36); Mean Corpuscular Hgb 27.7 pg (27.0-32.0); Mean Corpuscular Volume 87.6 fL (81-99); Mean Platelet Vol. 8.5 fl (6.2-12.0); Monocyte# 0.89 X10^3/uL; Monocyte% 8.1 % (0-10); NRBC Flagged by Analyzer 0 % (0-5); Neutrophil # 8.99 X10^3/uL (2.7-7.7); Neutrophil % 82.1 % (47-70); Platelet Count 329 K/mm3 (150-450); RBC Distribution Width CV 18.3 % (11.6-14.6); RBC Distribution Width SD 58.9 fl (35.1-43.9); Red Blood Count 2.67 M/mm3 (4.2-5.4)
[2022-10-14 06:25] LABS: Bedside Glucose 120 mg/dL (74-106)
[2022-10-14 06:25] LABS: Bedside Glucose 106 mg/dL (74-106)
[2022-10-14 06:25] LABS: Bedside Glucose 112 mg/dL (74-106)
[2022-10-14 06:49] LABS: ALB/GLOB Ratio 0.3 RATIO (0.9-2.4); AST(SGOT) 36 U/L (15-37); Alanine Aminotransfer ALT/SGPT 18 U/L (13-56); Albumin, Serum 1.2 g/dL (3.2-5.0); Alkaline Phosphatase 95 U/L (45-117); Anion Gap 5 (5-15); BUN 30 mg/dL (7-18); Calcium,Total 7.5 mg/dL (8.5-10.1); Chloride 107 mmol/L (98-107); Creatinine, Serum 0.97 mg/dL (0.55-1.02); EST Glomerular Filtration Rate 61 mL/min (>60); Est Glom Filt Rate - Afr Amer 74 mL/min (>60); Estimated Creatinine Clearance 40.42 ml/min; Globulin 3.5 g/dL (2.2-4.2); Glucose 109 mg/dL (74-106); Potassium 4.6 mmol/L (3.5-5.1); Protein, Total 4.7 g/dL (6.4-8.2); Sodium Level 136 mmol/L (136-145)
[2022-10-14 07:10] LABS: Bedside Glucose 116 mg/dL (74-106)
[2022-10-14 08:00] VITALS: BP 125/67; PULSE 87; RESP 22; TEMP 36.9; O2SAT 93
--- NOTE | 2022-10-14 08:13 | PN.HOSP_ITS ---
Reason for Visit Reason for Visit: Diagnoses Hypoglycemia, unspecified (10/14/22) Subjective Subjective Feels well. Denies passing out. States that she did feel woozy when her blood sugar got low and then lowered herself to the ground. Objective Data Objective Data Vital Signs: Vital Signs Temp Pulse Resp BP Pulse Ox O2 Del Method 37.3 C H 95 18 107/46 L 93 Room Air 10/14/22 05:00 10/14/22 05:00 10/14/22 05:00 10/14/22 05:00 10/14/22 05:00 10/14/22 05:00 Oxygen Delivery Method Room Air Weight: 75.9 kg Body Mass Index (BMI) 32.6 Intake & Output: Intake and Output for Last 24 Hours 10/12/22 10/13/22 10/14/22 23:59 23:59 23:59 Intake Total 300 / 300 Output Total 340 / 340 Balance -40 / -40 Lab / Micro Data Result Diagrams: 10/14/22 05:55 10/14/22 05:55 Labs: Laboratory Results - last 24 hr 10/13/22 18:10: POC Glucose 52 L 10/13/22 18:30: WBC 14.6 H, RBC 2.78 L, Hgb 7.9 L, Hct 25.0 L, MCV 89.9, MCH 28.4, MCHC 31.6 L, RDW Std Deviation 59.8 H, RDW Coeff of Dann 18.3 H, Plt Count 359, MPV 8.5, Immature Gran % (Auto) 2.400 H, Neut % (Auto) 86.4 H, Lymph % (Auto) 4.2 L, Wirt % (Auto) 5.4, Eos % (Auto) 1.3, Baso % (Auto) 0.3, Absolute Neuts (auto) 12.6 H, Absolute Lymphs (auto) 0.61 L, Nucleated RBC % 0 10/13/22 18:30: Sodium 136, Potassium 4.4, Chloride 106, Carbon Dioxide 23.0, Anion Gap 7, BUN 33 H, Creatinine 1.01, Estim Creat Clear Calc 38.82, Est GFR (MDRD) Af Amer 70, Est GFR (MDRD) Non-Af 58 L, BUN/Creatinine Ratio 32.7 H, Glucose 70 L, Calcium 7.7 L 10/13/22 19:23: POC Glucose 56 L 10/13/22 19:50: POC Glucose 167 H 10/13/22 21:13: POC Glucose 82 10/14/22 00:36: POC Glucose 58 L 10/14/22 01:27: POC Glucose 87 10/14/22 02:02: POC Glucose 94 10/14/22 02:35: POC Glucose 85 10/14/22 03:06: POC Glucose 99 10/14/22 03:38: POC Glucose 105 10/14/22 04:05: POC Glucose 110 H 10/14/22 04:32: POC Glucose 118 H 10/14/22 05:13: POC Glucose 120 H 10/14/22 05:39: POC Glucose 112 H 10/14/22 05:55: WBC 11.0, RBC 2.67 L, Hgb 7.4 L, Hct 23.4 L, MCV 87.6, MCH 27.7, MCHC 31.6 L, RDW Std Deviation 58.9 H, RDW Coeff of Dann 18.3 H, Plt Count 329, MPV 8.5, Immature Gran % (Auto) 2.000 H, Neut % (Auto) 82.1 H, Lymph % (Auto) 6.0 L, Wirt % (Auto) 8.1, Eos % (Auto) 1.5, Baso % (Auto) 0.3, Absolute Neuts (auto) 9.0 H, Absolute Lymphs (auto) 0.66 L, Nucleated RBC % 0 10/14/22 05:55: Sodium 136, Potassium 4.6, Chloride 107, Carbon Dioxide 24.0, Anion Gap 5, BUN 30 H, Creatinine 0.97, Estim Creat Clear Calc 40.42, Est GFR (MDRD) Af Amer 74, Est GFR (MDRD) Non-Af 61, BUN/Creatinine Ratio 31.0 H, Glucose 109 H, Calcium 7.5 L, Total Bilirubin 0.40, AST 36, ALT 18, Alkaline Phosphatase 95, Total Protein 4.7 L, Albumin 1.2 L, Globulin 3.5, Albumin/Globulin Ratio 0.3 L 10/14/22 06:05: POC Glucose 106 10/14/22 06:51: POC Glucose 116 H Radiography Diagnostic Testing: Radiology Impression Brain CT 02/21/23 18:24 IMPRESSION: Mild periventricular white matter ischemic changes. No evidence for acute intracranial bleed. Electronically Signed: Ector Goss MD at 19:20 EST , Physical Exam Const alert and no apparent distress Resp normal respiratory effort, no retractions, no use of accessory muscles and clear to auscultation bilaterally Cardio regular rate, regular rhythm, S1 normal heart sound and S2 normal heart sound GI normal to inspection, nondistended, normoactive bowel sounds and soft to palpation Extremity Extremity Narrative: Bilateral lower extremity edema Assessment & Plan Assessment/Plan (1) Hypoglycemia: PLAN: Acute Hypoglycemia with recurrent reported events of hypoglycemia, likely medication related: Will admit to PCU to be cautious and for frequent BS assessments, will continue liberalize diet, hold all oral diabetic regimen, hemoglobin A1c requested, will check blood sugars every 30 minutes until clinically improving and blood sugars greater than 110x4 with transition to more liberal blood sugar assessment if appropriate, once improving we will transition also to Accu-Chek with insulin sliding scale and will request nutrition involvement for education and teaching on appropriate oral intake and diabetic education, maintain on fall and aspiration precautions, if not improving low threshold to transition to a dextrose drip. Given onset of hypoglycemic events following initiation of Jardiance in addition to patient's glipizide, likely etiology and would certainly plan discontinuation of this medication. Patient did have issues with her blood sugar previously she was on steroids at that time. It was stopped primarily for lower extremity edema but was subsequent started on Jardiance shortly afterwards. Patient blood sugars have been persistently low with the Jardiance. We will discharge patient home and have her resume her glipizide about 48 hours but to continue to hold off on the Jardiance for now. (2) Syncope: PLAN: Ruled out. Patient adamant that she did not lose consciousness. (3) GI bleed: PLAN: Ongoing. Subsequent encounters Recent acute GI bleed secondary to rectal bleeding suspected secondary to colitis possibly treated induced: Patient has noted with recent discharge 09/29/2022, CT scan with evidence of colitis at that time, discharged with close follow-up with oncology as well as patient's dot compliance specialist with ongoing hold on her anticoagulant therapy, continue to closely monitor CBC. Transfuse for Hg less than 7 No further bleeding recently. (4) Acute on chronic anemia: PLAN: Chronic normocytic anemia/iron deficiency anemia with recent acute blood loss anemia secondary to GI bleed: Admission hemoglobin 7.9, baseline hemoglobin has vacillated between primarily 7-9, most recently prior to hemoglobin 9.2, will continue to closely trend. Patient continues to have outpatient iron transfusions including 1 on day of presentation and one 1 week prior (5) Lymphedema: PLAN: Had been on 60 mg of furosemide recently but had been stopped. Will resume at 40 mg daily. Patient previously was on 60. PLAN: Plan Chronic conditions: * Rectal carcinoma: Patient s/p radiation and ongoing chemotherapy on Keytruda following with Dr. Menjivar and GI Dr. Keene, encourage continued outpatient follow-up and evaluation, complicated by recent admission with GI bleed felt secondary to colitis possibly Keytruda induced. * Chronic bilateral lower extremity swelling/lymphedema: Patient with chronic lower extremity swelling unable to tolerate any compression stockings and refused placement of Brock wrap's at this time. Patient recently also had been taken off of her Lasix but the reasoning is not quite clear but encouraged strongly close early follow-up as she would benefit from bilateral lower extremity snug Brock wraps, elevation and diuresis. * Recent LE DVT: Patient followed up following her recent GI bleed with gastroenterology, she has yet to restart her low-dose Eliquis therapy and is closely following with oncology as well. * Diastolic CHF: 06/19/2021 echocardiogram with EF 55 to 60%, normal LV systolic function, mild aortic stenosis, CARLOS 1.5 cm?, negative bubble study at that time with no mention of diastolic function patient has not resumed her low dose Eliquis but is closely following with GI and oncology, we will continue patient statin, Coreg, recently taken off her lasix regimen for unclear exact reasons with recommendation for early follow-up and resumption if amenable, not on BROCK/ARB. * Sarcoidosis, unclear exact extent: Per records patient following with Pulmonary, no CT chest imaging noted in the system, encourage continued outpatient follow-up. * History CVA: Patient has not resumed her low dose Eliquis but is closely following with GI and oncology, we will continue patient statin, Coreg. * Chronic COPD: Not on any chronic inhalers nor chronic oxygen supplementation, PRN albuterol, HOB, IS parameters. * Hypertension: Continue home regimen including Coreg with hold parameters as needed, PRN hydralazine. Patient previously had also been on Lasix but she reports this was recently held but unfortunately the reasoning given is unclear. Would benefit from resumption especially given significant lower extremity swelling which is chronic * Hyperlipidemia: We will continue patient home statin therapy. * Obesity: Weight loss and lifestyle changes encouraged. DVT prophylaxis: SCDs if patient is able to tolerate, patient still with ongoing hold on her low-dose Eliquis therapy, following outpatient closely with GI and oncology. .
[2022-10-14 08:16] LABS: Bedside Glucose 119 mg/dL (74-106)
[2022-10-14] MEDS: Glucerna Shake 120 ML LIQUID PO ×2 (08:32→11:29)
[2022-10-14] MEDS: Carvedilol 6.25 MG Tablet PO (08:32)
[2022-10-14 09:21] LABS: Bedside Glucose 167 mg/dL (74-106)
--- NOTE | 2022-10-14 10:10 | CASEMGMT ---
RN CM Face to Face with patient for initial transition planning/care coordination assessment. RN CM introduced self and role at [facility]. Patient lying in bed, alert and oriented. Patient willing to participate in assessment and is able to answer all questions appropriately. Care providers, pharmacy, and demographics verified. Patient wishes to discharge home, denies need for home health at this time. Patient states she has no further needs or concerns at this time. CM to follow for discharge planning needs that may arise. PCP: Danny Specialists: Tiara, oncologist; Jorge Neves, obstetrician/gynecologist; Royce, warehouse record clerk; [facility] wound center Preferred Pharmacy: [email or web address] [place] Insurance: [employer] Prescription Benefit: yes Living Will/HPOA: yes, daughter Padmini Inman LNOK: , daughter Living Arrangements: Patient lives with in a first floor apartment with 5 steps and railing to enter the home. Patient states she is independent at home. Transportation: self, daughter DME/HHC: Patient states she has shower chair, grab bars, cane, and walker at home. Patient has had [facility] in the past. Patient declined HHC or outpatient therapy stating she will go with her sisters to the [facility] with silver sneakers program. Disposition Plan: Patient to discharge home with family support and follow-up plans in place. Tiffanie VAZQUEZ, RN, CM
--- NOTE | 2022-10-14 10:31 | DCINST_ITS ---
Discharge Instructions Diet Discharge Diet: 2000 Calorie Control Diet, 8 Cup Fluid Restriction and - Dressing / Incision Call your doctor if you observe: Fainting spells Follow Up Care Test Results: Test results from this visit will be discussed in further detail at your follow- up appointment, if applicable. Discharge Plan Admission Admit Date/Time: 10/14/22 06:37 Primary Reason for Your Visit: hypoglycemia Attending Provider: Mario Gutierrez Primary Care Provider: Emani Delgado Consulting Providers: Alexia Boyd Discharge Orders/Prescriptions Prescriptions: New furosemide 40 mg tablet 40 mg PO DAILY Qty: 30 0RF Continued carvedilol [Coreg] 25 mg tablet 6.25 mg PO BID Rx Instructions: must administer with a meal/food potassium chloride 8 mEq capsule, extended release 20 meq PO DAILY cinnamon bark [Cinnamon] 500 mg Capsule 1,000 mg PO BID Eliquis 2.5 mg tablet 2.5 mg PO BID Hold Instructions: Resume on 10/14/22. Label Comments: TAKE 1 TABLET BY MOUTH TWICE A DAY Held glipizide 5 mg tablet 5 mg PO DAILY Hold Instructions: Resume on 10/16/22. Discontinued Jardiance 10 mg tablet 10 mg PO DAILY Referrals / Follow Up: Emani Delgado DO [Primary Care Provider] - Within 2 Weeks Taye Menjivar DO [Med Staff - Active Staff] - Within 1 Month Turner Keene MD [Non-Staff] - Within 1 Month Disposition Disposition (needs filled in before D/C Order can be placed): Home, Self Care
--- NOTE | 2022-10-14 10:35 | DS.PCM_ITS ---
Providers Date of Admission: 10/14/22 Primary Care Physician: Dr. Emani Delgado, DO Reason For Visit: HYPOGLYCEMIA WITH SYNCOPAL EVENT Diagnosis Discharge Diagnosis (1) Hypoglycemia: Status: Acute Code(s): E16.2 - Hypoglycemia, unspecified Plan: Acute Hypoglycemia with recurrent reported events of hypoglycemia, likely medication related: Will admit to PCU to be cautious and for frequent BS assessments, will continue liberalize diet, hold all oral diabetic regimen, hemoglobin A1c requested, will check blood sugars every 30 minutes until clinically improving and blood sugars greater than 110x4 with transition to more liberal blood sugar assessment if appropriate, once improving we will transition also to Accu-Chek with insulin sliding scale and will request nutrition involvement for education and teaching on appropriate oral intake and diabetic education, maintain on fall and aspiration precautions, if not improving low threshold to transition to a dextrose drip. Given onset of hypoglycemic events following initiation of Jardiance in addition to patient's glipizide, likely etiology and would certainly plan discontinuation of this medication. Patient did have issues with her blood sugar previously she was on steroids at that time. It was stopped primarily for lower extremity edema but was subsequent started on Jardiance shortly afterwards. Patient blood sugars have been persistently low with the Jardiance. We will discharge patient home and have her resume her glipizide about 48 hours but to continue to hold off on the Jardiance for now. (2) Syncope: Status: Acute Code(s): R55 - Syncope and collapse Plan: Ruled out. Patient adamant that she did not lose consciousness. (3) GI bleed: Status: Acute Code(s): K92.2 - Gastrointestinal hemorrhage, unspecified Plan: Ongoing. Subsequent encounters Recent acute GI bleed secondary to rectal bleeding suspected secondary to c olitis possibly treated induced: Patient has noted with recent discharge 09/29/2022, CT scan with evidence of colitis at that time, discharged with close follow-up with oncology as well as patient's company controller with ongoing hold on her anticoagulant therapy, continue to closely monitor CBC. Transfuse for Hg less than 7 No further bleeding recently. (4) Acute on chronic anemia: Status: Chronic Code(s): D64.9 - Anemia, unspecified Plan: Chronic normocytic anemia/iron deficiency anemia with recent acute blood loss anemia secondary to GI bleed: Admission hemoglobin 7.9, baseline hemoglobin has vacillated between primarily 7-9, most recently prior to hemoglobin 9.2, will continue to closely trend. Patient continues to have outpatient iron transfusions including 1 on day of presentation and one 1 week prior (5) Lymphedema: Status: Acute Code(s): I89.0 - Lymphedema, not elsewhere classified Plan: Had been on 60 mg of furosemide recently but had been stopped. Will resume at 4 0 mg daily. Patient previously was on 60. Plan Chronic conditions: * Rectal carcinoma: Patient s/p radiation and ongoing chemotherapy on Keytruda following with Dr. Menjivar and GI Dr. Keene, encourage continued outpatient follow-up and evaluation, complicated by recent admission with GI bleed felt secondary to colitis possibly Keytruda induced. * Chronic bilateral lower extremity swelling/lymphedema: Patient with chronic lower extremity swelling unable to tolerate any compression stockings and refused placement of Brock wrap's at this time. Patient recently also had been taken off of her Lasix but the reasoning is not quite clear but encouraged strongly close early follow-up as she would benefit from bilateral lower extremity snug Brock wraps, elevation and diuresis. * Recent LE DVT: Patient followed up following her recent GI bleed with gastr oenterology, she has yet to restart her low-dose Eliquis therapy and is closely following with oncology as well. * Diastolic CHF: 06/19/2021 echocardiogram with EF 55 to 60%, normal LV systolic function, mild aortic stenosis, CARLOS 1.5 cm?, negative bubble study at that time with no mention of diastolic function patient has not resumed her low dose Eliquis but is closely following with GI and oncology, we will continue patient statin, Coreg, recently taken off her lasix regimen for unclear exact reasons with recommendation for early follow-up and resumption if amenable, not on BROCK/ARB. * Sarcoidosis, unclear exact extent: Per records patient following with Pulmonary, no CT chest imaging noted in the system, encourage continued outpatient follow-up. * History CVA: Patient has not resumed her low dose Eliquis but is closely following with GI and oncology, we will continue patient statin, Coreg. * Chronic COPD: Not on any chronic inhalers nor chronic oxygen supplementation, PRN albuterol, HOB, IS parameters. * Hypertension: Continue home regimen including Coreg with hold parameters as needed, PRN hydralazine. Patient previously had also been on Lasix but she reports this was recently held but unfortunately the reasoning given is unclear. Would benefit from resumption especially given significant lower extremity swelling which is chronic * Hyperlipidemia: We will continue patient home statin therapy. * Obesity: Weight loss and lifestyle changes encouraged. DVT prophylaxis: SCDs if patient is able to tolerate, patient still with ongoing hold on her low-dose Eliquis therapy, following outpatient closely with GI and oncology. Patient being discharged today. Patient improved much faster than initially anticipated initial presentation. Medications at Discharge Home Medications carvedilol 25 mg tablet (Coreg) 6.25 mg PO BID Hypertension 11/22/19 cinnamon bark 500 mg capsule (Cinnamon) 1,000 mg PO BID SUPPLEMENT 06/19/21 potassium chloride 8 mEq capsule,extended release 20 meq PO DAILY SUPPLEMENT 06/19/21 apixaban 2.5 mg tablet (Eliquis) 2.5 mg PO BID Blood thinner 09/27/22 glipizide 5 mg tablet 5 mg PO DAILY Diabetes 09/27/22 furosemide 40 mg tablet 40 mg PO DAILY #30 tabs 10/14/22 Weight / BMI Weight Weight: 75.9 kg Body Mass Index (BMI) 32.6 ABG / Lab / Microbiology Data Result Diagrams: 10/14/22 05:55 10/14/22 05:55 Laboratory: Laboratory Results - last 24 hr 10/13/22 18:10: POC Glucose 52 L 10/13/22 18:30: WBC 14.6 H, RBC 2.78 L, Hgb 7.9 L, Hct 25.0 L, MCV 89.9, MCH 28.4, MCHC 31.6 L, RDW Std Deviation 59.8 H, RDW Coeff of Dann 18.3 H, Plt Count 359, MPV 8.5, Immature Gran % (Auto) 2.400 H, Neut % (Auto) 86.4 H, Lymph % (Aut o) 4.2 L, Grimes % (Auto) 5.4, Eos % (Auto) 1.3, Baso % (Auto) 0.3, Absolute Neuts (auto) 12.6 H, Absolute Lymphs (auto) 0.61 L, Nucleated RBC % 0 10/13/22 18:30: Sodium 136, Potassium 4.4, Chloride 106, Carbon Dioxide 23.0, Anion Gap 7, BUN 33 H, Creatinine 1.01, Estim Creat Clear Calc 38.82, Est GFR (MDRD) Af Amer 70, Est GFR (MDRD) Non-Af 58 L, BUN/Creatinine Ratio 32.7 H, Glucose 70 L, Calcium 7.7 L 10/13/22 19:23: POC Glucose 56 L 10/13/22 19:50: POC Glucose 167 H 10/13/22 21:13: POC Glucose 82 10/14/22 00:36: POC Glucose 58 L 10/14/22 01:27: POC Glucose 87 10/14/22 02:02: POC Glucose 94 10/14/22 02:35: POC Glucose 85 10/14/22 03:06: POC Glucose 99 10/14/22 03:38: POC Glucose 105 10/14/22 04:05: POC Glucose 110 H 10/14/22 04:32: POC Glucose 118 H 10/14/22 05:13: POC Glucose 120 H 10/14/22 05:39: POC Glucose 112 H 10/14/22 05:55: WBC 11.0, RBC 2.67 L, Hgb 7.4 L, Hct 23.4 L, MCV 87.6, MCH 27.7, MCHC 31.6 L, RDW Std Deviation 58.9 H, RDW Coeff of Dann 18.3 H, Plt Count 329, MPV 8.5, Immature Gran % (Auto) 2.000 H, Neut % (Auto) 82.1 H, Lymph % (Auto) 6.0 L, Grimes % (Auto) 8.1, Eos % (Auto) 1.5, Baso % (Auto) 0.3, Absolute Neuts (auto) 9.0 H, Absolute Lymphs (auto) 0.66 L, Nucleated RBC % 0 10/14/22 05:55: Sodium 136, Potassium 4.6, Chloride 107, Carbon Dioxide 24.0, Anion Gap 5, BUN 30 H, Creatinine 0.97, Estim Creat Clear Calc 40.42, Est GFR (MDRD) Af Amer 74, Est GFR (MDRD) Non-Af 61, BUN/Creatinine Ratio 31.0 H, Glucose 109 H, Calcium 7.5 L, Total Bilirubin 0.40, AST 36, ALT 18, Alkaline Phosphatase 95, Total Protein 4.7 L, Albumin 1.2 L, Globulin 3.5, Albumin/Globulin Ratio 0.3 L 10/14/22 06:05: POC Glucose 106 10/14/22 06:51: POC Glucose 116 H 10/14/22 07:51: POC Glucose 119 H 10/14/22 09:01: POC Glucose 167 H Radiography Diagnostic Testing: Radiology Impression Brain CT 10/13/22 18:24 IMPRESSION: Mild periventricular white matter ischemic changes. No evidence for acute intracranial bleed. Electronically Signed: Ector Goss MD at 19:20 EST Reading Location ID and State: [facility] / [place] , Service support , D/C Instructions Discharge Diet: 2000 Calorie Control Diet, 8 Cup Fluid Restriction and - Call your doctor if you observe: Fainting spells Meaningful Use Info Meaningful Use Diagnoses (Choose all that apply): None applicable Discharge Plan Admission Admit Date/Time: 10/14/22 06:37 Primary Reason for Your Visit: hypoglycemia Attending Provider: Mario Gutierrez Primary Care Provider: Emani Delgado Consulting Providers: Alexia Boyd Discharge Orders/Prescriptions Prescriptions: New furosemide 40 mg tablet 40 mg PO DAILY Qty: 30 0RF Continued carvedilol [Coreg] 25 mg tablet 6.25 mg PO BID Rx Instructions: must administer with a meal/food potassium chloride 8 mEq capsule, extended release 20 meq PO DAILY cinnamon bark [Cinnamon] 500 mg Capsule 1,000 mg PO BID Eliquis 2.5 mg tablet 2.5 mg PO BID Hold Instructions: Resume on 10/14/22. Label Comments: TAKE 1 TABLET BY MOUTH TWICE A DAY Held glipizide 5 mg tablet 5 mg PO DAILY Hold Instructions: Resume on 10/16/22. Discontinued Jardiance 10 mg tablet 10 mg PO DAILY Referrals / Follow Up: Emani Delgado DO [Primary Care Provider] - Within 2 Weeks Taye Menjivar DO [Med Staff - Active Staff] - Within 1 Month Turner Keene MD [Non-Staff] - Within 1 Month Disposition Disposition (needs filled in before D/C Order can be placed): Home, Self Care Charges/Coding Visit Charges Inpatient E&M: 39491 Disch Hosp
--- NOTE | 2022-10-14 10:51 | PHA.DC.MR ---
Pharmacy Service has performed discharge medication reconciliation for this patient. The patient's discharge medication list was reviewed for discrepancies and discrepancies were resolved. Home Medications carvedilol 25 mg tablet (Coreg) 6.25 mg PO BID Hypertension 11/22/19 cinnamon bark 500 mg capsule (Cinnamon) 1,000 mg PO BID SUPPLEMENT 06/19/21 potassium chloride 8 mEq capsule,extended release 20 meq PO DAILY SUPPLEMENT 06/19/21 apixaban 2.5 mg tablet (Eliquis) 2.5 mg PO BID Blood thinner 09/27/22 glipizide 5 mg tablet 5 mg PO DAILY Diabetes 09/27/22 furosemide 40 mg tablet 40 mg PO DAILY #30 tabs 10/14/22
[2022-10-14 11:05] LABS: Hemoglobin A1c 7.3 % (3.8-5.6)
[2022-10-14 11:46] LABS: Bedside Glucose 240 mg/dL (74-106)
[2022-10-14 13:00] VITALS: BP 148/71; PULSE 83; RESP 22; TEMP 36.8; O2SAT 97
== END 2022-10-14 15:09 | disposition home or self-care (01) | DRG 638 ==
LOC: ED 21:35 → PCU 21:57
PROVIDERS: Admitting Provider Family Medicine; Emergency Provider Emergency Medicine
DX: E11.649 Type 2 diabetes mellitus with hypoglycemia without coma (principal); C78.7 Secondary malignant neoplasm of liver and intrahepatic bile duct; J44.9 Chronic obstructive pulmonary disease, unspecified; I42.9 Cardiomyopathy, unspecified; I50.32 Chronic diastolic (congestive) heart failure; I11.0 Hypertensive heart disease with heart failure; C20 Malignant neoplasm of rectum; D50.9 Iron deficiency anemia, unspecified; K92.2 Gastrointestinal hemorrhage, unspecified; D86.9 Sarcoidosis, unspecified; E78.5 Hyperlipidemia, unspecified; I89.0 Lymphedema, not elsewhere classified; Z92.3 Personal history of irradiation; Z79.01 Long term (current) use of anticoagulants; Z79.84 Long term (current) use of oral hypoglycemic drugs; Z86.73 Personal history of transient ischemic attack (TIA), and cerebral infarction without residual deficits; Z79.899 Other long term (current) drug therapy; Z86.718 Personal history of other venous thrombosis and embolism; E66.9 Obesity, unspecified; Z68.32 Body mass index [BMI] 32.0-32.9, adult
CPT/HCPCS: 36591; 70450; 80048; 80053; 82962; 83036; 85025; 93005; 94668; 96361; 96374; 99221; 99285; A4216; G0378

== ENCOUNTER 2022-10-28 08:23 | Outpatient (RCR) | payer MEDICARE, SELFPAY ==
[2022-10-28 09:01] VITALS: BP 140/60; PULSE 101; RESP 16; TEMP 36.2; BMI 32.2
--- NOTE | 2022-10-28 11:25 | PCM.WC.HP ---
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 And she also has edema bilateral lower legs History of Wound: 67-year-old white female that has many comorbidities with diabetes renal cardiac disease is here for [facility] consult for colorectal cancer. 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 Her big complaint is edema both bilateral lower legs she has a hard time walking because of her hardware in her feet and ankles and she has developed severe edema probably from renal and cardiac issues patient. We will start the wraps here and she can continue wrapping her legs so she can get them thinned down to wear a compression stocking. [facility] Medical History (Updated 10/28/22 @ 11:40 by Nayla Pacheco PROGRAMMER, PROGRAMMER-C) Abnormal nuclear stress test Acute CVA (cerebrovascular accident) Anemia Anemia Anemia Anticoagulant long-term use Arthritis Cancer Cardiomyopathy Carotid artery stenosis Chronic anticoagulation Congenital talipes calcaneovalgus of left foot COPD (chronic obstructive pulmonary disease) Diabetes mellitus type II, uncontrolled Diastolic congestive heart failure Essential hypertension GI bleed History of CHF (congestive heart failure) History of CVA (cerebrovascular accident) (10/21/17) History of deep venous thrombosis (DVT) of distal vein of left lower extremity History of deep venous thrombosis (DVT) of distal vein of right lower extremity History of diabetes mellitus, type II History of pleural effusion (10/21/17) History of rectal cancer History of renal disease Hyperlipidemia Low iron Lymphedema Nonrheumatic mitral valve regurgitation Nonrheumatic tricuspid valve regurgitation Preop cardiovascular exam Rectal bleeding Rectal cancer metastasized to liver Renal insufficiency Shortness of breath on exertion Snoring Tricuspid regurgitation Wears dentures Home Medications carvedilol 25 mg tablet (Coreg) 6.25 mg PO BID Hypertension 11/22/19 [History Last Taken 09/27/22 07] cinnamon bark 500 mg capsule (Cinnamon) 1,000 mg PO BID SUPPLEMENT 06/19/21 [History Last Taken 09/27/22 07] potassium chloride 8 mEq capsule,extended release 20 meq PO DAILY SUPPLEMENT 06/19/21 [History Last Taken 09/27/22 0700] apixaban 2.5 mg tablet (Eliquis) 2.5 mg PO BID Blood thinner 09/27/22 [History Last Taken 09/27/22 0700] glipizide 5 mg tablet 5 mg PO DAILY Diabetes 09/27/22 [History Last Taken 09/27/22 0700] furosemide 40 mg tablet 40 mg PO DAILY #30 tabs 10/14/22 [Rx Last Taken Unknown] clobetasol 0.05 % topical cream 1 applic topical DAILY PRN Itching 10/28/22 [History Last Taken Unknown] dexamethasone 0.5 mg/5 mL oral elixir 0.5 mg PO BID PRN SORE MOUTH 10/28/22 [History Last Taken Unknown] vitamin B12 0.5 mg-folic acid 1 mg tablet 1 tab PO DAILY 10/28/22 [History Last Taken Unknown] Allergy/AdvReac Type Severity Reaction Status Date / Time latex Allergy Severe Hives Verified 10/28/22 09:26 codeine AdvReac Unknown unknown Verified 10/28/22 09:26 Family History Mother Bleeding disorder Diabetes CAD (coronary artery disease) Hypertension Hyperlipidemia Kidney disease Sister Asthma CAD (coronary artery disease) Hyperlipidemia Father Cancer CAD (coronary artery disease) Hypertension Hyperlipidemia CVA (cerebral vascular accident) Brother CAD (coronary artery disease) Hyperlipidemia Surgical History History of cardiac catheterization History of colonoscopy History of foot surgery Hx of cataract surgery Social History household members: spouse Smoking Status: Never smoker alcohol intake: never substance use type: does not use ROS Constitutional Constitutional: Reports systems reviewed and no addt'l complaints, except as documented Eyes Eyes: Reports systems reviewed and no addt'l complaints, except as documented ENT HEENT: Reports systems reviewed and no addt'l complaints, except as documented Cardiovascular Cardiovascular: Reports systems reviewed and no addt'l complaints, except as documented Respiratory/Chest Respiratory/Chest: Reports systems reviewed and no addt'l complaints, except as documented Gastrointestinal Gastrointestinal: Reports systems reviewed and no addt'l complaints, except as documented Genitourinary Genitourinary: Reports systems reviewed and no addt'l complaints, except as documented Musculoskeletal Musculoskeletal: Reports systems reviewed and no addt'l complaints, except as documented Integumentary Integumentary: Reports other Details: Bilateral lower leg edema Neurologic Neurologic: Reports systems reviewed and no addt'l complaints, except as documented Psychiatric Psychiatric: Reports systems reviewed and no addt'l complaints, except as documented Endocrine Endocrinology: Reports systems reviewed and no addt'l complaints, except as documented Hematologic/Lymphatic Hematologic/Lymphatic: Reports systems reviewed and no addt'l complaints, except as documented Allergic/Immunologic Allergic/Immunologic: Reports systems reviewed and no addt'l complaints, except as documented Vital Signs Vital Signs Vital Signs: 10/28/22 09:01 Temperature 97.2 F L Temperature Source Temporal Pulse Rate 101 H Respiratory Rate 16 Blood Pressure 140/60 H Blood Pressure Mean 86 Blood Pressure Source Monitor Blood Pressure Position Sitting Blood Pressure Location Left Arm Oxygen Delivery Method Room Air Weight Weight: 165 lb Body Mass Index (BMI) 32.2 Physical Exam Const oriented x3 General Appearance: cooperative Exam Limitations: no limitations Eyes PERRL General Eye: normal appearance of both eyes Resp normal respiratory effort Effort and Inspection: able to speak in complete sentences Auscultation: clear to auscultation bilaterally Cardio regular rate and regular rhythm Palpation: normal PMI Rate: regular rate Rhythm: regular rhythm GI Auscultation: normoactive bowel sounds Palpation: soft and no hepatosplenomegaly external exam normal Extremity normal to inspection General Extremity: normal exam except as noted Skin no rashes or lesions noted Neuro oriented x3 Psych Appearance: grossly normal Speech: normal speech Thought Content: normal thought content Judgement: judgement good Debridement Note Debridement Note No debridement was completed: No debridement was completed today Post-Debridement Measurements and Additional Note: Post-Debridement Measurements/Treatment - Nurse 1 - General Ulcer Assessment Start: 10/28/22 08:57 Freq: Status: Active Protocol: BRITANY Activity Type Activity Date Activity User E-sign Co-sign Detail Recorded Client Recorded Date Recorded By Document 10/28/22 09:01 [facility] [id number] 10/28/22 09:06 [facility] 10/28/22 09:01 - Today's Visit Information Type of service Initial Visit Arrival Mode Ambulatory,Cane Transfer Assistance None Accompanied by dakota Patient Identification Verified (Name & Yes ) Height and Weight Height 5 ft Weight 165 lb Weight in Pounds 165.0 lbs Weight Measurement Method Estimated by Patient Body Mass Index (BMI) 32.2 BMI Classification Obese BSA - Gael 1.72 Vital Signs Temperature (97.8 F-99.1 F) 97.2 F L Temperature Source Temporal Pulse Rate (60-100) 101 H Pulse Location Monitor Respiratory Rate (12-18) 16 Respiratory rate source Observation Oxygen Delivery Method Room Air Blood Pressure (90/60-120/80) 140/60 H Blood Pressure Mean 86 Source Monitor Position Sitting Blood Pressure Location Left Arm History Since Last Visit- (Skip if this is Patient's initial visit) Left Footwear Slipper Right Footwear Slipper Pain Scale: 0-10 Numeric Is Patient Pain Free? Yes Lower Extremity Assessment/ Foot Assessment/ Toe Nail Assessment Right -Lower Extremity Comment (If N/A Above ^ edema to ble ) -Posterior Tibial Doppler Monophasic -Dorsalis Pedis Doppler Monophasic -Extremity Color Pale -Hair Growth on Legs No -Hair Growth on Toes No -Thick No -Discolored No -Deformed No -Improper Length & Hygeine No Left -Lower Extremity Comment (If N/A Above ^ edema to ble ) -Posterior Tibial Doppler Monophasic -Dorsalis Pedis Doppler Monophasic -Extremity Color Pale -Hair Growth on Legs No -Hair Growth on Toes No -Thick No -Discolored No -Deformed No -Improper Length & Hygeine No Communication Assessment Preferred language [place] [employer] Clerk Required No Able to Read Yes Able to Write Yes Communication Tools None Right Hearing Abillity Normal Left Hearing Abillity Normal Visual Assistive Devices Glasses Teaching Assessment Preferences Verbal,Written, Audio/Visual, Demonstration Barriers to Learning None Readiness To Learn Excellent Willingness to Engage in Self Management High Activies Readiness to Engage in Self Management High Activities Anxiety Level Calm Cooperation Cooperative Perception Coherent Interest in Health Problem Asks Questions Smoking Status Never smoker Is Patient Diabetic Yes Functional Assessment Recent Decline in Ability to Perform Denies Any Declines Culture/Scientology/Medical Stenographer Cultural/Scientology Needs that may affect No Treatment Plan WC - Nurse 1 - General Ulcer Measurement Start: 10/28/22 08:57 Freq: Status: Active Protocol: Activity Type Activity Date Activity User E-sign Co-sign Detail Recorded Client Recorded Date Recorded By Document 10/28/22 09:01 [facility] [id number] 10/28/22 09:06 [facility] 10/28/22 09:01 Wound Center Nurse 1 Lower Limb Edema Present Yes Right Calf (cm) 39 Right Ankle (cm) 28.5 Point of measurement (cm from the medial 41 instep) Point of Measurement (cm from the medial 29.5 instep) WC - Nurse 3 - General Ulcer D/C NN Start: 10/28/22 08:57 Freq: Status: Active Protocol: Activity Type Activity Date Activity User E-sign Co-sign Detail Recorded Client Recorded Date Recorded By Document 10/28/22 10:03 [facility] [id number] 10/28/22 10:04 [facility] 10/28/22 10:03 Wound Care Center Nurse 3 BLE -Compression Wrap Surepress ($) Treatment Response Procedure Tolerated Well Pain Scale: 0-10 Numeric Is Patient Pain Free? Yes WC - Visit Discharge Discharge Condition Stable Ambulatory Status Ambulatory,Cane Transportation Private Auto Accompanied by DAKOTA Assessment/Plan Assessment/Plan (1) Soft tissue radionecrosis: CODE(S): L59.8 - Other specified disorders of the skin and subcutaneous tissue related to radiation; Y84.2 - Radiological procedure and radiotherapy as the cause of abnormal reaction of the patient, or of later complication, without mention of misadventure at the time of the procedure PLAN: CT of the lungs has been established and done which were clear EKG has already been done we will get a copy We will repeat her CBC and A1c for HBO and apparently we already have permission from insurance company to go ahead with HBO treatments. Eventually patient will be ordered to [facility] treatments with no breaks 2 hours for approximately 20-30 treatments to start (2) Bilateral lower extremity edema: CODE(S): R60.0 - Localized edema (3) History of rectal cancer: CODE(S): Z85.048 - Personal history of other malignant neoplasm of rectum, rectosigmoid junction, and anus
== END 2022-11-20 23:59 | disposition home or self-care (01) ==
LOC: WC 08:23
PROVIDERS: PCP Family Medicine; Referring Provider Nurse Practitioner; Visit Provider Nurse Practitioner
DX: L59.8 Other specified disorders of the skin and subcutaneous tissue related to radiation (principal); J44.9 Chronic obstructive pulmonary disease, unspecified; I11.0 Hypertensive heart disease with heart failure; I42.9 Cardiomyopathy, unspecified; I50.32 Chronic diastolic (congestive) heart failure; C19 Malignant neoplasm of rectosigmoid junction; E11.9 Type 2 diabetes mellitus without complications; Z79.01 Long term (current) use of anticoagulants; E78.5 Hyperlipidemia, unspecified; Y84.2 Radiological procedure and radiotherapy as the cause of abnormal reaction of the patient, or of later complication, without mention of misadventure at the time of the procedure; R60.0 Localized edema; Z85.048 Personal history of other malignant neoplasm of rectum, rectosigmoid junction, and anus
CPT/HCPCS: 99213; G0463

== ENCOUNTER 2023-04-20 09:58 | Outpatient (RCR) | payer MEDICARE, SELFPAY ==
[2022-11-21 00:38] VITALS: BP 140/60; PULSE 101; RESP 16; TEMP 36.2; BMI 32.2
[2023-04-20 10:18] VITALS: BP 172/71; PULSE 113; RESP 18; TEMP 36; BMI 33.9
--- NOTE | 2023-04-20 15:43 | PCM.WC.HP ---
History of Present Illness Date of Service: 04/20/23 Chief Complaint: Bilateral lower extremity swelling, edema, and lymphedema -left greater than right History of Wound: This is a 67-year-old female who presented to the [facility] stating that she is here for treatment of her lower extremity swelling, edema, and lymphedema, expecting that hyperbaric oxygen therapy will be the mainstay of of her treatment. The patient has a long history of lower extremity swelling edema and lymphedema, extending back for several years. Her past medical history is complicated. Records have been provided from the [facility] [place]. 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 The patient had received a series of radiation treatments for rectal cancer. Plans had been made to proceed with hyperbaric oxygen therapy. At that time, the patient was having significant rectal bleeding, and hyperbaric oxygen therapy was felt to be warranted. However, hyperbaric oxygen therapy was not instituted, and the patient subsequently underwent end colostomy in November 2022. The patient states that her surgeon was Dr. Osman Abad. Subsequent to her end colostomy, patient indicates that she has only had intermittent bleeding from the rectum, and not as severe as previous to her fecal diversion procedure. According the patient, her surgeon is not concerned about her rectal bleeding, and her serial blood work has been good. The patient states I am not worried about the rectal bleeding. Rather, her concerns appear to be relative to her lower extremity swelling, and she has been given the impression that hyperbaric oxygen therapy is indicated as a cornerstone of treatment for her swelling. It appears as though the patient's rectal cancer was metastatic to liver. She is also known to have multiple pre-existing medical problems, which are listed below. She has a history of bilateral lower extremity deep vein thrombosis on at least 3 occasions, and is currently on systemic anticoagulation with Eliquis. She has a history of right hemispheric embolic stroke, and has had stenting of the right internal carotid artery. The patient also has a parastomal hernia, which is being observed and managed conservatively by her surgeon. With respect to the patient's lower extremity swelling, she is relatively inactive. She sits for long periods each day. She ambulates very slowly and in limited fashion with the assistance of a cane. She is mildly obese with a BMI of 33.9. She sleeps in a recliner, with her legs chronically dependent. She denies pain in her lower extremities. [facility] Medical History (Updated 04/20/23 @ 16:[address] 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 Cardiomyopathy Carotid artery stenosis Carotid artery stenosis with cerebral infarction Chronic anticoagulation Chronic kidney disease, stage III (moderate) Congenital talipes calcaneovalgus of left foot COPD (chronic obstructive pulmonary disease) Coronary artery disease Diabetes mellitus Diabetes mellitus type II, uncontrolled Diastolic congestive heart failure Edema of left lower extremity Edema of right lower extremity Essential hypertension GI bleed History of CHF (congestive heart failure) History of CVA (cerebrovascular accident) (10/21/17) History of deep vein thrombosis (DVT) of lower extremity History of deep venous thrombosis (DVT) of distal vein of left lower extremity History of deep venous thrombosis (DVT) of distal vein of right lower extremity History of diabetes mellitus, type II History of pleural effusion (10/21/17) History of rectal cancer History of renal disease Hyperlipidemia Hypertension Left leg swelling Low iron Lymphedema Lymphedema of left leg Nonrheumatic mitral valve regurgitation Nonrheumatic tricuspid valve regurgitation Parastomal hernia Postphlebitic syndrome with inflammation Preop cardiovascular exam Radiation proctitis Rectal bleeding Rectal cancer metastasized to liver Renal insufficiency Right leg swelling Sarcoidosis Shortness of breath on exertion Snoring Steroid long-term use Tricuspid regurgitation Wears dentures Home Medications carvedilol 25 mg tablet (Coreg) 6.25 mg PO BID Hypertension 11/22/19 [History Last Taken 09/27/22 07] cinnamon bark 500 mg capsule (Cinnamon) 1,000 mg PO BID SUPPLEMENT 06/19/21 [History Last Taken 09/27/22 07] potassium chloride 8 mEq capsule,extended release 20 meq PO DAILY SUPPLEMENT 06/19/21 [History Last Taken 09/27/22 07] apixaban 2.5 mg tablet (Eliquis) 2.5 mg PO BID Blood thinner 09/27/22 [History Last Taken 09/27/22 07] glipizide 5 mg tablet 5 mg PO DAILY Diabetes 09/27/22 [History Last Taken 09/27/22 0700] furosemide 40 mg tablet 40 mg PO DAILY #30 tabs 10/14/22 [Rx Last Taken Unknown] clobetasol 0.05 % topical cream 1 applic topical DAILY PRN Itching 10/28/22 [History Last Taken Unknown] dexamethasone 0.5 mg/5 mL oral elixir 0.5 mg PO BID PRN SORE MOUTH 10/28/22 [History Last Taken Unknown] vitamin B12 0.5 mg-folic acid 1 mg tablet 1 tab PO DAILY 10/28/22 [History Last Taken Unknown] Allergy/AdvReac Type Severity Reaction Status Date / Time latex Allergy Severe Hives Verified 10/28/22 09:26 codeine AdvReac Unknown unknown Verified 10/28/22 09:26 Family History Mother Bleeding disorder Diabetes CAD (coronary artery disease) Hypertension Hyperlipidemia Kidney disease Sister Asthma CAD (coronary artery disease) Hyperlipidemia Father Cancer CAD (coronary artery disease) Hypertension Hyperlipidemia CVA (cerebral vascular accident) Brother CAD (coronary artery disease) Hyperlipidemia Surgical History History of cardiac catheterization History of cataract surgery History of colonoscopy History of colostomy History of foot surgery Hx of cataract surgery Social History household members: spouse Smoking Status: Never smoker alcohol intake: never substance use type: does not use Vital Signs Vital Signs Vital Signs: 04/20/23 10:18 Temperature 96.8 F L Temperature Source Temporal Pulse Rate 113 H Respiratory Rate 18 Blood Pressure 172/71 H Blood Pressure Mean 104 Blood Pressure Source Monitor Blood Pressure Position Semi-Fowlers Blood Pressure Location Left Arm Weight Weight: 174 lb Body Mass Index (BMI) 33.9 Physical Exam Const alert, oriented x3, no apparent distress and well nourished Constitutional Narrative: The patient is mildly obese, with a BMI of 33.9. General Appearance: cooperative, comfortable, well kempt and well developed Orientation / Consciousness: awake, oriented to person, oriented to place and oriented to time HEENT normocephalic, head/scalp atraumatic and hearing grossly normal bilaterally Head and Scalp: normal to inspection, normocephalic and atraumatic External Ear: external ears normal Eyes PERRL and EOMs intact bilaterally General Eye: normal appearance of both eyes Resp normal respiratory effort, normal air movement, no retractions and no use of accessory muscles Effort and Inspection: able to speak in complete sentences GI GI Narrative: A colostomy is noted with an intact colostomy bag. Thecolostomy appears to be functional. Extremity no calf tenderness Extremity Narrative: Examination of the lower extremities reveals no open wounds or ulcerations. There are no significant skin changes. Severe swelling and edema are noted in the lower extremities bilaterally. This appears to be more pronounced in the left lower extremity, which clearly demonstrates lymphedema. There is no significant tenderness due to palpation. Pedal pulses are strong and multiphasic by Doppler signal assessment. General Extremity: Negative for clubbing or cyanosis Neuro oriented x3, CN's II-XII intact bilaterally, moves all extremities and no focal motor deficits Sensorium / Orientation: awake, alert, oriented to person, oriented to place and oriented to time Psych Appearance: grossly normal and appropriate Attitude: calm Activity / Motor Behavior: appropriate eye contact Speech: normal speech Mood & Affect: euthymic mood Thought Process: normal thought process Thought Content: normal thought content Attention / Concentration: attention grossly intact Debridement Note Debridement Note No debridement was completed: No debridement was completed today (There are no open wounds or ulcerations.) Post-Debridement Measurements and Additional Note: Post-Debridement Measurements/Treatment - Nurse 1 - General Ulcer Assessment Start: 04/20/23 10:18 Freq: Status: Active Protocol: .LOWSUZETTE Activity Type Activity Date Activity User E-sign Co-sign Detail Recorded Client Recorded Date Recorded By Document 04/20/23 10:18 [id number] 04/20/23 10:38 04/20/23 10:18 - Today's Visit Information Type of service Initial Visit Arrival Mode Ambulatory,Cane Accompanied by Patient Identification Verified (Name & Yes ) Patient Requires Transmission-Based No Precautions Height and Weight Height 5 ft 0.05 in Weight 174 lb Weight in Pounds 174.0 lbs Body Mass Index (BMI) 33.9 BMI Classification Obese BSA - Gael 1.76 Vital Signs Temperature (97.8 F-99.1 F) 96.8 F L Temperature Source Temporal Pulse Rate (60-100) 113 H Pulse Location Monitor Respiratory Rate (12-18) 18 Respiratory rate source Observation Blood Pressure (90/60-120/80) 172/71 H Blood Pressure Mean 104 Source Monitor Position Semi-Fowlers Blood Pressure Location Left Arm History Since Last Visit- (Skip if this is Patient's initial visit) Left Footwear Slipper Right Footwear Slipper Pain Scale: 0-10 Numeric Is Patient Pain Free? Yes Lower Extremity Assessment/ Foot Assessment/ Toe Nail Assessment Right -Posterior Tibial Palpable Yes -Posterior Tibial Doppler Multiphasic -Dorsalis Pedis Palpable Yes -Dorsalis Pedis Doppler Multiphasic Left -Posterior Tibial Palpable Yes -Posterior Tibial Doppler Multiphasic -Dorsalis Pedis Palpable Yes -Dorsalis Pedis Doppler Multiphasic Communication Assessment Preferred language Danish Press Feeder Broomcorn Required No Able to Read Yes Able to Write Yes Communication Tools None Caregiver Communication Skills No Impairment Impairment Right Hearing Abillity Normal Left Hearing Abillity Normal Visual Assistive Devices None Teaching Assessment Preferences Verbal,Written, Audio/Visual, Demonstration Barriers to Learning None Readiness To Learn Excellent Willingness to Engage in Self Management High Activies Readiness to Engage in Self Management High Activities Anxiety Level Calm Cooperation Cooperative Perception Coherent Interest in Health Problem Asks Questions Education Importance Acknowledges Need Does Patient Smoke tobacco or other No substances Smoking Status Never smoker Is Patient Diabetic Yes Functional Assessment Recent Decline in Ability to Perform Denies Any Declines Assistive Device With Patient cane Culture/Protestant/Commercial Airline Pilot Cultural/Protestant Needs that may affect No Treatment Plan Would you allow our hospital carbon capture power plant manager to No meet you for the purpose of spiritual/ emotional support? Commercial Airline Pilot to contact place of hindu No Teaching: Wound Center Compression Wraps & Stockings -Person Taught Patient -Teaching Method Discussion, Demonstration -Response to teaching Reinforcement needed MARYANNE - Nurse 1 - General Ulcer Measurement Start: 04/20/23 10:18 Freq: Status: Active Protocol: Activity Type Activity Date Activity User E-sign Co-sign Detail Recorded Client Recorded Date Recorded By Document 04/20/23 10:18 KARY [id number] 04/20/23 10:38 KARY 04/20/23 10:18 Wound Center Nurse 1 Lower Limb Edema Present Yes Right Calf (cm) 40.6 Right Ankle (cm) 27.7 Left Calf (cm) 49 Left Ankle (cm) 29.4 MARYANNE - Nurse 3 - General Ulcer D/C NN Start: 04/20/23 10:18 Freq: Status: Active Protocol: Activity Type Activity Date Activity User E-sign Co-sign Detail Recorded Client Recorded Date Recorded By Document 04/20/23 11:28 DL [id number] 04/20/23 11:29 DL 04/20/23 11:28 Wound Care Center Nurse 3 kerwin -Multi-Layered Wrap Application Multi-Layer Comp - Bilat ($ ) -Other ABD for padding Treatment Response Procedure Tolerated Well Pain Scale: 0-10 Numeric Is Patient Pain Free? Yes WC - Visit Discharge Discharge Condition Stable Ambulatory Status Ambulatory Transportation Private Auto Assessment/Plan Assessment/Plan (1) Right leg swelling: CODE(S): M79.89 - Other specified soft tissue disorders (2) Left leg swelling: CODE(S): M79.89 - Other specified soft tissue disorders (3) Edema of right lower extremity: CODE(S): R60.0 - Localized edema (4) Edema of left lower extremity: CODE(S): R60.0 - Localized edema (5) Lymphedema of left leg: CODE(S): I89.0 - Lymphedema, not elsewhere classified (6) Radiation proctitis: CODE(S): K62.7 - Radiation proctitis (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 - Other specified disorders of the skin and subcutaneous tissue related to radiation; Y84.2 - Radiological procedure and radiotherapy as the cause of abnormal reaction of the patient, or of later complication, without mention of misadventure at the time of the procedure (8) Bleeding per rectum: CODE(S): K62.5 - Hemorrhage of anus and rectum (9) Bilateral lower extremity edema: CODE(S): R60.0 - Localized edema (10) History of rectal cancer: CODE(S): Z85.048 - Personal history of other malignant neoplasm of rectum, rectosigmoid junction, and anus (11) Cancer, metastatic to liver: CODE(S): C78.7 - Secondary malignant neoplasm of liver and intrahepatic bile duct (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: CODE(S): C77.2 - Secondary and unspecified malignant neoplasm of intra-abdominal lymph nodes (13) History of deep vein thrombosis (DVT) of lower extremity: CODE(S): Z86.718 - Personal history of other venous thrombosis and embolism (14) Sarcoidosis: CODE(S): D86.9 - Sarcoidosis, unspecified (15) Anticoagulant long-term use: CODE(S): Z79.01 - assisted (current) use of anticoagulants (16) Carotid artery stenosis with cerebral infarction: CODE(S): I63.239 - Cerebral infarction due to unspecified occlusion or stenosis of unspecified carotid artery (17) Diabetes mellitus: CODE(S): E11.9 - Type 2 diabetes mellitus without complications (18) Hypertension: CODE(S): I10 - Essential (primary) hypertension (19) Chronic kidney disease, stage III (moderate): CODE(S): N18.30 - Chronic kidney disease, stage 3 unspecified (20) Steroid long-term use: (21) Coronary artery disease: CODE(S): I25.10 - Atherosclerotic heart disease of [place] coronary artery without angina pectoris (22) History of colostomy: (23) History of cataract surgery: CODE(S): Z98.49 - Cataract extraction status, unspecified eye (24) Parastomal hernia: CODE(S): K43.5 - Parastomal hernia without obstruction or gangrene (25) Postphlebitic syndrome with inflammation: CODE(S): I87.029 - Postthrombotic syndrome with inflammation of unspecified lower extremity PLAN: Plan This is a 67-year-old female with multiple pre-existing medical problems, who presents today stating I am here for swelling in my legs. The patient has been given the impression that hyperbaric oxygen therapy is to be implemented as a treatment for her lower extremity swelling, edema, and lymphedema. Patient has a history of metastatic rectal cancer, for which she has undergone surgical treatment, and a series of radiation treatments. Radiation proctitis has been previously documented, at which time hyperbaric oxygen therapy was previously considered. However, the patient has since undergone an end colostomy, performed in November 2022, which has apparently resulted in significant improvement of the patient's rectal bleeding. Conversation with the patient reveals that my surgeon is not concerned about the rectal bleeding. She also states my blood work has been good. She states I am not worried about the rectal bleeding. According the patient, she has been referred for treatment of the her lower extremity swelling. The patient is relatively inactive, sleeps in a chair, and does very little to elevate her lower extremities. It is likely that the patient's habits have significantly contributed to her lower extremity swelling. We are to implement a regimen of conservative treatment measures, which have been discussed thoroughly with the patient, and her . She has been advised to refrain from sleeping in a recliner. She has been encouraged to sleep on a flat mattress at night, with her lower extremities at heart level. If she is to sleep in her recliner, she has been encouraged to place her head in a lowered position, with her legs elevated, such that her lower extremities are at heart level, or higher. Leg elevation is to be implemented as much as possible, during both daytime and nighttime hours. Prolonged idle sitting has been discouraged. Activity has been encouraged. Weight loss has also been recommended. We are to implement compression to the lower extremities by means of 3M 2 layer compression wraps, which will be changed twice weekly. Ultimately, we will transition to the use of graduated compression stockings, of at least 20 to 30 mmHg compression, or Velcro compression garments, which can be used long-term on a daily basis. The patient may benefit from pneumatic mechanical compression pumps, which will be considered based upon her evolving clinical course. At this juncture, there does not appear to be a role for hyperbaric oxygen therapy relative to the patient's lower extremity swelling, edema, and lymphedema. There remains a question as to whether her symptoms of rectal bleeding/radiation proctitis are sufficient to warrant hyperbaric oxygen therapy. In this regard, we may seek input from her oncologist or oncological surgeon. For now, however, we are to focus on the patient's lower extremity swelling, edema, and lymphedema, her stated reason for being referred for evaluation and management. If the management of her rectal bleeding/radiation proctitis becomes an issue, hyperbaric oxygen therapy may be indicated and warranted. However, at this time, hyperbaric oxygen therapy does not appear to be a primary treatment modality relative to the patient's lower extremity symptoms. The patient is scheduled to have blood work performed at the [facility] [place] tomorrow, and efforts will be made to obtain these results. Total time: 68 minutes
--- NOTE | 2023-04-27 14:29 | PCM.WC.PN ---
History of Present Illness Date of Service: 04/27/23 Chief Complaint: Bilateral lower extremity swelling, edema, and lymphedema -left greater than right History of Wound: This is a 67-year-old female who presented to the [facility] stating that she is here for treatment of her lower extremity swelling, edema, and lymphedema, expecting that hyperbaric oxygen therapy will be the mainstay of of her treatment. The patient has a long history of lower extremity swelling edema and lymphedema, extending back for several years. Her past medical history is complicated. Records have been provided from the [facility]. 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 The patient had received a series of radiation treatments for rectal cancer. Plans had been made to proceed with hyperbaric oxygen therapy. At that time, the patient was having significant rectal bleeding, and hyperbaric oxygen therapy was felt to be warranted. However, hyperbaric oxygen therapy was not instituted, and the patient subsequently underwent end colostomy in November 2022. The patient states that her surgeon was Dr. Osman Abad. Subsequent to her end colostomy, patient indicates that she has only had intermittent bleeding from the rectum, and not as severe as previous to her fecal diversion procedure. According the patient, her surgeon is not concerned about her rectal bleeding, and her serial blood work has been good. The patient states I am not worried about the rectal bleeding. Rather, her concerns appear to be relative to her lower extremity swelling, and she has been given the impression that hyperbaric oxygen therapy is indicated as a cornerstone of treatment for her swelling. It appears as though the patient's rectal cancer was metastatic to liver. She is also known to have multiple pre-existing medical problems, which are listed below. She has a history of bilateral lower extremity deep vein thrombosis on at least 3 occasions, and is currently on systemic anticoagulation with Eliquis. She has a history of right hemispheric embolic stroke, and has had stenting of the right internal carotid artery. The patient also has a parastomal hernia, which is being observed and managed conservatively by her surgeon. With respect to the patient's lower extremity swelling, she is relatively inactive. She sits for long periods each day. She ambulates very slowly and in limited fashion with the assistance of a cane. She is mildly obese with a BMI of 33.9. She sleeps in a recliner, with her legs chronically dependent. She denies pain in her lower extremities. Objective Data Objective Data Vital Signs: Vital Signs Temp Pulse Resp BP 96.8 F L 113 H 18 172/71 H 04/20/23 10:18 04/20/23 10:18 04/20/23 10:18 04/20/23 10:18 Weight: 174 lb Body Mass Index (BMI) 33.9 Assessment/Plan Assessment/Plan (1) Right leg swelling: CODE(S): M79.89 - Other specified soft tissue disorders (2) Left leg swelling: CODE(S): M79.89 - Other specified soft tissue disorders (3) Edema of right lower extremity: CODE(S): R60.0 - Localized edema (4) Edema of left lower extremity: CODE(S): R60.0 - Localized edema (5) Lymphedema of left leg: CODE(S): I89.0 - Lymphedema, not elsewhere classified (6) Radiation proctitis: CODE(S): K62.7 - Radiation proctitis (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 - Other specified disorders of the skin and subcutaneous tissue related to radiation; Y84.2 - Radiological procedure and radiotherapy as the cause of abnormal reaction of the patient, or of later complication, without mention of misadventure at the time of the procedure (8) Bleeding per rectum: CODE(S): K62.5 - Hemorrhage of anus and rectum (9) Bilateral lower extremity edema: CODE(S): R60.0 - Localized edema (10) History of rectal cancer: CODE(S): Z85.048 - Personal history of other malignant neoplasm of rectum, rectosigmoid junction, and anus (11) Cancer, metastatic to liver: CODE(S): C78.7 - Secondary malignant neoplasm of liver and intrahepatic bile duct (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: CODE(S): C77.2 - Secondary and unspecified malignant neoplasm of intra-abdominal lymph nodes (13) History of deep vein thrombosis (DVT) of lower extremity: CODE(S): Z86.718 - Personal history of other venous thrombosis and embolism (14) Sarcoidosis: CODE(S): D86.9 - Sarcoidosis, unspecified (15) Anticoagulant long-term use: CODE(S): Z79.01 - intermediate (current) use of anticoagulants (16) Carotid artery stenosis with cerebral infarction: CODE(S): I63.239 - Cerebral infarction due to unspecified occlusion or stenosis of unspecified carotid artery (17) Diabetes mellitus: CODE(S): E11.9 - Type 2 diabetes mellitus without complications (18) Hypertension: CODE(S): I10 - Essential (primary) hypertension (19) Chronic kidney disease, stage III (moderate): CODE(S): N18.30 - Chronic kidney disease, stage 3 unspecified (20) Steroid long-term use: (21) Coronary artery disease: CODE(S): I25.10 - Atherosclerotic heart disease of [place] coronary artery without angina pectoris (22) History of colostomy: (23) History of cataract surgery: CODE(S): Z98.49 - Cataract extraction status, unspecified eye (24) Parastomal hernia: CODE(S): K43.5 - Parastomal hernia without obstruction or gangrene (25) Postphlebitic syndrome with inflammation: CODE(S): I87.029 - Postthrombotic syndrome with inflammation of unspecified lower extremity PLAN: Plan This is a 67-year-old female with multiple pre-existing medical problems. At the time of her initial presentation on April 20, 2023, the patient stated I am here for swelling in my legs. The patient had been given the impression that hyperbaric oxygen therapy was to be implemented as a treatment for her lower extremity swelling, edema, and lymphedema. The patient has a history of metastatic rectal cancer, for which she has undergone surgical treatment, and a series of radiation treatments. Radiation proctitis was previously documented, at which time hyperbaric oxygen therapy was previously considered earlier this year. However, the patient has since undergone an end colostomy, performed in November 2022, which has apparently resulted in significant improvement of the patient's rectal bleeding. Conversation with the patient at her initial visit revealed that my surgeon is not concerned about the rectal bleeding. She also states my blood work has been good. She stated I am not worried about the rectal bleeding. According to the patient, she had been referred for treatment of the her lower extremity swelling. The patient is relatively inactive, sleeps in a chair, and does very little to elevate her lower extremities. It is likely that the patient's habits have significantly contributed to her lower extremity swelling. We implemented a regimen of conservative treatment measures, which have been discussed thoroughly with the patient, and her . She was advised to refrain from sleeping in a recliner. She has been encouraged to sleep on a flat mattress at night, with her lower extremities at heart level. If she is to sleep in her recliner, she has been encouraged to place her head in a lowered position, with her legs elevated, such that her lower extremities are at heart level, or higher. Leg elevation is to be implemented as much as possible, during both daytime and nighttime hours. Prolonged idle sitting has been discouraged. Activity has been encouraged. Weight loss has also been recommended. We implemented compression to the lower extremities by means of 3M 2 layer compression wraps, which were to be changed twice weekly. Ultimately, transition to the use of graduated compression stockings, or Velcro compression garments, of 20 to 30 mmHg compression is anticipated. Graduated compression stockings or Velcro compression garments would be suitable for long-term use. The patient may benefit from pneumatic mechanical compression pumps, which will be considered based upon her evolving clinical course. There does not appear to be a role for hyperbaric oxygen therapy relative to the patient's lower extremity swelling, edema, and lymphedema. There remains a question as to whether her symptoms of rectal bleeding/radiation proctitis are sufficient to warrant hyperbaric oxygen therapy. If the management of her rectal bleeding/radiation proctitis becomes an issue, hyperbaric oxygen therapy may be indicated and warranted. However, at this time, hyperbaric oxygen therapy does not appear to be a primary treatment modality relative to the patient's lower extremity swelling, nor is it an approved indication. I have spoken by telephone earlier today with Dr. Tiara Gonzalez's nurse. The question was raised as to whether the patient was to be considered for hyperbaric oxygen therapy in treatment for her radiation proctitis. Lisa was informed that the patient did not indicate at her initial visit that her quality of life was significantly impacted by symptoms which could be attributed to radiation proctitis. In other words, the amount of bleeding and symptomatology attributable to radiation proctitis appear to be minimal. I subsequently spoke directly with the patient's colorectal surgeon at the [facility], Dr. Osman Crews, who is familiar with the patient and is involved in her ongoing care. Dr. Crews has indicated that the patient does not appear to warrant hyperbaric oxygen therapy at this time for radiation proctitis. He confirmed that her symptoms appear to be minimal at present, and therefore should not be considered as an imminent intervention. He indicated that hyperbaric oxygen therapy may play a role at a later time, depending upon future developments. Furthermore, Dr. Crews indicated that modalities other than HBO therapy are available in dealing with bleeding manifestations of radiation proctitis should it occur. Therefore, preparations in anticipation of hyperbaric oxygen therapy will not be pursued. We will be available to provide management of the patient's lower extremity swelling if the patient so desires. It should be noted, however, that the patient has refused to submit to the compression wraps which were administered at her initial visit. Total time: 24 minutes
== END 2023-04-22 23:59 | disposition home or self-care (01) ==
LOC: WC 09:58
PROVIDERS: Referring Provider Internal Medicine Hematology & Oncology; Visit Provider Surgery
DX: M79.89 Other specified soft tissue disorders (principal); C78.7 Secondary malignant neoplasm of liver and intrahepatic bile duct; C77.2 Secondary and unspecified malignant neoplasm of intra-abdominal lymph nodes; Z93.3 Colostomy status; J44.9 Chronic obstructive pulmonary disease, unspecified; I50.32 Chronic diastolic (congestive) heart failure; I13.0 Hypertensive heart and chronic kidney disease with heart failure and stage 1 through stage 4 chronic kidney disease, or unspecified chronic kidney disease; I42.9 Cardiomyopathy, unspecified; E11.22 Type 2 diabetes mellitus with diabetic chronic kidney disease; I63.239 Cerebral infarction due to unspecified occlusion or stenosis of unspecified carotid artery; N18.30 Chronic kidney disease, stage 3 unspecified; I89.0 Lymphedema, not elsewhere classified; Z79.52 Long term (current) use of systemic steroids; Z79.84 Long term (current) use of oral hypoglycemic drugs; I25.10 Atherosclerotic heart disease of native coronary artery without angina pectoris; E78.5 Hyperlipidemia, unspecified; K62.7 Radiation proctitis; D86.9 Sarcoidosis, unspecified; Z79.01 Long term (current) use of anticoagulants; R60.0 Localized edema; Z85.048 Personal history of other malignant neoplasm of rectum, rectosigmoid junction, and anus; Z86.718 Personal history of other venous thrombosis and embolism; K43.5 Parastomal hernia without obstruction or gangrene; I87.029 Postthrombotic syndrome with inflammation of unspecified lower extremity; L59.8 Other specified disorders of the skin and subcutaneous tissue related to radiation; Y84.2 Radiological procedure and radiotherapy as the cause of abnormal reaction of the patient, or of later complication, without mention of misadventure at the time of the procedure
CPT/HCPCS: 29581; 99213; G0463

== ENCOUNTER 2023-05-11 09:45 | Outpatient (RCR) | payer MEDICARE, SELFPAY ==
[2023-04-23 00:04] VITALS: BP 172/71; PULSE 113; RESP 18; TEMP 36; BMI 33.9
[2023-04-23 12:18] VITALS: BP 188/66; PULSE 80; RESP 18; TEMP 36.6; BMI 33.9
[2023-05-11 10:10] VITALS: BP 192/95; PULSE 81; RESP 22; TEMP 36.4; BMI 33.9
--- NOTE | 2023-05-11 13:29 | PCM.WC.HP ---
History of Present Illness Date of Service: 05/11/23 Chief Complaint: Bilateral lower extremity swelling, edema, and lymphedema - left greater than right History of Wound: This is a 67-year-old female who presented to the [facility] stating that she is here for treatment of her lower extremity swelling, edema, and lymphedema, expecting that hyperbaric oxygen therapy will be the mainstay of of her treatment. The patient has a long history of lower extremity swelling edema and lymphedema, extending back for several years. Her past medical history is complicated. Records have been provided from the [facility]. 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 The patient had received a series of radiation treatments for rectal cancer. Plans had been made to proceed with hyperbaric oxygen therapy. At that time, the patient was having significant rectal bleeding, and hyperbaric oxygen therapy was felt to be warranted. However, hyperbaric oxygen therapy was not instituted, and the patient subsequently underwent end colostomy in November 2022. The patient states that her surgeon was Dr. Osman Abad. Subsequent to her end colostomy, patient indicates that she has only had intermittent bleeding from the rectum, and not as severe as previous to her fecal diversion procedure. According the patient, her surgeon is not concerned about her rectal bleeding, and her serial blood work has been good. The patient states I am not worried about the rectal bleeding. Rather, her concerns appear to be relative to her lower extremity swelling, and she has been given the impression that hyperbaric oxygen therapy is indicated as a cornerstone of treatment for her swelling. It appears as though the patient's rectal cancer was metastatic to liver. She is also known to have multiple pre-existing medical problems, which are listed below. She has a history of bilateral lower extremity deep vein thrombosis on at least 3 occasions, and is currently on systemic anticoagulation with Eliquis. She has a history of right hemispheric embolic stroke, and has had stenting of the right internal carotid artery. The patient also has a parastomal hernia, which is being observed and managed conservatively by her surgeon. With respect to the patient's lower extremity swelling, she is relatively inactive. She sits for long periods each day. She ambulates very slowly and in limited fashion with the assistance of a cane. She is mildly obese with a BMI of 33.9. She sleeps in a recliner, with her legs chronically dependent. She denies pain in her lower extremities. 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 Cardiomyopathy Carotid artery stenosis Carotid artery stenosis with cerebral infarction Chronic anticoagulation Chronic kidney disease, stage III (moderate) Congenital talipes calcaneovalgus of left foot COPD (chronic obstructive pulmonary disease) Coronary artery disease Diabetes mellitus Diabetes mellitus type II, uncontrolled Diastolic congestive heart failure Edema of left lower extremity Edema of right lower extremity Essential hypertension GI bleed History of CHF (congestive heart failure) History of CVA (cerebrovascular accident) (10/21/17) History of deep vein thrombosis (DVT) of lower extremity History of deep venous thrombosis (DVT) of distal vein of left lower extremity History of deep venous thrombosis (DVT) of distal vein of right lower extremity History of diabetes mellitus, type II History of pleural effusion (10/21/17) History of rectal cancer History of renal disease Hyperlipidemia Hypertension Left leg swelling Low iron Lymphedema Lymphedema of left leg Nonrheumatic mitral valve regurgitation Nonrheumatic tricuspid valve regurgitation Parastomal hernia Postphlebitic syndrome with inflammation Preop cardiovascular exam Radiation proctitis Rectal bleeding Rectal cancer metastasized to liver Renal insufficiency Right leg swelling Sarcoidosis Shortness of breath on exertion Snoring Steroid long-term use Tricuspid regurgitation Wears dentures Home Medications carvedilol 25 mg tablet (Coreg) 6.25 mg PO BID Hypertension 11/22/19 [History Last Taken 09/27/22 07] cinnamon bark 500 mg capsule (Cinnamon) 1,000 mg PO BID SUPPLEMENT 06/19/21 [History Last Taken 09/27/22 07] potassium chloride 8 mEq capsule,extended release 20 meq PO DAILY SUPPLEMENT 06/19/21 [History Last Taken 09/27/22 07] apixaban 2.5 mg tablet (Eliquis) 2.5 mg PO BID Blood thinner 09/27/22 [History Last Taken 09/27/22 07] glipizide 5 mg tablet 5 mg PO DAILY Diabetes 09/27/22 [History Last Taken 09/27/22 0700] furosemide 40 mg tablet 40 mg PO DAILY #30 tabs 10/14/22 [Rx Last Taken Unknown] clobetasol 0.05 % topical cream 1 applic topical DAILY PRN Itching 10/28/22 [History Last Taken Unknown] dexamethasone 0.5 mg/5 mL oral elixir 0.5 mg PO BID PRN SORE MOUTH 10/28/22 [History Last Taken Unknown] vitamin B12 0.5 mg-folic acid 1 mg tablet 1 tab PO DAILY 10/28/22 [History Last Taken Unknown] Allergy/AdvReac Type Severity Reaction Status Date / Time latex Allergy Severe Hives Verified 10/28/22 09:26 codeine AdvReac Unknown unknown Verified 10/28/22 09:26 Family History Mother Bleeding disorder Diabetes CAD (coronary artery disease) Hypertension Hyperlipidemia Kidney disease Sister Asthma CAD (coronary artery disease) Hyperlipidemia Father Cancer CAD (coronary artery disease) Hypertension Hyperlipidemia CVA (cerebral vascular accident) Brother CAD (coronary artery disease) Hyperlipidemia Surgical History History of cardiac catheterization History of cataract surgery History of colonoscopy History of colostomy History of foot surgery Hx of cataract surgery Social History household members: spouse Smoking Status: Never smoker alcohol intake: never substance use type: does not use Vital Signs Vital Signs Vital Signs: 05/11/23 10:10 Temperature 97.5 F L Temperature Source Temporal Pulse Rate 81 Respiratory Rate 22 H Blood Pressure 192/95 H Blood Pressure Mean 127 Blood Pressure Source Monitor Weight Weight: 174 lb Body Mass Index (BMI) 33.9 Physical Exam Const alert, oriented x3, no apparent distress and well nourished Constitutional Narrative: The patient is mildly obese, with a BMI of 33.9. General Appearance: cooperative, comfortable, well kempt and well developed Orientation / Consciousness: awake, oriented to person, oriented to place and oriented to time HEENT normocephalic, head/scalp atraumatic and hearing grossly normal bilaterally Head and Scalp: normal to inspection, normocephalic and atraumatic External Ear: external ears normal Eyes PERRL and EOMs intact bilaterally General Eye: normal appearance of both eyes Resp normal respiratory effort, normal air movement, no retractions and no use of accessory muscles Effort and Inspection: able to speak in complete sentences GI GI Narrative: A colostomy is noted with an intact colostomy bag. Thecolostomy appears to be functional. Extremity no calf tenderness Extremity Narrative: Examination of the lower extremities reveals no open wounds or ulcerations. There are no significant skin changes. Severe swelling and edema are noted in the lower extremities bilaterally. This appears to be more pronounced in the left lower extremity, which demonstrates lymphedema. Pedal pulses are strong and multiphasic by Doppler signal assessment. General Extremity: Negative for clubbing or cyanosis Neuro oriented x3, CN's II-XII intact bilaterally, moves all extremities and no focal motor deficits Sensorium / Orientation: awake, alert, oriented to person, oriented to place and oriented to time Psych Appearance: grossly normal and appropriate Attitude: calm Activity / Motor Behavior: appropriate eye contact Speech: normal speech Mood & Affect: euthymic mood Thought Process: normal thought process Thought Content: normal thought content Attention / Concentration: attention grossly intact Debridement Note Debridement Note No debridement was completed: No debridement was completed today Post-Debridement Measurements and Additional Note: Post-Debridement Measurements/Treatment - Nurse 1 - General Ulcer Assessment Start: 04/23/23 12:18 Freq: Status: Active Protocol: BRITANY Activity Type Activity Date Activity User E-sign Co-sign Detail Recorded Client Recorded Date Recorded By Document 04/23/23 12:18 RB [id number] 04/23/23 12:28 RB Document 05/11/23 10:10 DL Desktop 05/11/23 10:15 DL 04/23/23 05/11/23 12:18 10:10 - Today's Visit Information Type of service Nurse-only Follow-up Visit Visit (Physician/AND [employer] ) Arrival Mode Ambulatory Ambulatory Transfer Assistance None None Patient Identification Verified (Name & Yes Yes ) Patient Requires Transmission-Based No No Precautions Height and Weight Body Mass Index (BMI) 33.9 33.9 BMI Classification Obese Obese Vital Signs Temperature (97.8 F-99.1 F) 98 F 97.5 F L Temperature Source Temporal Temporal Pulse Rate (60-100) 80 81 Pulse Location Monitor Monitor Respiratory Rate (12-18) 18 22 H Respiratory rate source Observation Observation Blood Pressure (90/60-120/80) 188/66 H 192/95 H Blood Pressure Mean 106 127 Source Monitor Monitor Position Semi-Fowlers Blood Pressure Location Left Arm History Since Last Visit- (Skip if this is Patient's initial visit) Have you changed medications since your No No last visit? Any new allergies or adverse reactions No No Had a fall/change in ADL's that may No No increase risk of falls Signs or symptoms of abuse and/or No No neglect since last visit Have you been in the hospital since your No No last visit? Has dressing in place as prescribed Yes No Has compression in place as prescribed Yes No Has offloadiing in place as prescribed No N/A Experienced any changes in pain level or No No management Pain Scale: 0-10 Numeric Is Patient Pain Free? No Yes bilat LE -Description Aching -Intensity 7 -Duration (hours) Chronic -Pain Behavior Withdrawal from Touch -Pain Aggravating Factors ADL's -Alleviating Factors/Interventions None -Effectiveness of Alleviating Factor/ Minimally Intervention effective WC - Nurse 1 - General Ulcer Measurement Start: 04/23/23 12:18 Freq: Status: Active Protocol: Activity Type Activity Date Activity User E-sign Co-sign Detail Recorded Client Recorded Date Recorded By Document 04/23/23 12:18 RB [id number] 04/23/23 12:28 RB Document 05/11/23 10:10 DL Desktop 05/11/23 10:15 DL 04/23/23 05/11/23 12:18 10:10 Wound Center Nurse 1 Lower Limb Edema Present Yes Right Calf (cm) 36 35.8 Right Ankle (cm) 25 25.2 Left Calf (cm) 42 43 Left Ankle (cm) 27 28 WC - Nurse 3 - General Ulcer D/C NN Start: 04/23/23 12:18 Freq: Status: Active Protocol: Activity Type Activity Date Activity User E-sign Co-sign Detail Recorded Client Recorded Date Recorded By Document 04/23/23 12:28 RB [id number] 04/23/23 12:31 RB Document 05/11/23 12:02 DL Desktop 05/11/23 12:04 DL 04/23/23 05/11/23 12:28 12:02 Wound Care Center Nurse 3 Right -Tubular Bandage Single Layer -Size of Tubigrip Used Size D -Size D ($) 1 Left -Tubular Bandage Single Layer -Size of Tubigrip Used Size D -Size D ($) 1 Treatment Response Procedure Procedure Tolerated Well Tolerated Well Pain Scale: 0-10 Numeric Is Patient Pain Free? Yes Yes Teaching: Wound Center Compression Wraps & Stockings -Person Taught Patient -Teaching Method Discussion, Demonstration -Response to teaching Verbalize understanding WC - Visit Discharge Discharge Condition Stable Stable Ambulatory Status Ambulatory Ambulatory Transportation Private Auto Private Auto Medication Reconcilliation completed & No provided to patient/care provider Clinical Summary of Care Provided Yes Notes: pt refused Pt discharged. reapplication of 3M bilat wraps. Pt states I cant sleep at night. Taye Durán made aware of above situation and stated pt can wear single layer high compression bilat. Assessment/Plan Assessment/Plan (1) Right leg swelling: CODE(S): M79.89 - Other specified soft tissue disorders (2) Left leg swelling: CODE(S): M79.89 - Other specified soft tissue disorders (3) Edema of right lower extremity: CODE(S): R60.0 - Localized edema (4) Edema of left lower extremity: CODE(S): R60.0 - Localized edema (5) Lymphedema of left leg: CODE(S): I89.0 - Lymphedema, not elsewhere classified (6) Radiation proctitis: CODE(S): K62.7 - Radiation proctitis (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 - Other specified disorders of the skin and subcutaneous tissue related to radiation; Y84.2 - Radiological procedure and radiotherapy as the cause of abnormal reaction of the patient, or of later complication, without mention of misadventure at the time of the procedure (8) Bleeding per rectum: CODE(S): K62.5 - Hemorrhage of anus and rectum (9) Bilateral lower extremity edema: CODE(S): R60.0 - Localized edema (10) History of rectal cancer: CODE(S): Z85.048 - Personal history of other malignant neoplasm of rectum, rectosigmoid junction, and anus (11) Cancer, metastatic to liver: CODE(S): C78.7 - Secondary malignant neoplasm of liver and intrahepatic bile duct (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: CODE(S): C77.2 - Secondary and unspecified malignant neoplasm of intra-abdominal lymph nodes (13) History of deep vein thrombosis (DVT) of lower extremity: CODE(S): Z86.718 - Personal history of other venous thrombosis and embolism (14) Sarcoidosis: CODE(S): D86.9 - Sarcoidosis, unspecified (15) Anticoagulant long-term use: CODE(S): Z79.01 - termite technician (current) use of anticoagulants (16) Carotid artery stenosis with cerebral infarction: CODE(S): I63.239 - Cerebral infarction due to unspecified occlusion or stenosis of unspecified carotid artery (17) Diabetes mellitus: CODE(S): E11.9 - Type 2 diabetes mellitus without complications (18) Hypertension: CODE(S): I10 - Essential (primary) hypertension (19) Chronic kidney disease, stage III (moderate): CODE(S): N18.30 - Chronic kidney disease, stage 3 unspecified (20) Steroid long-term use: (21) Coronary artery disease: CODE(S): I25.10 - Atherosclerotic heart disease of [place] coronary artery without angina pectoris (22) History of colostomy: (23) History of cataract surgery: CODE(S): Z98.49 - Cataract extraction status, unspecified eye (24) Parastomal hernia: CODE(S): K43.5 - Parastomal hernia without obstruction or gangrene (25) Postphlebitic syndrome with inflammation: CODE(S): I87.029 - Postthrombotic syndrome with inflammation of unspecified lower extremity PLAN: Plan This is a 67-year-old female with multiple pre-existing medical problems. At the time of her initial presentation on April 20, 2023, the patient stated I am here for swelling in my legs. The patient had been given the impression that hyperbaric oxygen therapy was to be implemented as a treatment for her lower extremity swelling, edema, and lymphedema. The patient has a history of metastatic rectal cancer, for which she has undergone surgical treatment, and a series of radiation treatments. Radiation proctitis was previously documented, at which time hyperbaric oxygen therapy was previously considered earlier this year. However, the patient has since undergone an end colostomy for fecal diversion, performed in November 2022, which has apparently resulted in significant improvement of the patient's rectal bleeding. Conversation with the patient at her initial visit revealed that my surgeon is not concerned about the rectal bleeding. She also states my blood work has been good. She stated I am not worried about the rectal bleeding. According to the patient, she had been referred for treatment of the her lower extremity swelling. The patient is relatively inactive, sleeps in a chair, and does very little to elevate her lower extremities. It is likely that the patient's habits have significantly contributed to her lower extremity swelling. In addition, the patient's medical records indicate the presence of metastatic and locally advanced rectal cancer invading the vagina and likely ureter. Her colorectal surgeon has indicated that radiation proctitis is stable. The patient denies abdominal pain. Given the lack of abdominal symptoms or significant rectal bleeding, there is no indication for hyperbaric oxygen therapy as a treatment for radiation proctitis. Furthermore, a recent discussion with the patient's colorectal surgeon suggest that hyperbaric oxygen therapy does not appear to be a warranted intervention at this time. With respect to her lower extremity swelling, we implemented a regimen of conservative treatment measures, which have been discussed thoroughly with the patient. She was advised to refrain from sleeping in a recliner. She has been encouraged to sleep on a flat mattress at night, with her lower extremities at heart level. If she is to sleep in her recliner, she has been encouraged to place her head in a lowered position, with her legs elevated, such that her lower extremities are at heart level, or higher. Leg elevation is to be implemented as much as possible, during both daytime and nighttime hours. Prolonged idle sitting has been discouraged. Activity has been encouraged. Weight loss has also been recommended. We implemented compression to the lower extremities by means of 3M 2 layer compression wraps, which were to be changed twice weekly. Ultimately, transition to the use of graduated compression stockings, or Velcro compression garments, of 20 to 30 mmHg compression were anticipated. Graduated compression stockings or Velcro compression garments would be suitable for long-term use. Additionally, it was felt that the patient may benefit from pneumatic mechanical compression pumps. There does not appear to be a role for hyperbaric oxygen therapy relative to the patient's lower extremity swelling, edema, and lymphedema. The patient has refused virtually every form of compression to her lower extremities. The potential benefits have been explained in detail. Nonetheless, she declines compression wraps to her lower extremities, and refuses to wear any form of compression on a daily basis. She claims to own mechanical pneumatic pumps, which have been acknowledged as a possible benefit to her swelling. The patient has recently acquired a [employer] adjustable bed, and has indicated that she intends to implement increasing measures to elevate her legs to the level necessary. At this juncture, there appears to be no clinical indication for administration of hyperbaric oxygen therapy, the purpose for which the patient initially thought she was referred. She has declined the traditional measures necessary for the management of her lower extremity swelling and edema. The patient has recently acquired an adjustable bed, which she indicates will be implemented to assist her in the elevation of her lower extremities. She also owns mechanical pneumatic compression pumps, which she has agreed to use several times daily. She has indicated that she is undergoing right rotator cuff surgery in [place], [place], on May 21, 2023. She also has known to have a parastomal hernia at her colostomy site, for which she is monitored serially by her colorectal surgeon. The patient is to be discharged from care at this facility for the short-term future, with the understanding that she will contact us at a later date should the need arise. Total time: 28 minutes
== END 2023-05-22 23:59 | disposition home or self-care (01) ==
LOC: WC 09:45
PROVIDERS: Referring Provider Internal Medicine Hematology & Oncology; Visit Provider Surgery
DX: I89.0 Lymphedema, not elsewhere classified (principal); C78.7 Secondary malignant neoplasm of liver and intrahepatic bile duct; C77.2 Secondary and unspecified malignant neoplasm of intra-abdominal lymph nodes; Z93.3 Colostomy status; J44.9 Chronic obstructive pulmonary disease, unspecified; I13.0 Hypertensive heart and chronic kidney disease with heart failure and stage 1 through stage 4 chronic kidney disease, or unspecified chronic kidney disease; I42.9 Cardiomyopathy, unspecified; I50.32 Chronic diastolic (congestive) heart failure; C20 Malignant neoplasm of rectum; E11.22 Type 2 diabetes mellitus with diabetic chronic kidney disease; N18.30 Chronic kidney disease, stage 3 unspecified; R60.0 Localized edema; E78.5 Hyperlipidemia, unspecified; Z79.01 Long term (current) use of anticoagulants; Z79.52 Long term (current) use of systemic steroids; D86.9 Sarcoidosis, unspecified; Z79.84 Long term (current) use of oral hypoglycemic drugs; I25.10 Atherosclerotic heart disease of native coronary artery without angina pectoris; Z79.899 Other long term (current) drug therapy; M79.89 Other specified soft tissue disorders; E66.9 Obesity, unspecified; Z68.33 Body mass index [BMI] 33.0-33.9, adult
CPT/HCPCS: 99211; 99213; G0463

== ENCOUNTER 2023-07-07 15:53 | Inpatient (IN) | payer MEDICARE, SELFPAY ==
[2023-07-07 15:54] VITALS: BP 134/56; PULSE 99; RESP 18; TEMP 36.9; O2SAT 100
[2023-07-07 16:16] VITALS: BMI 35.6
[2023-07-07 18:34] LABS: Absolute Lymphocyte Count 0.61 X10^3/uL (0.83-4.51); Absolute Neutrophil Count 15.8 X10^3/uL (2.0-7.7); Basophil# 0.06 X10^3/uL; Basophil% 0.3 % (0-1); Eosinophil# 0.01 X10^3/uL; Eosinophils% 0.1 % (0-5); Hematocrit 31.3 % (37-47); Lymphocyte # 0.61 X10^3/ul (0.83-4.51); Lymphocyte % 3.5 % (19-41); Mean Corp Hgb Conc 31.9 g/dL (32-36); Mean Corpuscular Volume 90.7 fL (81-99); Mean Platelet Vol. 8.9 fl (6.2-12.0); NRBC Flagged by Analyzer 0 % (0-5); Neutrophil # 15.79 X10^3/uL (2.7-7.7); Neutrophil % 90.6 % (47-70); POSITIVE MORPHOLOGY YES; Platelet Count 236 K/mm3 (150-450); RBC Distribution Width CV 13.8 % (11.6-14.6); RBC Distribution Width SD 45.7 fl (35.1-43.9); Red Blood Count 3.45 M/mm3 (4.2-5.4); White Blood Count 17.4 K/mm3 (4.4-11.0)
[2023-07-07 18:36] LABS: Differential Indicated SCAN CRITERIA MET
[2023-07-07 18:54] LABS: ALB/GLOB Ratio 0.5 RATIO (0.9-2.4); AST(SGOT) 16 U/L (15-37); Alanine Aminotransfer ALT/SGPT 12 U/L (13-56); Albumin, Serum 2.1 g/dL (3.2-5.0); Alkaline Phosphatase 99 U/L (45-117); Anion Gap 5 (5-15); BUN 38 mg/dL (7-18); BUN/Creat Ratio 15.8 RATIO (10-20); Calcium,Total 8.7 mg/dL (8.5-10.1); Chloride 105 mmol/L (98-107); EST Glomerular Filtration Rate 21 mL/min (>60); Est Glom Filt Rate - Afr Amer 26 mL/min (>60); Estimated Creatinine Clearance 28.37 ml/min; Globulin 4.6 g/dL (2.2-4.2); Glucose 151 mg/dL (74-106); Lipase 19 U/L (13-75); Potassium 4.3 mmol/L (3.5-5.1); Protein, Total 6.7 g/dL (6.4-8.2); Sodium Level 133 mmol/L (136-145)
[2023-07-07] MEDS: 0.9% Normal Saline (1000mL) 1,000 ML 1000 ML IV (18:55)
[2023-07-07] MEDS: Ondansetron 4 MG/2 ML Vial IV (18:56)
[2023-07-07 18:59] LABS: Lactic Acid 1.7 mmol/L (0.4-1.9)
[2023-07-07 19:04] LABS: Differential Comment SCANNED
[2023-07-07 19:12] LABS: Mucous, Urine 0 SEEN /hpf (<or=2+); Red Blood Cells-Urine 0 SEEN /hpf (0-5); Squamous Epithelial Cells - UA 0 SEEN /hpf (5-10)
[2023-07-07 19:13] LABS: Color, Urine Yellow (Yellow); Glucose, Dipstick Normal (Normal); Ketone-Dipstick Negative (Negative); Leukocyte Esterase-Dipstick 500 /ul (Negative); Nitrite-Dipstick Positive (Negative); Occult Blood-Urine 250 /ul (Negative); Protein-Dipstick 100 mg/dl (Negative); Specific Gravity, Urine 1.015 (1.002-1.030); Urine Bilirubin Dipstick Negative (Negative); Urine Clarity Cloudy (Clear); Urine Urobilinogen Normal (Normal)
[2023-07-07 19:26] LABS: Bacteria 1+ /hpf (None Seen); White Blood Cells 50-100 SEEN /hpf (0-5)
--- NOTE | 2023-07-07 19:26 | CT_ITS ---
STUDY: CT ABDOMEN AND PELVIS WITHOUT CONTRAST REASON FOR EXAM: Female, 68 years old. abd pain RADIATION DOSAGE (If Supplied By Facility): CTDIvol = ( 15.19 ) mGy, DLP = ( 774.06 ) mGycm TECHNIQUE: Transaxial images were obtained from the dome of the diaphragm to the symphysis pubis without oral contrast, and without intravenous contrast. Sagittal and coronal images were reconstructed. Individualized dose optimization techniques were used for this CT. COMPARISON: CT abdomen and pelvis September 28, 2022 FINDINGS: Bilateral perihilar airspace disease and calcified lymph nodes. The visualized portions of the heart are within normal limits. Central line terminates in the right atrium. Calcific coronary artery disease noted. Hepatic calcifications noted. Normal gallbladder and extrahepatic biliary system. Normal spleen. Normal pancreas. Normal bilateral adrenal glands. Moderately severe hydronephrosis on the right and hydroureter. Possible distal punctate ureterolith. Normal left kidney. Normal visualized stomach. Normal small intestine. Normal colon. The appendix is visualized and appears normal. Calcified plaque along the aorta and its branches. Normal inferior vena cava. Multiple retroperitoneal lymph nodes unchanged. The largest is a 17 mm portacaval node. Normal urinary bladder. Complex 1.7 cm right adnexal or presacral mass with coarse calcifications. This may communicate with the sigmoid colons. Periumbilical/paracolostomy hernia containing loops of transverse colon. Grade 1 spondylolisthesis L4-5. Spondylosis. Scoliosis. Diffuse demineralization decreases sensitivity. CT/Abdomen/Pelvis without Cont IMPRESSION: Perihilar airspace disease. Moderately severe right hydronephrosis increased and possible minute distal ureterolith measuring 2 to 3 mm. 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 New Periumbilical/paracolostomy hernia containing loops of transverse colon. Electronically Signed: Silviano Mcgrath MD at 20:51 EST ,
--- NOTE | 2023-07-07 20:06 | EX.ED.DYSGE1 ---
HPI History of Present Illness Chief Complaint: GI Bleed Informant: patient Narrative Narrative: Patient is a 68-year-old female with significant medical history including sarcoidosis, coronary artery disease, CKD 3, rectal cancer with history of soft tissue radionecrosis and subsequent colostomy placement as well as long-term anticoagulation on Eliquis due to history of DVT presenting with diarrhea, vomiting, concern for dehydration as well as rectal and vaginal bleeding. Patient states yesterday morning she woke up around 3 AM and had a sharp pain in her back and started throwing up. She went back to sleep and at 630 she states that she had a lot of stool come out of her rectum as well as her vagina. Then after that she had bleeding with clots coming out of her rectum and vagina. She notes that since she had her ostomy she has not had anything come out of her rectum. Throughout the day she had countless episodes of nausea and vomiting. She states today she is feeling better from a vomiting standpoint when able to take in water. She did try to have a couple bites of cottage cheese in her coffee but then after trying to take her potassium supplement with her applesauce she threw up. She she feels unsteady and weak. Denies any fever. Currently denies any pain. Denies any urinary symptoms. Last night attempted to go to [facility] but waited for about 8 hours and so was not seen so she went home. Does have remote history of kidney stones. Is not aware of any history of rectovaginal fistula but notes that she did have radiation damage that caused her colon to come out her vagina in the past which is why she ended up with the ostomy. She states her's colorectal surgeon at [facility] is Dr. Ben Blake. 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 Cardiomyopathy Carotid artery stenosis Carotid artery stenosis with cerebral infarction Chronic anticoagulation Chronic kidney disease, stage III (moderate) Congenital talipes calcaneovalgus of left foot COPD (chronic obstructive pulmonary disease) Coronary artery disease Diabetes mellitus Diabetes mellitus type II, uncontrolled Diastolic congestive heart failure Edema of left lower extremity Edema of right lower extremity Essential hypertension GI bleed History of CHF (congestive heart failure) History of CVA (cerebrovascular accident) (10/21/17) History of deep vein thrombosis (DVT) of lower extremity History of deep venous thrombosis (DVT) of distal vein of left lower extremity History of deep venous thrombosis (DVT) of distal vein of right lower extremity History of diabetes mellitus, type II History of pleural effusion (10/21/17) History of rectal cancer History of renal disease Hyperlipidemia Hypertension Left leg swelling Low iron Lymphedema Lymphedema of left leg Nonrheumatic mitral valve regurgitation Nonrheumatic tricuspid valve regurgitation Parastomal hernia Postphlebitic syndrome with inflammation Preop cardiovascular exam Radiation proctitis Rectal bleeding Rectal cancer metastasized to liver Renal insufficiency Right leg swelling Sarcoidosis Shortness of breath on exertion Snoring Steroid long-term use Tricuspid regurgitation Wears dentures Home Medications carvedilol 25 mg tablet (Coreg) 6.25 mg PO BID Hypertension 11/22/19 [History Last Taken 09/27/22 0700] cinnamon bark 500 mg capsule (Cinnamon) 1,000 mg PO BID SUPPLEMENT 06/19/21 [History Last Taken 09/27/22 0700] potassium chloride 8 mEq capsule,extended release 20 meq PO DAILY SUPPLEMENT 06/19/21 [History Last Taken 09/27/22 0700] apixaban 2.5 mg tablet (Eliquis) 2.5 mg PO BID Blood thinner 09/27/22 [History Last Taken 09/27/22 0700] glipizide 5 mg tablet 5 mg PO DAILY Diabetes 09/27/22 [History Last Taken 09/27/22 0700] furosemide 40 mg tablet 40 mg PO DAILY #30 tabs 10/14/22 [Rx Last Taken Unknown] clobetasol 0.05 % topical cream 1 applic topical DAILY PRN Itching 10/28/22 [History Last Taken Unknown] dexamethasone 0.5 mg/5 mL oral elixir 0.5 mg PO BID PRN SORE MOUTH 10/28/22 [History Last Taken Unknown] vitamin B12 0.5 mg-folic acid 1 mg tablet 1 tab PO DAILY 10/28/22 [History Last Taken Unknown] Allergy/AdvReac Type Severity Reaction Status Date / Time latex Allergy Severe Hives Verified 07/07/23 15:54 codeine AdvReac Unknown unknown Verified 07/07/23 15:54 Family History Mother Bleeding disorder Diabetes CAD (coronary artery disease) Hypertension Hyperlipidemia Kidney disease Sister Asthma CAD (coronary artery disease) Hyperlipidemia Father Cancer CAD (coronary artery disease) Hypertension Hyperlipidemia CVA (cerebral vascular accident) Brother CAD (coronary artery disease) Hyperlipidemia Surgical History History of cardiac catheterization History of cataract surgery History of colonoscopy History of colostomy History of foot surgery Hx of cataract surgery Social History household members: spouse Smoking Status: Never smoker alcohol intake: never substance use type: does not use ROS ROS ED Constitutional Constitutional ED: Denies chills or fever(s) Cardiovascular Cardiovascular: Denies chest pain Respiratory/Chest Respiratory/Chest: Denies cough Gastrointestinal Gastrointestinal: Reports abdominal pain, diarrhea, nausea, vomiting and other Details: rectal bleeding Genitourinary Genitourinary ED: Reports other Details: vaginal bleeding ; Denies dysuria or hematuria Musculoskeletal Musculoskeletal: Reports back pain; Denies arthralgias or myalgias Integumentary Denies rash Neurologic Neurologic: Reports weakness; Denies headache(s) Hematologic/Lymphatic Hematologic/Lymphatic: Reports easy bleeding and easy bruising EXAM Physical Exam Const Vital Signs: 07/07/23 15:54 07/07/23 20:08 07/07/23 22:00 Temperature 98.5 F 99.4 F H 99.8 F H Temperature Source Temporal Temporal Temporal Pulse Rate 99 100 100 Respiratory Rate 18 16 18 Blood Pressure 134/56 H 168/71 H 132/62 H Blood Pressure Mean 82 103 85 Pulse Ox 100 99 98 Oxygen Delivery Method Room Air Room Air Positive well developed Constitutional Narrative: frail appearing General Appearance ED: well developed and NAD HEENT Reports dry mucous membranes Negative for trauma Mouth ED: Yes dry mucous membranes Mouth: dry mucous membranes Eyes PERRL and EOMs intact bilaterally General Eye ED: Negative for pale conjunctiva Neck supple Chest Wall inspection of chest normal and palpation of chest normal Resp normal respiratory effort and clear to auscultation bilaterally Cardio regular rate, regular rhythm and no murmurs GI normal to inspection, nondistended, normoactive bowel sounds and non-tender GI Narrative: Colostomy bag in place in the left mid abdomen, watery stool present with no blood. No rectal exam she has no michelle blood with thin water/feculent drainage coming out. Narrative: On external pelvic exam patient has this thin watery/feculent drainage coming from her vagina which is the same as was coming from her rectum. Concern for possible fistula. No vaginal tenderness on digital vaginal exam. Speculum exam was deferred. Extremity Extremity Narrative: Chronic appearing lymphedema General Extremety ED: Yes edema General Extremity: edema Neuro oriented x3 Sensorium / Orientation: alert Motor Exam: general weakness Psych mental status grossly normal Skin no rashes or lesions noted and no wounds MDM MDM MDM Narrative Medical decision making narrative: Since evaluated for an episode of back pain followed by significant nausea, vomiting and also an episode of blood coming from her rectum as well as vagina and followed by continued leakage of stool/mucus. Currently denies pain but feels very weak. Has extensive medical history. Patient appears quite dehydrated on initial exam. Differential includes intra-abdominal infection, dehydration, gastroenteritis, GI bleed, renal colic. Patient is given IV fluids in the ER as well as Zofran. She is found to have a significant leukocytosis of 17.4. On [facility] outpatient labs reviewed most recently from 06/24. At that time patient had normal white blood cell counts and her kidney function was around 1. Her hemoglobin at baseline is closer to 8. Today her hemoglobin is 10 suggestive of some hemoconcentration. Her sodium is mildly low at 133 and her creatinine today is 2.40. BUN elevated as well at 38. Suspect YAZMIN/volume contraction. Lactate is normal at 1.7. Urinalysis is highly consistent with urinary tract infection with positive nitrates, 50-100 white blood cells and 1+ bacteria. She is occult positive on rectal exam and does not have any michelle blood. CT abdomen pelvis shows multiple abnormalities as well as moderately severe right hydronephrosis with possible minute distal ureterolith measuring 2 to 3 mm, complex right adrenal mass versus giant sigmoid diverticulum and new periumbilical/pericolonic hernia containing loops of transverse bowel. There is no findings of obstruction. Patient is given IV Zosyn for the UTI. She is also given Tylenol she is has a low-grade temperature of 99.7. Case is reviewed with colorectal surgery at [facility], Dr. Villa who is able to review the patient's labs and feels that a lot of her colorectal abnormalities and even her hydronephrosis are chronic. He does not think from a surgical standpoint she requires transfer and likely just needs IV hydration and outpatient follow-up from their standpoint. I was able to pull up her CT abdomen pelvis from April 16, 2023 which at that time showed moderate/severe hydroureteronephrosis of the right with out significant change, diffuse bladder wall thickening, known rectovaginal fistula with air within the vagina and stable retroperitoneal lymph nodes. This is reviewed with urology, Dr. Carrillo in case patient's might require lithotripsy as she has this possible stone. Patient be kept n.p.o. after midnight with IV hydration to see if her YAZMIN improves or if she would benefit from a stent. She is admitted to the medicine service. Patient is agreeable this plan of care. On repeat evaluation clinically she looks improved and states she is feeling much better. History & Record Review Additional record(s) reviewed:: Prior outpatient record Lab Data Attestation: I reviewed the patient's lab results. Labs: Laboratory Results - last 24 hr 07/07/23 07/07/23 18:25 19:08 WBC 17.4 H RBC 3.45 L Hgb 10.0 L Hct 31.3 L MCV 90.7 MCH 29.0 MCHC 31.9 L RDW Std Deviation 45.7 H RDW Coeff of Dann 13.8 Plt Count 236 MPV 8.9 Immature Gran % (Auto) 1.500 H Neut % (Auto) 90.6 H Lymph % (Auto) 3.5 L Gaston % (Auto) 4.0 Eos % (Auto) 0.1 Baso % (Auto) 0.3 Absolute Neuts (auto) 15.8 H Absolute Lymphs (auto) 0.61 L Nucleated RBC % 0 Differential Comment SCANNED Sodium 133 L Potassium 4.3 Chloride 105 Carbon Dioxide 23.0 Anion Gap 5 BUN 38 H Creatinine 2.40 H Estim Creat Clear Calc 28.37 Est GFR (MDRD) Af Amer 26 L Est GFR (MDRD) Non-Af 21 L BUN/Creatinine Ratio 15.8 Glucose 151 H Lactic Acid 1.7 Calcium 8.7 Total Bilirubin 1.90 H AST 16 ALT 12 L Alkaline Phosphatase 99 Total Protein 6.7 Albumin 2.1 L Globulin 4.6 H Albumin/Globulin Ratio 0.5 L Lipase 19 Urine Color Yellow Urine Clarity Cloudy Urine pH 5.0 Ur Specific [place] 1.015 Urine Protein 100 H Urine Glucose (UA) Normal Urine Ketones Negative Urine Occult Blood 250 H Urine Nitrite Positive H Urine Bilirubin Negative Urine Urobilinogen Normal Ur Leukocyte Esterase 500 H Urine RBC 0 SEEN Urine WBC 50-100 SEEN Ur Squamous Epith Cells 0 SEEN Urine Bacteria 1+ Urine Mucus 0 SEEN Blood Type O POSITIVE Antibody Screen NEGATIVE Radiography Diagnostic Testing: Clinical Impression(s) from Imaging Studies Abdomen/Pelvis CT 07/07/23 19:26 IMPRESSION: Perihilar airspace disease. Moderately severe right hydronephrosis increased and possible minute distal ureterolith measuring 2 to 3 mm. 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 New Periumbilical/paracolostomy hernia containing loops of transverse colon. Electronically Signed: Silviano Mcgrath MD at 20:51 EST Reading Location ID and State: [facility] / [place] Tel , Service support , Management Discussion w/another healthcare provider: Hospitalist and Ventilation Equipment Tender (Colorectal surgery, Urology ) Discharge Plan Triage Chief Complaint: GI Bleed Other Complaint: Vag Bleeding ED Provider: Jojo Rivera Dx/Rx/DC Orders Clinical Impression: YAZMIN (acute kidney injury), UTI (urinary tract infection), Hydronephrosis, History of colostomy, Bleeding per rectum, Anticoagulant long-term use, Nephrolithiasis, Leukocytosis, Dehydration Primary Care Provider: Keenan Alvarez Disposition Disposition: Acute Care Hospital [facility]
[2023-07-07 20:08] VITALS: BP 168/71; PULSE 100; RESP 16; TEMP 37.4; O2SAT 99
[2023-07-07] MEDS: Piperacil/Tazobactam 3.375 GM in 0.9% Normal Saline (50mL MB+) 50 ML IV (21:50)
[2023-07-07 22:00] VITALS: BP 132/62; PULSE 100; RESP 18; TEMP 37.7; O2SAT 98
[2023-07-07] MEDS: Acetaminophen 325 MG Tablet 650 MG PO (22:00)
[2023-07-07] MEDS: 0.9% Normal Saline (1000mL) 1,000 ML 150 ML IV (22:45)
--- NOTE | 2023-07-07 22:49 | HP.PCM.HOS_ITS ---
HPI - General General Date of Admission: 07/07/23 Date of Service: 07/07/23 Chief Complaint: Rectal and vaginal bleeding/Dehydration HPI Narrative BETI JAUREGUI, is a 68 F who presented to the emergency department at [facility] on 07/08/2023 with bleeding from her rectum and vaginal area. Patient reported that she woke up yesterday morning at around 3 AM and started having sharp pain in her back and started throwing up. She went back to sleep and then at 6:30 AM she had a lot of stool come out of her rectum and her vagin a. 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 She is also on long-term anticoagulation with Eliquis due to history of DVT. After she had the significant stool come out of her rectum and vaginal area she had bleeding with clots coming out of her rectum and vagina. She did report that since she had her ostomy she had nothing coming out of her rectum on a regular basis. Throughout the day she also had countless episodes of nausea and vomiting. Today from a nausea and vomiting standpoint she has improved and was able to take water. She did try a few bites of cottage cheese with her coffee and try to take her potassium supplement with applesauce but threw that up subsequently. She reports that she feels unsteady and weak but denies any fever, chills, abdominal pain or urinary symptoms. Last night she attempted to go to [facility] but waited 8 hours and was not ever seen so she left without being seen. She has a remote history of nephrolithiasis. She follows up with colorectal surgery at [facility]. Patient states she currently is overall feeling better. She admits that her ostomy output has been running urine more voluminous than typical. She is on Eliquis for history of recurrent DVTs but is unable to tell me when her last episode was. She follows with Dr. Menjivar for her colorectal cancer that was diagnosed in 2020 and currently on Keytruda. Vital signs on presentation showed temperature of 98.5, heart rate 99, blood pressure 134/56, respiratory rate 18 and oxygen saturations are 100% on room air. CBC showed a white count of 17.4 with a hemoglobin of 10.0 (baseline appears to be between 7 and 8) and normal platelet count. She does have a left shift with a 90.6% neutrophilia. Her chemistry panel showed a sodium of 133 with a BUN of 38 and a serum creatinine of 2.40 (baseline serum creatinine in September of this year was between 0.9 and 1.1.) Her glucose was 151. Her LFTs were normal however her bilirubin was elevated at 1.90. Lipase was normal at 19. UA is suggestive of infection showing protein, occult blood, nitrites, leuk esterase, white cells and 1+ bacteria. Her urine after Thibodeaux placement shows significant sediment and appears to be purulent. She was given IV fluids and then placed on maintenance fluids after a bolus and given Zosyn x1 dose and request for admission was made. 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 Cardiomyopathy Carotid artery stenosis Carotid artery stenosis with cerebral infarction Chronic anticoagulation Chronic kidney disease, stage III (moderate) Congenital talipes calcaneovalgus of left foot COPD (chronic obstructive pulmonary disease) Coronary artery disease Diabetes mellitus Diabetes mellitus type II, uncontrolled Diastolic congestive heart failure Edema of left lower extremity Edema of right lower extremity Essential hypertension GI bleed History of CHF (congestive heart failure) History of CVA (cerebrovascular accident) (10/21/17) History of deep vein thrombosis (DVT) of lower extremity History of deep venous thrombosis (DVT) of distal vein of left lower extremity History of deep venous thrombosis (DVT) of distal vein of right lower extremity History of diabetes mellitus, type II History of pleural effusion (10/21/17) History of rectal cancer History of renal disease Hyperlipidemia Hypertension Left leg swelling Low iron Lymphedema Lymphedema of left leg Nonrheumatic mitral valve regurgitation Nonrheumatic tricuspid valve regurgitation Parastomal hernia Postphlebitic syndrome with inflammation Preop cardiovascular exam Radiation proctitis Rectal bleeding Rectal cancer metastasized to liver Renal insufficiency Right leg swelling Sarcoidosis Shortness of breath on exertion Snoring Steroid long-term use Tricuspid regurgitation Wears dentures Home Medications carvedilol 25 mg tablet (Coreg) 6.25 mg PO BID Hypertension 11/22/19 [History Last Taken 09/27/22 0700] cinnamon bark 500 mg capsule (Cinnamon) 1,000 mg PO BID SUPPLEMENT 06/19/21 [History Last Taken 09/27/22 0700] apixaban 2.5 mg tablet (Eliquis) 2.5 mg PO BID Blood thinner 09/27/22 [History Last Taken 09/27/22 0700] glipizide 5 mg tablet 5 mg PO DAILY Diabetes 09/27/22 [History Last Taken 09/27/22 0700] furosemide 40 mg tablet 40 mg PO DAILY htn #30 tabs 10/14/22 [Rx Last Taken Unknown] clobetasol 0.05 % topical cream 1 applic topical DAILY PRN Itching 10/28/22 [History Last Taken Unknown] dexamethasone 0.5 mg/5 mL oral elixir 0.5 mg PO BID PRN SORE MOUTH 10/28/22 [History Last Taken Unknown] vitamin B12 0.5 mg-folic acid 1 mg tablet 1 tab PO DAILY supplement 10/28/22 [History Last Taken Unknown] atorvastatin 40 mg tablet 40 mg PO DAILY HTN 07/08/23 [History Last Taken Unknown] lidocaine-prilocaine 2.5 %-2.5 % topical cream 1 applic topical DAILY PRN port access 07/08/23 [History Last Taken Unknown] potassium chloride 20 mEq tablet,extended release 20 meq PO DAILY Supplement 07/08/23 [History Last Taken Unknown] Allergy/AdvReac Type Severity Reaction Status Date / Time latex Allergy Severe Hives Verified 07/07/23 15:54 codeine AdvReac Unknown unknown Verified 07/07/23 15:54 Family History Mother Bleeding disorder Diabetes CAD (coronary artery disease) Hypertension Hyperlipidemia Kidney disease Sister Asthma CAD (coronary artery disease) Hyperlipidemia Father Cancer CAD (coronary artery disease) Hypertension Hyperlipidemia CVA (cerebral vascular accident) Brother CAD (coronary artery disease) Hyperlipidemia Surgical History History of cardiac catheterization History of cataract surgery History of colonoscopy History of colostomy History of foot surgery Hx of cataract surgery Social History household members: spouse Smoking Status: Never smoker alcohol intake: never substance use type: does not use ROS Constitutional Constitutional: Reports anorexia, fatigue and weakness; Denies change in weight, chills, fever(s), malaise, night sweats or other Eyes Eyes: Denies blurry vision, change in eye color, change in vision, discharge from eye(s), double vision, erythema, eye pain, loss of vision or other ENT HEENT: Denies abnormal hearing, dysphagia, ear pain, epistaxis, headache(s), hearing loss, nasal congestion, nasal discharge, post nasal drip, sinus pressure, sore throat or other Cardiovascular Cardiovascular: Reports edema; Denies chest pain, claudication, dyspnea on exertion, lightheadedness, orthopnea, palpitations, paroxysmal nocturnal dyspnea, rapid heart rate, syncope or other Respiratory/Chest Respiratory/Chest: Denies cough, dyspnea, excessive phlegm production, hemoptysis, productive cough, shortness of breath at rest, shortness of breath with exertion, wheezing or other Gastrointestinal Gastrointestinal: Reports loose stools, nausea, vomiting and other Details: Rect al and vaginal discharge that was bloody Genitourinary Genitourinary: Denies burning urination, difficulty urinating, dysuria, hematuria, nocturia, urinary frequency, urinary hesitancy, urinary incontinence, urinary urgency or other Neurologic Neurologic: Denies abnormal gait, abnormal speech, confusion, disequilibrium, dizziness, focal weakness, headache(s), numbness, paresthesias, seizure-like act ivity, seizures, syncope, tingling, tremor(s) or other Psychiatric Psychiatric: Denies anxiety, depression, homicidal ideation, suicidal ideation or other Endocrine Endocrinology: Denies change in body appearance, cold intolerance, excessive sweating, heat intolerance, polydipsia, polyuria or other Hematologic/Lymphatic Hematologic/Lymphatic: Reports anemia, easy bleeding and easy bruising; Denies lymphadenopathy or other Allergic/Immunologic Allergic/Immunologic: Denies rhinitis, hives, eczemia, asthma or other Vital Signs Vital Signs Vital Signs: 07/07/23 15:54 07/07/23 20:08 Temperature 98.5 F 99.4 F H Temperature Source Temporal Temporal Pulse Rate 99 100 Respiratory Rate 18 16 Blood Pressure 134/56 H 168/71 H Blood Pressure Mean 82 103 Pulse Ox 100 99 Oxygen Delivery Method Room Air Room Air Weight Weight: 80.1 kg Body Mass Index (BMI) 35.6 Physical Exam Const alert, oriented x3, no apparent distress and well nourished; Negative for average body habitus or healthy appearing Constitutional Narrative: Obese, upper middle-aged, white female, lying in bed sleeping at the time of my arrival however awakens easily and is alert and oriented x3, appears comfortable and nontoxic but chronically ill General Appearance: cooperative HEENT normocephalic, head/scalp atraumatic and hearing grossly normal bilaterally HEENT Narrative: Mucous membranes are slightly dry, Mallampati is 2-3, no thrush Eyes PERRL and EOMs intact bilaterally Eyes Narrative: Conjunctival are pale bilaterally, no scleral icterus Neck no lymphadenopathy and supple Neck Narrative: Trachea midline, no enlargement noted Resp normal respiratory effort, no retractions, no use of accessory muscles and clear to auscultation bilaterally Auscultation: Negative for rales, rhonchi or wheezes Cardio regular rate, regular rhythm, S1 normal heart sound, S2 normal heart sound, no murmurs, no rub, no gallops and no clicks GI normal to inspection, nondistended, normoactive bowel sounds, soft to palpation and non-tender GI Narrative: Ostomy in place with thin liquid looking output that is brownish-yellow in, no b lood noted Extremity Extremity Narrative: Chronic lower extremity edema noted that is pitting in nature, no cyanosis or clubbing Skin no rashes or lesions noted, no wounds, skin turgor normal, no jaundice, no petechiae and no mottling Skin Narrative: Skin is pale Neuro oriented x3, CN's II-XII intact bilaterally, moves all extremities and no focal motor deficits Neuro Narrative: Generalized weakness noted with no focal deficits, patient has decreased range of motion in her right shoulder due to severe osteoarthritis Speech: speech normal Psych affect normal Psych Narrative: Very pleasant, eye contact is good Results Lab / Micro Data 07/07/23 23:29 07/07/23 18:25 Labs: Laboratory Results - last 24 hr 07/07/23 18:25: WBC 17.4 H, RBC 3.45 L, Hgb 10.0 L, Hct 31.3 L, MCV 90.7, MCH 29.0, MCHC 31.9 L, RDW Std Deviation 45.7 H, RDW Coeff of Dann 13.8, Plt Count 236, MPV 8.9, Immature Gran % (Auto) 1.500 H, Neut % (Auto) 90.6 H, Lymph % (Auto) 3.5 L, [place] % (Auto) 4.0, Eos % (Auto) 0.1, Baso % (Auto) 0.3, Absolute Neuts (auto) 15.8 H, Absolute Lymphs (auto) 0.61 L, Nucleated RBC % 0, Differential Comment SCANNED, Sodium 133 L, Potassium 4.3, Chloride 105, Carbon Dioxide 23.0, Anion Gap 5, BUN 38 H, Creatinine 2.40 H, Estim Creat Clear Calc 28.37, Est GFR (MDRD) Af Amer 26 L, Est GFR (MDRD) Non-Af 21 L, BUN/Creatinine Ratio 15.8, Glucose 151 H, Lactic Acid 1.7, Calcium 8.7, Total Bilirubin 1.90 H, AST 16, ALT 12 L, Alkaline Phosphatase 99, Total Protein 6.7, Albumin 2.1 L, Globulin 4.6 H, Albumin/Globulin Ratio 0.5 L, Lipase 19, Blood Type O POSITIVE, Antibody Screen NEGATIVE 07/07/23 19:08: Urine Color Yellow, Urine Clarity Cloudy, Urine pH 5.0, Ur Specific [place] 1.015, Urine Protein 100 H, Urine Glucose (UA) Normal, Urine Ketones Negative, Urine Occult Blood 250 H, Urine Nitrite Positive H, Urine Bilirubin Negative, Urine Urobilinogen Normal, Ur Leukocyte Esterase 500 H, Urine RBC 0 SEEN, Urine WBC 50-100 SEEN, Ur Squamous Epith Cells 0 SEEN, Urine Bacteria 1+, Urine Mucus 0 SEEN Micro: Microbiology 07/07/23 20:00 Stool Stool Occult Blood (ALEJANDRA) - Final Occult Blood Positive Radiology Impression Abdomen/Pelvis CT 07/07/23 19:26 IMPRESSION: Perihilar airspace disease. Moderately severe right hydronephrosis increased and possible minute distal ureterolith measuring 2 to 3 mm. 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 New Periumbilical/paracolostomy hernia containing loops of transverse colon. Electronically Signed: Silviano Mcgrath MD at 20:51 EST , Assessment & Plan Assessment/Plan (1) YAZMIN (acute kidney injury): (2) Dehydration: (3) UTI (urinary tract infection): (4) Leukocytosis: (5) Bleeding per rectum: (6) Hydronephrosis: (7) Nephrolithiasis: (8) Hyperbilirubinemia: PLAN: Plan YAZMIN due to dehydration secondary to nausea and vomiting -Nausea vomiting is improved -We will allow for clear liquid diet and advance to full's as able -Aggressive IV fluids -Avoid nephrotoxins -Hold Lasix and glipizide -If renal function does not improve with hydration may need to pursue further work-up for YAZMIN -UA is suggestive of dehydration with significant elevation in her specific gravity -Continue Thibodeaux -Check enteric panel and C. difficile Hydronephrosis -Compared with previous report this is chronic however she does appear to have a new nephrolithiasis identified -Patient does have history of nephrolithiasis -Consult Dr. Carrillo-->case was discussed with her by the emergency department physician -ED physician also had conversation with colorectal surgery at [facility] and they indicated that all the findings on her current CAT scan do not appear to be new and are chronic in nature -We will make n.p.o. after midnight in case patient needs to go to the OR Urinary tract infection -Aggressive hydration -Zosyn given history of rectal CA and immunocompromise state -Cultures are pending Hyperbilirubinemia -LFTs are normal -Suspect related to acute dehydration -Repeat lab in a.m. and trend Rectal/vaginal bleeding -Hemoccult was positive -Patient is currently anticoagulated with Eliquis 2.5 mg p.o. twice daily for history of recurrent DVTs -Hold Eliquis -Check serial hemoglobin -Patient does have history of radionecrosis and oozing may be related to this -May require GI consultation depending on stability of hemoglobin Rectal CA with metastatic disease to liver -History of radiation with radionecrosis requiring colostomy -On Keytruda -Follows with Dr. Menjivar DM-2 -Hold home glipizide -SSI -Accu-Cheks as ordered Nonobstructive CAD/HTN/HPL -Continue home atorvastatin -Currently not on aspirin -Continue home vital -Hold home Lasix Chronic lower extremity edema -May be related to DVT and post thrombotic syndrome -Hold diuretics due to YAZMIN History of sarcoidosis -No current issues -Continue to monitor DVT prophylaxis -SCDs -Hold Eliquis with bleeding and restart when able CODE STATUS Full code as verified on admission Charges/Coding Visit Charges Inpatient E&M: 60370 Init Hosp L3
[2023-07-07 23:15] VITALS: BP 99/82; PULSE 99; RESP 18; TEMP 37.6; O2SAT 98
[2023-07-07 23:33] LABS: Hematocrit 28.5 % (37-47); Hemoglobin 8.8 g/dL (12.0-15.0)
[2023-07-08] VITALS (7 sets, daily range): BP systolic 100–160; BP diastolic 52–117; PULSE 66–83; RESP 12–28; TEMP 36.1–37.6; O2SAT 93–100; BMI 35.6
[2023-07-08 03:25] LABS: Hematocrit 27.8 % (37-47); Hemoglobin 8.8 g/dL (12.0-15.0)
[2023-07-08 04:30] LABS: ALB/GLOB Ratio 0.4 RATIO (0.9-2.4); AST(SGOT) 14 U/L (15-37); Alanine Aminotransfer ALT/SGPT 12 U/L (13-56); Albumin, Serum 1.8 g/dL (3.2-5.0); Alkaline Phosphatase 84 U/L (45-117); Anion Gap 9 (5-15); BUN 38 mg/dL (7-18); BUN/Creat Ratio 16.7 RATIO (10-20); Calcium,Total 7.8 mg/dL (8.5-10.1); Chloride 111 mmol/L (98-107); Creatinine, Serum 2.27 mg/dL (0.55-1.02); EST Glomerular Filtration Rate 23 mL/min (>60); Est Glom Filt Rate - Afr Amer 28 mL/min (>60); Estimated Creatinine Clearance 29.99 ml/min; Glucose 157 mg/dL (74-106); Magnesium 1.9 mg/dL (1.6-2.6); Phosphorus 3.1 mg/dL (2.5-4.9); Potassium 3.6 mmol/L (3.5-5.1); Protein, Total 5.8 g/dL (6.4-8.2); Sodium Level 139 mmol/L (136-145)
[2023-07-08] MEDS: Lactated Ringers 1,000 ML 125 ML IV ×3 (05:35→20:51)
[2023-07-08 06:27] LABS: Absolute Lymphocyte Count 0.31 X10^3/uL (0.83-4.51); Absolute Neutrophil Count 9.9 X10^3/uL (2.0-7.7); Basophil# 0.05 X10^3/uL; Basophil% 0.5 % (0-1); Eosinophil# 0.04 X10^3/uL; Eosinophils% 0.4 % (0-5); Hematocrit 29.6 % (37-47); Lymphocyte # 0.31 X10^3/ul (0.83-4.51); Lymphocyte % 2.8 % (19-41); Mean Corp Hgb Conc 30.4 g/dL (32-36); Mean Corpuscular Hgb 28.5 pg (27.0-32.0); Mean Corpuscular Volume 93.7 fL (81-99); Mean Platelet Vol. 9.1 fl (6.2-12.0); Monocyte# 0.44 X10^3/uL; NRBC Flagged by Analyzer 0 % (0-5); Neutrophil # 9.93 X10^3/uL (2.7-7.7); Neutrophil % 90.3 % (47-70); POSITIVE DIFFERENTIAL YES; POSITIVE MORPHOLOGY YES; Platelet Count 195 K/mm3 (150-450); RBC Distribution Width CV 13.9 % (11.6-14.6); RBC Distribution Width SD 47.7 fl (35.1-43.9); Red Blood Count 3.16 M/mm3 (4.2-5.4)
[2023-07-08 06:30] LABS: Differential Indicated SCAN CRITERIA MET
[2023-07-08 06:43] LABS: Differential Comment SCANNED
[2023-07-08] MEDS: Piperacil/Tazobactam 3.375 GM in 0.9% Normal Saline (50mL MB+) 50 ML IV ×3 (06:45→20:50)
[2023-07-08 07:29] LABS: Bedside Glucose 141 mg/dL (74-106)
--- NOTE | 2023-07-08 08:55 | PCM.CONS.GEN ---
Assessment & Plan Assessment/Plan (1) Hydronephrosis: (2) UTI (urinary tract infection): (3) Dehydration: (4) YAZMIN (acute kidney injury): PLAN: Plan Continue hydration, antibiotics, follow creatinine and laboratory studies Await culture results from the urine Thibodeaux catheter per primary service as needed for monitoring and renal insufficiency I have no plans for intervention for her right kidney. On CT scan here back in September 2022 there was right-sided hydronephrosis. Her repeat scans at the [facility] have apparently continued to show this as well. Most of her imaging has been done through the [facility] system. I spoke with Dr. Carosn this morning. Plans for further evaluation of the rectal bleeding and stool are in motion. HPI Consult Data Date of Consult: 07/08/23 HPI Narrative Reason for Consultation: hydronephrosis, acute renal insufficiency HPI Narrative: BETI JAUREGUI, is a 68 F who presented to the emergency room yesterday with complaints of weakness, fatigue and recent nausea, vomiting and stool and blood from her rectum. She has a known history of colorectal cancer and is managed surgically by the [facility]. She was last seen by her surgeon in March or April. She has a hernia and that was what the appointment was regarding. The patient has no information regarding the right lower quadrant adnexal mass found on her CT here. However she has known about her right-sided hydronephrosis and this has been present longstanding. The issue started early Wednesday morning with nausea, vomiting and central back pain. She then, after vomiting multiple times, started to pass stool and blood clots from her rectal stump. After a few hours both the vomiting and the stool and blood stopped. The only thing she could keep down was water. She became weak and presented to the emergency room. She has not had any flank pain, hematuria, dysuria or urinary complaints. 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 Cardiomyopathy Carotid artery stenosis Carotid artery stenosis with cerebral infarction Chronic anticoagulation Chronic kidney disease, stage III (moderate) Congenital talipes calcaneovalgus of left foot Congestive heart failure (CHF) COPD (chronic obstructive pulmonary disease) Coronary artery disease Diabetes mellitus Diabetes mellitus type II, uncontrolled Diastolic congestive heart failure DVT (deep venous thrombosis) Edema of left lower extremity Edema of right lower extremity Essential hypertension GI bleed GI bleed History of CHF (congestive heart failure) History of CVA (cerebrovascular accident) (10/21/17) History of deep vein thrombosis (DVT) of lower extremity History of deep venous thrombosis (DVT) of distal vein of left lower extremity History of deep venous thrombosis (DVT) of distal vein of right lower extremity History of diabetes mellitus, type II History of pleural effusion (10/21/17) History of rectal cancer History of renal disease History of stress test Hyperlipidemia Hypertension Left leg swelling Low iron Lymphedema Lymphedema of left leg Nonrheumatic mitral valve regurgitation Nonrheumatic tricuspid valve regurgitation Parastomal hernia Postphlebitic syndrome with inflammation Preop cardiovascular exam Radiation proctitis Rectal bleeding Rectal cancer metastasized to liver Renal insufficiency Right leg swelling Sarcoidosis Shortness of breath on exertion Snoring Steroid long-term use Stroke/cerebrovascular accident Tricuspid regurgitation Wears dentures Home Medications carvedilol 25 mg tablet (Coreg) 6.25 mg PO BID Hypertension 11/22/19 [History Last Taken 09/27/22 0700] cinnamon bark 500 mg capsule (Cinnamon) 1,000 mg PO BID SUPPLEMENT 06/19/21 [History Last Taken 09/27/22 0700] apixaban 2.5 mg tablet (Eliquis) 2.5 mg PO BID Blood thinner 09/27/22 [History Last Taken 09/27/22 0700] glipizide 5 mg tablet 5 mg PO DAILY Diabetes 09/27/22 [History Last Taken 09/27/22 0700] furosemide 40 mg tablet 40 mg PO DAILY htn #30 tabs 10/14/22 [Rx Last Taken Unknown] clobetasol 0.05 % topical cream 1 applic topical DAILY PRN Itching 10/28/22 [History Last Taken Unknown] dexamethasone 0.5 mg/5 mL oral elixir 0.5 mg PO BID PRN SORE MOUTH 10/28/22 [History Last Taken Unknown] vitamin B12 0.5 mg-folic acid 1 mg tablet 1 tab PO DAILY supplement 10/28/22 [History Last Taken Unknown] atorvastatin 40 mg tablet 40 mg PO DAILY HTN 07/08/23 [History Last Taken Unknown] lidocaine-prilocaine 2.5 %-2.5 % topical cream 1 applic topical DAILY PRN port access 07/08/23 [History Last Taken Unknown] potassium chloride 20 mEq tablet,extended release 20 meq PO DAILY Supplement 07/08/23 [History Last Taken Unknown] Allergy/AdvReac Type Severity Reaction Status Date / Time latex Allergy Severe Hives Verified 07/07/23 15:54 codeine AdvReac Unknown unknown Verified 07/07/23 15:54 Family History Mother Bleeding disorder Diabetes CAD (coronary artery disease) Hypertension Hyperlipidemia Kidney disease Sister Asthma CAD (coronary artery disease) Hyperlipidemia Father Cancer CAD (coronary artery disease) Hypertension Hyperlipidemia CVA (cerebral vascular accident) Brother CAD (coronary artery disease) Hyperlipidemia Surgical History History of cardiac catheterization History of cataract surgery History of colonoscopy History of colostomy History of coronary artery stent placement History of foot surgery Hx of cataract surgery Social History household members: spouse Smoking Status: Never smoker alcohol intake: never substance use type: does not use ROS Constitutional Constitutional: Reports fatigue, lethargy and weakness Eyes Eyes: Reports systems reviewed and no addt'l complaints, except as documented ENT HEENT: Reports systems reviewed and no addt'l complaints, except as documented Cardiovascular Cardiovascular: Reports systems reviewed and no addt'l complaints, except as documented Respiratory/Chest Respiratory/Chest: Reports systems reviewed and no addt'l complaints, except as documented Gastrointestinal Gastrointestinal: Reports hematochezia, loose stools, nausea and vomiting Genitourinary Genitourinary: Denies dysuria, flank pain, hematuria or low back pain Musculoskeletal Musculoskeletal: Reports systems reviewed and no addt'l complaints, except as documented Integumentary Integumentary: Reports systems reviewed and no addt'l complaints, except as documented Neurologic Neurologic: Reports systems reviewed and no addt'l complaints, except as documented Psychiatric Psychiatric: Reports systems reviewed and no addt'l complaints, except as documented Endocrine Endocrinology: Reports systems reviewed and no addt'l complaints, except as documented Hematologic/Lymphatic Hematologic/Lymphatic: Reports systems reviewed and no addt'l complaints, except as documented Allergic/Immunologic Allergic/Immunologic: Reports systems reviewed and no addt'l complaints, except as documented Physical Exam Const alert, oriented x3 and no apparent distress HEENT normocephalic, head/scalp atraumatic, hearing grossly normal bilaterally, external ears normal and external nose normal; Negative for moist oral mucous membranes Eyes General Eye: normal appearance of both eyes Neck supple General: normal visual inspection and trachea midline Chest inspection of chest normal Resp normal respiratory effort, normal air movement and no retractions Cardio regular rate GI soft to palpation and non-distended Palpation: tender RLQ Bladder / Kidney Exam: catheter in place urethral and No CVA tenderness Back/Spine no CVA tenderness Skin no rashes or lesions noted Neuro oriented x3 and CN's II-XII intact bilaterally Psych mental status grossly normal, thought process normal and cooperative Lab / Micro Data 07/08/23 05:50 07/08/23 03:18 Labs: Laboratory Results - last 24 hr 07/07/23 18:25: WBC 17.4 H, RBC 3.45 L, Hgb 10.0 L, Hct 31.3 L, MCV 90.7, MCH 29.0, MCHC 31.9 L, RDW Std Deviation 45.7 H, RDW Coeff of Dann 13.8, Plt Count 236, MPV 8.9, Immature Gran % (Auto) 1.500 H, Neut % (Auto) 90.6 H, Lymph % (Auto) 3.5 L, [place] % (Auto) 4.0, Eos % (Auto) 0.1, Baso % (Auto) 0.3, Absolute Neuts (auto) 15.8 H, Absolute Lymphs (auto) 0.61 L, Nucleated RBC % 0, Differential Comment SCANNED, Sodium 133 L, Potassium 4.3, Chloride 105, Carbon Dioxide 23.0, Anion Gap 5, BUN 38 H, Creatinine 2.40 H, Estim Creat Clear Calc 28.37, Est GFR (MDRD) Af Amer 26 L, Est GFR (MDRD) Non-Af 21 L, BUN/Creatinine Ratio 15.8, Glucose 151 H, Lactic Acid 1.7, Calcium 8.7, Total Bilirubin 1.90 H, AST 16, ALT 12 L, Alkaline Phosphatase 99, Total Protein 6.7, Albumin 2.1 L, Globulin 4.6 H, Albumin/Globulin Ratio 0.5 L, Lipase 19, Blood Type O POSITIVE, Antibody Screen NEGATIVE 07/07/23 19:08: Urine Color Yellow, Urine Clarity Cloudy, Urine pH 5.0, Ur Specific Wilson 1.015, Urine Protein 100 H, Urine Glucose (UA) Normal, Urine Ketones Negative, Urine Occult Blood 250 H, Urine Nitrite Positive H, Urine Bilirubin Negative, Urine Urobilinogen Normal, Ur Leukocyte Esterase 500 H, Urine RBC 0 SEEN, Urine WBC 50-100 SEEN, Ur Squamous Epith Cells 0 SEEN, Urine Bacteria 1+, Urine Mucus 0 SEEN 07/07/23 23:29: Hgb 8.8 L, Hct 28.5 L 07/08/23 03:18: Hgb 8.8 L, Hct 27.8 L, Sodium 139, Potassium 3.6, Chloride 111 H, Carbon Dioxide 19.0 L, Anion Gap 9, BUN 38 H, Creatinine 2.27 H, Estim Creat Clear Calc 29.99, Est GFR (MDRD) Af Amer 28 L, Est GFR (MDRD) Non-Af 23 L, BUN/Creatinine Ratio 16.7, Glucose 157 H, Calcium 7.8 L, Phosphorus 3.1, Magnesium 1.9, Total Bilirubin 1.60 H, AST 14 L, ALT 12 L, Alkaline Phosphatase 84, Total Protein 5.8 L, Albumin 1.8 L, Globulin 4.0, Albumin/Globulin Ratio 0.4 L 07/08/23 05:50: WBC 11.0, RBC 3.16 L, Hgb 9.0 L, Hct 29.6 L, MCV 93.7, MCH 28.5, MCHC 30.4 L, RDW Std Deviation 47.7 H, RDW Coeff of Dann 13.9, Plt Count 195, MPV 9.1, Immature Gran % (Auto) 2.000 H, Neut % (Auto) 90.3 H, Lymph % (Auto) 2.8 L, [place] % (Auto) 4.0, Eos % (Auto) 0.4, Baso % (Auto) 0.5, Absolute Neuts (auto) 9.9 H, Absolute Lymphs (auto) 0.31 L, Nucleated RBC % 0, Differential Comment SCANNED 07/08/23 06:52: POC Glucose 141 H Micro: Microbiology 07/07/23 20:00 Stool Stool Occult Blood (ALEJANDRA) - Final Occult Blood Positive Radiology Impression Abdomen/Pelvis CT 07/07/23 19:26 IMPRESSION: Perihilar airspace disease. Moderately severe right hydronephrosis increased and possible minute distal ureterolith measuring 2 to 3 mm. 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 New Periumbilical/paracolostomy hernia containing loops of transverse colon. Electronically Signed: Silviano Mcgrath MD at 20:51 EST ,
[2023-07-08] MEDS: 0.9% Saline Lock 10 ML Syringe IV (09:02)
[2023-07-08] MEDS: Menthol/Lanolin/Calamine/Znox 113 GM Tube 1 APPLIC TOPICAL ×2 (09:02→20:51)
[2023-07-08] MEDS: Carvedilol 6.25 MG Tablet PO ×2 (09:02→20:48)
[2023-07-08 09:39] LABS: Urine Sodium 36 mmol/L (Not Establ.)
--- NOTE | 2023-07-08 10:51 | EX.PCM.CON.S ---
Assessment & Plan Assessment/Plan (1) Colovaginal fistula: PLAN: I have been consulted in conjunction with Dr. Jeter. I have reviewed and discussed treatment plan with Dr. Jeter. 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 Patient was not informed that stool remaining in the residual nonactive colon may be expressed at some point. The stool she is experiencing is more than likely from residual stool. Patient's colorectal surgeon is aware of her colovaginal fistula. cloth sponger surgeon from his office was contacted yesterday by the ED, who recommended the patient be admitted and provided IV hydration. Dr. Crews would see patient as an outpatient. It was explained to the patient that no surgical intervention would be performed in [place]. Patient verbally understood and was agreeable that she would want Dr. Crews to perform any abdominal surgeries if surgery was being recommended. It is recommended that the patient be transferred to [facility] for further evaluation. Patient attempted to go to [facility] ED Wednesday and waited for 6 hours prior to coming back home. If a bed is not available at [facility], recommend stabilizing patient with IV hydration, antibiotics and continued H&H monitoring prior to discharge. I would recommend a short term follow-up with Dr. Crews to ensure symptoms are stable from his standpoint as well. Again, no surgical intervention is being recommended at this time. Patient has had the opportunity to ask and have questions answered. Patient verbally understands and agrees with the plan. Plan has also been discussed with Dr. Carson. He will initiate the transfer. Thank you for allowing us to participate in this patient's care. HPI Consult Data Date of Consult: 07/08/23 HPI Narrative Reason for Consultation: Colovaginal fistula HPI Narrative: BETI JAUREGUI, is a very pleasant 68 y/o F who presents with 1 day history of nausea, vomiting and back pain. Patient notes Wednesday night into Wednesday, she had developed nausea and vomiting with associated back pain. Patient states she has a history of kidney stones and was thinking she may possibly have another one. Patient also notes she has a history of rectal cancer diagnosed in May of 2021. Patient has since had an end transverse colostomy created by Dr. Crews at [facility] in November of 2022. Patient notes a new symptom of stool coming out of her rectum and vagina area on Wednesday morning at 0600 AM when she was having all the nausea, vomiting. She notes having bright red blood with clots as well. Patient notes she has had intermittent rectal bleeding since before her diagnosis of rectal cancer, so the bleeding did not concern her. She notes the stool coming from the rectum and vagina is what is concerning. Patient states the stool and bleeding have since stopped. She notes following her diagnosis she established with Dr. Menjivar at [facility] oncology. She was recommended to have radiation of the rectum. Patient notes she had 2 sessions of radiation and was not able to tolerate any further treatments. She is currently now on Keytruda every 3 weeks. Her next session is on 07/16. Patient notes Dr. Menjivar had referred the patient to [facility] in 2021. She noted the [facility]UT[facility]PECT[facility] physician attempted to perform an exam and noted the patient had a communication between the vagina and the colon. Patient was diagnosed with a colovaginal fistula in 2021. Patient notes she was scheduled in February of 2023 to have a surgery by Dr. Crews to resect the tumors from the colorectal area and have a total hysterectomy. Patient notes 4 days prior to the surgery date the surgery was canceled. Dr. Crews had told her that she would not be able to survive the surgery due to the main artery within the vaginal rectal area was involved within the tumor area. She was told she would bleed out. Patient also notes she has a parastomal hernia which her surgeon is aware of. She notes repairing this is possible, however the risk of reoccurrence is high. Patient notes she is scheduled for a rotator cuff surgery on 07/20. Patient also notes a history of CHF, multiple strokes and history of blood clots. She also notes a history of bilateral lower extremity lymphedema. CT scan of the ab/pel obtained in the ED demonstrated moderately severe right hydronephrosis increased and possible distal ureterolith measuring 2-3 mm, complex right adnexal mass versus giant sigmoid diverticulum, new periumbilical/paracolostomy hernia containing loops of transverse colon noted. Dr. Carrillo has evaluated the patient and is recommending IV hydration, antibiotics and awaiting urine culture results. No urologic intervention is being recommended. 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 Cardiomyopathy Carotid artery stenosis Carotid artery stenosis with cerebral infarction Chronic anticoagulation Chronic kidney disease, stage III (moderate) Congenital talipes calcaneovalgus of left foot Congestive heart failure (CHF) COPD (chronic obstructive pulmonary disease) Coronary artery disease Diabetes mellitus Diabetes mellitus type II, uncontrolled Diastolic congestive heart failure DVT (deep venous thrombosis) Edema of left lower extremity Edema of right lower extremity Essential hypertension GI bleed GI bleed History of CHF (congestive heart failure) History of CVA (cerebrovascular accident) (10/21/17) History of deep vein thrombosis (DVT) of lower extremity History of deep venous thrombosis (DVT) of distal vein of left lower extremity History of deep venous thrombosis (DVT) of distal vein of right lower extremity History of diabetes mellitus, type II History of pleural effusion (10/21/17) History of rectal cancer History of renal disease History of stress test Hyperlipidemia Hypertension Left leg swelling Low iron Lymphedema Lymphedema of left leg Nonrheumatic mitral valve regurgitation Nonrheumatic tricuspid valve regurgitation Parastomal hernia Postphlebitic syndrome with inflammation Preop cardiovascular exam Radiation proctitis Rectal bleeding Rectal cancer metastasized to liver Renal insufficiency Right leg swelling Sarcoidosis Shortness of breath on exertion Snoring Steroid long-term use Stroke/cerebrovascular accident Tricuspid regurgitation Wears dentures Home Medications carvedilol 25 mg tablet (Coreg) 6.25 mg PO BID Hypertension 11/22/19 [History Last Taken 09/27/22 07] cinnamon bark 500 mg capsule (Cinnamon) 1,000 mg PO BID SUPPLEMENT 06/19/21 [History Last Taken 09/27/22 0700] apixaban 2.5 mg tablet (Eliquis) 2.5 mg PO BID Blood thinner 09/27/22 [History Last Taken 09/27/22 0700] glipizide 5 mg tablet 5 mg PO DAILY Diabetes 09/27/22 [History Last Taken 09/27/22 0700] furosemide 40 mg tablet 40 mg PO DAILY htn #30 tabs 10/14/22 [Rx Last Taken Unknown] clobetasol 0.05 % topical cream 1 applic topical DAILY PRN Itching 10/28/22 [History Last Taken Unknown] dexamethasone 0.5 mg/5 mL oral elixir 0.5 mg PO BID PRN SORE MOUTH 10/28/22 [History Last Taken Unknown] vitamin B12 0.5 mg-folic acid 1 mg tablet 1 tab PO DAILY supplement 10/28/22 [History Last Taken Unknown] atorvastatin 40 mg tablet 40 mg PO DAILY HTN 07/08/23 [History Last Taken Unknown] lidocaine-prilocaine 2.5 %-2.5 % topical cream 1 applic topical DAILY PRN port access 07/08/23 [History Last Taken Unknown] potassium chloride 20 mEq tablet,extended release 20 meq PO DAILY Supplement 07/08/23 [History Last Taken Unknown] Allergy/AdvReac Type Severity Reaction Status Date / Time latex Allergy Severe Hives Verified 07/07/23 15:54 codeine AdvReac Unknown unknown Verified 07/07/23 15:54 Family History Mother Bleeding disorder Diabetes CAD (coronary artery disease) Hypertension Hyperlipidemia Kidney disease Sister Asthma CAD (coronary artery disease) Hyperlipidemia Father Cancer CAD (coronary artery disease) Hypertension Hyperlipidemia CVA (cerebral vascular accident) Brother CAD (coronary artery disease) Hyperlipidemia Surgical History History of cardiac catheterization History of cataract surgery History of colonoscopy History of colostomy History of coronary artery stent placement History of foot surgery Hx of cataract surgery Social History household members: spouse Smoking Status: Never smoker alcohol intake: never substance use type: does not use ROS Constitutional Constitutional: Reports systems reviewed and no addt'l complaints, except as documented Eyes Eyes: Reports systems reviewed and no addt'l complaints, except as documented ENT HEENT: Reports systems reviewed and no addt'l complaints, except as documented Cardiovascular Cardiovascular: Reports systems reviewed and no addt'l complaints, except as documented Respiratory/Chest Respiratory/Chest: Reports systems reviewed and no addt'l complaints, except as documented Gastrointestinal Gastrointestinal: Reports systems reviewed and no addt'l complaints, except as documented Genitourinary Genitourinary: Reports systems reviewed and no addt'l complaints, except as documented Musculoskeletal Musculoskeletal: Reports systems reviewed and no addt'l complaints, except as documented Integumentary Integumentary: Reports systems reviewed and no addt'l complaints, except as documented Neurologic Neurologic: Reports systems reviewed and no addt'l complaints, except as documented Psychiatric Psychiatric: Reports systems reviewed and no addt'l complaints, except as documented Endocrine Endocrinology: Reports systems reviewed and no addt'l complaints, except as documented Hematologic/Lymphatic Hematologic/Lymphatic: Reports systems reviewed and no addt'l complaints, except as documented Allergic/Immunologic Allergic/Immunologic: Reports systems reviewed and no addt'l complaints, except as documented Physical Exam Const alert, oriented x3 and no apparent distress HEENT normocephalic and head/scalp atraumatic Eyes PERRL Neck full ROM Lymph Lymphatic: no lymphadenopathy noted Chest Chest Narrative: Right chest port-a-cath in place Resp normal respiratory effort and clear to auscultation bilaterally Cardio regular rate and regular rhythm GI GI Narrative: Abdomen- transverse loop colostomy noted. Nontender. Positive bowel sounds. Inspection: central obesity no CVA tenderness Narrative: Thibodeaux catheter in place Back/Spine no CVA tenderness Extremity Extremity Narrative: Bilateral lower extremity lymphedema noted Skin no rashes or lesions noted Neuro no focal motor deficits and no sensory deficits noted Psych thought process normal and cooperative Appearance: grossly normal Lab / Micro Data 07/08/23 05:50 07/08/23 03:18 Labs: Laboratory Results - last 24 hr 07/07/23 18:25: WBC 17.4 H, RBC 3.45 L, Hgb 10.0 L, Hct 31.3 L, MCV 90.7, MCH 29.0, MCHC 31.9 L, RDW Std Deviation 45.7 H, RDW Coeff of Dann 13.8, Plt Count 236, MPV 8.9, Immature Gran % (Auto) 1.500 H, Neut % (Auto) 90.6 H, Lymph % (Auto) 3.5 L, Millard % (Auto) 4.0, Eos % (Auto) 0.1, Baso % (Auto) 0.3, Absolute Neuts (auto) 15.8 H, Absolute Lymphs (auto) 0.61 L, Nucleated RBC % 0, Differential Comment SCANNED, Sodium 133 L, Potassium 4.3, Chloride 105, Carbon Dioxide 23.0, Anion Gap 5, BUN 38 H, Creatinine 2.40 H, Estim Creat Clear Calc 28.37, Est GFR (MDRD) Af Amer 26 L, Est GFR (MDRD) Non-Af 21 L, BUN/Creatinine Ratio 15.8, Glucose 151 H, Lactic Acid 1.7, Calcium 8.7, Total Bilirubin 1.90 H, AST 16, ALT 12 L, Alkaline Phosphatase 99, Total Protein 6.7, Albumin 2.1 L, Globulin 4.6 H, Albumin/Globulin Ratio 0.5 L, Lipase 19, Blood Type O POSITIVE, Antibody Screen NEGATIVE 07/07/23 19:08: Urine Color Yellow, Urine Clarity Cloudy, Urine pH 5.0, Ur Specific [place] 1.015, Urine Protein 100 H, Urine Glucose (UA) Normal, Urine Ketones Negative, Urine Occult Blood 250 H, Urine Nitrite Positive H, Urine Bilirubin Negative, Urine Urobilinogen Normal, Ur Leukocyte Esterase 500 H, Urine RBC 0 SEEN, Urine WBC 50-100 SEEN, Ur Squamous Epith Cells 0 SEEN, Urine Bacteria 1+, Urine Mucus 0 SEEN 07/07/23 23:29: Hgb 8.8 L, Hct 28.5 L 07/08/23 03:18: Hgb 8.8 L, Hct 27.8 L, Sodium 139, Potassium 3.6, Chloride 111 H, Carbon Dioxide 19.0 L, Anion Gap 9, BUN 38 H, Creatinine 2.27 H, Estim Creat Clear Calc 29.99, Est GFR (MDRD) Af Amer 28 L, Est GFR (MDRD) Non-Af 23 L, BUN/Creatinine Ratio 16.7, Glucose 157 H, Calcium 7.8 L, Phosphorus 3.1, Magnesium 1.9, Total Bilirubin 1.60 H, AST 14 L, ALT 12 L, Alkaline Phosphatase 84, Total Protein 5.8 L, Albumin 1.8 L, Globulin 4.0, Albumin/Globulin Ratio 0.4 L 07/08/23 05:50: WBC 11.0, RBC 3.16 L, Hgb 9.0 L, Hct 29.6 L, MCV 93.7, MCH 28.5, MCHC 30.4 L, RDW Std Deviation 47.7 H, RDW Coeff of Dann 13.9, Plt Count 195, MPV 9.1, Immature Gran % (Auto) 2.000 H, Neut % (Auto) 90.3 H, Lymph % (Auto) 2.8 L, Millard % (Auto) 4.0, Eos % (Auto) 0.4, Baso % (Auto) 0.5, Absolute Neuts (auto) 9.9 H, Absolute Lymphs (auto) 0.31 L, Nucleated RBC % 0, Differential Comment SCANNED 07/08/23 06:52: POC Glucose 141 H 07/08/23 09:00: Ur Random Sodium 36, Urine Creatinine 69.70 Micro: Microbiology 07/08/23 04:39 Stool C. difficile DNA Amplification - Final 07/07/23 21:50 Blood Culture (Wb) - Anticubital Right Blood Culture - Preliminary 07/07/23 21:50 Blood Culture (Wb) - Left Forearm Blood Culture - Preliminary 07/07/23 20:00 Stool Stool Occult Blood (ALEJANDRA) - Final Occult Blood Positive Radiology Impression Abdomen/Pelvis CT 07/07/23 19:26 IMPRESSION: Perihilar airspace disease. Moderately severe right hydronephrosis increased and possible minute distal ureterolith measuring 2 to 3 mm. 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 New Periumbilical/paracolostomy hernia containing loops of transverse colon. Electronically Signed: Silviano Mcgrath MD at 20:51 EST , Charges/Coding Visit Charges Office Visits / Consults: 56132 IP Consult L3
--- NOTE | 2023-07-08 11:39 | CASEMGMT ---
RN CM looked up information on which acute care hospitals are in network for pt. They are as follows: [facility], [facility], [facility], [facility], [facility], and .
[2023-07-08 11:56] LABS: Bedside Glucose 123 mg/dL (74-106)
[2023-07-08] MEDS: Acetaminophen 325 MG Tablet 650 MG PO (14:38)
--- NOTE | 2023-07-08 15:23 | CHAPLAIN ---
Type of Pastoral Visit _x__ Initial Visit ___ Follow-up Visit ___ On-call Visit ___ General Patient Visit ___ Spiritual Assessment ___ Family Conference ___ Bereavement ___ Rapid Response ___ Code Blue ___ Other (describe below) Pastoral Care Referral From _x__ Patient ___ Family ___ Nurse ___ Physician ___ Synthetic Filament Extruder ___ Medication Manager ___ Other (describe below) Sacrament/Intervention _x__ Active listening ___ Anointing ___ Taoism ___ Bereavement ___ Communion _x__ Alondra exploration ___ _x__ Life review _x__ Prayer ___ Reconciliation ___ Sacrament of Sick _x__ Supportive presence ___ Wedding ___ Other (describe below) Pastoral Comments patient explains her situation on waiting for transfer and being admitted to hospital; pt reports on her cancer journey and how God has been helping her and giving her more than expected; pt has large family and a daughter is coming in from out of the country tomorrow; these things keep pt positive and optimistic; pt expects spiritual care support and welcomes a prayer;
--- NOTE | 2023-07-08 16:18 | NURSING ---
talked with [facility] transfer center, no bed available at this time, unable to give estimated time for bed
[2023-07-08] MEDS: Insulin Lispro 100 UNIT/ML INSULN.PEN SC (17:08)
[2023-07-08 17:11] LABS: Bedside Glucose 223 mg/dL (74-106)
--- NOTE | 2023-07-08 17:14 | PCM.PN.HOSP ---
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 No acute events overnight. Patient seen at bedside this morning. Laying comfortably in bed, conversing normally, no acute distress. Patient does appear fatigued and somewhat chronically ill-appearing. Patient reports mild continued back pain, improved from admission. Has not had any episodes of vomiting since admission. Patient denies any episodes of significant bloody output from rectum since admission. States that her energy does feel somewhat improved after IV fluid resuscitation yesterday. She denies any fevers or chills. Denies any other acute pain or discomfort. No other acute concerns at this time. Objective Data Objective Data Vital Signs: Vital Signs Temp Pulse Resp BP Pulse Ox O2 Del Method 99.6 F H 83 16 160/63 H 93 Room Air 07/08/23 14:26 07/08/23 14:26 07/08/23 14:26 07/08/23 14:26 07/08/23 14:26 07/08/23 14:26 Oxygen Delivery Method Room Air Weight: 80.1 kg Body Mass Index (BMI) 35.6 Intake & Output: Intake and Output for Last 24 Hours 07/06/23 07/07/23 07/08/23 23:59 23:59 23:59 Intake Total 1000 / 1000 1876.67 / 1876.67 Output Total 825 / 825 Balance 1000 / 1000 1051.67 / 1051.67 Lab / Micro Data 07/08/23 05:50 07/08/23 03:18 Labs: Laboratory Results - last 24 hr 07/07/23 18:25: WBC 17.4 H, RBC 3.45 L, Hgb 10.0 L, Hct 31.3 L, MCV 90.7, MCH 29.0, MCHC 31.9 L, RDW Std Deviation 45.7 H, RDW Coeff of Dann 13.8, Plt Count 236, MPV 8.9, Immature Gran % (Auto) 1.500 H, Neut % (Auto) 90.6 H, Lymph % (Auto) 3.5 L, [place] % (Auto) 4.0, Eos % (Auto) 0.1, Baso % (Auto) 0.3, Absolute Neuts (auto) 15.8 H, Absolute Lymphs (auto) 0.61 L, Nucleated RBC % 0, Differential Comment SCANNED, Sodium 133 L, Potassium 4.3, Chloride 105, Carbon Dioxide 23.0, Anion Gap 5, BUN 38 H, Creatinine 2.40 H, Estim Creat Clear Calc 28.37, Est GFR (MDRD) Af Amer 26 L, Est GFR (MDRD) Non-Af 21 L, BUN/Creatinine Ratio 15.8, Glucose 151 H, Lactic Acid 1.7, Calcium 8.7, Total Bilirubin 1.90 H, AST 16, ALT 12 L, Alkaline Phosphatase 99, Total Protein 6.7, Albumin 2.1 L, Globulin 4.6 H, Albumin/Globulin Ratio 0.5 L, Lipase 19, Blood Type O POSITIVE, Antibody Screen NEGATIVE 07/07/23 19:08: Urine Color Yellow, Urine Clarity Cloudy, Urine pH 5.0, Ur Specific [place] 1.015, Urine Protein 100 H, Urine Glucose (UA) Normal, Urine Ketones Negative, Urine Occult Blood 250 H, Urine Nitrite Positive H, Urine Bilirubin Negative, Urine Urobilinogen Normal, Ur Leukocyte Esterase 500 H, Urine RBC 0 SEEN, Urine WBC 50-100 SEEN, Ur Squamous Epith Cells 0 SEEN, Urine Bacteria 1+, Urine Mucus 0 SEEN 07/07/23 23:29: Hgb 8.8 L, Hct 28.5 L 07/08/23 03:18: Hgb 8.8 L, Hct 27.8 L, Sodium 139, Potassium 3.6, Chloride 111 H, Carbon Dioxide 19.0 L, Anion Gap 9, BUN 38 H, Creatinine 2.27 H, Estim Creat Clear Calc 29.99, Est GFR (MDRD) Af Amer 28 L, Est GFR (MDRD) Non-Af 23 L, BUN/Creatinine Ratio 16.7, Glucose 157 H, Calcium 7.8 L, Phosphorus 3.1, Magnesium 1.9, Total Bilirubin 1.60 H, AST 14 L, ALT 12 L, Alkaline Phosphatase 84, Total Protein 5.8 L, Albumin 1.8 L, Globulin 4.0, Albumin/Globulin Ratio 0.4 L 07/08/23 05:50: WBC 11.0, RBC 3.16 L, Hgb 9.0 L, Hct 29.6 L, MCV 93.7, MCH 28.5, MCHC 30.4 L, RDW Std Deviation 47.7 H, RDW Coeff of Dann 13.9, Plt Count 195, MPV 9.1, Immature Gran % (Auto) 2.000 H, Neut % (Auto) 90.3 H, Lymph % (Auto) 2.8 L, [place] % (Auto) 4.0, Eos % (Auto) 0.4, Baso % (Auto) 0.5, Absolute Neuts (auto) 9.9 H, Absolute Lymphs (auto) 0.31 L, Nucleated RBC % 0, Differential Comment SCANNED 07/08/23 06:52: POC Glucose 141 H 07/08/23 09:00: Ur Random Sodium 36, Urine Creatinine 69.70 07/08/23 11:36: POC Glucose 123 H 07/08/23 16:53: POC Glucose 223 H Micro: Microbiology 07/08/23 04:39 Stool Enteric Bacteriology - Final 07/08/23 04:39 Stool C. difficile DNA Amplification - Final 07/07/23 21:50 Blood Culture (Wb) - Anticubital Right Blood Culture - Preliminary 07/07/23 21:50 Blood Culture (Wb) - Left Forearm Blood Culture - Preliminary 07/07/23 20:00 Stool Stool Occult Blood (ALEJANDRA) - Final Occult Blood Positive Radiography Diagnostic Testing: Radiology Impression Abdomen/Pelvis CT 07/07/23 19:26 IMPRESSION: Perihilar airspace disease. Moderately severe right hydronephrosis increased and possible minute distal ureterolith measuring 2 to 3 mm. 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 New Periumbilical/paracolostomy hernia containing loops of transverse colon. Electronically Signed: Silviano Mcgrath MD at 20:51 EST Reading Location ID and [facility] [place] Tel , Service support , Physical Exam Const alert, oriented x3 and no apparent distress Constitutional Narrative: Pleasant elderly female, obese, chronically ill-appearing, laying comfortably in bed, conversing normally, no acute distress. General Appearance: cooperative and comfortable HEENT normocephalic, head/scalp atraumatic, hearing grossly normal bilaterally, nasal mucous membranes and turbinates normal and moist oral mucous membranes Eyes PERRL, EOMs intact bilaterally and conjunctivae normal Neck full ROM, no lymphadenopathy and supple Lymph Lymphatic: no lymphadenopathy noted Chest inspection of chest normal Resp normal respiratory effort, normal air movement, no use of accessory muscles and clear to auscultation bilaterally Cardio regular rate, regular rhythm, no murmurs and peripheral pulses 2+ throughout GI GI Narrative: Colostomy bag noted with normal stool output. Abdomen soft, nontender, nondistended. Back/Spine normal ROM Extremity normal to inspection, full ROM and no pedal edema Skin no rashes or lesions noted Psych mental status grossly normal Assessment & Plan Assessment/Plan (1) YAZMIN (acute kidney injury): (2) Adnexal mass: PLAN: Plan Patient is a 68-year-old female who presented [facility] ED on 07/07/2023 with rectal/vaginal bleeding, nausea/vomiting and low back pain. 1. Rectal/vaginal bleeding; new right adnexal mass noted on imaging; history of rectal cancer with mets to the liver Follows with colorectal surgery at [facility]. History of rectal cancer treated with radiation, w/ radiation necrosis requiring colostomy placement. Currently being treated with Keytruda, follows with Dr. Menjivar with oncology in [place]. Unclear etiology of rectal/vaginal bleeding on this admission. CT abdomen pelvis on admit showed what appeared to be a new complex 1.7 cm right adnexal or presacral mass with coarse calcifications of unclear etiology. ? Discussed with [facility] surgery, recommended transfer to [facility] for further management. Notably, [facility] colorectal surgery states patient does not need their services. However, general surgery at [facility] accepted patient for transfer on 07/08. Awaiting bed placement for transfer at this time. Monitor for further signs of bleeding. 2. UTI; chronic hydronephrosis UA on admit appears consistent with infection. CT abdomen pelvis shows moderately severe right hydronephrosis. WBC count 17 on admit, afebrile, normotensive. ? Dr. Carrillo with urology evaluated, noted that hydronephrosis appears chronic based on previous imaging. Okay to continue treatment for UTI with Zosyn, follow-up urine culture. Continue Thibodeaux catheter for now. No further urology needs at this time, signed off. 3. YAZMIN ? Creatinine 2.4 on admit, baseline creatinine appears to be around 1.0. Improved only slightly to creatinine 2.27 with IV fluid resuscitation. FeNa 0.9%, consistent with prerenal etiology. Received supplemental IV fluids on admission, will hold on further fluids for now. Monitor BMP daily. Monitor urine output. 4. Nausea/vomiting, improved ? No episodes of nausea or vomiting since admission. Patient tolerating clear liquid diet without issue at this time. Stool panel and C. difficile negative. Treat symptomatically as needed. 5. History of DVT ? Holding home Eliquis given concern for acute bleed as noted above. Chronic medical conditions: ? Type 2 diabetes: Holding home glipizide. Sliding scale insulin while inpatient. ? Nonobstructive CAD, hypertension, hyperlipidemia: Continue home statin, holding home Lasix, resume as needed. ? Chronic lower extremity edema: Holding home diuretics due to YAZMIN, restart when able. ? History of sarcoidosis: No current issues. DVT prophylaxis: SCDs CODE STATUS: Full code, verified Expected disposition: Transfer to [facility] Total clinical time spent by myself addressing the patient's medical issues, reviewing all the data, and collaborating with patient's care team: 35 minutes. Charges/Coding Visit Charges Inpatient E&M: 41422 [facility] Hosp L2
--- NOTE | 2023-07-08 17:37 | DCINST_ITS ---
Discharge Instructions Follow Up Care Test Results: Test results from this visit will be discussed in further detail at your follow- up appointment, if applicable. Discharge Plan Admission Admit Date/Time: 07/07/23 22:43 Primary Reason for Your Visit: Rectal/vaginal bleeding Attending Provider: Feliz Carson Primary Care Provider: Keenan Alvarez Consulting Providers: Radha Carrillo; Amina Squires; Peggy Jeter Discharge Orders/Prescriptions Prescriptions: Continued carvedilol [Coreg] 25 mg tablet 6.25 mg PO BID Rx Instructions: must administer with a meal/food cinnamon bark [Cinnamon] 500 mg Capsule 1,000 mg PO BID clobetasol 0.05 % Cream 1 applic TOPICAL DAILY PRN (Reason: Itching) dexamethasone 0.5 mg/5 mL Elixir 0.5 mg PO BID PRN (Reason: SORE MOUTH) vitamin T64-srexm acid 0.5-1 mg Tablet 1 tab PO DAILY atorvastatin 40 mg tablet 40 mg PO DAILY Patient Comments: TAKE ONE TABLET BY MOUTH EVERY DAY lidocaine-prilocaine 2.5-2.5 % cream 1 applic topical DAILY PRN (Reason: port access) Patient Comments: APPLY 1 APPLICATION TO AFFECTED AREA NEEDED. Discontinued glipizide 5 mg tablet 5 mg PO DAILY Hold Instructions: Resume on 10/16/22. Eliquis 2.5 mg tablet 2.5 mg PO BID Hold Instructions: Resume on 10/14/22. Patient Comments: TAKE 1 TABLET BY MOUTH TWICE A DAY furosemide 40 mg tablet 40 mg PO DAILY Qty: 30 0RF potassium chloride 20 mEq tablet extended release 20 meq PO DAILY Patient Comments: TAKE ONE TABLET BY MOUTH EVERY DAY WITH FOOD Referrals / Follow Up: Keenan Alvarez DO [Primary Care Provider] - Disposition Disposition (needs filled in before D/C Order can be placed): [facility]
--- NOTE | 2023-07-08 17:39 | PCM.DC.SUM ---
Providers Date of Admission: 07/07/23 Date of Discharge: 07/10/23 Primary Care Physician: Dr. Keenan Alvarez, Consultations 07/08/23 03:58 Consult: Urology Routine Consulting Provider: Radha Carrillo Reason for Consult: Nephrolithasis EMERGENT Consult: No Notified: Yes Date Notified: 07/07/23 Time Notified: 22:44 Method of Notification: ED Physician Initiated 07/08/23 09:08 Consult: General Surgery Routine Consulting Provider: Peggy Jeter Reason for Consult: complex R adnexal mass, h/o rectal ca w/ mets EMERGENT Consult: No MD Notified: Yes Date Notified: 07/08/23 Time Notified: 09:16 Method of Notification: Text Reason For Visit: YAZMIN/UTI Diagnosis Discharge Diagnosis (1) YAZMIN (acute kidney injury): Status: Acute Code(s): N17.9 - Acute kidney failure, unspecified (2) Adnexal mass: Status: Acute Code(s): N94.89 - Other specified conditions associated with female genital organs and menstrual cycle Medications at Discharge Home Medications carvedilol 25 mg tablet (Coreg) 6.25 mg PO BID Hypertension 11/22/19 cinnamon bark 500 mg capsule (Cinnamon) 1,000 mg PO BID SUPPLEMENT 06/19/21 clobetasol 0.05 % topical cream 1 applic topical DAILY PRN Itching 10/28/22 dexamethasone 0.5 mg/5 mL oral elixir 0.5 mg PO BID PRN SORE MOUTH 10/28/22 vitamin B12 0.5 mg-folic acid 1 mg tablet 1 tab PO DAILY supplement 10/28/22 atorvastatin 40 mg tablet 40 mg PO DAILY HTN 07/08/23 lidocaine-prilocaine 2.5 %-2.5 % topical cream 1 applic topical DAILY PRN port access 07/08/23 Hospital Course Operations None Procedures EKG and - (CT abdomen pelvis without contrast) Summary of Care Provided Minutes Spent on Discharge: 35 Hospital Course: Patient is a 68-year-old female who presented [facility] ED on 07/07/2023 with rectal/vaginal bleeding, nausea/vomiting and low back pain. Hospital course as noted below. Patient was ultimately transferred to the [facility] for further management. Rectal/vaginal bleeding; new right adnexal mass noted on imaging; history of rectal cancer with mets to the liver: Follows with colorectal surgery at [facility]. History of rectal cancer treated with radiation, w/ radiation necrosis requiring colostomy placement. Currently being treated with Keytruda, follows with Dr. Menjivar with oncology in [place]. Unclear etiology of rectal/vaginal bleeding on this admission. CT abdomen pelvis on admit showed what appeared to be a new complex 1.7 cm right adnexal or presacral mass with coarse calcifications of unclear etiology. Was discussed with [facility] general surgery on admission, who recommended that patient be transferred to [facility] for further management. ? Patient notably did not have any further episodes of rectal/vaginal bleeding after admission. Hemoglobin remained stable during admission as noted below. Transferred to [facility] in stable condition. E. coli UTI with bacteremia; chronic hydronephrosis: UA on admit consistent with infection. CT abdomen pelvis showed moderately severe right hydronephrosis. WBC count 17 on admit, afebrile, normotensive. Blood cultures were 2 of 2 positive for pansensitive E. coli, urine culture grew E. coli as well. Treated with Zosyn for majority of admission, de-escalated to ceftriaxone on discharge. Dr. Carrillo with urology evaluated on admission, noted that hydronephrosis appears chronic based on previous imaging. Thibodeaux catheter was placed on admission, patient tolerated this well. ? Continued ceftriaxone on discharge, would recommend completing 10 to 14-day course of antibiotics total for UTI with bacteremia. YAZMIN, improving: Creatinine 2.4 on admit, baseline creatinine appears to be around 1.0. FeNa 0.9%, consistent with prerenal etiology. Received supplemental IV fluids on admission. Good urine output via Thibodeaux catheter during admission. ? Creatinine 1.90 on 07/10 prior to transfer. Recommend continuing to monitor BMP and urine output. Nausea/vomiting, improved: Presumed secondary to bacteremia as noted above. Patient had significant improvement with treatment of infection, had no episodes of nausea or vomiting during the admission. Was tolerating a regular diet prior to discharge. Stool panel and C. difficile negative. ? Okay for regular diet going forward. History of DVT: Home Eliquis was held on admission due to concern for acute bleed at that time. Was restarted on discharge. Discharge diagnoses: ? Rectal/vaginal bleeding, improved ? New right adnexal mass noted on imaging ? History of rectal cancer with mets to the liver ? E. coli UTI with bacteremia ? Chronic hydronephrosis ? YAZMIN, improving ? Nausea/vomiting, improved ? History of DVT ? Type 2 diabetes ? Nonobstructive CAD ? Hypertension ? Hyperlipidemia ? Chronic lower extremity edema ? History of sarcoidosis Total clinical time spent by myself addressing the patient's discharge needs: 35 minutes. Physical Exam Const alert, oriented x3 and no apparent distress Constitutional Narrative: Pleasant elderly female, obese, chronically ill-appearing, laying comfortably in bed, conversing normally, no acute distress. General Appearance: cooperative and comfortable HEENT normocephalic, head/scalp atraumatic, hearing grossly normal bilaterally, nasal mucous membranes and turbinates normal and moist oral mucous membranes Eyes PERRL, EOMs intact bilaterally and conjunctivae normal Neck full ROM, no lymphadenopathy and supple Lymph Lymphatic: no lymphadenopathy noted Chest inspection of chest normal Resp normal respiratory effort, normal air movement, no use of accessory muscles and clear to auscultation bilaterally Cardio regular rate, regular rhythm, no murmurs and peripheral pulses 2+ throughout GI GI Narrative: Colostomy bag noted with normal stool output. Abdomen soft, nontender, nondistended. Back/Spine normal ROM Extremity normal to inspection, full ROM and no pedal edema Skin no rashes or lesions noted Psych mental status grossly normal Weight / BMI Weight Weight: 80.1 kg Body Mass Index (BMI) 35.6 ABG / Lab / Microbiology Data 07/10/23 06:19 07/10/23 06:19 Laboratory: Laboratory Results - last 24 hr 07/07/23 18:25: WBC 17.4 H, RBC 3.45 L, Hgb 10.0 L, Hct 31.3 L, MCV 90.7, MCH 29.0, MCHC 31.9 L, RDW Std Deviation 45.7 H, RDW Coeff of Dann 13.8, Plt Count 236, MPV 8.9, Immature Gran % (Auto) 1.500 H, Neut % (Auto) 90.6 H, Lymph % (Auto) 3.5 L, [place] % (Auto) 4.0, Eos % (Auto) 0.1, Baso % (Auto) 0.3, Absolute Neuts (auto) 15.8 H, Absolute Lymphs (auto) 0.61 L, Nucleated RBC % 0, Differential Comment SCANNED, Sodium 133 L, Potassium 4.3, Chloride 105, Carbon Dioxide 23.0, Anion Gap 5, BUN 38 H, Creatinine 2.40 H, Estim Creat Clear Calc 28.37, Est GFR (MDRD) Af Amer 26 L, Est GFR (MDRD) Non-Af 21 L, BUN/Creatinine Ratio 15.8, Glucose 151 H, Lactic Acid 1.7, Calcium 8.7, Total Bilirubin 1.90 H, AST 16, ALT 12 L, Alkaline Phosphatase 99, Total Protein 6.7, Albumin 2.1 L, Globulin 4.6 H, Albumin/Globulin Ratio 0.5 L, Lipase 19, Blood Type O POSITIVE, Antibody Screen NEGATIVE 07/07/23 19:08: Urine Color Yellow, Urine Clarity Cloudy, Urine pH 5.0, Ur Specific [place] 1.015, Urine Protein 100 H, Urine Glucose (UA) Normal, Urine Ketones Negative, Urine Occult Blood 250 H, Urine Nitrite Positive H, Urine Bilirubin Negative, Urine Urobilinogen Normal, Ur Leukocyte Esterase 500 H, Urine RBC 0 SEEN, Urine WBC 50-100 SEEN, Ur Squamous Epith Cells 0 SEEN, Urine Bacteria 1+, Urine Mucus 0 SEEN 07/07/23 23:29: Hgb 8.8 L, Hct 28.5 L 07/08/23 03:18: Hgb 8.8 L, Hct 27.8 L, Sodium 139, Potassium 3.6, Chloride 111 H, Carbon Dioxide 19.0 L, Anion Gap 9, BUN 38 H, Creatinine 2.27 H, Estim Creat Clear Calc 29.99, Est GFR (MDRD) Af Amer 28 L, Est GFR (MDRD) Non-Af 23 L, BUN/Creatinine Ratio 16.7, Glucose 157 H, Calcium 7.8 L, Phosphorus 3.1, Magnesium 1.9, Total Bilirubin 1.60 H, AST 14 L, ALT 12 L, Alkaline Phosphatase 84, Total Protein 5.8 L, Albumin 1.8 L, Globulin 4.0, Albumin/Globulin Ratio 0.4 L 07/08/23 05:50: WBC 11.0, RBC 3.16 L, Hgb 9.0 L, Hct 29.6 L, MCV 93.7, MCH 28.5, MCHC 30.4 L, RDW Std Deviation 47.7 H, RDW Coeff of Dann 13.9, Plt Count 195, MPV 9.1, Immature Gran % (Auto) 2.000 H, Neut % (Auto) 90.3 H, Lymph % (Auto) 2.8 L, [place] % (Auto) 4.0, Eos % (Auto) 0.4, Baso % (Auto) 0.5, Absolute Neuts (auto) 9.9 H, Absolute Lymphs (auto) 0.31 L, Nucleated RBC % 0, Differential Comment SCANNED 07/08/23 06:52: POC Glucose 141 H 07/08/23 09:00: Ur Random Sodium 36, Urine Creatinine 69.70 07/08/23 11:36: POC Glucose 123 H 07/08/23 16:53: POC Glucose 223 H Microbiology: Microbiology 07/08/23 04:39 Stool Enteric Bacteriology - Final 07/08/23 04:39 Stool C. difficile DNA Amplification - Final 07/07/23 21:50 Blood Culture (Wb) - Anticubital Right Blood Culture - Preliminary 07/07/23 21:50 Blood Culture (Wb) - Left Forearm Blood Culture - Preliminary 07/07/23 20:00 Stool Stool Occult Blood (ALEJANDRA) - Final Occult Blood Positive Radiography Diagnostic Testing: Radiology Impression Abdomen/Pelvis CT 07/07/23 19:26 IMPRESSION: Perihilar airspace disease. Moderately severe right hydronephrosis increased and possible minute distal ureterolith measuring 2 to 3 mm. 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 New Periumbilical/paracolostomy hernia containing loops of transverse colon. Electronically Signed: Silviano Mcgrath MD at 20:51 EST , Meaningful Use Info Meaningful Use Diagnoses (Choose all that apply): None applicable Discharge Plan Admission Admit Date/Time: 07/07/23 22:43 Primary Reason for Your Visit: Rectal/vaginal bleeding Attending Provider: Feliz Carson Primary Care Provider: Keenan Alvarez Consulting Providers: Radha Carrillo; Amina Squires; Peggy Jeter Discharge Orders/Prescriptions Prescriptions: Continued carvedilol [Coreg] 25 mg tablet 6.25 mg PO BID Rx Instructions: must administer with a meal/food cinnamon bark [Cinnamon] 500 mg Capsule 1,000 mg PO BID clobetasol 0.05 % Cream 1 applic TOPICAL DAILY PRN (Reason: Itching) dexamethasone 0.5 mg/5 mL Elixir 0.5 mg PO BID PRN (Reason: SORE MOUTH) vitamin [id number] acid 0.5-1 mg Tablet 1 tab PO DAILY atorvastatin 40 mg tablet 40 mg PO DAILY Patient Comments: TAKE ONE TABLET BY MOUTH EVERY DAY lidocaine-prilocaine 2.5-2.5 % cream 1 applic topical DAILY PRN (Reason: port access) Patient Comments: APPLY 1 APPLICATION TO AFFECTED AREA NEEDED. Discontinued glipizide 5 mg tablet 5 mg PO DAILY Hold Instructions: Resume on 10/16/22. Eliquis 2.5 mg tablet 2.5 mg PO BID Hold Instructions: Resume on 10/14/22. Patient Comments: TAKE 1 TABLET BY MOUTH TWICE A DAY furosemide 40 mg tablet 40 mg PO DAILY Qty: 30 0RF potassium chloride 20 mEq tablet extended release 20 meq PO DAILY Patient Comments: TAKE ONE TABLET BY MOUTH EVERY DAY WITH FOOD Referrals / Follow Up: Keenan Alvarez DO [Primary Care Provider] - Disposition Disposition (needs filled in before D/C Order can be placed): Acute Care Hospital Charges/Coding Visit Charges Inpatient E&M: 19852 Disch Hosp >30min
[2023-07-08] MEDS: Atorvastatin Calcium 40 MG Tablet PO (20:48)
[2023-07-08 22:03] LABS: Bedside Glucose 209 mg/dL (74-106)
[2023-07-09 04:00] VITALS: BP 144/62; PULSE 71; RESP 18; TEMP 36.8; O2SAT 97
[2023-07-09] MEDS: Lactated Ringers 1,000 ML 125 ML IV (04:19)
[2023-07-09] MEDS: Piperacil/Tazobactam 3.375 GM in 0.9% Normal Saline (50mL MB+) 50 ML IV ×3 (04:30→20:42)
[2023-07-09] MEDS: Insulin Lispro 100 UNIT/ML INSULN.PEN SC ×2 (04:32→11:39)
[2023-07-09 06:00] VITALS: BMI 35.6
[2023-07-09 06:32] LABS: Bedside Glucose 185 mg/dL (74-106)
[2023-07-09 07:25] LABS: Anion Gap 6 (5-15); BUN 31 mg/dL (7-18); BUN/Creat Ratio 16.5 RATIO (10-20); Chloride 111 mmol/L (98-107); Creatinine, Serum 1.88 mg/dL (0.55-1.02); EST Glomerular Filtration Rate 28 mL/min (>60); Est Glom Filt Rate - Afr Amer 34 mL/min (>60); Estimated Creatinine Clearance 36.31 ml/min; Glucose 176 mg/dL (74-106); Potassium 3.9 mmol/L (3.5-5.1); Sodium Level 138 mmol/L (136-145)
[2023-07-09 08:40] VITALS: BP 149/65; PULSE 69; RESP 18; TEMP 36.9; O2SAT 97
[2023-07-09] MEDS: Carvedilol 6.25 MG Tablet PO ×2 (08:44→20:42)
[2023-07-09] MEDS: Menthol/Lanolin/Calamine/Znox 113 GM Tube 1 APPLIC TOPICAL ×2 (08:44→20:42)
[2023-07-09 12:12] LABS: Bedside Glucose 215 mg/dL (74-106)
--- NOTE | 2023-07-09 13:25 | PCM.PN.HOSP ---
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 Patient seen at bedside this morning. Reports feeling somewhat better this morning. Has not had any blood passing from below since admission. Has not had any episodes of nausea or vomiting since admission. Tolerated clear liquid diet well yesterday. Is feeling hungry at this time. Continues to feel somewhat fatigued but is improved from yesterday. Tolerating Thibodeaux catheter well. Denies any acute pain or discomfort. Denies any fevers or chills. No other acute concerns this time. Objective Data Objective Data Vital Signs: Vital Signs Temp Pulse Resp BP Pulse Ox O2 Del Method 98.5 F 69 18 149/65 H 97 Room Air 07/09/23 08:40 07/09/23 08:40 07/09/23 08:40 07/09/23 08:40 07/09/23 08:40 07/09/23 08:45 Oxygen Delivery Method Room Air Weight: 80.3 kg Body Mass Index (BMI) 35.6 Intake & Output: Intake and Output for Last 24 Hours 07/07/23 07/08/23 07/09/23 23:59 23:59 23:59 Intake Total 1000 / 1000 2926.67 / 2926.67 1735.41 / 1735.41 Output Total 1175 / 1175 625 / 625 Balance 1000 / 1000 1751.67 / 1751.67 1110.41 / 1110.41 Lab / Micro Data 07/08/23 05:50 07/09/23 06:45 Labs: Laboratory Results - last 24 hr 07/08/23 16:53: POC Glucose 223 H 07/08/23 20:54: POC Glucose 209 H 07/09/23 04:32: POC Glucose 185 H 07/09/23 06:45: Sodium 138, Potassium 3.9, Chloride 111 H, Carbon Dioxide 21.0, Anion Gap 6, BUN 31 H, Creatinine 1.88 H, Estim Creat Clear Calc 36.31, Est GFR (MDRD) Af Amer 34 L, Est GFR (MDRD) Non-Af 28 L, BUN/Creatinine Ratio 16.5, Glucose 176 H, Calcium 8.0 L 07/09/23 11:37: POC Glucose 215 H Micro: Microbiology 07/07/23 19:08 Urine Catheter - Catheter Urine Culture - Preliminary Presumptive E. coli 07/08/23 04:39 Stool C. difficile DNA Amplification - Final 07/07/23 21:50 Blood Culture (Wb) - Anticubital Right Blood Culture - Preliminary GNR lactose lens inspector 07/07/23 21:50 Blood Culture (Wb) - Left Forearm Blood Culture - Preliminary GNR lactose lens inspector 07/08/23 04:39 Stool Enteric Bacteriology - Final 07/07/23 20:00 Stool Stool Occult Blood (ALEJANDRA) - Final Occult Blood Positive Physical Exam Const alert, oriented x3 and no apparent distress Constitutional Narrative: Pleasant elderly female, obese, chronically ill-appearing, laying comfortably in bed, conversing normally, no acute distress. General Appearance: cooperative and comfortable HEENT normocephalic, head/scalp atraumatic, hearing grossly normal bilaterally, nasal mucous membranes and turbinates normal and moist oral mucous membranes Eyes PERRL, EOMs intact bilaterally and conjunctivae normal Neck full ROM, no lymphadenopathy and supple Lymph Lymphatic: no lymphadenopathy noted Chest inspection of chest normal Resp normal respiratory effort, normal air movement, no use of accessory muscles and clear to auscultation bilaterally Cardio regular rate, regular rhythm, no murmurs and peripheral pulses 2+ throughout GI GI Narrative: Colostomy bag noted with normal stool output. Abdomen soft, nontender, nondistended. Back/Spine normal ROM Extremity normal to inspection, full ROM and no pedal edema Skin no rashes or lesions noted Psych mental status grossly normal Assessment & Plan Assessment/Plan (1) YAZMIN (acute kidney injury): (2) Adnexal mass: PLAN: Plan Patient is a 68-year-old female who presented [facility] ED on 07/07/2023 with rectal/vaginal bleeding, nausea/vomiting and low back pain. 1. Rectal/vaginal bleeding; new right adnexal mass noted on imaging; history of rectal cancer with mets to the liver Follows with colorectal surgery at [facility]. History of rectal cancer treated with radiation, w/ radiation necrosis requiring colostomy placement. Currently being treated with Keytruda, follows with Dr. Menjivar with oncology in [place]. Unclear etiology of rectal/vaginal bleeding on this admission. CT abdomen pelvis on admit showed what appeared to be a new complex 1.7 cm right adnexal or presacral mass with coarse calcifications of unclear etiology. ? Discussed with [facility] surgery, recommended transfer to [facility] for further management. Notably, [facility] colorectal surgery states patient does not need their services. However, general surgery at [facility] accepted patient for transfer on 07/08. Awaiting bed placement for transfer at this time. Has not had any further episodes of bleeding since admission, continue to monitor. 2. UTI; chronic hydronephrosis UA on admit appears consistent with infection. CT abdomen pelvis shows moderately severe right hydronephrosis. WBC count 17 on admit, afebrile, normotensive. ? Dr. Carrillo with urology evaluated, noted that hydronephrosis appears chronic based on previous imaging. Okay to continue treatment for UTI with Zosyn, follow-up urine culture. Continue Thibodeaux catheter for now. No further urology needs at this time, signed off. 3. YAZMIN ? Creatinine 2.4 on admit, baseline creatinine appears to be around 1.0. FeNa 0.9%, consistent with prerenal etiology. Received supplemental IV fluids on admission, creatinine slowly downtrending. No need for further IV fluids at this time, encouraged p.o. intake. Monitor BMP daily. Monitor urine output. 4. Nausea/vomiting, improved ? No episodes of nausea or vomiting since admission. Stool panel and C. difficile negative. Treat symptomatically as needed. Tolerated clear liquid diet well, transitioned to regular diet on 07/09. 5. History of DVT ? Holding home Eliquis given concern for acute bleed as noted above. Chronic medical conditions: ? Type 2 diabetes: Holding home glipizide. Sliding scale insulin while inpatient. ? Nonobstructive CAD, hypertension, hyperlipidemia: Continue home statin, holding home Lasix, resume as needed. ? Chronic lower extremity edema: Holding home diuretics due to YAZMIN, restart when able. ? History of sarcoidosis: No current issues. DVT prophylaxis: SCDs CODE STATUS: Full code, verified Expected disposition: Transfer to [facility] [place] Total clinical time spent by myself addressing the patient's medical issues, reviewing all the data, and collaborating with patient's care team: 35 minutes. Charges/Coding Visit Charges Inpatient E&M: 64062 Subs Hosp L2
[2023-07-09] MEDS: Acetaminophen 325 MG Tablet 650 MG PO ×2 (13:55→20:42)
[2023-07-09 14:02] VITALS: BP 147/56; PULSE 71; RESP 16; TEMP 37; O2SAT 95
[2023-07-09 17:06] LABS: Bedside Glucose 146 mg/dL (74-106)
[2023-07-09 20:31] VITALS: BP 165/67; PULSE 67; RESP 18; TEMP 36.5; O2SAT 99
[2023-07-09] MEDS: Atorvastatin Calcium 40 MG Tablet PO (20:42)
[2023-07-09 23:03] LABS: Bedside Glucose 163 mg/dL (74-106)
[2023-07-10 04:00] VITALS: BP 161/66; PULSE 62; RESP 18; TEMP 36.6; O2SAT 99
[2023-07-10] MEDS: Piperacil/Tazobactam 3.375 GM in 0.9% Normal Saline (50mL MB+) 50 ML IV (04:37)
[2023-07-10 05:34] LABS: Bedside Glucose 114 mg/dL (74-106)
[2023-07-10 05:57] VITALS: BMI 35.6
[2023-07-10 06:27] LABS: Hematocrit 30.7 % (37-47); Hemoglobin 9.3 g/dL (12.0-15.0); Mean Corp Hgb Conc 30.3 g/dL (32-36); Mean Corpuscular Volume 92.5 fL (81-99); Mean Platelet Vol. 8.8 fl (6.2-12.0); Platelet Count 201 K/mm3 (150-450); RBC Distribution Width CV 14.4 % (11.6-14.6); RBC Distribution Width SD 48.8 fl (35.1-43.9); Red Blood Count 3.32 M/mm3 (4.2-5.4); White Blood Count 10.5 K/mm3 (4.4-11.0)
[2023-07-10 06:52] LABS: Anion Gap 5 (5-15); BUN 29 mg/dL (7-18); BUN/Creat Ratio 15.3 RATIO (10-20); Calcium,Total 8.1 mg/dL (8.5-10.1); Chloride 111 mmol/L (98-107); EST Glomerular Filtration Rate 28 mL/min (>60); Est Glom Filt Rate - Afr Amer 34 mL/min (>60); Estimated Creatinine Clearance 35.83 ml/min; Glucose 134 mg/dL (74-106); Potassium 3.3 mmol/L (3.5-5.1); Sodium Level 137 mmol/L (136-145)
[2023-07-10] MEDS: Carvedilol 6.25 MG Tablet PO (08:37)
[2023-07-10] MEDS: Potassium Chloride Oral Soln 20 MEQ/15 ML UDC 40 MEQ PO (08:39)
[2023-07-10] MEDS: Acetaminophen 325 MG Tablet 650 MG PO (08:43)
[2023-07-10] MEDS: Menthol/Lanolin/Calamine/Znox 113 GM Tube 1 APPLIC TOPICAL (08:44)
[2023-07-10 09:21] VITALS: BP 150/80; PULSE 67; RESP 16; TEMP 37.1; O2SAT 98
[2023-07-10] MEDS: Insulin Lispro 100 UNIT/ML INSULN.PEN SC (11:35)
[2023-07-10 11:49] VITALS: BP 151/67; PULSE 65; RESP 16; TEMP 37.1; O2SAT 96
[2023-07-10 12:01] LABS: Bedside Glucose 167 mg/dL (74-106)
[2023-07-10] MEDS: Ceftriaxone 1 GM/50 ML BAG IV (13:43)
--- NOTE | 2023-07-10 14:02 | PCA ---
PT got a bed at [facility] bed G70 Bed3. nurse to nurse report [phone], transportation arranged for waste picker at 1400.
[2023-07-10 14:19] VITALS: O2SAT 96
== END 2023-07-10 14:27 | disposition short-term general hospital (02) | DRG 872 ==
LOC: ED 17:16 → MS3 23:57
PROVIDERS: Admitting Provider Internal Medicine; Emergency Provider Emergency Medicine; Visit Provider Hospitalist
DX: A41.51 Sepsis due to Escherichia coli [E. coli] (principal); I13.0 Hypertensive heart and chronic kidney disease with heart failure and stage 1 through stage 4 chronic kidney disease, or unspecified chronic kidney disease; I42.9 Cardiomyopathy, unspecified; C20 Malignant neoplasm of rectum; N13.6 Pyonephrosis; N17.9 Acute kidney failure, unspecified; C78.7 Secondary malignant neoplasm of liver and intrahepatic bile duct; I50.32 Chronic diastolic (congestive) heart failure; K62.5 Hemorrhage of anus and rectum; N82.3 Fistula of vagina to large intestine; E86.0 Dehydration; E11.22 Type 2 diabetes mellitus with diabetic chronic kidney disease; J44.9 Chronic obstructive pulmonary disease, unspecified; N18.30 Chronic kidney disease, stage 3 unspecified; Z93.3 Colostomy status; D86.9 Sarcoidosis, unspecified; E78.5 Hyperlipidemia, unspecified; I25.10 Atherosclerotic heart disease of native coronary artery without angina pectoris; R11.2 Nausea with vomiting, unspecified; E80.7 Disorder of bilirubin metabolism, unspecified; E66.9 Obesity, unspecified; N93.9 Abnormal uterine and vaginal bleeding, unspecified; N94.89 Other specified conditions associated with female genital organs and menstrual cycle; Z79.01 Long term (current) use of anticoagulants; Z79.84 Long term (current) use of oral hypoglycemic drugs; Z79.52 Long term (current) use of systemic steroids; Z95.5 Presence of coronary angioplasty implant and graft; Z68.35 Body mass index [BMI] 35.0-35.9, adult; Z92.3 Personal history of irradiation
CPT/HCPCS: 36415; 74176; 80048; 80053; 81001; 82274; 82570; 82962; 83605; 83690; 83735; 84100; 84300; 85014; 85018; 85025; 85027; 86850; 86900; 86901; 86902; 87040; 87077; 87086; 87088; 87186; 87493; 87506; 94668; 97162; 97166; 97802; 99252; 99285; J7030; J7120; A4216; G0463; J2405

== ENCOUNTER 2023-09-25 22:07 | Inpatient (IN) | payer MEDICARE, SELFPAY ==
[2023-09-25 22:09] VITALS: BP 184/92; PULSE 88; RESP 16; TEMP 36.4; O2SAT 100; BMI 34.7
[2023-09-25 22:11] VITALS: BP 130/70; PULSE 91; RESP 16; TEMP 37.1; O2SAT 99
--- NOTE | 2023-09-25 22:40 | ED.VIS.GI ---
HPI HPI - GI History of Present Illness Chief Complaint: GI Bleed Narrative Narrative: 68-year-old female with history of metastatic colon cancer presenting with rectal bleeding. She states that it is painless. It started earlier today. Patient states that she is on Lovenox at home for history of DVT/PE. Patient states that she is on chemotherapy currently (Keytruda) and she is a patient of Dr. Menjivar. She also sees Dr. Osman Martinez at [facility] for her colon cancer. She related to him that she had a small amount of rectal bleeding a week ago but he was not concerned about it. Patient states today she has had several episodes of bright red bleeding with blood clots coming from her rectum. She does have a colostomy and she states that her colostomy is putting out green liquidy stool. She does not have any abdominal pain and states he is never abdominal pain with her cancer. Patient denies fever, chills. Patient states she has no history of hemorrhoids. She states that she was using the restroom today after urinating and when she wiped she noticed she had blood coming from her rectum. She states there was large clots at this point. 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 Cardiomyopathy Carotid artery stenosis Carotid artery stenosis with cerebral infarction Chronic anticoagulation Chronic kidney disease, stage III (moderate) Congenital talipes calcaneovalgus of left foot Congestive heart failure (CHF) COPD (chronic obstructive pulmonary disease) Coronary artery disease Diabetes mellitus Diabetes mellitus type II, uncontrolled Diastolic congestive heart failure DVT (deep venous thrombosis) Edema of left lower extremity Edema of right lower extremity Essential hypertension GI bleed GI bleed History of CHF (congestive heart failure) History of CVA (cerebrovascular accident) (10/21/17) History of deep vein thrombosis (DVT) of lower extremity History of deep venous thrombosis (DVT) of distal vein of left lower extremity History of deep venous thrombosis (DVT) of distal vein of right lower extremity History of diabetes mellitus, type II History of pleural effusion (10/21/17) History of rectal cancer History of renal disease History of stress test Hyperlipidemia Hypertension Left leg swelling Low iron Lymphedema Lymphedema of left leg Nonrheumatic mitral valve regurgitation Nonrheumatic tricuspid valve regurgitation Parastomal hernia Postphlebitic syndrome with inflammation Preop cardiovascular exam Radiation proctitis Rectal bleeding Rectal cancer metastasized to liver Renal insufficiency Right leg swelling Sarcoidosis Shortness of breath on exertion Snoring Steroid long-term use Stroke/cerebrovascular accident Tricuspid regurgitation Wears dentures Home Medications carvedilol 25 mg tablet (Coreg) 6.25 mg PO BID Hypertension 11/22/19 [History Last Taken 09/27/22 0700] cinnamon bark 500 mg capsule (Cinnamon) 1,000 mg PO BID SUPPLEMENT 06/19/21 [History Last Taken 09/27/22 0700] clobetasol 0.05 % topical cream 1 applic topical DAILY PRN Itching 10/28/22 [History Last Taken Unknown] dexamethasone 0.5 mg/5 mL oral elixir 0.5 mg PO BID PRN SORE MOUTH 10/28/22 [History Last Taken Unknown] vitamin B12 0.5 mg-folic acid 1 mg tablet 1 tab PO DAILY supplement 10/28/22 [History Last Taken Unknown] atorvastatin 40 mg tablet 40 mg PO DAILY HTN 07/08/23 [History Last Taken Unknown] lidocaine-prilocaine 2.5 %-2.5 % topical cream 1 applic topical DAILY PRN port access 07/08/23 [History Last Taken Unknown] cephalexin 500 mg capsule 500 mg PO Q12H 09/25/23 [History Last Taken Unknown] enoxaparin 40 mg/0.4 mL subcutaneous syringe 40 mg subcut Q24H 09/25/23 [History Last Taken Unknown] furosemide 20 mg tablet 20 mg PO 1600 09/25/23 [History Last Taken Unknown] furosemide 40 mg tablet 40 mg PO 0800 09/25/23 [History Last Taken Unknown] lactobacillus combo no.11 15 billion cell sprinkle capsule (Probiotic) 1 cap PO DAILY 09/25/23 [History Last Taken Unknown] Allergy/AdvReac Type Severity Reaction Status Date / Time latex Allergy Severe Hives Verified 09/25/23 22:11 codeine AdvReac Unknown unknown Verified 09/25/23 22:11 Family History Mother Bleeding disorder Diabetes CAD (coronary artery disease) Hypertension Hyperlipidemia Kidney disease Sister Asthma CAD (coronary artery disease) Hyperlipidemia Father Cancer CAD (coronary artery disease) Hypertension Hyperlipidemia CVA (cerebral vascular accident) Brother CAD (coronary artery disease) Hyperlipidemia Surgical History History of cardiac catheterization History of cataract surgery History of colonoscopy History of colostomy History of coronary artery stent placement History of foot surgery Hx of cataract surgery Social History household members: spouse Smoking Status: Never smoker alcohol intake: never substance use type: does not use ROS ROS ED Constitutional Constitutional ED: Denies chills, fever(s) or sweats Eyes Eyes: Denies blurry vision or change in vision ENT ENT ED: Denies ear pain or sore throat Cardiovascular Cardiovascular: Denies chest pain, palpitations or racing heartbeat Respiratory/Chest Respiratory/Chest: Denies cough, dyspnea or sputum Gastrointestinal Gastrointestinal: Reports other Details: Green stool in ostomy bag. Bright red bleeding per rectum ; Denies constipation, diarrhea, nausea or vomiting Genitourinary Genitourinary ED: Denies dysuria, hematuria or urinary frequency Musculoskeletal Musculoskeletal: Denies arthralgias, myalgias or neck pain Integumentary Denies abscess, Abrasions or rash Neurologic Neurologic: Denies headache(s), paresthesias or weakness Psychiatric Psychiatric: Denies anxiety, depression, suicidal ideation or suicidal thoughts Endocrine Endocrinology: Denies polydipsia or polyuria EXAM Physical Exam Const Vital Signs: 09/25/23 22:09 09/25/23 22:11 09/25/23 23:11 Temperature 97.6 F L 98.7 F 98.7 F Temperature Source Temporal Oral Oral Pulse Rate 88 91 90 Respiratory Rate 16 16 16 Blood Pressure 184/92 H 130/70 H 129/60 H Blood Pressure Mean 122 90 83 Pulse Ox 100 99 98 Oxygen Delivery Method Room Air Room Air Room Air 09/26/23 00:11 09/26/23 01:11 09/26/23 02:11 Temperature 98.7 F 98.7 F 98.7 F Temperature Source Oral Oral Oral Pulse Rate 89 90 89 Respiratory Rate 16 16 16 Blood Pressure 132/61 H 130/58 H 130/57 H Blood Pressure Mean 84 82 81 Pulse Ox 99 99 99 Oxygen Delivery Method Room Air Room Air Room Air Positive well nourished General Appearance ED: NAD; Negative for pallor HEENT Reports moist mucous membranes atraumatic Eyes PERRL and EOMs intact bilaterally General Eye ED: Negative for pale conjunctiva or scleral icterus Neck no lymphadenopathy Resp normal respiratory effort Cardio regular rate and regular rhythm GI non-tender and non-distended Neuro CN's II-XII intact bilaterally Sensorium / Orientation: alert Motor Exam: strength 5/5 throughout Psych mental status grossly normal Skin no wounds General Skin Exam: Negative for jaundice or pallor MDM MDM MDM Narrative Medical decision making narrative: 60-year-old female with history of metastatic colon cancer with rectal bleeding. She states she has had it most of the day. She is on Lovenox for history of DVT/PE. She states that she called the nurses line and was referred to [facility] for rectal bleeding. She states that her colorectal surgeon is Dr. Osman Roberto at [facility]. Patient relates that she told him regarding the lower bleeding about a week ago which was much less and at that point was told he was not really concerned with rectal bleeding. She is on Keytruda with Dr. Menjivar. She is no longer undergoing radiation therapy. Patient denies any pain. She is well-appearing with normal vital signs. Differential includes metastatic cancer, GI bleed, anemia, dehydration, electrolyte abnormalities, bowel obstruction. CBC will be obtained to assess white blood cell count, hemoglobin, platelets. BMP to assess renal function, electrolytes, glucose. LFT to assess her liver enzymes. Lipase to assess for pancreatitis. Urinalysis to assess for UTI. Type and screen was obtained due to her history of bleeding. Patient declines any analgesia. Will obtain a CT of the abdomen pelvis to assess for worsening mass. CBC shows normal white blood cell count of 7.4. Hemoglobin 10.4 and higher than previous per our records. PT/INR normal. Creatinine is improved to 1.67 from previous. Total bilirubin normal. LFTs otherwise normal. Urinalysis negative. Patient was typed and screened due to rectal bleeding. She does not appear to be anemic and does not need blood. We did discuss getting a CT scan and this was obtained which does show previously noted right-sided hydronephrosis which the patient has had in the past and does not have any pain due to this. She also has a collection in the right posterior lateral uterine region and adjacent to the right sigmoid suggestive of adnexal versus sigmoid neoplasm or inflammatory process. Given patient's GI bleeding and history of colorectal cancer I spoke with [facility]. I spoke with Dr. Bermudez who is on-call for her surgeon. He recommended transfer. We will hold Lovenox for now. Patient reevaluated and still pain-free with normal vital signs. Patient consented for transfer. She will be transported when a bed becomes available. Impression: 1. History of metastatic colorectal cancer 2. GI bleed 3. Hydronephrosis Lab Data Attestation: I reviewed the patient's lab results. Labs: Laboratory Results - last 24 hr 09/25/23 09/25/23 23:05 23:30 WBC 7.4 RBC 3.53 L Hgb 10.4 L Hct 33.1 L MCV 93.8 MCH 29.5 MCHC 31.4 L RDW Std Deviation 49.5 H RDW Coeff of Dann 14.3 Plt Count 310 MPV 8.6 Immature Gran % (Auto) 0.300 Neut % (Auto) 70.4 H Lymph % (Auto) 13.7 L [place] % (Auto) 11.4 H Eos % (Auto) 3.7 Baso % (Auto) 0.5 Absolute Neuts (auto) 5.2 Absolute Lymphs (auto) 1.01 Nucleated RBC % 0 PT 13.7 INR 1.1 Sodium 138 Potassium 4.2 Chloride 109 H Carbon Dioxide 25.0 Anion Gap 4 L BUN 30 H Creatinine 1.67 H Estim Creat Clear Calc 29.78 Est GFR (MDRD) Af Amer 39 L Est GFR (MDRD) Non-Af 32 L BUN/Creatinine Ratio 18.0 Glucose 185 H Calcium 8.8 Total Bilirubin 0.70 Direct Bilirubin 0.19 AST 14 L ALT 21 Alkaline Phosphatase 127 H Total Protein 7.1 Albumin 2.5 L Globulin 4.6 H Lipase 57 Urine Color Yellow Urine Clarity Clear Urine pH 6.0 Ur Specific [place] 1.010 Urine Protein Negative Urine Glucose (UA) Normal Urine Ketones Negative Urine Occult Blood Negative Urine Nitrite Negative Urine Bilirubin Negative Urine Urobilinogen Normal Ur Leukocyte Esterase 25 H Urine RBC 0 SEEN Urine WBC 0 SEEN Ur Squamous Epith Cells 0 SEEN Urine Bacteria 0 SEEN Urine Mucus 0 SEEN Blood Type O POSITIVE Antibody Screen NEGATIVE Radiography Diagnostic Testing: Clinical Impression(s) from Imaging Studies Abdomen/Pelvis CT 09/25/23 22:43 IMPRESSION: Persistent with slight progression of the right-sided hydronephrosis possibly related to a questionable collection in the right posterolateral uterine region and adjacent to the right sigmoid suggestive of adnexal versus sigmoid neoplasm or inflammatory process. Correlation with history of known neoplasm at this level recommended. Status post left colostomy. No acute appendicitis or bowel obstruction. Cystitis with underlying mass or neoplasm not excluded. Clinical correlation recommended along with urinalysis. Electronically Signed: Livia Addison MD at 0:47 EST , Discharge Plan Triage Chief Complaint: GI Bleed ED Provider: Sruesh Peng Dx/Rx/DC Orders Prescriptions: No Action carvedilol [Coreg] 25 mg tablet 6.25 mg PO BID Rx Instructions: must administer with a meal/food cinnamon bark [Cinnamon] 500 mg Capsule 1,000 mg PO BID clobetasol 0.05 % Cream 1 applic TOPICAL DAILY PRN (Reason: Itching) dexamethasone 0.5 mg/5 mL Elixir 0.5 mg PO BID PRN (Reason: SORE MOUTH) vitamin [id number] acid 0.5-1 mg Tablet 1 tab PO DAILY atorvastatin 40 mg tablet 40 mg PO DAILY Patient Comments: TAKE ONE TABLET BY MOUTH EVERY DAY lidocaine-prilocaine 2.5-2.5 % cream 1 applic topical DAILY PRN (Reason: port access) Patient Comments: APPLY 1 APPLICATION TO AFFECTED AREA NEEDED. enoxaparin 40 mg/0.4 mL syringe 40 mg subcut Q24H Patient Comments: INJECT 0.4 ML SUBCUTANEOUSLY ONCE DAILY. furosemide 40 mg tablet 40 mg PO 0800 Patient Comments: TAKE 1 TABLET BY MOUTH EVERY DAY furosemide 20 mg tablet 20 mg PO 1600 cephalexin 500 mg capsule 500 mg PO Q12H Patient Comments: TAKE 1 CAPSULE BY MOUTH EVERY 12 HOURS FOR 10 DAYS Probiotic 15 billion cell capsule, sprinkle 1 cap PO DAILY Rx Instructions: do not crush/chew/cut; swallow whole OR may open and sprinkle in cold drink/food Primary Care Provider: Keenan Alvarez Referrals: Keenan Alvarez DO [Primary Care Provider] -
--- NOTE | 2023-09-25 22:43 | CT_ITS ---
STUDY: CT ABDOMEN AND PELVIS WITH CONTRAST REASON FOR EXAM: Female, 68 years old. rectal bleeding Hx of rectal cancer RADIATION DOSAGE (If Supplied By Facility): CTDIvol = ( 17.89 ) mGy, DLP = ( 1074.13 ) mGycm TECHNIQUE: Transaxial images were obtained from the dome of the diaphragm to the symphysis pubis without oral contrast. IV 75mL Isovue-300 was administered. Sagittal and coronal images were reconstructed. Individualized dose optimization techniques were used for this CT. COMPARISON: 07/07/2023. . FINDINGS: Left lower lobe atelectasis with patchy opacities within the right middle lobe and lingular lobe concerning for pneumonia. Borderline cardiomegaly. Low-attenuation lesion within the right liver lobe with peripheral nodular enhancement measuring 1.5 cm suggestive of hemangioma. This is stable or decreased in size compared to 09/28/2022. Normal gallbladder and extrahepatic biliary system. Normal spleen. Normal pancreas. Normal bilateral adrenal glands. Moderate to severe hydronephrosis and hydroureter, slightly progressed in the interval. The right ureter is dilated to the left side of the lower pelvis with an ill-defined hypoattenuated mass or fluid collection, image 77/series 2 measuring 4.4 x 3.0 cm which could represent an adnexal or sigmoid mass given vicinity of the structures. Otherwise unremarkable right kidney. Normal left kidney. Normal visualized stomach. Normal small intestine. Moderate fecal debris within the colon with status post left colostomy. There is thickening of the wall of the distal rectosigmoid concerning for distal colitis/proctitis. The appendix is visualized and appears normal. There is diffuse atherosclerotic calcification of the abdominal aorta, without a demonstrated aneurysm. Normal inferior vena cava. Normal retroperitoneum. Severe thickening of urinary bladder wall concerning for cystitis. Cannot exclude neoplasm. Anteverted uterus. Normal abdominal wall. Advanced degenerative disease of the spine. Minimal anterolisthesis of L4 on L5 with no pars defect. CT/Abdomen/Pelvis W IV Cont ONLY IMPRESSION: Persistent with slight progression of the right-sided hydronephrosis possibly related to a questionable collection in the right posterolateral uterine region and adjacent to the right sigmoid suggestive of adnexal versus sigmoid neoplasm or inflammatory process. Correlation with history of known neoplasm at this level recommended. Status post left colostomy. No acute appendicitis or bowel obstruction. Cystitis with underlying mass or neoplasm not excluded. Clinical correlation recommended along with urinalysis. Electronically Signed: Livia Addison MD at 0:47 EST ,
[2023-09-25 23:11] VITALS: BP 129/60; PULSE 90; RESP 16; TEMP 37.1; O2SAT 98
[2023-09-25 23:19] LABS: Absolute Lymphocyte Count 1.01 X10^3/uL (0.83-4.51); Absolute Neutrophil Count 5.2 X10^3/uL (2.0-7.7); Basophil# 0.04 X10^3/uL; Basophil% 0.5 % (0-1); Eosinophil# 0.27 X10^3/uL; Eosinophils% 3.7 % (0-5); Hematocrit 33.1 % (37-47); Hemoglobin 10.4 g/dL (12.0-15.0); Lymphocyte # 1.01 X10^3/ul (0.83-4.51); Lymphocyte % 13.7 % (19-41); Mean Corp Hgb Conc 31.4 g/dL (32-36); Mean Corpuscular Hgb 29.5 pg (27.0-32.0); Mean Corpuscular Volume 93.8 fL (81-99); Mean Platelet Vol. 8.6 fl (6.2-12.0); Monocyte# 0.84 X10^3/uL; Monocyte% 11.4 % (0-10); NRBC Flagged by Analyzer 0 % (0-5); Neutrophil # 5.21 X10^3/uL (2.7-7.7); Neutrophil % 70.4 % (47-70); Platelet Count 310 K/mm3 (150-450); RBC Distribution Width CV 14.3 % (11.6-14.6); RBC Distribution Width SD 49.5 fl (35.1-43.9); Red Blood Count 3.53 M/mm3 (4.2-5.4); White Blood Count 7.4 K/mm3 (4.4-11.0)
[2023-09-25 23:27] LABS: International Normalized Ratio 1.1; Prothrombin Time (Protime)PT. 13.7 SECONDS (11.7-14.9)
[2023-09-25 23:33] LABS: AST(SGOT) 14 U/L (15-37); Alanine Aminotransfer ALT/SGPT 21 U/L (13-56); Albumin, Serum 2.5 g/dL (3.2-5.0); Alkaline Phosphatase 127 U/L (45-117); Anion Gap 4 (5-15); BUN 30 mg/dL (7-18); Bilirubin, Direct 0.19 mg/dL (0.00-0.30); Calcium,Total 8.8 mg/dL (8.5-10.1); Chloride 109 mmol/L (98-107); Creatinine, Serum 1.67 mg/dL (0.55-1.02); EST Glomerular Filtration Rate 32 mL/min (>60); Est Glom Filt Rate - Afr Amer 39 mL/min (>60); Estimated Creatinine Clearance 29.78 ml/min; Globulin 4.6 g/dL (2.2-4.2); Glucose 185 mg/dL (74-106); Lipase 57 U/L (13-75); Potassium 4.2 mmol/L (3.5-5.1); Protein, Total 7.1 g/dL (6.4-8.2); Sodium Level 138 mmol/L (136-145)
[2023-09-25 23:35] LABS: Bacteria 0 SEEN /hpf (None Seen); Mucous, Urine 0 SEEN /hpf (<or=2+); Red Blood Cells-Urine 0 SEEN /hpf (0-5); Squamous Epithelial Cells - UA 0 SEEN /hpf (5-10); White Blood Cells 0 SEEN /hpf (0-5)
[2023-09-25 23:43] LABS: Color, Urine Yellow (Yellow); Glucose, Dipstick Normal (Normal); Ketone-Dipstick Negative (Negative); Leukocyte Esterase-Dipstick 25 /ul (Negative); Nitrite-Dipstick Negative (Negative); Occult Blood-Urine Negative /ul (Negative); Protein-Dipstick Negative (Negative); Urine Bilirubin Dipstick Negative (Negative); Urine Clarity Clear (Clear); Urine Urobilinogen Normal (Normal)
[2023-09-26] VITALS (12 sets, daily range): BP systolic 129–149; BP diastolic 56–91; PULSE 68–90; RESP 16–18; TEMP 36.3–37.1; O2SAT 93–100; BMI 33.8
--- NOTE | 2023-09-26 09:42 | ED.RN ---
0937 called [facility] to see if they have a bed yet, we're still waiting on a bed, there's quit a few in front of him .
[2023-09-26 12:30] LABS: Absolute Lymphocyte Count 1.02 X10^3/uL (0.83-4.51); Absolute Neutrophil Count 4.4 X10^3/uL (2.0-7.7); Basophil# 0.04 X10^3/uL; Basophil% 0.6 % (0-1); Eosinophil# 0.26 X10^3/uL; Eosinophils% 4.1 % (0-5); Hematocrit 33.8 % (37-47); Hemoglobin 10.7 g/dL (12.0-15.0); Lymphocyte # 1.02 X10^3/ul (0.83-4.51); Lymphocyte % 15.9 % (19-41); Mean Corp Hgb Conc 31.7 g/dL (32-36); Mean Corpuscular Hgb 29.7 pg (27.0-32.0); Mean Corpuscular Volume 93.9 fL (81-99); Mean Platelet Vol. 8.3 fl (6.2-12.0); Monocyte# 0.68 X10^3/uL; Monocyte% 10.6 % (0-10); NRBC Flagged by Analyzer 0 % (0-5); Neutrophil # 4.38 X10^3/uL (2.7-7.7); Neutrophil % 68.5 % (47-70); Platelet Count 298 K/mm3 (150-450); RBC Distribution Width CV 14.6 % (11.6-14.6); RBC Distribution Width SD 50.4 fl (35.1-43.9); White Blood Count 6.4 K/mm3 (4.4-11.0)
[2023-09-26 12:46] LABS: ALB/GLOB Ratio 0.6 RATIO (0.9-2.4); AST(SGOT) 13 U/L (15-37); Alanine Aminotransfer ALT/SGPT 19 U/L (13-56); Albumin, Serum 2.5 g/dL (3.2-5.0); Alkaline Phosphatase 112 U/L (45-117); Anion Gap 0 (5-15); BUN 27 mg/dL (7-18); BUN/Creat Ratio 16.9 RATIO (10-20); Calcium,Total 8.9 mg/dL (8.5-10.1); Chloride 108 mmol/L (98-107); EST Glomerular Filtration Rate 34 mL/min (>60); Est Glom Filt Rate - Afr Amer 41 mL/min (>60); Estimated Creatinine Clearance 30.65 ml/min; Globulin 4.4 g/dL (2.2-4.2); Glucose 129 mg/dL (74-106); Potassium 4.3 mmol/L (3.5-5.1); Protein, Total 6.9 g/dL (6.4-8.2); Sodium Level 136 mmol/L (136-145)
[2023-09-26] MEDS: 0.9% Normal Saline (1000mL) 1,000 ML 75 ML IV (13:00)
[2023-09-26] MEDS: 0.9% Saline Lock 10 ML Syringe IV (13:00)
[2023-09-26] MEDS: Cephalexin 500 MG Capsule PO ×2 (13:01→20:21)
--- NOTE | 2023-09-26 14:34 | PCM.HP.STD ---
HPI - General General Date of Admission: 09/26/23 Date of Service: 09/26/23 Chief Complaint: Bright red rectal bleeding HPI Narrative BETI JAUREGUI, is a 68 F who presents to the emergency room at [facility] with complaints of bright red rectal bleeding that started on 09/25/2023. Patient states she wiped herself after a bowel movement and there was blood all over her hand, she described it as bright red blood with a number of clots. She had seen a small amount of rectal bleeding approximately a week ago, her colorectal surgeon stated that he was not concerned about it. Patient has a history of colon cancer which was diagnosed approximately 3 years ago she has a colostomy but denied any blood in her colostomy bag. Labs were drawn, patient's hemoglobin was 10.4, creatinine was elevated at 1.67 and BUN was 30. Patient had a CT of her abdomen and pelvis, there was noted to be progression of right-sided hydronephrosis possibly related to a questionable collection in the right posterior lateral uterine region and adjacent to the right sigmoid colon suggestive of adnexal versus sigmoid neoplasm or inflammatory response. There was possible cystitis with underlying mass or neoplasm not excluded patient's urinalysis however was unremarkable. The doctor who is on-call at the [facility] for her colorectal surgeon was contacted and he advised transfer for to [facility]. Patient was excepted at the [facility] but there were no beds available, patient stayed in the emergency room approximately 12 hours and I was called to admit patient to the floor for further care, patient is aware that she may wait several days in the hospital before being transferred. As a further note: Patient told this examiner that she did not want to undergo any endoscopy or surgery at [facility], I will have general surgery see the patient in consultation but refrain from having gastroenterology see the patient. 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 Cardiomyopathy Carotid artery stenosis Carotid artery stenosis with cerebral infarction Chronic anticoagulation Chronic kidney disease, stage III (moderate) Congenital talipes calcaneovalgus of left foot Congestive heart failure (CHF) COPD (chronic obstructive pulmonary disease) Coronary artery disease Diabetes mellitus Diabetes mellitus type II, uncontrolled Diastolic congestive heart failure DVT (deep venous thrombosis) Edema of left lower extremity Edema of right lower extremity Essential hypertension GI bleed GI bleed History of CHF (congestive heart failure) History of CVA (cerebrovascular accident) (10/21/17) History of deep vein thrombosis (DVT) of lower extremity History of deep venous thrombosis (DVT) of distal vein of left lower extremity History of deep venous thrombosis (DVT) of distal vein of right lower extremity History of diabetes mellitus, type II History of pleural effusion (10/21/17) History of rectal cancer History of renal disease History of stress test Hyperlipidemia Hypertension Left leg swelling Low iron Lymphedema Lymphedema of left leg Nonrheumatic mitral valve regurgitation Nonrheumatic tricuspid valve regurgitation Parastomal hernia Postphlebitic syndrome with inflammation Preop cardiovascular exam Radiation proctitis Rectal bleeding Rectal cancer metastasized to liver Renal insufficiency Right leg swelling Sarcoidosis Shortness of breath on exertion Snoring Steroid long-term use Stroke/cerebrovascular accident Tricuspid regurgitation Wears dentures Home Medications carvedilol 25 mg tablet (Coreg) 6.25 mg PO BID Hypertension 11/22/19 [History Last Taken 09/27/22 0700] cinnamon bark 500 mg capsule (Cinnamon) 1,000 mg PO BID SUPPLEMENT 06/19/21 [History Last Taken 09/27/22 0700] clobetasol 0.05 % topical cream 1 applic topical DAILY PRN Itching 10/28/22 [History Last Taken Unknown] dexamethasone 0.5 mg/5 mL oral elixir 0.5 mg PO BID PRN SORE MOUTH 10/28/22 [History Last Taken Unknown] vitamin B12 0.5 mg-folic acid 1 mg tablet 1 tab PO DAILY supplement 10/28/22 [History Last Taken Unknown] atorvastatin 40 mg tablet 40 mg PO DAILY HTN 07/08/23 [History Last Taken Unknown] lidocaine-prilocaine 2.5 %-2.5 % topical cream 1 applic topical DAILY PRN port access 07/08/23 [History Last Taken Unknown] cephalexin 500 mg capsule 500 mg PO Q12H 09/25/23 [History Last Taken Unknown] enoxaparin 40 mg/0.4 mL subcutaneous syringe 40 mg subcut Q24H 09/25/23 [History Last Taken Unknown] furosemide 20 mg tablet 20 mg PO 1600 09/25/23 [History Last Taken Unknown] furosemide 40 mg tablet 40 mg PO 0800 09/25/23 [History Last Taken Unknown] lactobacillus combo no.11 15 billion cell sprinkle capsule (Probiotic) 1 cap PO DAILY 09/25/23 [History Last Taken Unknown] Allergy/AdvReac Type Severity Reaction Status Date / Time latex Allergy Severe Hives Verified 09/26/23 12:24 codeine AdvReac Unknown unknown Verified 09/26/23 12:24 Family History Mother Bleeding disorder Diabetes CAD (coronary artery disease) Hypertension Hyperlipidemia Kidney disease Sister Asthma CAD (coronary artery disease) Hyperlipidemia Father Cancer CAD (coronary artery disease) Hypertension Hyperlipidemia CVA (cerebral vascular accident) Brother CAD (coronary artery disease) Hyperlipidemia Surgical History History of cardiac catheterization History of cataract surgery History of colonoscopy History of colostomy History of coronary artery stent placement History of foot surgery Hx of cataract surgery Social History household members: spouse Smoking Status: Never smoker alcohol intake: never substance use type: does not use ROS Constitutional Constitutional: Denies anorexia, change in weight, chills, fatigue, fever(s), malaise, night sweats or weakness Eyes Eyes: Denies blurry vision, change in vision, discharge from eye(s) or eye pain Cardiovascular Cardiovascular: Denies chest pain, claudication, edema or palpitations Respiratory/Chest Respiratory/Chest: Denies cough, hemoptysis, shortness of breath at rest or shortness of breath with exertion Gastrointestinal Gastrointestinal: Reports hematochezia; Denies abdominal pain, constipation, diarrhea, hematemesis, melena, nausea or vomiting Genitourinary Genitourinary: Denies dysuria, hematuria, urinary frequency, urinary hesitancy, urinary incontinence or urinary urgency Musculoskeletal Musculoskeletal: Denies back pain, joint pain, joint stiffness, joint swelling, myalgias or neck pain Neurologic Neurologic: Denies abnormal gait, abnormal speech, dizziness, focal weakness, headache(s), loss of vision, numbness, other visual disturbances, paresthesias, syncope or tingling Psychiatric Psychiatric: Denies anxiety, cognitive impairment, depression, irritability, mood swings or suicidal ideation Endocrine Endocrinology: Denies change in body appearance, cold intolerance, excessive sweating, heat intolerance, polydipsia or polyuria Hematologic/Lymphatic Hematologic/Lymphatic: Denies none, anemia, easy bleeding, easy bruising or lymphadenopathy Allergic/Immunologic Allergic/Immunologic: Denies rhinitis, urticaria, eczemia or asthma Vital Signs Vital Signs Vital Signs: 09/25/23 22:09 09/25/23 22:11 09/25/23 23:11 Temperature 97.6 F L 98.7 F 98.7 F Temperature Source Temporal Oral Oral Pulse Rate 88 91 90 Respiratory Rate 16 16 16 Blood Pressure 184/92 H 130/70 H 129/60 H Blood Pressure Mean 122 90 83 Blood Pressure Source Blood Pressure Position Blood Pressure Location Pulse Ox 100 99 98 Oxygen Delivery Method Room Air Room Air Room Air 09/26/23 00:11 09/26/23 01:11 09/26/23 02:11 Temperature 98.7 F 98.7 F 98.7 F Temperature Source Oral Oral Oral Pulse Rate 89 90 89 Respiratory Rate 16 16 16 Blood Pressure 132/61 H 130/58 H 130/57 H Blood Pressure Mean 84 82 81 Blood Pressure Source Blood Pressure Position Blood Pressure Location Pulse Ox 99 99 99 Oxygen Delivery Method Room Air Room Air Room Air 09/26/23 03:00 09/26/23 04:00 09/26/23 05:00 Temperature 98.7 F 98.7 F 98.8 F Temperature Source Oral Oral Oral Pulse Rate 81 82 81 Respiratory Rate 16 16 16 Blood Pressure 129/60 H 130/61 H 133/56 H Blood Pressure Mean 83 84 81 Blood Pressure Source Blood Pressure Position Blood Pressure Location Pulse Ox 99 99 100 Oxygen Delivery Method Room Air Room Air Room Air 09/26/23 06:00 09/26/23 08:00 09/26/23 11:55 Temperature 98.8 F 97.3 F L Temperature Source Oral Pulse Rate 82 77 70 Respiratory Rate 16 16 18 Blood Pressure 135/60 H 149/60 H 145/85 H Blood Pressure Mean 85 89 105 Blood Pressure Source Blood Pressure Position Blood Pressure Location Pulse Ox 100 93 98 Oxygen Delivery Method Room Air Room Air 09/26/23 12:32 Temperature 98.1 F Temperature Source Oral Pulse Rate 68 Respiratory Rate 18 Blood Pressure 140/91 H Blood Pressure Mean 107 Blood Pressure Source Monitor Blood Pressure Position Semi-Fowlers Blood Pressure Location Left Arm Pulse Ox 97 Oxygen Delivery Method Room Air Weight Weight: 76 kg Body Mass Index (BMI) 33.8 Physical Exam Const alert, oriented x3, no apparent distress, average body habitus and healthy appearing General Appearance: cooperative, well kempt and well developed Orientation / Consciousness: awake, oriented to person, oriented to place and oriented to time HEENT normocephalic, head/scalp atraumatic, hearing grossly normal bilaterally and moist oral mucous membranes Eyes PERRL, EOMs intact bilaterally and conjunctivae normal Neck supple, no JVD, thyroid normal and no carotid bruits General: trachea midline Resp normal respiratory effort, no retractions, no use of accessory muscles and clear to auscultation bilaterally Auscultation: Negative for rales, rhonchi or wheezes Cardio regular rate, regular rhythm, S1 normal heart sound, S2 normal heart sound, no murmurs, no rub and no gallops GI normal to inspection, nondistended, normoactive bowel sounds, soft to palpation, non-tender and non-distended GI Narrative: Patient has a left-sided colostomy Extremity no clubbing, cyanosis or edema Skin no rashes or lesions noted General Skin Exam: no breakdown Neuro oriented x3, CN's II-XII intact bilaterally, no focal motor deficits and no sensory deficits noted Sensorium / Orientation: awake, alert, oriented to person, oriented to place and oriented to time Speech: speech normal Psych affect normal Results Lab / Micro Data 09/26/23 12:19 09/26/23 12:19 Labs: Laboratory Results - last 24 hr 09/25/23 23:05: WBC 7.4, RBC 3.53 L, Hgb 10.4 L, Hct 33.1 L, MCV 93.8, MCH 29.5, MCHC 31.4 L, RDW Std Deviation 49.5 H, RDW Coeff of Dann 14.3, Plt Count 310, MPV 8.6, Immature Gran % (Auto) 0.300, Neut % (Auto) 70.4 H, Lymph % (Auto) 13.7 L, [place] % (Auto) 11.4 H, Eos % (Auto) 3.7, Baso % (Auto) 0.5, Absolute Neuts (auto) 5.2, Absolute Lymphs (auto) 1.01, Nucleated RBC % 0, PT 13.7, INR 1.1, Sodium 138, Potassium 4.2, Chloride 109 H, Carbon Dioxide 25.0, Anion Gap 4 L, BUN 30 H, Creatinine 1.67 H, Estim Creat Clear Calc 29.78, Est GFR (MDRD) Af Amer 39 L, Est GFR (MDRD) Non-Af 32 L, BUN/Creatinine Ratio 18.0, Glucose 185 H, Calcium 8.8, Total Bilirubin 0.70, Direct Bilirubin 0.19, AST 14 L, ALT 21, Alkaline Phosphatase 127 H, Total Protein 7.1, Albumin 2.5 L, Globulin 4.6 H, Lipase 57, Blood Type O POSITIVE, Antibody Screen NEGATIVE 09/25/23 23:30: Urine Color Yellow, Urine Clarity Clear, Urine pH 6.0, Ur Specific [place] 1.010, Urine Protein Negative, Urine Glucose (UA) Normal, Urine Ketones Negative, Urine Occult Blood Negative, Urine Nitrite Negative, Urine Bilirubin Negative, Urine Urobilinogen Normal, Ur Leukocyte Esterase 25 H, Urine RBC 0 SEEN, Urine WBC 0 SEEN, Ur Squamous Epith Cells 0 SEEN, Urine Bacteria 0 SEEN, Urine Mucus 0 SEEN 09/26/23 12:19: WBC 6.4, RBC 3.60 L, Hgb 10.7 L, Hct 33.8 L, MCV 93.9, MCH 29.7, MCHC 31.7 L, RDW Std Deviation 50.4 H, RDW Coeff of Dann 14.6, Plt Count 298, MPV 8.3, Immature Gran % (Auto) 0.300, Neut % (Auto) 68.5, Lymph % (Auto) 15.9 L, [place] % (Auto) 10.6 H, Eos % (Auto) 4.1, Baso % (Auto) 0.6, Absolute Neuts (auto) 4.4, Absolute Lymphs (auto) 1.02, Nucleated RBC % 0, Sodium 136, Potassium 4.3, Chloride 108 H, Carbon Dioxide 28.0, Anion Gap 0 L, BUN 27 H, Creatinine 1.60 H, Estim Creat Clear Calc 30.65, Est GFR (MDRD) Af Amer 41 L, Est GFR (MDRD) Non-Af 34 L, BUN/Creatinine Ratio 16.9, Glucose 129 H, Calcium 8.9, Total Bilirubin 0.90, AST 13 L, ALT 19, Alkaline Phosphatase 112, Total Protein 6.9, Albumin 2.5 L, Globulin 4.4 H, Albumin/Globulin Ratio 0.6 L Imaging Radiology Impression Abdomen/Pelvis CT 09/25/23 22:43 IMPRESSION: Persistent with slight progression of the right-sided hydronephrosis possibly related to a questionable collection in the right posterolateral uterine region and adjacent to the right sigmoid suggestive of adnexal versus sigmoid neoplasm or inflammatory process. Correlation with history of known neoplasm at this level recommended. Status post left colostomy. No acute appendicitis or bowel obstruction. Cystitis with underlying mass or neoplasm not excluded. Clinical correlation recommended along with urinalysis. Electronically Signed: Livia dAdison MD at 0:47 EST , Assessment & Plan Assessment/Plan (1) Bleeding per rectum: PLAN: Plan 1. Bright red rectal bleeding-etiology unclear at this point, patient will be admitted to [facility], she will have repeat lab work done and it will be monitored as needed, SCDs will be applied and her Lovenox will be held, she will be seen in consultation by general surgery #2 pelvic mass-etiology unclear at this point, again patient does not want to undergo any surgery or endoscopy at this institution, she is awaiting transfer to [facility] #3 hydronephrosis-possibly due to pelvic mass, again this will be addressed when patient goes to [facility] #4 mild anemia-etiology unclear, labs will be monitored, patient does not need a blood transfusion at this time #5 colon cancer-patient is currently receiving Keytruda from her oncologist #6 chronic kidney disease stage IIIb-complicates care, medical course, recovery, and prognosis Total clinical time spent by myself addressing the patient's medical issues, reviewing all of her data, and collaborating with patient's care team: 55 minutes Charges/Coding Visit Charges Inpatient E&M: 05093 Init Hosp L2
[2023-09-26] MEDS: Folic Acid 1 MG Tablet PO (15:43)
[2023-09-26] MEDS: Furosemide 20 MG Tablet PO (15:44)
[2023-09-26] MEDS: Cyanocobalamin 500 MCG Tablet PO (15:44)
[2023-09-26] MEDS: Carvedilol 6.25 MG Tablet PO (15:44)
--- NOTE | 2023-09-26 23:27 | NURSING ---
Report called to TAURUS Carney at [facility]
[2023-09-27 00:26] VITALS: BP 157/53; PULSE 71; RESP 16; TEMP 36.7; O2SAT 99
[2023-09-27 00:34] VITALS: BP 157/53; PULSE 71; RESP 16; TEMP 36.7; O2SAT 99
== END 2023-09-27 00:36 | disposition short-term general hospital (02) | DRG 378 ==
LOC: ED 23:18 → MS3 09-26 12:05
PROVIDERS: Admitting Provider Internal Medicine; Emergency Provider Student in an Organized Health Care Education/Training Program; Visit Provider Internal Medicine
DX: K62.5 Hemorrhage of anus and rectum (principal); N13.30 Unspecified hydronephrosis; I13.0 Hypertensive heart and chronic kidney disease with heart failure and stage 1 through stage 4 chronic kidney disease, or unspecified chronic kidney disease; C79.9 Secondary malignant neoplasm of unspecified site; C77.2 Secondary and unspecified malignant neoplasm of intra-abdominal lymph nodes; I50.32 Chronic diastolic (congestive) heart failure; C18.9 Malignant neoplasm of colon, unspecified; I42.9 Cardiomyopathy, unspecified; C78.7 Secondary malignant neoplasm of liver and intrahepatic bile duct; E11.22 Type 2 diabetes mellitus with diabetic chronic kidney disease; J44.9 Chronic obstructive pulmonary disease, unspecified; N18.32 Chronic kidney disease, stage 3b; Z93.3 Colostomy status; D64.9 Anemia, unspecified; E78.5 Hyperlipidemia, unspecified; I25.10 Atherosclerotic heart disease of native coronary artery without angina pectoris; R19.00 Intra-abdominal and pelvic swelling, mass and lump, unspecified site; Z79.52 Long term (current) use of systemic steroids; Z79.01 Long term (current) use of anticoagulants; Z79.899 Other long term (current) drug therapy; Z95.5 Presence of coronary angioplasty implant and graft; Z86.718 Personal history of other venous thrombosis and embolism; Z86.711 Personal history of pulmonary embolism; Z86.73 Personal history of transient ischemic attack (TIA), and cerebral infarction without residual deficits
CPT/HCPCS: 36415; 36591; 74177; 80048; 80053; 80076; 81001; 83690; 85025; 85610; 86850; 86900; 86901; 99285; J7030; Q9967; A4216

== ENCOUNTER 2023-10-13 17:35 | Emergency (ER) | payer MEDICARE, SELFPAY ==
[2023-10-13 17:36] VITALS: BP 183/76; PULSE 85; RESP 16; TEMP 37.2; O2SAT 99
--- NOTE | 2023-10-13 18:19 | EKG12_ITS ---
Test Reason : Blood Pressure : / mmHG Vent. Rate : 072 BPM Atrial Rate : 072 BPM P-R Int : 178 ms QRS Dur : 086 ms QT Int : 400 ms P-R-T Axes : 006 -26 039 degrees QTc Int : 438 ms Normal sinus rhythm Minimal voltage criteria for LVH, may be normal variant ( R in aVL ) Septal infarct , age undetermined Abnormal ECG Confirmed by BULMARO SIFUENTES, KALLI ([id number]), news videotape editor DARRION GLOVER ([id number]) on 10/15/2023 10:50:00 AM Referred By: Confirmed By:KALLI CHAMBERLAIN MD
--- NOTE | 2023-10-13 18:19 | CT_ITS ---
EXAMINATION : Head CT w/out contrast HISTORY : Neuro deficit, acute, stroke suspected COMPARISON : None. TECHNIQUE : Multiple contiguous axial images were obtained from the skull base to the vertex without intravenous contrast. A radiation dose optimization technique was used for this scan. FINDINGS : There is no evidence for acute intracranial hemorrhage, mass effect, or midline shift. There is no extra-axial fluid collection. There are periventricular white matter changes consistent with chronic microvascular ischemic disease. There is sulcal widening and ventricular enlargement consistent with cerebral atrophy. There is normal moon-white differentiation, without CT evidence of acute ischemia or infarct. The skull base and calvarium are unremarkable. The orbits are unremarkable. The paranasal sinuses are clear. The mastoid air cells are well-aerated. The soft tissues are unremarkable. CT/Brain/Head without Contrast IMPRESSION: No acute intracranial abnormality. Chronic involutional and ischemic changes of the brain. Electronically Signed: Jean Carlos Han MD at 19:34 EST ,
--- NOTE | 2023-10-13 18:20 | EDS_ITS ---
HPI History of Present Illness Chief Complaint: Weakness Narrative Narrative: 68-year-old female past medical history of prior remote strokes, currently being treated for colon carcinoma, presents at the direction of her oncologist, Dr. Taye Menjivar. She relates history that this morning at 530, approximately 13 hours ago, she got up to go to the bathroom and felt dizzy and lightheaded. When she went to take a step with her right foot, she felt off balance. She feels like she is walking more towards the right. She is very unsteady in her gait and unable to ambulate without a cane. She had called the nurse at her oncologist office because they are getting ready to change her chemotherapy because she became immune to her chemotherapy. Additionally, she states that she recently stopped Lovenox shots because they are going to put an IVC filter in her next week on the . She relayed her unsteady gait when questioned by the nurse at her oncologist office who called her back at around 4 PM and told her that it was suggested that she come to the emergency department to be checked out for a stroke . 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 Cardiomyopathy Carotid artery stenosis Carotid artery stenosis with cerebral infarction Chronic anticoagulation Chronic kidney disease, stage III (moderate) Congenital talipes calcaneovalgus of left foot Congestive heart failure (CHF) COPD (chronic obstructive pulmonary disease) Coronary artery disease Diabetes mellitus Diabetes mellitus type II, uncontrolled Diastolic congestive heart failure DVT (deep venous thrombosis) Edema of left lower extremity Edema of right lower extremity Essential hypertension GI bleed GI bleed History of CHF (congestive heart failure) History of CVA (cerebrovascular accident) (10/21/17) History of deep vein thrombosis (DVT) of lower extremity History of deep venous thrombosis (DVT) of distal vein of left lower extremity History of deep venous thrombosis (DVT) of distal vein of right lower extremity History of diabetes mellitus, type II History of pleural effusion (10/21/17) History of rectal cancer History of renal disease History of stress test Hyperlipidemia Hypertension Left leg swelling Low iron Lymphedema Lymphedema of left leg Nonrheumatic mitral valve regurgitation Nonrheumatic tricuspid valve regurgitation Parastomal hernia Postphlebitic syndrome with inflammation Preop cardiovascular exam Radiation proctitis Rectal bleeding Rectal cancer metastasized to liver Renal insufficiency Right leg swelling Sarcoidosis Shortness of breath on exertion Snoring Steroid long-term use Stroke/cerebrovascular accident Tricuspid regurgitation Wears dentures Home Medications carvedilol 25 mg tablet (Coreg) 6.25 mg PO BID Hypertension 11/22/19 [History Last Taken 09/27/22 0700] cinnamon bark 500 mg capsule (Cinnamon) 1,000 mg PO BID SUPPLEMENT 06/19/21 [History Last Taken 09/27/22 0700] clobetasol 0.05 % topical cream 1 applic topical DAILY PRN Itching 10/28/22 [History Last Taken Unknown] dexamethasone 0.5 mg/5 mL oral elixir 0.5 mg PO BID PRN SORE MOUTH 10/28/22 [History Last Taken Unknown] vitamin B12 0.5 mg-folic acid 1 mg tablet 1 tab PO DAILY supplement 10/28/22 [History Last Taken Unknown] atorvastatin 40 mg tablet 40 mg PO DAILY HTN 07/08/23 [History Last Taken Unknown] lidocaine-prilocaine 2.5 %-2.5 % topical cream 1 applic topical DAILY PRN port access 07/08/23 [History Last Taken Unknown] cephalexin 500 mg capsule 500 mg PO Q12H 09/25/23 [History Last Taken Unknown] enoxaparin 40 mg/0.4 mL subcutaneous syringe 40 mg subcut Q24H 09/25/23 [History Last Taken Unknown] furosemide 20 mg tablet 20 mg PO 1600 09/25/23 [History Last Taken Unknown] furosemide 40 mg tablet 40 mg PO 0800 09/25/23 [History Last Taken Unknown] lactobacillus combo no.11 15 billion cell sprinkle capsule (Probiotic) 1 cap PO DAILY 09/25/23 [History Last Taken Unknown] sulfamethoxazole 800 mg-trimethoprim 160 mg tablet (Bactrim DS) 1 tab PO BID #14 tabs 10/13/23 [Rx Last Taken Unknown] Allergy/AdvReac Type Severity Reaction Status Date / Time latex Allergy Severe Hives Verified 09/26/23 12:24 codeine AdvReac Unknown unknown Verified 09/26/23 12:24 Family History Mother Bleeding disorder Diabetes CAD (coronary artery disease) Hypertension Hyperlipidemia Kidney disease Sister Asthma CAD (coronary artery disease) Hyperlipidemia Father Cancer CAD (coronary artery disease) Hypertension Hyperlipidemia CVA (cerebral vascular accident) Brother CAD (coronary artery disease) Hyperlipidemia Surgical History History of cardiac catheterization History of cataract surgery History of colonoscopy History of colostomy History of coronary artery stent placement History of foot surgery Hx of cataract surgery Social History household members: spouse Smoking Status: Never smoker alcohol intake: never substance use type: does not use ROS ROS ED ROS Narrative Constitutional: No fever, no chills. HEENT: No sore throat. No neck pain. No loss of vision. No rhinorrhea. Cardiovascular: No chest pain. No palpitations. No pedal edema. Respiratory: No cough, no shortness of breath. Abdominal: No abdominal pain. No nausea. No vomiting. Genitourinary: No dysuria. No hematuria. Musculoskeletal: No myalgias. No arthralgias. Neurologic: No headaches. Positive dizziness, lightheadedness, and unsteady gait, walking more towards the right. Skin: No rash. No change in color. Psychiatric: No depression. No anxiety. EXAM Physical Exam Narrative Exam Narrative: Afebrile. Vital signs noted. HEENT: Normocephalic. Atraumatic. PERRL, EOMI. Neck soft and supple. No point tenderness or step off. Cardiovascular: Regular rate and rhythm. Positive holosystolic murmur, rubs, or gallops appreciated. Respiratory: No tachypnea. Lungs clear to auscultation bilaterally. Gastrointestinal: Abdomen soft, nontender, with normoactive bowel sounds. No rebound or guarding. Neurological: Awake. Alert. Nonfocal, nonlateralizing. NIH stroke scale is 0. Skin: No rash. Normal color. No pallor. Musculoskeletal: Bilateral pedal edema. Full range of motion extremities. Const Vital Signs: 10/13/23 17:36 10/13/23 19:27 10/13/23 19:27 Temperature 99.0 F Temperature Source Temporal Pulse Rate 85 73 Respiratory Rate 16 15 Respiratory Effort Respiratory Pattern Blood Pressure 183/76 H 171/83 H Blood Pressure Mean 111 112 Pulse Ox 99 100 Oxygen Delivery Method Room Air Room Air Room Air 10/13/23 18:49 10/13/23 19:30 Temperature Temperature Source Pulse Rate 70 Respiratory Rate 16 Respiratory Effort Normal Respiratory Pattern Normal Blood Pressure 191/76 H Blood Pressure Mean 114 Pulse Ox 100 Oxygen Delivery Method Room Air MDM MDM MDM Narrative Medical decision making narrative: I do not feel that stroke team is indicated. She is outside the window for [place] K. It is more of a gait disturbance than the focal deficit. CT of the brain will be obtained along with basic laboratory work, and UA. EKG was obtained and interpreted by myself independently as normal sinus rhythm at 72 bpm without ectopy or acute ST changes. No STEMI. I reviewed her laboratory work, and she has a normal white count of 7.3, hemoglobin stable at 10.9, hematocrit 35.1 with platelet count normal at 275. INR normal at 1.1, APTT 25.9. Electrolyte panel reviewed and she has elevated chloride of 110 which I think is nonspecific BUN of 30 with creatinine of 1.61 which is around her baseline and consistent with her chronic kidney disease. Glucose is appropriately elevated at 138 with a normal anion gap/low at 4. High- sensitivity troponin is 12. Her symptoms have been ongoing for greater than 6 hours. I do not feel she needs serial enzymes. Urinalysis is consistent with a UTI with 25-50 WBCs. She states she just finished Keflex about a week ago on Wednesday. She will be started on Bactrim and a prescription written for the next week and urine culture sent. I reviewed her CT report of the CT of the brain and there is no acute process, but chronic involutional changes. Additionally, chest x-ray interpreted by myself shows no evidence of pneumonia or pneumothorax. I reviewed the radiology report they mention sarcoidosis which is listed as one of her problems. At this point in time, she was able to ambulate without difficulty to the bedside commode. I do not feel she needs to be admitted for further stroke workup. I think she may have been lightheaded and dizzy with an unsteady gait from a UTI. She did have elevated blood pressure here but it is time for her nightly dose of Coreg which was administered here as well. In discussion with the patient and her family member, they do not want to be observed and I feel she can be discharged safely home with follow-up. I did discuss patient with Dr. Menjivar as well. Return instructions to the emergency department were reviewed. Disposition is discharged home in stable condition. Patient and family agreeable to the plan. History & Record Review Discussion w/independent historian: Patient and Family Lab Data Attestation: I reviewed the patient's lab results. Labs: Laboratory Results - last 24 hr 10/13/23 10/13/23 18:45 19:00 WBC 7.3 RBC 3.66 L Hgb 10.9 L Hct 35.1 L MCV 95.9 MCH 29.8 MCHC 31.1 L RDW Std Deviation 50.0 H RDW Coeff of Dann 14.3 Plt Count 275 MPV 8.5 Immature Gran % (Auto) 0.300 Neut % (Auto) 68.8 Lymph % (Auto) 15.8 L [place] % (Auto) 10.3 H Eos % (Auto) 4.1 Baso % (Auto) 0.7 Absolute Neuts (auto) 5.0 Absolute Lymphs (auto) 1.15 Nucleated RBC % 0 PT 14.1 INR 1.1 APTT 25.9 Sodium 138 Potassium 4.7 Chloride 110 H Carbon Dioxide 24.0 Anion Gap 4 L BUN 30 H Creatinine 1.61 H Est GFR (MDRD) Af Amer 41 L Est GFR (MDRD) Non-Af 34 L BUN/Creatinine Ratio 18.6 Glucose 138 H Calcium 8.9 Troponin I High Sens 12 Urine Color Yellow Urine Clarity Sl. Cloudy Urine pH 6.0 Ur Specific [place] 1.015 Urine Protein 15 H Urine Glucose (UA) Normal Urine Ketones Negative Urine Occult Blood 25 H Urine Nitrite Negative Urine Bilirubin Negative Urine Urobilinogen Normal Ur Leukocyte Esterase 500 H Urine RBC 0 SEEN Urine WBC 25-50 SEEN Ur Squamous Epith Cells 0 SEEN Urine Bacteria 0 SEEN Urine Mucus 0 SEEN Radiography Diagnostic Testing: Clinical Impression(s) from Imaging Studies Brain CT 10/13/23 18:19 IMPRESSION: No acute intracranial abnormality. Chronic involutional and ischemic changes of the brain. Electronically Signed: Jean Carlos Han MD at 19:34 EST , Chest X-Ray 10/13/23 18:41 IMPRESSION: Bilateral perihilar reticulonodular opacities with bilateral hilar lymphadenopathy. Differential includes infection or sarcoidosis. Electronically Signed: Jean Carlos Han MD at 19:33 EST , Discharge Plan Triage Chief Complaint: Weakness ED Provider: Max Nguyen Dx/Rx/DC Orders Clinical Impression: Unsteady gait, Cancer, metastatic to liver, Chronic kidney disease, stage III (moderate), History of stroke, Hypertension, Cystitis Instructions: ED High Blood Pressure Hypertension, ED Cystitis Female Adult, ED Fall Prevention Prescriptions: New sulfamethoxazole-trimethoprim [Bactrim DS] 800-160 mg tablet 1 tab PO BID Qty: 14 0RF No Action carvedilol [Coreg] 25 mg tablet 6.25 mg PO BID Rx Instructions: must administer with a meal/food cinnamon bark [Cinnamon] 500 mg Capsule 1,000 mg PO BID clobetasol 0.05 % Cream 1 applic TOPICAL DAILY PRN (Reason: Itching) dexamethasone 0.5 mg/5 mL Elixir 0.5 mg PO BID PRN (Reason: SORE MOUTH) vitamin T74-zhmox acid 0.5-1 mg Tablet 1 tab PO DAILY atorvastatin 40 mg tablet 40 mg PO DAILY Patient Comments: TAKE ONE TABLET BY MOUTH EVERY DAY lidocaine-prilocaine 2.5-2.5 % cream 1 applic topical DAILY PRN (Reason: port access) Patient Comments: APPLY 1 APPLICATION TO AFFECTED AREA NEEDED. enoxaparin 40 mg/0.4 mL syringe 40 mg subcut Q24H Patient Comments: INJECT 0.4 ML SUBCUTANEOUSLY ONCE DAILY. furosemide 40 mg tablet 40 mg PO 0800 Patient Comments: TAKE 1 TABLET BY MOUTH EVERY DAY furosemide 20 mg tablet 20 mg PO 1600 cephalexin 500 mg capsule 500 mg PO Q12H Patient Comments: TAKE 1 CAPSULE BY MOUTH EVERY 12 HOURS FOR 10 DAYS Probiotic 15 billion cell capsule, sprinkle 1 cap PO DAILY Rx Instructions: do not crush/chew/cut; swallow whole OR may open and sprinkle in cold drink/food Primary Care Provider: Keenan Alvarez Referrals: Taye Menjivar DO [Med Staff - Active Staff] - 2 Days Keenan Alvarez DO [Primary Care Provider] - Disposition Disposition: Home, Self Care
--- NOTE | 2023-10-13 18:41 | RAD_ITS ---
INDICATION: Neuro deficit, acute, stroke suspected EXAMINATION/TECHNIQUE: X-RAY - XR Chest 1 View COMPARISON: 06/19/2021. FINDINGS: There are perihilar reticulonodular opacities. Tortuous and calcified thoracic aorta. The heart is borderline enlarged. There is bilateral hilar lymphadenopathy. Right-sided chest port. No pleural effusion or pneumothorax. Degenerative changes of the thoracic spine. RAD/Chest 1 View IMPRESSION: Bilateral perihilar reticulonodular opacities with bilateral hilar lymphadenopathy. Differential includes infection or sarcoidosis. Electronically Signed: Jean Carlos Han MD at 19:33 EST ,
[2023-10-13 18:49] VITALS: BP 191/76; PULSE 70; RESP 16; O2SAT 100
[2023-10-13 18:51] LABS: Absolute Lymphocyte Count 1.15 X10^3/uL (0.83-4.51); Basophil# 0.05 X10^3/uL; Basophil% 0.7 % (0-1); Eosinophils% 4.1 % (0-5); Hematocrit 35.1 % (37-47); Hemoglobin 10.9 g/dL (12.0-15.0); Lymphocyte # 1.15 X10^3/ul (0.83-4.51); Lymphocyte % 15.8 % (19-41); Mean Corp Hgb Conc 31.1 g/dL (32-36); Mean Corpuscular Hgb 29.8 pg (27.0-32.0); Mean Corpuscular Volume 95.9 fL (81-99); Mean Platelet Vol. 8.5 fl (6.2-12.0); Monocyte# 0.75 X10^3/uL; Monocyte% 10.3 % (0-10); NRBC Flagged by Analyzer 0 % (0-5); Neutrophil % 68.8 % (47-70); Platelet Count 275 K/mm3 (150-450); RBC Distribution Width CV 14.3 % (11.6-14.6); Red Blood Count 3.66 M/mm3 (4.2-5.4); White Blood Count 7.3 K/mm3 (4.4-11.0)
[2023-10-13 19:00] LABS: International Normalized Ratio 1.1; Prothrombin Time (Protime)PT. 14.1 SECONDS (11.7-14.9)
[2023-10-13 19:02] LABS: Partial Thromboplast Time 25.9 Seconds (24.1-36.2)
[2023-10-13 19:09] LABS: Anion Gap 4 (5-15); BUN 30 mg/dL (7-18); BUN/Creat Ratio 18.6 RATIO (10-20); Calcium,Total 8.9 mg/dL (8.5-10.1); Chloride 110 mmol/L (98-107); Creatinine, Serum 1.61 mg/dL (0.55-1.02); EST Glomerular Filtration Rate 34 mL/min (>60); Est Glom Filt Rate - Afr Amer 41 mL/min (>60); Glucose 138 mg/dL (74-106); Potassium 4.7 mmol/L (3.5-5.1); Sodium Level 138 mmol/L (136-145); Troponin-I HS 12 pg/mL (3.0-54.0)
[2023-10-13 19:27] VITALS: BP 171/83; PULSE 73; RESP 15; O2SAT 100
--- NOTE | 2023-10-13 19:30 | ED.RN ---
FIRST NIH MISSED DUE TO RN BEING WITH ANOTHER CRITICAL PATIENT
[2023-10-13 19:35] LABS: Bacteria 0 SEEN /hpf (None Seen); Mucous, Urine 0 SEEN /hpf (<or=2+); Red Blood Cells-Urine 0 SEEN /hpf (0-5); Squamous Epithelial Cells - UA 0 SEEN /hpf (5-10)
[2023-10-13 19:38] LABS: Color, Urine Yellow (Yellow); Glucose, Dipstick Normal (Normal); Ketone-Dipstick Negative (Negative); Leukocyte Esterase-Dipstick 500 /ul (Negative); Nitrite-Dipstick Negative (Negative); Occult Blood-Urine 25 /ul (Negative); Protein-Dipstick 15 mg/dl (Negative); Specific Gravity, Urine 1.015 (1.002-1.030); Urine Bilirubin Dipstick Negative (Negative); Urine Clarity Sl. Cloudy (Clear); Urine Urobilinogen Normal (Normal)
--- NOTE | 2023-10-13 19:45 | ED.RN ---
PER DR. TRAN, NIH CAN BE CHANGED TO Q1H
[2023-10-13 19:48] LABS: White Blood Cells 25-50 SEEN /hpf (0-5)
[2023-10-13 19:49] VITALS: BP 169/68; PULSE 72; RESP 17; O2SAT 100
[2023-10-13 20:26] VITALS: BP 169/68; PULSE 72; RESP 17; TEMP 36.2; O2SAT 100
[2023-10-13] MEDS: Smz/Tmp Ds Tablet 1 TABLET PO (20:31)
== END 2023-10-13 20:47 | disposition home or self-care (01) ==
PROVIDERS: Emergency Provider Emergency Medicine; Visit Provider Emergency Medicine
DX: R26.81 Unsteadiness on feet (principal); C78.7 Secondary malignant neoplasm of liver and intrahepatic bile duct; J44.9 Chronic obstructive pulmonary disease, unspecified; I13.0 Hypertensive heart and chronic kidney disease with heart failure and stage 1 through stage 4 chronic kidney disease, or unspecified chronic kidney disease; I50.32 Chronic diastolic (congestive) heart failure; C18.9 Malignant neoplasm of colon, unspecified; E11.22 Type 2 diabetes mellitus with diabetic chronic kidney disease; N18.30 Chronic kidney disease, stage 3 unspecified; Z86.73 Personal history of transient ischemic attack (TIA), and cerebral infarction without residual deficits; N30.90 Cystitis, unspecified without hematuria
CPT/HCPCS: 70450; 71045; 80048; 81001; 84484; 85025; 85610; 85730; 87086; 87088; 93005; 99284; A4216

== ENCOUNTER 2023-11-01 17:24 | Emergency (ER) | payer MEDICARE, SELFPAY ==
[2023-11-01 17:24] VITALS: BP 161/76; PULSE 89; RESP 16; TEMP 37.3; O2SAT 98
--- NOTE | 2023-11-01 18:08 | EKG12_ITS ---
Test Reason : DYSRHYTHMIA Blood Pressure : / mmHG Vent. Rate : 081 BPM Atrial Rate : 081 BPM P-R Int : 182 ms QRS Dur : 082 ms QT Int : 362 ms P-R-T Axes : 005 -29 043 degrees QTc Int : 420 ms Normal sinus rhythm CANNOT RULE OUT Septal infarct (cited on or before 19-JUN-2021) Abnormal ECG Confirmed by Anil Mathew ([id number]), hospice patient care secretary SELENE MCPHERSON ([id number]) on 11/02/2023 11:20:37 AM Referred By: FELIX Confirmed By:Anil Mathew
--- NOTE | 2023-11-01 18:12 | EX.ED.DYSGE1 ---
HPI <Neetu Jefferson RN - Last Filed: 11/01/23 22:29> History of Present Illness Chief Complaint: GI Bleed Onset/Context/Timing Onset: Yesterday Context: Sudden Onset Timing: Continuous Associated Symptoms Associated Symptoms: Fever, chills, dysuria, rectal and vaginal bleeding Narrative Narrative: Patient is a 68-year-old female with past medical history significant for colon cancer with mets to the liver, congestive heart failure, and diabetes who presents for fever last p.m. that has since resolved. She did start a new chemo last week on 10/25/2023. Today she has chills, she vomited this morning x 1, and she remains nauseated. She reports chronic rectal and vaginal bleeding since 2020. However on 10/28/2023 she developed increased bleeding with a large amount of clots in which she reports needing to change her pads and pull-ups more than 20 times that day. On 10/28/2023, she also had stool from both her rectum and vagina. She generally does not have stool from her rectum as she has a colostomy. The heavy bleeding has since resolved. It is still bright red requiring changing pads and pull-ups approximately 6-7 times per day which patient reports as her baseline. She does report that she had a scope and cauter y, 3 weeks ago at the [facility] due to increase in bleeding. She is back to her baseline bleeding. 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 She denies changes in the characteristics or amount of stool from her colostomy. Patient reports she had an IVC filter placed last week at [facility] in [facility]. She has been off Lovenox for approximately 3 weeks and off Eliquis for several months. She also has right shoulder pain described as aching and throbbing she rates it as 10/10 and reports it as her baseline. She does not take pain medication at home for this. She does report she has a bad rotator cuff. 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 Cardiomyopathy Carotid artery stenosis Carotid artery stenosis with cerebral infarction Chronic anticoagulation Chronic kidney disease, stage III (moderate) Congenital talipes calcaneovalgus of left foot Congestive heart failure (CHF) COPD (chronic obstructive pulmonary disease) Coronary artery disease Diabetes mellitus Diabetes mellitus type II, uncontrolled Diastolic congestive heart failure DVT (deep venous thrombosis) Edema of left lower extremity Edema of right lower extremity Essential hypertension GI bleed GI bleed History of CHF (congestive heart failure) History of CVA (cerebrovascular accident) (10/21/17) History of deep vein thrombosis (DVT) of lower extremity History of deep venous thrombosis (DVT) of distal vein of left lower extremity History of deep venous thrombosis (DVT) of distal vein of right lower extremity History of diabetes mellitus, type II History of pleural effusion (10/21/17) History of rectal cancer History of renal disease History of stress test Hyperlipidemia Hypertension Left leg swelling Low iron Lymphedema Lymphedema of left leg Nonrheumatic mitral valve regurgitation Nonrheumatic tricuspid valve regurgitation Parastomal hernia Postphlebitic syndrome with inflammation Preop cardiovascular exam Radiation proctitis Rectal bleeding Rectal cancer metastasized to liver Renal insufficiency Right leg swelling Sarcoidosis Shortness of breath on exertion Snoring Steroid long-term use Stroke/cerebrovascular accident Tricuspid regurgitation Wears dentures Home Medications carvedilol 25 mg tablet (Coreg) 6.25 mg PO BID Hypertension 11/22/19 [History Last Taken 09/27/22 0700] cinnamon bark 500 mg capsule (Cinnamon) 1,000 mg PO BID SUPPLEMENT 06/19/21 [History Last Taken 09/27/22 0700] clobetasol 0.05 % topical cream 1 applic topical DAILY PRN Itching 10/28/22 [History Last Taken Unknown] dexamethasone 0.5 mg/5 mL oral elixir 0.5 mg PO BID PRN SORE MOUTH 10/28/22 [History Last Taken Unknown] vitamin B12 0.5 mg-folic acid 1 mg tablet 1 tab PO DAILY supplement 10/28/22 [History Last Taken Unknown] atorvastatin 40 mg tablet 40 mg PO DAILY HTN 07/08/23 [History Last Taken Unknown] lidocaine-prilocaine 2.5 %-2.5 % topical cream 1 applic topical DAILY PRN port access 07/08/23 [History Last Taken Unknown] furosemide 40 mg tablet 40 mg PO 0800 09/25/23 [History Last Taken Unknown] lactobacillus combo no.11 15 billion cell sprinkle capsule (Probiotic) 1 cap PO DAILY 09/25/23 [History Last Taken Unknown] trazodone 50 mg tablet 50 mg PO QHS 11/01/23 [History Last Taken Unknown] Allergy/AdvReac Type Severity Reaction Status Date / Time latex Allergy Severe Hives Verified 11/01/23 17:30 alcohol Allergy Mild rash Verified 11/01/23 19:22 codeine AdvReac Unknown unknown Verified 11/01/23 17:30 Family History Mother Bleeding disorder Diabetes CAD (coronary artery disease) Hypertension Hyperlipidemia Kidney disease Sister Asthma CAD (coronary artery disease) Hyperlipidemia Father Cancer CAD (coronary artery disease) Hypertension Hyperlipidemia CVA (cerebral vascular accident) Brother CAD (coronary artery disease) Hyperlipidemia Surgical History History of cardiac catheterization History of cataract surgery History of colonoscopy History of colostomy History of coronary artery stent placement History of foot surgery Hx of cataract surgery Social History household members: spouse Smoking Status: Never smoker alcohol intake: never substance use type: does not use ROS <Neetu Jefferson RN - Last Filed: 11/01/23 22:29> ROS ED Constitutional Constitutional ED: Reports chills and fever(s) Eyes Eyes: Denies change in vision ENT ENT ED: Denies ear pain, rhinorrhea or sore throat Cardiovascular Cardiovascular: Denies chest pain, palpitations or racing heartbeat Respiratory/Chest Respiratory/Chest: Denies cough, dyspnea or dyspnea on exertion Gastrointestinal Gastrointestinal: Reports nausea and vomiting; Denies abdominal pain, constipation, diarrhea or melena Genitourinary Genitourinary ED: Reports dysuria; Denies hematuria or urinary frequency Musculoskeletal Musculoskeletal: Reports arthralgias and other Details: Chronic right shoulder pain due to rotator cuff issue ; Denies back pain, myalgias or neck pain Integumentary Denies rash Neurologic Neurologic: Reports weakness; Denies headache(s) or paresthesias Endocrine Endocrinology: Denies polydipsia, polyphagia or polyuria EXAM <Neetu Jefferson RN - Last Filed: 11/01/23 22:29> Physical Exam Narrative Exam Narrative: Patient is awake and alert, no acute distress. Const Vital Signs: 11/01/23 17:24 11/01/23 20:38 11/01/23 20:39 Temperature 99.1 F Temperature Source Temporal Pulse Rate 89 76 Respiratory Rate 16 19 H Blood Pressure 161/76 H 172/74 H Blood Pressure Mean 104 106 Pulse Ox 98 99 Oxygen Delivery Method Room Air Room Air 11/01/23 21:26 11/01/23 22:59 11/01/23 23:02 Temperature 99.2 F H Temperature Source Oral Pulse Rate 81 81 78 Respiratory Rate 24 H Blood Pressure 179/74 H 190/68 H Blood Pressure Mean 109 108 Pulse Ox 98 Oxygen Delivery Method Room Air Positive well nourished and well developed General Appearance ED: well developed and NAD HEENT Reports moist mucous membranes Eyes PERRL and EOMs intact bilaterally Neck no lymphadenopathy, supple and no JVD Chest Wall inspection of chest normal Resp normal respiratory effort and clear to auscultation bilaterally Auscultation: Negative for rales, rhonchi or wheezes Cardio regular rate, regular rhythm, S1 normal heart sound and S2 normal heart sound; Negative for no murmurs GI non-tender and non-distended GI Narrative: Normoactive bowel sounds to right and left upper quadrants. Colostomy noted to mid upper abdomen with thick, liquid brown drainage. Patient reports this is normal. Palpation: soft Narrative: Patient reports dysuria. Unable to tell if she is having hematuria due to vaginal and rectal bleeding. Back/Spine no CVA tenderness Extremity Extremity Narrative: 3+ right lower extremity pitting edema. 4+ left lower extremity pitting edema with redness and warmth noted to kelly. No open areas noted. Mild edema noted to left upper leg. Patient reports all this as chronic edema. General Extremety ED: Yes edema and tenderness General Extremity: edema Neuro oriented x3 Sensorium / Orientation: alert Motor Exam: strength 5/5 throughout Psych mental status grossly normal Skin no rashes or lesions noted, no wounds and skin turgor normal <Dr. Tammie Martel MD - Last Filed: 11/01/23 23:21> Physical Exam Const Vital Signs: 11/01/23 17:24 11/01/23 20:38 11/01/23 20:39 Temperature 99.1 F Temperature Source Temporal Pulse Rate 89 76 Respiratory Rate 16 19 H Blood Pressure 161/76 H 172/74 H Blood Pressure Mean 104 106 Pulse Ox 98 99 Oxygen Delivery Method Room Air Room Air 11/01/23 21:26 11/01/23 22:59 11/01/23 23:02 Temperature 99.2 F H Temperature Source Oral Pulse Rate 81 81 78 Respiratory Rate 24 H Blood Pressure 179/74 H 190/68 H Blood Pressure Mean 109 108 Pulse Ox 98 Oxygen Delivery Method Room Air MDM <Neetu Jefferson RN - Last Filed: 11/01/23 22:29> MDM MDM Narrative Medical decision making narrative: IV line inserted. Labwork obtained to evaluate for leukocytosis, anemia, and electrolyte derangement. EKG obtained to evaluate for cardiac arrhythmia/ischemia. Urinalysis obtained to evaluate for infection/hematuria. Chest x-ray obtained to evaluate for acute lung pathology, cardiac size, or mediastinal abnormality. Records obtained from [facility] for review. CT abdomen pelvis ordered to evaluate for any new pathological process. History & Record Review Discussion w/independent historian: Patient, Family and Significant other Lab Data Attestation: I reviewed the patient's lab results. Labs: Laboratory Results - last 24 hr 11/01/23 11/01/23 18:59 19:17 WBC 0.7 L* RBC 3.15 L Hgb 9.5 L Hct 29.7 L MCV 94.3 MCH 30.2 MCHC 32.0 RDW Std Deviation 43.4 RDW Coeff of Dann 12.7 Plt Count 101 L MPV 8.2 Immature Gran % (Auto) 0.000 Neut % (Auto) 6.1 L Lymph % (Auto) 87.9 H Livingston % (Auto) 3.0 Eos % (Auto) 3.0 Baso % (Auto) 0.0 Absolute Neuts (auto) 0.0 L Absolute Lymphs (auto) 0.58 L Nucleated RBC % 0 Differential Comment SEE COMMENTS Diff Path Review May foll Platelet Estimate MOD DEC RBC Morphology N CHROM Hypochromasia RARE Anisocytosis RARE Macrocytosis RARE Ovalocytes RARE Acanthocytes (Spur) RARE Sodium 136 Potassium 4.3 Chloride 107 Carbon Dioxide 22.0 Anion Gap 7 BUN 37 H Creatinine 1.52 H Est GFR (MDRD) Af Amer 44 L Est GFR (MDRD) Non-Af 36 L BUN/Creatinine Ratio 24.3 H Glucose 130 H Lactic Acid 0.5 Calcium 8.4 L Total Bilirubin 1.40 H AST 5 L ALT 12 L Alkaline Phosphatase 103 Total Protein 6.8 Albumin 2.5 L Globulin 4.3 H Albumin/Globulin Ratio 0.6 L Urine Color Yellow Urine Clarity Clear Urine pH 5.0 Ur Specific Archer 1.010 Urine Protein Negative Urine Glucose (UA) Normal Urine Ketones Negative Urine Occult Blood 150 H Urine Nitrite Negative Urine Bilirubin Negative Urine Urobilinogen Normal Ur Leukocyte Esterase Negative Urine RBC 0 SEEN Urine WBC 0 SEEN Ur Squamous Epith Cells 0 SEEN Urine Bacteria 1+ Urine Mucus 0 SEEN Radiography Chest X-Ray - ED: 1 View, Read by Radiologist and No Acute Disease Diagnostic Testing: Clinical Impression(s) from Imaging Studies Chest X-Ray 11/01/23 19:19 IMPRESSION: No acute cardiopulmonary disease. Age-indeterminate bronchitis. Old granulomatous disease. Ancillary findings as above. Electronically Signed: Jackson Solis MD at 20:15 EDT , Abdomen/Pelvis CT 11/01/23 20:01 IMPRESSION: 1. Inflammatory thickening of the rectal wall. 2. Moderate to severe right hydroureteronephrosis down to the level of the distal ureter which is not well seen. Would consider the possibility of a distal ureteral stenosis. 3. Possible pneumonia involving the right middle lobe and inferior lingula. 4. Left pearaaortic/retroperitoneal adenopathy is grossly unchanged. 5. Ancillary findings as above. Electronically Signed: Jackson Solis MD at 22:10 EDT , EKG Initial EKG: Attestation: I personally reviewed and interpreted this EKG as follows: Interpretation: Sinus Rhythm Comments: Sinus rhythm with rate of 81. No dysrhythmia or ischemia noted. Prior EKG tracings: not available for review Differential Diagnosis Chest pain/SOB: pneumonia Abdominal Pain: Bowel obstruction Differential Diagnosis: Colitis Management Discussion w/another healthcare provider: Other (Dr Martel, ED provider) Treatment and Re-Evaluation :: Lab work and imaging reviewed. CBC shows neutropenia with a white blood cell count of 0.7 with an ANC of 0 for which patient was placed in neutropenic precautions. Hemoglobin is 9.5 which is patient's baseline. Platelets are low at 101. Chemistry showed normal sodium 136. Normal potassium at 4.3. Creatinine is 1.52 which is lower than her last value of 1.61 on 10/13/2023. Total bili is 1.4. She had been 1.9 in 06/2023. Urinalysis is positive for occult blood. Negative for UTI as patient has no nitrites, WBC, and 1+ bacteria. COVID, influenza A/B, and RSV are all negative. Chest x-ray is negative for acute cardiopulmonary process. CT abdomen and pelvis shows inflammatory thickening of the rectal wall, possible distal ureteral stenosis, possible pneumonia involving the right middle lobe and inferior lingula, stable left pearaortic/retroperitoneal adenopathy. Cefepime 2 g IV is ordered due to patient being febrile yesterday and neutropenic today. Vancomycin ordered for pneumonia. [facility] to be contacted for transfer to [facility] as this is the location that patient receives her care. Lab work and imaging results reviewed with patient and family. Plan discussed regarding transfer. Patient and family to be updated on transfer and bed availability. <Dr. Tammie Martel MD - Last Filed: 11/01/23 23:21> [facility] Lab Data Labs: Laboratory Results - last 24 hr 11/01/23 11/01/23 18:59 19:17 WBC 0.7 L* RBC 3.15 L Hgb 9.5 L Hct 29.7 L MCV 94.3 MCH 30.2 MCHC 32.0 RDW Std Deviation 43.4 RDW Coeff of Dann 12.7 Plt Count 101 L MPV 8.2 Immature Gran % (Auto) 0.000 Neut % (Auto) 6.1 L Lymph % (Auto) 87.9 H Livingston % (Auto) 3.0 Eos % (Auto) 3.0 Baso % (Auto) 0.0 Absolute Neuts (auto) 0.0 L Absolute Lymphs (auto) 0.58 L Nucleated RBC % 0 Differential Comment SEE COMMENTS Diff Path Review May foll Platelet Estimate MOD DEC RBC Morphology N CHROM Hypochromasia RARE Anisocytosis RARE Macrocytosis RARE Ovalocytes RARE Acanthocytes (Spur) RARE Sodium 136 Potassium 4.3 Chloride 107 Carbon Dioxide 22.0 Anion Gap 7 BUN 37 H Creatinine 1.52 H Est GFR (MDRD) Af Amer 44 L Est GFR (MDRD) Non-Af 36 L BUN/Creatinine Ratio 24.3 H Glucose 130 H Lactic Acid 0.5 Calcium 8.4 L Total Bilirubin 1.40 H AST 5 L ALT 12 L Alkaline Phosphatase 103 Total Protein 6.8 Albumin 2.5 L Globulin 4.3 H Albumin/Globulin Ratio 0.6 L Urine Color Yellow Urine Clarity Clear Urine pH 5.0 Ur Specific Archer 1.010 Urine Protein Negative Urine Glucose (UA) Normal Urine Ketones Negative Urine Occult Blood 150 H Urine Nitrite Negative Urine Bilirubin Negative Urine Urobilinogen Normal Ur Leukocyte Esterase Negative Urine RBC 0 SEEN Urine WBC 0 SEEN Ur Squamous Epith Cells 0 SEEN Urine Bacteria 1+ Urine Mucus 0 SEEN Radiography Diagnostic Testing: Clinical Impression(s) from Imaging Studies Chest X-Ray 11/01/23 19:19 IMPRESSION: No acute cardiopulmonary disease. Age-indeterminate bronchitis. Old granulomatous disease. Ancillary findings as above. Electronically Signed: Jackson Solis MD at 20:15 EDT , Abdomen/Pelvis CT 11/01/23 20:01 IMPRESSION: 1. Inflammatory thickening of the rectal wall. 2. Moderate to severe right hydroureteronephrosis down to the level of the distal ureter which is not well seen. Would consider the possibility of a distal ureteral stenosis. 3. Possible pneumonia involving the right middle lobe and inferior lingula. 4. Left pearaaortic/retroperitoneal adenopathy is grossly unchanged. 5. Ancillary findings as above. Electronically Signed: Jackson Solis MD at 22:10 EDT , Treatment and Re-Evaluation :: Lab work and imaging reviewed. CBC shows neutropenia with a white blood cell count of 0.7 with an ANC of 0 for which patient was placed in neutropenic precautions. Hemoglobin is 9.5 which is patient's baseline. Platelets are low at 101. Chemistry showed normal sodium 136. Normal potassium at 4.3. Creatinine is 1.52 which is lower than her last value of 1.61 on 10/13/2023. Total bili is 1.4. She had been 1.9 in 06/2023. Urinalysis is positive for occult blood. Negative for UTI as patient has no nitrites, WBC, and 1+ bacteria. COVID, influenza A/B, and RSV are all negative. Chest x-ray is negative for acute cardiopulmonary process. CT abdomen and pelvis shows inflammatory thickening of the rectal wall, possible distal ureteral stenosis, possible pneumonia involving the right middle lobe and inferior lingula, stable left pearaortic/retroperitoneal adenopathy. Cefepime 2 g IV is ordered due to patient being febrile yesterday and neutropenic today. Vancomycin ordered for pneumonia. [facility] to be contacted for transfer to [facility] as this is the location that patient receives her care. Lab work and imaging results reviewed with patient and family. Plan discussed regarding transfer. Patient and family to be updated on transfer and bed availability. Patient seen and evaluated with [employer] student. I personally interviewed and examined the patient. I was involved in all aspects of patient's orders, interpretation of results, and treatment. Patient presents secondary to GI bleed. She has a history of rectal cancer that is metastatic. She will frequently have rectal bleeding. She started a new chemotherapy recently and had increased bleeding earlier today with large clots. She also reports having a temperature of 100.4 last evening that lasted approximately 7 hours. She had chills. She denies cough or congestion. Patient sitting upright in bed no acute distress. Nontoxic-appearing. Head and neck examination is unremarkable. Heart is regular rate and rhythm. Lung sounds are grossly clear. Abdomen is soft with no focal tenderness. Colostomy is noted. Lower extremity examination reveals bilateral edema that is symmetric. No skin rash or lesions noted. Workup for neutropenic fever obtained in addition to GI bleed. CBC reveals a white count of 0.7 with an absolute neutrophil count of 0. Hemoglobin is 9.5. Platelet count is low at 101. Chemistry studies reveal a BUN of 37 and a creatinine 1.52. This is actually slightly improved when compared to her most recent labs. LFTs are unremarkable. Lactic acid is normal at 0.5. Urinalysis reveals 1+ bacteria with 0 white cells and 0 nitrites. Blood and urine cultures have been sent. Swab for COVID, influenza, and RSV is negative. Chest x-ray per my interpretation reveals chronic changes with no obvious infiltrate. Radiology interpretation reviewed and agrees. Patient is sent for CT scan of the abdomen pelvis with IV contrast. This reveals inflammatory thickening of the rectal wall. There is moderate to severe right hydro ureteral nephrosis down to the level of the distal ureter. Possible pneumonia as noted in the right middle lobe and inferior lingula. Patient was initially given a dose of cefepime. With potential pneumonia noted on her CT scan vancomycin and Zithromycin are added. I did discuss with her that with her white count being so significantly reduced I feel that she will likely not be a candidate for a scope at this time as this would likely cause bacteremia. Nursing staff notes that when the did the straight cath for her urine she had very small amount of blood noted on her pad and she is not having significant rectal bleeding at this time. Patient is currently off of anticoagulation and does have an IVC filter in place. She would prefer transfer back to [facility] where her physician can care for her. Transfer line has been contacted. Discharge Plan Triage Chief Complaint: GI Bleed ED Provider: Tammie Martel Dx/Rx/DC Orders Clinical Impression: GI bleed, Neutropenia, Neutropenic fever, Pneumonia Prescriptions: No Action carvedilol [Coreg] 25 mg tablet 6.25 mg PO BID Rx Instructions: must administer with a meal/food cinnamon bark [Cinnamon] 500 mg Capsule 1,000 mg PO BID clobetasol 0.05 % Cream 1 applic TOPICAL DAILY PRN (Reason: Itching) dexamethasone 0.5 mg/5 mL Elixir 0.5 mg PO BID PRN (Reason: SORE MOUTH) vitamin R13-doudg acid 0.5-1 mg Tablet 1 tab PO DAILY atorvastatin 40 mg tablet 40 mg PO DAILY Patient Comments: TAKE ONE TABLET BY MOUTH EVERY DAY lidocaine-prilocaine 2.5-2.5 % cream 1 applic topical DAILY PRN (Reason: port access) Patient Comments: APPLY 1 APPLICATION TO AFFECTED AREA NEEDED. furosemide 40 mg tablet 40 mg PO 0800 Patient Comments: TAKE 1 TABLET BY MOUTH EVERY DAY Probiotic 15 billion cell capsule, sprinkle 1 cap PO DAILY Rx Instructions: do not crush/chew/cut; swallow whole OR may open and sprinkle in cold drink/food trazodone 50 mg tablet 50 mg PO QHS Primary Care Provider: Keenan Alvarez Referrals: Keenan Alvarez DO [Primary Care Provider] -
[2023-11-01 19:07] LABS: Absolute Lymphocyte Count 0.58 X10^3/uL (0.83-4.51); Eosinophil# 0.02 X10^3/uL; Hematocrit 29.7 % (37-47); Hemoglobin 9.5 g/dL (12.0-15.0); Lymphocyte # 0.58 X10^3/ul (0.83-4.51); Lymphocyte % 87.9 % (19-41); Mean Corpuscular Hgb 30.2 pg (27.0-32.0); Mean Corpuscular Volume 94.3 fL (81-99); Mean Platelet Vol. 8.2 fl (6.2-12.0); Monocyte# 0.02 X10^3/uL; NRBC Flagged by Analyzer 0 % (0-5); Neutrophil # 0.04 X10^3/uL (2.7-7.7); Neutrophil % 6.1 % (47-70); POSITIVE COUNT YES; POSITIVE DIFFERENTIAL YES; POSITIVE MORPHOLOGY YES; Platelet Count 101 K/mm3 (150-450); RBC Distribution Width CV 12.7 % (11.6-14.6); RBC Distribution Width SD 43.4 fl (35.1-43.9); Red Blood Count 3.15 M/mm3 (4.2-5.4)
--- NOTE | 2023-11-01 19:19 | RAD_ITS ---
EXAM: XR CHEST, 2 VIEWS CLINICAL INDICATION: Fever TECHNIQUE: Frontal and lateral views of the chest. COMPARISON: October 13, 2023 FINDINGS: LUNGS AND PLEURAL SPACES: Evidence of bronchitis, age indeterminate. No consolidation. No pleural effusion or pneumothorax. HEART: Cardiac silhouette not enlarged. MEDIASTINUM: Central airways and mediastinal contour are unremarkable. BONES/JOINTS: Degenerative changes of the spine. No acute fracture. SOFT TISSUES: Unremarkable. LYMPH NODES: Calcified lymph nodes projecting over the AP window region are indicative of old granulomatous disease. TUBES, LINES AND DEVICES: Chest port again identified, unchanged. RAD/Chest PA and Lateral IMPRESSION: No acute cardiopulmonary disease. Age-indeterminate bronchitis. Old granulomatous disease. Ancillary findings as above. Electronically Signed: Jackson Solis MD at 20:15 EDT ,
[2023-11-01 19:24] LABS: Mucous, Urine 0 SEEN /hpf (<or=2+); Red Blood Cells-Urine 0 SEEN /hpf (0-5); Squamous Epithelial Cells - UA 0 SEEN /hpf (5-10); White Blood Cells 0 SEEN /hpf (0-5)
[2023-11-01 19:25] LABS: ALB/GLOB Ratio 0.6 RATIO (0.9-2.4); AST(SGOT) 5 U/L (15-37); Alanine Aminotransfer ALT/SGPT 12 U/L (13-56); Albumin, Serum 2.5 g/dL (3.2-5.0); Alkaline Phosphatase 103 U/L (45-117); Anion Gap 7 (5-15); BUN 37 mg/dL (7-18); BUN/Creat Ratio 24.3 RATIO (10-20); Calcium,Total 8.4 mg/dL (8.5-10.1); Chloride 107 mmol/L (98-107); Creatinine, Serum 1.52 mg/dL (0.55-1.02); EST Glomerular Filtration Rate 36 mL/min (>60); Est Glom Filt Rate - Afr Amer 44 mL/min (>60); Globulin 4.3 g/dL (2.2-4.2); Glucose 130 mg/dL (74-106); Potassium 4.3 mmol/L (3.5-5.1); Protein, Total 6.8 g/dL (6.4-8.2); Sodium Level 136 mmol/L (136-145)
[2023-11-01 19:27] LABS: Differential Indicated SCAN CRITERIA MET; White Blood Count 0.7 K/mm3 (4.4-11.0)
[2023-11-01 19:31] LABS: Differential Comment SEE COMMENTS
[2023-11-01 19:32] LABS: Acanthocytes RARE; Anisocytosis RARE; Hypochromasia RARE; Macrocytosis RARE; Ovalocyte RARE; Platelet Estimate MOD DEC (ADEQ); Red Cell Morphology N CHROM NORMAL (NORM C&C)
[2023-11-01 19:46] LABS: Lactic Acid 0.5 mmol/L (0.4-1.9)
[2023-11-01 19:51] LABS: Color, Urine Yellow (Yellow); Glucose, Dipstick Normal (Normal); Ketone-Dipstick Negative (Negative); Leukocyte Esterase-Dipstick Negative /ul (Negative); Nitrite-Dipstick Negative (Negative); Occult Blood-Urine 150 /ul (Negative); Protein-Dipstick Negative (Negative); Urine Bilirubin Dipstick Negative (Negative); Urine Clarity Clear (Clear); Urine Urobilinogen Normal (Normal)
--- NOTE | 2023-11-01 20:01 | CT_ITS ---
EXAM: CT ABDOMEN AND PELVIS WITH INTRAVENOUS CONTRAST CLINICAL INDICATION: GI bleed, known rectal cancer TECHNIQUE: Helically acquired images were obtained of the abdomen and pelvis with intravenous contrast. CTDIvol = ( 17.40 ) mGy, DLP = ( 1060.12 ) mGycm This CT exam was performed using one or more of the following dose reduction techniques: automated exposure control, adjustment of the mA and/or kV according to patient size, and/or use of iterative reconstruction technique. CONTRAST: IV 100mL [id number] COMPARISON: September 25. FINDINGS: LOWER THORAX: Airspace disease involving the right middle lobe and inferior lingula raises concern for pneumonia in the proper clinical setting. No cardiomegaly. No significant pericardial effusion. ABDOMEN: LIVER: Focal scarring suspected at the right lobe of the liver. GALLBLADDER AND BILE DUCTS: Unremarkable. No calcified gallstones. No gallbladder distention or wall edema. No intra- or extrahepatic biliary ductal dilation. PANCREAS: Unremarkable. No focal cystic or solid mass. SPLEEN: Unremarkable. Normal size without focal cystic or solid mass. ADRENALS: Unremarkable. No nodules. KIDNEYS AND URETERS: Moderate to severe right hydroureteronephrosis down to the level of the distal ureter which is not well seen with right renal parenchymal thinning. There is no distal obstructive calculus identified. Would consider the possibility of a distal ureteral stenosis. Left pearaaortic/retroperitoneal adenopathy is grossly unchanged. STOMACH AND BOWEL: Evidence of prior bowel surgery/partial colectomy with ostomy involving the left abdomen. Inflammatory thickening of the rectal wall. No bowel obstruction. PELVIS: APPENDIX: See above. BLADDER: Mucosal enhancement of the prominent bladder wall with slight adjacent stranding is concerning for cystitis. Correlate with urinalysis. REPRODUCTIVE: Unremarkable as visualized. No mass. ABDOMEN and PELVIS: INTRAPERITONEAL SPACE: Unremarkable. No ascites or other fluid collection. No free air. BONES/JOINTS: Question stress changes involving the bilateral sacral ala. Multilevel degenerative changes of the spine and pelvis. Grade 1 degenerative anterolisthesis of L4 on L5. Moderate degenerative disc disease at L5-S1. No suspicious lytic or blastic abnormality. SOFT TISSUES: Unremarkable. No discrete abdominal or pelvic wall hernia. VASCULATURE: Infrarenal IVC filter in place. Abdominal aorta is non-dilated. LYMPH NODES: Unremarkable. No enlarged lymph nodes. CT/Abdomen/Pelvis W IV Cont ONLY IMPRESSION: 1. Inflammatory thickening of the rectal wall. 2. Moderate to severe right hydroureteronephrosis down to the level of the distal ureter which is not well seen. Would consider the possibility of a distal ureteral stenosis. 3. Possible pneumonia involving the right middle lobe and inferior lingula. 4. Left pearaaortic/retroperitoneal adenopathy is grossly unchanged. 5. Ancillary findings as above. Electronically Signed: Jackson Solis MD at 22:10 EDT ,
[2023-11-01 20:13] LABS: Bacteria 1+ /hpf (None Seen)
[2023-11-01 20:38] VITALS: PULSE 76; RESP 19; O2SAT 99
[2023-11-01] MEDS: 0.9% Normal Saline (1000mL) 1,000 ML 150 ML IV (20:38)
[2023-11-01 20:39] VITALS: BP 172/74
[2023-11-01] MEDS: Cefepime HCl 2 GM in 0.9% Normal Saline (100mL MB+) 100 ML IV (21:17)
[2023-11-01 21:26] VITALS: BP 179/74; PULSE 81
[2023-11-01 22:26] VITALS: BMI 37.0
[2023-11-01] MEDS: Azithromycin 500 MG in Dextrose 5%-Water (250mL Bag) 250 ML 250 MG IV (22:57)
[2023-11-01 22:59] VITALS: BP 190/68; PULSE 81; RESP 24; TEMP 37.3; O2SAT 98
[2023-11-01 23:02] VITALS: PULSE 78
[2023-11-02] VITALS (7 sets, daily range): BP systolic 122–182; BP diastolic 57–73; PULSE 79–94; RESP 14–24; TEMP 36.8–37.2; O2SAT 95–98
[2023-11-02] MEDS: Vancomycin HCl 1,250 MG in 0.9% Normal Saline (250mL Bag) 250 ML 167 MG IV (00:14)
--- NOTE | 2023-11-02 04:23 | ED.RN ---
OK TO CANCEL SEPSIS SCREEN PER DR. JORGENSEN. CONTINUE TO MONITOR FOR CHANGES IN VITAL SIGNS.
--- NOTE | 2023-11-02 06:40 | ED.RN ---
PT ACCEPTED AT [facility]. DR. BROOKS G70 BED 2 N2N [phone] [facility] CALLED FOR TRANSPORT ETA 3HRS
[2023-11-02] MEDS: 0.9% Normal Saline (1000mL) 1,000 ML 150 ML IV (06:45)
[2023-11-02] MEDS: Ondansetron 4 MG/2 ML Vial IV (08:51)
--- NOTE | 2023-11-02 11:12 | ED.RN ---
Attempted to call report on patient to [facility], nurse was in a room. Left a number for them to call me back.
[2023-11-04 09:37] LABS: Pathologist Review Reviewed
== END 2023-11-02 11:35 | disposition short-term general hospital (02) ==
LOC: ED 18:34
PROVIDERS: Emergency Provider Emergency Medicine; Visit Provider Emergency Medicine
DX: K92.2 Gastrointestinal hemorrhage, unspecified (principal); D70.9 Neutropenia, unspecified; Z93.3 Colostomy status; J44.9 Chronic obstructive pulmonary disease, unspecified; I13.0 Hypertensive heart and chronic kidney disease with heart failure and stage 1 through stage 4 chronic kidney disease, or unspecified chronic kidney disease; I50.32 Chronic diastolic (congestive) heart failure; E11.22 Type 2 diabetes mellitus with diabetic chronic kidney disease; N18.30 Chronic kidney disease, stage 3 unspecified; J18.9 Pneumonia, unspecified organism; N93.9 Abnormal uterine and vaginal bleeding, unspecified; N13.30 Unspecified hydronephrosis
CPT/HCPCS: 71046; 74177; 80053; 81001; 83605; 85025; 87040; 87631; 93005; 96365; 96366; 96367; 96368; 96375; 99284; J7030; J7050; Q9967; A4216; J2405

== ENCOUNTER 2023-11-08 06:40 | Emergency (ER) | payer MEDICARE, SELFPAY ==
[2023-11-08 06:41] VITALS: BP 215/67; PULSE 69; RESP 20; TEMP 36.1; O2SAT 99; BMI 36.0
--- NOTE | 2023-11-08 06:50 | EKG12_ITS ---
Test Reason : CHEST PAIN Blood Pressure : / mmHG Vent. Rate : 060 BPM Atrial Rate : 060 BPM P-R Int : 168 ms QRS Dur : 088 ms QT Int : 416 ms P-R-T Axes : 003 -27 054 degrees QTc Int : 416 ms Normal sinus rhythm Minimal voltage criteria for LVH, may be normal variant ( R in aVL ) Septal infarct (cited on or before 19-JUN-2021) Abnormal ECG Confirmed by BULMARO SIFUENTES, KALLI ([id number]), primer expeditor and drier SELENE MCPHERSON ([id number]) on 11/09/2023 8:00:26 AM Referred By: Confirmed By:KALLI CHAMBERLAIN MD
--- NOTE | 2023-11-08 06:50 | RAD_ITS ---
STUDY: X-RAY CHEST REASON FOR EXAM: Female, 68 years old. Sharp chest pain TECHNIQUE: Single AP portable view of the chest. COMPARISON: Comparison is made with prior study of November 01, 2023. FINDINGS: A right-sided portacatheter seen with the tip at the junction of the superior vena cava and right atrium. Persistent mild degree of increased markings in the right midlung and left lower lobe suggestive of atelectasis and/or infiltrate. There has been improvement as compared to prior study. There is no demonstrated pleural abnormality. Normal size heart. Normal mediastinum and charbel. Normal visualized pulmonary arteries. There is atherosclerotic calcification of the aortic arch with tortuosity. There are diffuse degenerative changes of the visualized thoracic spine. There is degenerative osteoarthritis of the bilateral shoulders. There is no demonstrated abnormality of the visualized soft tissue structures of the upper abdomen. RAD/Chest 1 View (Portable) IMPRESSION: Mild residual increased markings as described. There is been improvement as compared to prior study. Electronically Signed: Carloz Velasquez MD at 8:26 EDT ,
--- NOTE | 2023-11-08 06:51 | EDS_ITS ---
HPI <Dr. Dameon Bautista MD - Last Filed: 11/08/23 14:36> History of Present Illness Chief Complaint: Chest Pain Detail of Chief Complaint: Sharp central chest pain Informant: patient Onset/Context/Timing Onset: Hours (Approximately 0300) Activity at onset: sudden Timing: Continuous Location: - (Central chest) Current Severity: Mild Maximum Severity: Moderate Worsened By: Nothing Relieved By: Nothing Associated Symptoms: Positive for Nausea and Vomiting (X 6); Negative for Diaphoresis, Dyspnea, Cough, Fever, Lightheadedness, Acid Reflux or Palpitations Narrative Narrative: Patient is a 68-year-old woman with history of coronary disease, chronic kidney disease, diabetes mellitus, sarcoidosis, stage IV metastatic colon cancer with known DVT left leg. She has a [place] filter in place. She is not on anticoagulant because she passes blood clots from her rectum. Patient states he had trouble getting to sleep. Around 3:00 in the morning she developed sharp chest pain that is been persistent since onset. There is no associated dyspnea, diaphoresis or radiation of the discomfort. There are no alleviating or precipitating factors. There is no coffee grounds or blood noted in the emesis. Patient denies black or maroon-colored stool. She denies intolerance to greasy or fried foods. Prior Similar Symptoms: No Recent Illness/Hospitalization: Yes CVD Risk Factors: Positive for Diabetes and Hypercholesterolemia PE Risk Factors: Positive for Prior DVT or PE and Cancer; Negative for Recent Travel/Surgery, Recent Immobilization or OCP + Smoking + >/=35 TAD Risk Factors: Positive for Hypertension; Negative for Marfan's Syndrome or Family History PFS <Dr. 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 Cardiomyopathy Carotid artery stenosis Carotid artery stenosis with cerebral infarction Chronic anticoagulation Chronic kidney disease, stage III (moderate) Congenital talipes calcaneovalgus of left foot Congestive heart failure (CHF) COPD (chronic obstructive pulmonary disease) Coronary artery disease Diabetes mellitus Diabetes mellitus type II, uncontrolled Diastolic congestive heart failure DVT (deep venous thrombosis) Edema of left lower extremity Edema of right lower extremity Essential hypertension GI bleed GI bleed History of CHF (congestive heart failure) History of CVA (cerebrovascular accident) (10/21/17) History of deep vein thrombosis (DVT) of lower extremity History of deep venous thrombosis (DVT) of distal vein of left lower extremity History of deep venous thrombosis (DVT) of distal vein of right lower extremity History of diabetes mellitus, type II History of pleural effusion (10/21/17) History of rectal cancer History of renal disease History of stress test Hyperlipidemia Hypertension Left leg swelling Low iron Lymphedema Lymphedema of left leg Nonrheumatic mitral valve regurgitation Nonrheumatic tricuspid valve regurgitation Parastomal hernia Postphlebitic syndrome with inflammation Preop cardiovascular exam Radiation proctitis Rectal bleeding Rectal cancer metastasized to liver Renal insufficiency Right leg swelling Sarcoidosis Shortness of breath on exertion Snoring Steroid long-term use Stroke/cerebrovascular accident Tricuspid regurgitation Wears dentures Home Medications carvedilol 25 mg tablet (Coreg) 6.25 mg PO BID Hypertension 11/22/19 [History Last Taken 09/27/22 0700] cinnamon bark 500 mg capsule (Cinnamon) 1,000 mg PO BID SUPPLEMENT 06/19/21 [History Last Taken 09/27/22 0700] clobetasol 0.05 % topical cream 1 applic topical DAILY PRN Itching 10/28/22 [History Last Taken Unknown] dexamethasone 0.5 mg/5 mL oral elixir 0.5 mg PO BID PRN SORE MOUTH 10/28/22 [History Last Taken Unknown] vitamin B12 0.5 mg-folic acid 1 mg tablet 1 tab PO DAILY supplement 10/28/22 [Hi story Last Taken Unknown] atorvastatin 40 mg tablet 40 mg PO DAILY HTN 07/08/23 [History Last Taken Unknown] lidocaine-prilocaine 2.5 %-2.5 % topical cream 1 applic topical DAILY PRN port access 07/08/23 [History Last Taken Unknown] furosemide 40 mg tablet 40 mg PO 0800 09/25/23 [History Last Taken Unknown] lactobacillus combo no.11 15 billion cell sprinkle capsule (Probiotic) 1 cap PO DAILY 09/25/23 [History Last Taken Unknown] trazodone 50 mg tablet 50 mg PO QHS 11/01/23 [History Last Taken Unknown] levofloxacin 500 mg tablet 500 mg PO Q24H 11/08/23 [History Last Taken Unknown] potassium chloride 20 mEq tablet,extended release 20 meq PO DAILY 11/08/23 [History Last Taken Unknown] sodium bicarbonate 650 mg tablet 650 mg PO TID 11/08/23 [History Last Taken Unknown] Allergy/AdvReac Type Severity Reaction Status Date / Time latex Allergy Severe Hives Verified 11/08/23 06:40 alcohol Allergy Mild rash Verified 11/08/23 06:40 codeine AdvReac Unknown unknown Verified 11/08/23 06:40 Family History Mother Bleeding disorder Diabetes CAD (coronary artery disease) Hypertension Hyperlipidemia Kidney disease Sister Asthma CAD (coronary artery disease) Hyperlipidemia Father Cancer CAD (coronary artery disease) Hypertension Hyperlipidemia CVA (cerebral vascular accident) Brother CAD (coronary artery disease) Hyperlipidemia Surgical History History of cardiac catheterization History of cataract surgery History of colonoscopy History of colostomy History of coronary artery stent placement History of foot surgery Hx of cataract surgery Social History household members: spouse Smoking Status: Never smoker alcohol intake: never substance use type: does not use ROS <Dr. Dameon Bautista MD - Last Filed: 11/08/23 14:36> ROS ED Constitutional Constitutional ED: Denies chills, fever(s), subjective, sweats or weight loss Eyes Eyes: Reports none ENT ENT ED: Denies ear pain, rhinorrhea or sore throat Cardiovascular Cardiovascular: Reports as per HPI and chest pain; Denies orthopnea or paroxysmal nocturnal dyspnea Respiratory/Chest Respiratory/Chest: Denies cough, dyspnea, dyspnea on exertion, orthopnea or paroxysmal nocturnal dyspnea Gastrointestinal Gastrointestinal: Reports nausea and vomiting; Denies abdominal pain, constipation, diarrhea or melena Genitourinary Genitourinary ED: Denies dysuria, hematuria or urinary frequency Musculoskeletal Musculoskeletal: Denies arthralgias, back pain or myalgias Integumentary Denies rash Neurologic Neurologic: Reports weakness; Denies paresthesias Hematologic/Lymphatic Hematologic/Lymphatic: Denies easy bleeding or easy bruising EXAM <Dr. Dameon Bautista MD - Last Filed: 11/08/23 14:36> Physical Exam Const Vital Signs: 11/08/23 06:41 11/08/23 07:39 11/08/23 07:45 Temperature 97 F L 98.1 F Temperature Source Temporal Oral Pulse Rate 69 59 L 59 L Respiratory Rate 20 H 22 H 14 Blood Pressure 215/67 H 194/73 H 196/63 H Blood Pressure Mean 116 113 107 Pulse Ox 99 99 98 Oxygen Delivery Method Room Air Room Air 11/08/23 09:00 11/08/23 10:00 11/08/23 10:00 Temperature 96.9 F L Temperature Source Pulse Rate 86 71 71 Respiratory Rate 22 H 19 H 19 H Blood Pressure 182/77 H 149/57 H 149/57 H Blood Pressure Mean 112 87 87 Pulse Ox 96 97 97 Oxygen Delivery Method Room Air Room Air Positive well nourished, well developed and obese General Appearance ED: well developed, NAD and pallor Nutritional Appearance: obese HEENT Reports TM's clear and dry mucous membranes normocephalic and atraumatic Tympanic Membrane ED: Yes TM's clear Mouth ED: Yes dry mucous membranes Mouth: dry mucous membranes Eyes PERRL and EOMs intact bilaterally General Eye ED: Yes pale conjunctiva; Negative for scleral icterus Neck no lymphadenopathy, supple and no JVD Chest Wall inspection of chest normal and palpation of chest normal Resp normal respiratory effort and clear to auscultation bilaterally Cardio regular rate, regular rhythm, S1 normal heart sound, S2 normal heart sound and no murmurs Peripheral Pulses: brachial pulses present and radial pulses present GI normal to inspection, nondistended, normoactive bowel sounds, soft to palpation, non-tender, non-distended and no masses; Negative for hepatosplenomegaly Back/Spine no CVA tenderness Extremity Extremity Narrative: There is swelling of the left lower leg with discoloration consistent with probable chronic DVT. There is edema bilaterally. Neuro oriented x3, CN's II-XII intact bilaterally and no sensory deficits noted Sensorium / Orientation: awake and alert Psych mental status grossly normal Skin no wounds General Skin Exam: pallor; Negative for jaundice <Dr. Tammie Martel MD - Last Filed: 11/08/23 10:14> Physical Exam Const Vital Signs: 11/08/23 06:41 11/08/23 07:39 11/08/23 07:45 Temperature 97 F L 98.1 F Temperature Source Temporal Oral Pulse Rate 69 59 L 59 L Respiratory Rate 20 H 22 H 14 Blood Pressure 215/67 H 194/73 H 196/63 H Blood Pressure Mean 116 113 107 Pulse Ox 99 99 98 Oxygen Delivery Method Room Air Room Air 11/08/23 09:00 11/08/23 10:00 11/08/23 10:00 Temperature 96.9 F L Temperature Source Pulse Rate 86 71 71 Respiratory Rate 22 H 19 H 19 H Blood Pressure 182/77 H 149/57 H 149/57 H Blood Pressure Mean 112 87 87 Pulse Ox 96 97 97 Oxygen Delivery Method Room Air Room Air [facility] <Dr. Dameon Bautista MD - Last Filed: 11/08/23 14:36> [facility] Narrative Medical decision making narrative: With patient having chest pain this may represent cardiac versus noncardiac. Since cardiac is a consideration and would be atypical EKG and troponin was ordered. Also need to entertain possibility of PE since she has history of cancer and DVT. She is not on anticoagulant because of rectal bleeding. She does have a [place] filter in place. Chest x-ray was obtained to determine with a pulmonary etiology of her sharp chest pain. This also could represent GI etiology and would be atypical. Since she appears pale CBC was obtained assess H&H as well as white count. Electrolyte panel to evaluate renal function in the event she needs a CTA. History & Record Review Discussion w/independent historian: Patient and Family Additional record(s) reviewed:: Prior inpatient record (Admitted several months ago for rectal bleeding. Anticoagulant was discontinued.), Prior outpatient record (Seen by Dr. Bro for wound. She does have a colostomy.), Prior ED visit (Visit for rectal bleeding, acute kidney injury) and Prior labs Lab Data Labs: Laboratory Results - last 24 hr 11/08/23 11/08/23 07:05 09:30 WBC 10.0 RBC 2.85 L Hgb 8.7 L Hct 27.4 L MCV 96.1 MCH 30.5 MCHC 31.8 L RDW Std Deviation 44.6 H RDW Coeff of Dann 13.2 Plt Count 264 MPV 9.0 Neut % (Auto) Not Reportable Absolute Neuts (auto) 7.0 Absolute Lymphs (auto) 1.80 Total Counted 100 Neutrophils % (Manual) 62 Band Neutrophils % 8 H Lymphocytes % (Manual) 18 L Monocytes % (Manual) 5 Metamyelocytes % 3 H Myelocytes % 4 H Diff Path Review May foll Sodium 138 Potassium 4.1 Chloride 110 H Carbon Dioxide 22.0 Anion Gap 6 BUN 21 H Creatinine 1.53 H Estim Creat Clear Calc 33.17 Est GFR (MDRD) Af Amer 43 L Est GFR (MDRD) Non-Af 36 L BUN/Creatinine Ratio 13.7 Glucose 170 H Calcium 8.7 Total Bilirubin 0.60 AST 11 L ALT 10 L Alkaline Phosphatase 109 Troponin I High Sens 7 10 Total Protein 6.5 Albumin 2.5 L Globulin 4.0 Albumin/Globulin Ratio 0.6 L Radiography Chest X-Ray - ED: 2 View, Read by ED Physician (Independently reviewed interpreted by me at 0738.), Unchanged (From November 01, 2023), Normal, Heart, Mediastinum and No Acute Disease (Port noted. Increased markings on the right. This film is a single view portable in comparison and inspiratory volume is less.) Diagnostic Testing: Clinical Impression(s) from Imaging Studies Chest X-Ray 11/08/23 06:50 IMPRESSION: Mild residual increased markings as described. There is been improvement as compared to prior study. Electronically Signed: Carloz Velasquez MD at 8:26 EDT , Chest CTA 11/08/23 08:38 IMPRESSION: No evidence of pulmonary embolism. Mild with emphysema. Chronic infiltrate with bronchiectasis in the right middle lobe and lingular segment of the left upper lobe as well as scarring in the lower lobes. Calcified mediastinal and hilar lymph nodes. Electronically Signed: Carloz Velasquez MD at 9:25 EDT , EKG Initial EKG: Attestation: I personally reviewed and interpreted this EKG as follows: Interpretation: Sinus Rhythm (Rate is 60. The IL interval is 168 ms. Cures duration 88 ms. QT duration 460 ms. [place] is normal. There is decreased anterior force noted. There is no acute ischemic changes noted.) Treatment and Re-Evaluation :: Care was transferred to the a.m. physician. Blood work is pending. If laboratory results do not explain her pain with history of stage IV colon cancer known DVT not anticoagulated because of GI bleed she will require a CTA of the chest as long as renal function is normal. <Dr. Tammie Martel MD - Last Filed: 11/08/23 10:14> [facility] Lab Data Labs: Laboratory Results - last 24 hr 11/08/23 11/08/23 07:05 09:30 WBC 10.0 RBC 2.85 L Hgb 8.7 L Hct 27.4 L MCV 96.1 MCH 30.5 MCHC 31.8 L RDW Std Deviation 44.6 H RDW Coeff of Dann 13.2 Plt Count 264 MPV 9.0 Neut % (Auto) Not Reportable Absolute Neuts (auto) 7.0 Absolute Lymphs (auto) 1.80 Total Counted 100 Neutrophils % (Manual) 62 Band Neutrophils % 8 H Lymphocytes % (Manual) 18 L Monocytes % (Manual) 5 Metamyelocytes % 3 H Myelocytes % 4 H Diff Path Review May foll Sodium 138 Potassium 4.1 Chloride 110 H Carbon Dioxide 22.0 Anion Gap 6 BUN 21 H Creatinine 1.53 H Estim Creat Clear Calc 33.17 Est GFR (MDRD) Af Amer 43 L Est GFR (MDRD) Non-Af 36 L BUN/Creatinine Ratio 13.7 Glucose 170 H Calcium 8.7 Total Bilirubin 0.60 AST 11 L ALT 10 L Alkaline Phosphatase 109 Troponin I High Sens 7 10 Total Protein 6.5 Albumin 2.5 L Globulin 4.0 Albumin/Globulin Ratio 0.6 L Radiography Diagnostic Testing: Clinical Impression(s) from Imaging Studies Chest X-Ray 11/08/23 06:50 IMPRESSION: Mild residual increased markings as described. There is been improvement as compared to prior study. Electronically Signed: Carloz Velasquez MD at 8:26 EDT , Chest CTA 11/08/23 08:38 IMPRESSION: No evidence of pulmonary embolism. Mild with emphysema. Chronic infiltrate with bronchiectasis in the right middle lobe and lingular segment of the left upper lobe as well as scarring in the lower lobes. Calcified mediastinal and hilar lymph nodes. Electronically Signed: Carloz Velasquez MD at 9:25 EDT , Treatment and Re-Evaluation :: Care was transferred to the a.m. physician. Blood work is pending. If laboratory results do not explain her pain with history of stage IV colon cancer known DVT not anticoagulated because of GI bleed she will require a CTA of the chest as long as renal function is normal. Patient signed out to me pending test results. CBC was normal white count at 10.0 with a hemoglobin of 8.7. This is consistent with her prior values. Chemistry studies reveal a BUN of 21 and creatinine 1.53. Her GFR is 36. This is also consistent with her prior values. LFTs are largely unremarkable. Initial troponin is 7 with a delta troponin of 10. CTA of the chest was obtained and reveals no evidence of pulmonary embolism. Patient is resting comfortably and states that her pain has completely subsided. At this time she will be discharged home. She does have evidence of a small hiatal hernia which may be causing her pain. She will continue her antacids. Return instructions were provided. Discharge Plan Triage Chief Complaint: Chest Pain ED Provider: Dameon Bautista Dx/Rx/DC Orders Clinical Impression: Chest pain, Bilateral lower extremity edema, Radiation proctitis, Diabetes mellitus, Chronic kidney disease, stage III (moderate), Rectal cancer metastasized to liver, History of deep venous thrombosis (DVT) of distal vein of left lower extremity Instructions: ED Chest Pain, Uncertain Cause Prescriptions: No Action carvedilol [Coreg] 25 mg tablet 6.25 mg PO BID Rx Instructions: must administer with a meal/food cinnamon bark [Cinnamon] 500 mg Capsule 1,000 mg PO BID clobetasol 0.05 % Cream 1 applic TOPICAL DAILY PRN (Reason: Itching) dexamethasone 0.5 mg/5 mL Elixir 0.5 mg PO BID PRN (Reason: SORE MOUTH) vitamin [id number] acid 0.5-1 mg Tablet 1 tab PO DAILY atorvastatin 40 mg tablet 40 mg PO DAILY Patient Comments: TAKE ONE TABLET BY MOUTH EVERY DAY lidocaine-prilocaine 2.5-2.5 % cream 1 applic topical DAILY PRN (Reason: port access) Patient Comments: APPLY 1 APPLICATION TO AFFECTED AREA NEEDED. furosemide 40 mg tablet 40 mg PO 0800 Patient Comments: TAKE 1 TABLET BY MOUTH EVERY DAY Probiotic 15 billion cell capsule, sprinkle 1 cap PO DAILY Rx Instructions: do not crush/chew/cut; swallow whole OR may open and sprinkle in cold drink/food trazodone 50 mg tablet 50 mg PO QHS levofloxacin 500 mg tablet 500 mg PO Q24H sodium bicarbonate 650 mg tablet 650 mg PO TID potassium chloride 20 mEq tablet extended release 20 meq PO DAILY Primary Care Provider: Keenan Alvarez Referrals: Keenan Alvarez DO [Primary Care Provider] - 5-7 Days Disposition Disposition: Home, Self Care Discharge Date/Time: 11/08/23 10:52
[2023-11-08] MEDS: 0.9% Normal Saline (1000mL) 1,000 ML 150 ML IV (07:07)
[2023-11-08 07:23] LABS: Hematocrit 27.4 % (37-47); Hemoglobin 8.7 g/dL (12.0-15.0); Mean Corp Hgb Conc 31.8 g/dL (32-36); Mean Corpuscular Hgb 30.5 pg (27.0-32.0); Mean Corpuscular Volume 96.1 fL (81-99); POSITIVE COUNT YES; POSITIVE MORPHOLOGY YES; Platelet Count 264 K/mm3 (150-450); RBC Distribution Width CV 13.2 % (11.6-14.6); RBC Distribution Width SD 44.6 fl (35.1-43.9); Red Blood Count 2.85 M/mm3 (4.2-5.4)
[2023-11-08 07:39] VITALS: BP 194/73; PULSE 59; RESP 22; TEMP 36.7; O2SAT 99
[2023-11-08 07:45] VITALS: BP 196/63; PULSE 59; RESP 14; O2SAT 98
[2023-11-08 07:51] LABS: ALB/GLOB Ratio 0.6 RATIO (0.9-2.4); AST(SGOT) 11 U/L (15-37); Alanine Aminotransfer ALT/SGPT 10 U/L (13-56); Albumin, Serum 2.5 g/dL (3.2-5.0); Alkaline Phosphatase 109 U/L (45-117); Anion Gap 6 (5-15); BUN 21 mg/dL (7-18); BUN/Creat Ratio 13.7 RATIO (10-20); Calcium,Total 8.7 mg/dL (8.5-10.1); Chloride 110 mmol/L (98-107); Creatinine, Serum 1.53 mg/dL (0.55-1.02); EST Glomerular Filtration Rate 36 mL/min (>60); Est Glom Filt Rate - Afr Amer 43 mL/min (>60); Estimated Creatinine Clearance 33.17 ml/min; Glucose 170 mg/dL (74-106); Potassium 4.1 mmol/L (3.5-5.1); Protein, Total 6.5 g/dL (6.4-8.2); Sodium Level 138 mmol/L (136-145); Troponin-I HS (w/2H Reflex) 7 pg/mL (3.0-54.0)
[2023-11-08 08:31] LABS: Differential Indicated MANUAL DIFF
--- NOTE | 2023-11-08 08:38 | CT_ITS ---
STUDY: CTA CHEST REASON FOR EXAM: Female, 68 years old. Chest pain, H/O DVT RADIATION DOSAGE (If Supplied By Facility): CTDIvol = ( 10.24 ) mGy, DLP = ( 350.89 ) mGycm TECHNIQUE: The examination was performed with the intravenous administration of IV 100mL Isovue-370. Post-processing of the angiographic images was performed, with multiplanar reformation and 3D reconstruction. Individualized dose optimization techniques were used for this CT. COMPARISON: Comparison is made with prior chest radiograph done earlier in the day. FINDINGS: Normal enhancement of the main pulmonary artery and right and left pulmonary arteries. Normal enhancement of the bilateral peripheral pulmonary arteries. There is no demonstrated pulmonary embolism. Normal thoracic aorta and visualized great vessels. There is no demonstrated aortic dissection. Normal heart and pericardium. There are calcified mediastinal lymph nodes. There are bilateral hilar lymph nodes, which are normal in size and morphology. Normal visualized trachea and bronchi. The lungs are well expanded. Mild degree of emphysematous changes. Patchy infiltrate in the posterior aspect of the right upper lobe as well as in the posterior aspect of the left upper lobe. Bronchiectasis and infiltration in the posterior aspect of the right middle lobe abutting the fissure as well as in the posterior aspect of the lingular segment of the left upper lobe. Bibasilar scarring. Normal pleura. Normal chest wall structures. There are degenerative changes of thoracic spine. Small hiatal hernia. CT/CTA Chest W/WO Contrast IMPRESSION: No evidence of pulmonary embolism. Mild with emphysema. Chronic infiltrate with bronchiectasis in the right middle lobe and lingular segment of the left upper lobe as well as scarring in the lower lobes. Calcified mediastinal and hilar lymph nodes. Electronically Signed: Carloz Velasquez MD at 9:25 EDT ,
[2023-11-08 09:00] VITALS: BP 182/77; PULSE 86; RESP 22; O2SAT 96
[2023-11-08 09:09] LABS: Reflex Troponin-HS? (from REC) Y
[2023-11-08 09:17] LABS: Lymphocyte 18 % (19-41); Metamyelocyte 3 % (0-1); Monocyte 5 % (0-10); Myelocyte 4 % (0-0); Neutrophil-Band 8 % (0-5); Neutrophil-Segmented 62 % (47-70); Total Cells Counted 100 (MANUAL DIFF)
[2023-11-08 09:58] LABS: Troponin-I HS 10 pg/mL (3.0-54.0)
[2023-11-08 10:00] VITALS: BP 149/57; PULSE 71; RESP 19; TEMP 36.1; O2SAT 97
--- NOTE | 2023-11-08 10:50 | ED.RN ---
several attempts to scan heparin flush per protocol for d/c port, was unable to scan and complete MAR d/t Dr. Bautista being logged into this patient. Heparin flush was administered at 1045 on this date w/o correctly verifying.
[2023-11-09 14:26] LABS: Pathologist Review Reviewed
== END 2023-11-08 10:52 | disposition home or self-care (01) ==
PROVIDERS: Emergency Provider Emergency Medicine; Visit Provider Emergency Medicine
DX: R07.9 Chest pain, unspecified (principal); C78.7 Secondary malignant neoplasm of liver and intrahepatic bile duct; Z93.3 Colostomy status; J44.9 Chronic obstructive pulmonary disease, unspecified; I13.0 Hypertensive heart and chronic kidney disease with heart failure and stage 1 through stage 4 chronic kidney disease, or unspecified chronic kidney disease; I50.9 Heart failure, unspecified; C20 Malignant neoplasm of rectum; E11.22 Type 2 diabetes mellitus with diabetic chronic kidney disease; N18.30 Chronic kidney disease, stage 3 unspecified; K62.7 Radiation proctitis; E78.00 Pure hypercholesterolemia, unspecified; I25.10 Atherosclerotic heart disease of native coronary artery without angina pectoris; Z86.73 Personal history of transient ischemic attack (TIA), and cerebral infarction without residual deficits; R60.0 Localized edema; Z86.718 Personal history of other venous thrombosis and embolism; Z79.899 Other long term (current) drug therapy; Z95.5 Presence of coronary angioplasty implant and graft
CPT/HCPCS: 71045; 71275; 80053; 84484; 85025; 93005; 96360; 96361; 99283; J7030; Q9967

== ENCOUNTER 2023-12-26 20:42 | Observation (INO) | payer MEDICARE, SELFPAY ==
[2023-12-26 20:43] VITALS: BP 151/79; PULSE 70; RESP 16; TEMP 36.4; O2SAT 100; BMI 31.8
[2023-12-26 20:44] VITALS: BP 151/79; PULSE 69; RESP 15; TEMP 36.4; O2SAT 99
--- NOTE | 2023-12-26 21:36 | ED.VIS.GI ---
HPI HPI - GI History of Present Illness Chief Complaint: Nausea/Vomiting Informant: patient Abdominal Pain/Flank Pain Onset: Today Context: Gradual Onset Timing: Continuous Quality: Sharp Location: Epigastric Worsened by: Nothing Relieved by: - (Vomiting) Nausea/Vomiting/Emesis GI Symptom: Positive for Nausea and Vomiting Quality: Positive for Nonbilious; Negative for Blood streaks, Coffee ground or Hematemesis Diarrhea/Melena/Hematochezia GI Symptom: Positive for Diarrhea; Negative for Melena or Hematochezia Stool Quality: Positive for Watery Associated Symptoms Associated Symptoms: Positive for Hematuria; Negative for Dysuria or Frequency Narrative Narrative: Patient presents with abdominal pain, nausea, vomiting, and diarrhea that began today. Patient states it is gradually getting worse. Patient states it is constant. Patient states her pain is over the epigastric area. Patient describes the pain as sharp. Patient states it feels somewhat better after vomiting. Patient states nothing makes it worse. Patient denies any hematemesis or coffee-ground emesis. Patient denies any melena or hematochezia. Patient admits to some mild intermittent hematuria but states that is normal for her. 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 Cardiomyopathy Carotid artery stenosis Carotid artery stenosis with cerebral infarction Chronic anticoagulation Chronic kidney disease, stage III (moderate) Congenital talipes calcaneovalgus of left foot Congestive heart failure (CHF) COPD (chronic obstructive pulmonary disease) Coronary artery disease Diabetes mellitus Diabetes mellitus type II, uncontrolled Diastolic congestive heart failure DVT (deep venous thrombosis) Edema of left lower extremity Edema of right lower extremity Essential hypertension GI bleed GI bleed History of CHF (congestive heart failure) History of CVA (cerebrovascular accident) (10/21/17) History of deep vein thrombosis (DVT) of lower extremity History of deep venous thrombosis (DVT) of distal vein of left lower extremity History of deep venous thrombosis (DVT) of distal vein of right lower extremity History of diabetes mellitus, type II History of pleural effusion (10/21/17) History of rectal cancer History of renal disease History of stress test Hyperlipidemia Hypertension Left leg swelling Low iron Lymphedema Lymphedema of left leg Nonrheumatic mitral valve regurgitation Nonrheumatic tricuspid valve regurgitation Parastomal hernia Postphlebitic syndrome with inflammation Preop cardiovascular exam Radiation proctitis Rectal bleeding Rectal cancer metastasized to liver Renal insufficiency Right leg swelling Sarcoidosis Shortness of breath on exertion Snoring Steroid long-term use Stroke/cerebrovascular accident Tricuspid regurgitation Wears dentures Home Medications carvedilol 25 mg tablet (Coreg) 6.25 mg PO BID Hypertension 11/22/19 [History Last Taken 09/27/22 0700] cinnamon bark 500 mg capsule (Cinnamon) 1,000 mg PO BID SUPPLEMENT 06/19/21 [History Last Taken 09/27/22 0700] dexamethasone 0.5 mg/5 mL oral elixir 0.5 mg PO BID PRN SORE MOUTH 10/28/22 [History Last Taken Unknown] vitamin B12 0.5 mg-folic acid 1 mg tablet 1 tab PO DAILY supplement 10/28/22 [History Last Taken Unknown] atorvastatin 40 mg tablet 40 mg PO DAILY HTN 07/08/23 [History Last Taken Unknown] lidocaine-prilocaine 2.5 %-2.5 % topical cream 1 applic topical DAILY PRN port access 07/08/23 [History Last Taken Unknown] furosemide 40 mg tablet 40 mg PO 0800 09/25/23 [History Last Taken Unknown] lactobacillus combo no.11 15 billion cell sprinkle capsule (Probiotic) 1 cap PO DAILY 09/25/23 [History Last Taken Unknown] trazodone 50 mg tablet 50 mg PO QHS 11/01/23 [History Last Taken Unknown] potassium chloride 20 mEq tablet,extended release 20 meq PO DAILY 11/08/23 [History Last Taken Unknown] fluconazole 100 mg tablet 100 mg PO DAILY 12/26/23 [History Last Taken Unknown] nystatin 100,000 unit/mL oral suspension 5 ml PO 4X/DAY 12/26/23 [History Last Taken Unknown] Allergy/AdvReac Type Severity Reaction Status Date / Time latex Allergy Severe Hives Verified 12/26/23 20:45 alcohol Allergy Mild rash Verified 12/26/23 20:45 codeine AdvReac Unknown unknown Verified 12/26/23 20:45 Family History Mother Bleeding disorder Diabetes CAD (coronary artery disease) Hypertension Hyperlipidemia Kidney disease Sister Asthma CAD (coronary artery disease) Hyperlipidemia Father Cancer CAD (coronary artery disease) Hypertension Hyperlipidemia CVA (cerebral vascular accident) Brother CAD (coronary artery disease) Hyperlipidemia Surgical History History of cardiac catheterization History of cataract surgery History of colonoscopy History of colostomy History of coronary artery stent placement History of foot surgery Hx of cataract surgery Social History household members: spouse Smoking Status: Never smoker alcohol intake: never substance use type: does not use ROS ROS ED Constitutional Constitutional ED: Denies chills or fever(s) Eyes Eyes: Denies blurry vision or change in vision ENT ENT ED: Denies rhinorrhea or sore throat Cardiovascular Cardiovascular: Reports chest pain; Denies palpitations Respiratory/Chest Respiratory/Chest: Reports dyspnea; Denies cough Gastrointestinal Gastrointestinal: Reports abdominal pain, diarrhea, nausea and vomiting Genitourinary Genitourinary ED: Reports hematuria; Denies dysuria Musculoskeletal Musculoskeletal: Denies back pain or neck pain Integumentary Denies abscess or rash Neurologic Neurologic: Denies headache(s) or weakness Allergic/Immunologic Allergic/Immunologic ED: Denies mouth swelling or urticaria EXAM Physical Exam Const Vital Signs: 12/26/23 20:43 12/26/23 20:44 12/26/23 21:44 Temperature 97.6 F L 97.6 F L 98.2 F Temperature Source Temporal Temporal Temporal Pulse Rate 70 69 62 Respiratory Rate 16 15 16 Blood Pressure 151/79 H 151/79 H 177/80 H Blood Pressure Mean 103 103 112 Pulse Ox 100 99 96 Oxygen Delivery Method Room Air Room Air Room Air 12/26/23 22:28 12/26/23 23:00 Temperature 98.0 F Temperature Source Oral Pulse Rate 70 72 Respiratory Rate 22 H 19 H Blood Pressure 185/79 H 179/84 H Blood Pressure Mean 114 115 Pulse Ox 98 96 Oxygen Delivery Method Room Air Room Air Positive well nourished and well developed General Appearance ED: well developed and NAD HEENT Reports moist mucous membranes Neck supple and no JVD Resp normal respiratory effort and clear to auscultation bilaterally Cardio regular rate and regular rhythm GI Palpation: soft and tender epigastric, LUQ and RUQ; Negative for guarding or rebound tenderness present Neuro CN's II-XII intact bilaterally, moves all extremities and no sensory deficits noted Sensorium / Orientation: alert Motor Exam: strength 5/5 throughout Psych mental status grossly normal and thought process normal MDM MDM MDM Narrative Medical decision making narrative: Differential diagnosis includes gastritis, peptic ulcer disease, pancreatitis, urinary tract infection, pyelonephritis, sepsis, and electrolyte abnormality. CBC will be obtained to assess for leukocytosis and anemia. Comprehensive metabolic profile will be obtained to assess for hepatic function, renal function, and electrolyte abnormalities. Urinalysis will be obtained to assess for urinary tract infection. Lipase will be obtained to assess for pancreatitis. Serum lactate will be obtained to assess for sepsis. Lab Data Attestation: I reviewed the patient's lab results. Lab results narrative: CBC was reviewed. Hemoglobin was low at 8.4 and hematocrit was 26.1. These are consistent with prior results. Platelets are within normal limits. Comprehensive metabolic profile was reviewed. BUN was slightly elevated at 25 and creatinine was 1.45. These are consistent with prior results. Glucose was slightly elevated at 209. Alkaline phosphatase was slightly elevated at 133. The remainder is essentially within normal limits. Lipase was reviewed and was normal at 36. Serum lactate was reviewed and was normal at 1.9. Urinalysis was reviewed. There is no evidence of urinary tract infection or hematuria. Labs: Laboratory Results - last 24 hr 12/26/23 12/26/23 22:15 22:54 WBC 5.3 RBC 2.62 L Hgb 8.4 L Hct 26.1 L MCV 99.6 H MCH 32.1 H MCHC 32.2 RDW Std Deviation 57.9 H RDW Coeff of Dann 16.3 H Plt Count 300 MPV 9.3 Neut % (Auto) Not Reportable Absolute Neuts (auto) 4.1 Absolute Lymphs (auto) 0.95 Total Counted 100 Neutrophils % (Manual) 74 H Band Neutrophils % 3 Lymphocytes % (Manual) 18 L Monocytes % (Manual) 5 Nucleated RBCs/100 WBC 1 Diff Path Review May foll Platelet Estimate ADEQUATE RBC Morphology N CYTIC Polychromasia 1+ Sodium 139 Potassium 4.3 Chloride 105 Carbon Dioxide 27.0 Anion Gap 7 BUN 25 H Creatinine 1.45 H Estim Creat Clear Calc 32.81 Est GFR (MDRD) Af Amer 46 L Est GFR (MDRD) Non-Af 38 L BUN/Creatinine Ratio 17.2 Glucose 209 H Lactic Acid 1.1 Calcium 8.0 L Total Bilirubin 0.90 AST 14 L ALT 15 Alkaline Phosphatase 133 H Total Protein 5.9 L Albumin 2.6 L Globulin 3.3 Albumin/Globulin Ratio 0.8 L Lipase 36 Urine Color Yellow Urine Clarity Clear Urine pH 6.0 Ur Specific [place] 1.010 Urine Protein Negative Urine Glucose (UA) Normal Urine Ketones Negative Urine Occult Blood Negative Urine Nitrite Negative Urine Bilirubin Negative Urine Urobilinogen Normal Ur Leukocyte Esterase 25 H Urine RBC 0 SEEN Urine WBC 0-5 SEEN Ur Squamous Epith Cells 0 SEEN Urine Bacteria 0 SEEN Urine Mucus 0 SEEN Management Discussion w/another healthcare provider: Hospitalist (Dr. Boyd) Treatment and Re-Evaluation :: Patient was given IV fluids, morphine, and Zofran. Patient states her pain is improving. Patient states she still feels somewhat dehydrated. Case will be discussed with the hospitalist for possible observation admission. Patient is agreeable with this. Case was discussed with the hospitalist. She will admit the patient for observation. Discharge Plan Triage Chief Complaint: Nausea/Vomiting ED Provider: Mario Hinds Dx/Rx/DC Orders Clinical Impression: Abdominal pain, Diabetes mellitus, Hypertension Prescriptions: No Action carvedilol [Coreg] 25 mg tablet 6.25 mg PO BID Rx Instructions: must administer with a meal/food cinnamon bark [Cinnamon] 500 mg Capsule 1,000 mg PO BID dexamethasone 0.5 mg/5 mL Elixir 0.5 mg PO BID PRN (Reason: SORE MOUTH) vitamin [id number] acid 0.5-1 mg Tablet 1 tab PO DAILY atorvastatin 40 mg tablet 40 mg PO DAILY Patient Comments: TAKE ONE TABLET BY MOUTH EVERY DAY lidocaine-prilocaine 2.5-2.5 % cream 1 applic topical DAILY PRN (Reason: port access) Patient Comments: APPLY 1 APPLICATION TO AFFECTED AREA NEEDED. furosemide 40 mg tablet 40 mg PO 0800 Patient Comments: TAKE 1 TABLET BY MOUTH EVERY DAY Probiotic 15 billion cell capsule, sprinkle 1 cap PO DAILY Rx Instructions: do not crush/chew/cut; swallow whole OR may open and sprinkle in cold drink/food trazodone 50 mg tablet 50 mg PO QHS potassium chloride 20 mEq tablet extended release 20 meq PO DAILY fluconazole 100 mg tablet 100 mg PO DAILY nystatin 100,000 unit/mL suspension 5 ml PO 4X/DAY Primary Care Provider: Keenan Alvarez Referrals: Keenan Alvarez DO [Primary Care Provider] - Disposition Disposition: Acute Care Hospital [facility]
[2023-12-26 21:44] VITALS: BP 177/80; PULSE 62; RESP 16; TEMP 36.8; O2SAT 96
[2023-12-26] MEDS: Ondansetron 4 MG/2 ML Vial IV (22:20)
[2023-12-26] MEDS: 0.9% Normal Saline (1000mL) 1,000 ML 1000 ML IV (22:20)
[2023-12-26] MEDS: Morphine 4 MG/ML Syringe IV (22:20)
[2023-12-26 22:21] LABS: Hematocrit 26.1 % (37-47); Hemoglobin 8.4 g/dL (12.0-15.0); Mean Corp Hgb Conc 32.2 g/dL (32-36); Mean Corpuscular Hgb 32.1 pg (27.0-32.0); Mean Corpuscular Volume 99.6 fL (81-99); Mean Platelet Vol. 9.3 fl (6.2-12.0); POSITIVE COUNT YES; POSITIVE MORPHOLOGY YES; Platelet Count 300 K/mm3 (150-450); RBC Distribution Width CV 16.3 % (11.6-14.6); RBC Distribution Width SD 57.9 fl (35.1-43.9); Red Blood Count 2.62 M/mm3 (4.2-5.4); White Blood Count 5.3 K/mm3 (4.4-11.0)
[2023-12-26 22:22] LABS: Differential Indicated MANUAL DIFF
[2023-12-26 22:28] VITALS: BP 185/79; PULSE 70; RESP 22; O2SAT 98
[2023-12-26 22:38] LABS: ALB/GLOB Ratio 0.8 RATIO (0.9-2.4); AST(SGOT) 14 U/L (15-37); Alanine Aminotransfer ALT/SGPT 15 U/L (13-56); Albumin, Serum 2.6 g/dL (3.2-5.0); Alkaline Phosphatase 133 U/L (45-117); Anion Gap 7 (5-15); BUN 25 mg/dL (7-18); BUN/Creat Ratio 17.2 RATIO (10-20); Chloride 105 mmol/L (98-107); Creatinine, Serum 1.45 mg/dL (0.55-1.02); EST Glomerular Filtration Rate 38 mL/min (>60); Est Glom Filt Rate - Afr Amer 46 mL/min (>60); Estimated Creatinine Clearance 32.81 ml/min; Globulin 3.3 g/dL (2.2-4.2); Glucose 209 mg/dL (74-106); Lipase 36 U/L (13-75); Potassium 4.3 mmol/L (3.5-5.1); Protein, Total 5.9 g/dL (6.4-8.2); Sodium Level 139 mmol/L (136-145)
[2023-12-26 22:49] LABS: Lactic Acid 1.1 mmol/L (0.4-1.9)
[2023-12-26 23:00] VITALS: BP 179/84; PULSE 72; RESP 19; TEMP 36.7; O2SAT 96
[2023-12-26 23:00] LABS: Bacteria 0 SEEN /hpf (None Seen); Mucous, Urine 0 SEEN /hpf (<or=2+); Red Blood Cells-Urine 0 SEEN /hpf (0-5); Squamous Epithelial Cells - UA 0 SEEN /hpf (5-10)
[2023-12-26 23:02] LABS: Lymphocyte 18 % (19-41); Monocyte 5 % (0-10); Neutrophil-Band 3 % (0-5); Neutrophil-Segmented 74 % (47-70); Nucleated Red Bld Cells,Manual 1 % (0-5); Total Cells Counted 100 (MANUAL DIFF)
[2023-12-26 23:03] LABS: Platelet Estimate ADEQUATE (ADEQ); Polychromasia 1+; Red Cell Morphology N CYTIC NORMAL (NORM C&C)
[2023-12-26 23:03] LABS: Color, Urine Yellow (Yellow); Glucose, Dipstick Normal (Normal); Ketone-Dipstick Negative (Negative); Leukocyte Esterase-Dipstick 25 /ul (Negative); Nitrite-Dipstick Negative (Negative); Occult Blood-Urine Negative /ul (Negative); Protein-Dipstick Negative (Negative); Urine Bilirubin Dipstick Negative (Negative); Urine Clarity Clear (Clear); Urine Urobilinogen Normal (Normal)
[2023-12-26 23:04] LABS: Absolute Lymphocyte Count 0.95 X10^3/uL (0.83-4.51); Absolute Neutrophil Count 4.1 X10^3/uL (2.0-7.7)
[2023-12-26 23:26] LABS: White Blood Cells 0-5 SEEN /hpf (0-5)
[2023-12-27] VITALS (8 sets, daily range): BP systolic 149–182; BP diastolic 74–89; PULSE 71–90; RESP 16–20; TEMP 36.4–37.1; O2SAT 94–99; BMI 32.1
--- NOTE | 2023-12-27 00:21 | PCM.HP.STD ---
HPI - General General Date of Admission: 12/27/23 Date of Service: 12/27/23 Chief Complaint: N/V, increased ostomy output, generalized abdominal pain. HPI Narrative The patient is a 68 y/o F w/ PMHx: Obesity, Diastolic CHF, Hx CVA, HTN, HLD, COPD, Chronic anemia/Fe Deficiency anemia w/ recent GI Bleeding as noted, Rectal carcinoma s/p radiation and ongoing chemotherapy on Keytruda following with Dr. Menjivar and GI Dr. Keene, Recent LE DVT, Sarcoidosis following with Pulmonary involvement reportedly, Diabetes mellitus type II who presents to the [facility] ED on 12/27/23 with history of generalized diffused abdominal cramping and discomfort with increased ostomy output as well as bouts of nausea and emesis over the last 12 to 24 hours not improving with abdominal discomfort described as cramping but occasionally sharp and worse with emesis reported at its worst 10 out of 10 in severity however she notes is improved since initial ED arrival with interventions. She currently rates her discomfort 4-5 out of 10 in severity. Patient does have mild intermittent chronic hematuria and is on a NOAC but clarifying to be cautious. Workup in the ED included T97.6, heart rate 70, BP 151/79, respiratory rate 16, 100% on room air, CBC with WBC 5.3, hemoglobin 8.4, MCV 99.6, platelet 300 without marked shift, CMP with BUN/creatinine 25/1.45, GFR 38, glucose 209, hepatic profile with alk phos 133 otherwise not marked appearing, lipase 36, lactic acid 1.1, urinalysis unremarkable with no obvious evidence of UTI. In the ED patient ministered 1 L normal saline, morphine 4 mg IV x 3 doses, Zofran 4 mg IV x 1. 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 Cardiomyopathy Carotid artery stenosis Carotid artery stenosis with cerebral infarction Chronic anticoagulation Chronic kidney disease, stage III (moderate) Congenital talipes calcaneovalgus of left foot Congestive heart failure (CHF) COPD (chronic obstructive pulmonary disease) Coronary artery disease Diabetes mellitus Diabetes mellitus type II, uncontrolled Diastolic congestive heart failure DVT (deep venous thrombosis) Edema of left lower extremity Edema of right lower extremity Essential hypertension GI bleed GI bleed History of CHF (congestive heart failure) History of CVA (cerebrovascular accident) (10/21/17) History of deep vein thrombosis (DVT) of lower extremity History of deep venous thrombosis (DVT) of distal vein of left lower extremity History of deep venous thrombosis (DVT) of distal vein of right lower extremity History of diabetes mellitus, type II History of pleural effusion (10/21/17) History of rectal cancer History of renal disease History of stress test Hyperlipidemia Hypertension Left leg swelling Low iron Lymphedema Lymphedema of left leg Nonrheumatic mitral valve regurgitation Nonrheumatic tricuspid valve regurgitation Parastomal hernia Postphlebitic syndrome with inflammation Preop cardiovascular exam Radiation proctitis Rectal bleeding Rectal cancer metastasized to liver Renal insufficiency Right leg swelling Sarcoidosis Shortness of breath on exertion Snoring Steroid long-term use Stroke/cerebrovascular accident Tricuspid regurgitation Wears dentures Home Medications carvedilol 25 mg tablet (Coreg) 6.25 mg PO BID Hypertension 11/22/19 [History Last Taken 09/27/22 0700] cinnamon bark 500 mg capsule (Cinnamon) 1,000 mg PO BID SUPPLEMENT 06/19/21 [History Last Taken 09/27/22 0700] vitamin B12 0.5 mg-folic acid 1 mg tablet 1 tab PO DAILY supplement 10/28/22 [History Last Taken Unknown] atorvastatin 40 mg tablet 40 mg PO DAILY HTN 07/08/23 [History Last Taken Unknown] lidocaine-prilocaine 2.5 %-2.5 % topical cream 1 applic topical DAILY PRN port access 07/08/23 [History Last Taken Unknown] furosemide 40 mg tablet 40 mg PO 0800 09/25/23 [History Last Taken Unknown] lactobacillus combo no.11 15 billion cell sprinkle capsule (Probiotic) 1 cap PO DAILY 09/25/23 [History Last Taken Unknown] trazodone 50 mg tablet 50 mg PO QHS 11/01/23 [History Last Taken Unknown] potassium chloride 20 mEq tablet,extended release 20 meq PO DAILY 11/08/23 [History Last Taken Unknown] apixaban 2.5 mg tablet (Eliquis) 2.5 mg PO BID 12/27/23 [History Last Taken Unknown] Allergy/AdvReac Type Severity Reaction Status Date / Time latex Allergy Severe Hives Verified 12/26/23 20:45 alcohol Allergy Mild rash Verified 12/26/23 20:45 codeine AdvReac Unknown unknown Verified 12/26/23 20:45 Family History Mother Bleeding disorder Diabetes CAD (coronary artery disease) Hypertension Hyperlipidemia Kidney disease Sister Asthma CAD (coronary artery disease) Hyperlipidemia Father Cancer CAD (coronary artery disease) Hypertension Hyperlipidemia CVA (cerebral vascular accident) Brother CAD (coronary artery disease) Hyperlipidemia Surgical History History of cardiac catheterization History of cataract surgery History of colonoscopy History of colostomy History of coronary artery stent placement History of foot surgery Hx of cataract surgery Social History household members: spouse Smoking Status: Never smoker alcohol intake: never substance use type: does not use ROS ROS Narrative Admission Review of Systems: CONSTITUTIONAL: No weight loss, fever, chills, + weakness or fatigue. HEENT: Eyes: No yellow sclerae. Ears, Nose, Throat: No hearing loss, sneezing, congestion, runny nose or sore throat. SKIN: No rash or itching, lesions, wounds. CARDIOVASCULAR: + Chronic bilateral lower extremity edema. No chest pain, chest pressure or chest discomfort, palpitations, orthopnea, syncope. RESPIRATORY: No shortness of breath, cough or sputum, wheezing, hemoptysis. GASTROINTESTINAL: + anorexia, nausea, emesis, generalized abdominal discomfort, increased ostomy output. No BRB per ostomy or melena. GENITOURINARY: + Chronic intermittent hematuria. No dysuria, frequency, urgency or retention. NEUROLOGICAL: No headache, dizziness, paralysis, ataxia, numbness or tingling in the extremities, focal weakness, change in bowel or bladder control, seizure. MUSCULOSKELETAL: + muscle, back pain, joint pain or stiffness. HEMATOLOGIC: + Chronic anemia, easy bleeding/bruising. LYMPHATICS: No enlarged nodes. No history of splenectomy. PSYCHIATRIC: No history of depression or anxiety. ENDOCRINOLOGIC: No reports of sweating, cold or heat intolerance. No polyuria or polydipsia. ALLERGIES: + history of hives. Vital Signs Vital Signs Vital Signs: 12/26/23 20:43 12/26/23 20:44 12/26/23 21:44 Temperature 97.6 F L 97.6 F L 98.2 F Temperature Source Temporal Temporal Temporal Pulse Rate 70 69 62 Respiratory Rate 16 15 16 Blood Pressure 151/79 H 151/79 H 177/80 H Blood Pressure Mean 103 103 112 Pulse Ox 100 99 96 Oxygen Delivery Method Room Air Room Air Room Air 12/26/23 22:28 12/26/23 23:00 Temperature 98.0 F Temperature Source Oral Pulse Rate 70 72 Respiratory Rate 22 H 19 H Blood Pressure 185/79 H 179/84 H Blood Pressure Mean 114 115 Pulse Ox 98 96 Oxygen Delivery Method Room Air Room Air Weight Weight: 158 lb Body Mass Index (BMI) 31.8 Physical Exam Narrative Physical Examination: General: Awake, alert, oriented x 3 and cooperative, seated upright in the ED bed, fatigued appearing otherwise denies any acute distress, notes pain improved 4-5/10, aching, generalized in the abdomen. Skin: Normal color, normal turgor, no icterus, no cyanosis except occasional staged ecchymoses. HEENT: AT/NC, EOMI, PERRLA, dry MM, no carotid bruits or JVD noted. Lungs: Mildly diminished, bases, appropriate effort no rales, ronchi or wheezing. Heart: Regular rate and rhythm; no gallop, rub audible. Abdomen: Soft, obese, mild generalized discomfort with palpation but no rebound or guarding, no marked distention, hyperactive BS, ostomy recently changed but already notable contents, no markedly appreciated HSM. Extremities: No cyanosis, no clubbing, significant pedal to proximal kelly 2+ pitting edema, chronic and she notes improved from prior (discussed and declined any BROCK wraps). Neurological: Patient awake, alert, oriented as noted, cognitive function intact; pupils equally reactive to light and accommodation, cranial nerves grossly normal, moving all 4 extremities, no focal deficits, strength moderately to severely global decrease secondary to acute presentation and underlying comorbidities Psychiatric: Affect appears fatigued, no acute evidence of depressive or anxiety feelings. Results Lab / Micro Data 12/26/23 22:15 12/26/23 22:15 Labs: Laboratory Results - last 24 hr 12/26/23 22:15: WBC 5.3, RBC 2.62 L, Hgb 8.4 L, Hct 26.1 L, MCV 99.6 H, MCH 32.1 H, MCHC 32.2, RDW Std Deviation 57.9 H, RDW Coeff of Dann 16.3 H, Plt Count 300, MPV 9.3, Neut % (Auto) Not Reportable, Absolute Neuts (auto) 4.1, Absolute Lymphs (auto) 0.95, Total Counted 100, Neutrophils % (Manual) 74 H, Band Neutrophils % 3, Lymphocytes % (Manual) 18 L, Monocytes % (Manual) 5, Nucleated RBCs/100 WBC 1, Diff Path Review December, Platelet Estimate ADEQUATE, RBC Morphology N CYTIC, Polychromasia 1+, Sodium 139, Potassium 4.3, Chloride 105, Carbon Dioxide 27.0, Anion Gap 7, BUN 25 H, Creatinine 1.45 H, Estim Creat Clear Calc 32.81, Est GFR (MDRD) Af Amer 46 L, Est GFR (MDRD) Non-Af 38 L, BUN/Creatinine Ratio 17.2, Glucose 209 H, Lactic Acid 1.1, Calcium 8.0 L, Total Bilirubin 0.90, AST 14 L, ALT 15, Alkaline Phosphatase 133 H, Total Protein 5.9 L, Albumin 2.6 L, Globulin 3.3, Albumin/Globulin Ratio 0.8 L, Lipase 36 12/26/23 22:54: Urine Color Yellow, Urine Clarity Clear, Urine pH 6.0, Ur Specific [place] 1.010, Urine Protein Negative, Urine Glucose (UA) Normal, Urine Ketones Negative, Urine Occult Blood Negative, Urine Nitrite Negative, Urine Bilirubin Negative, Urine Urobilinogen Normal, Ur Leukocyte Esterase 25 H, Urine RBC 0 SEEN, Urine WBC 0-5 SEEN, Ur Squamous Epith Cells 0 SEEN, Urine Bacteria 0 SEEN, Urine Mucus 0 SEEN Assessment & Plan Assessment/Plan (1) Gastroenteritis: PLAN: Plan The patient is a 68 y/o F w/ PMHx: Obesity, Diastolic CHF, Hx CVA, HTN, HLD, COPD, Chronic anemia/Fe Deficiency anemia w/ recent GI Bleeding as noted, Rectal carcinoma s/p radiation and ongoing chemotherapy on Keytruda following with Dr. Menjivar and GI Dr. Keene, Recent LE DVT, Sarcoidosis following with Pulmonary involvement reportedly, Diabetes mellitus type II who presents to the [facility] ED on 12/27/23 with history of generalized diffused abdominal cramping and discomfort with increased ostomy output as well as bouts of nausea and emesis over the last 12 to 24 hours not improving with abdominal discomfort described as cramping but occasionally sharp and worse with emesis reported at its worst 10 out of 10 in severity however she notes is improved since initial ED arrival with interventions. #1. N/V/increased ostomy output, abdominal discomfort, diffuse possibly secondary to acute gastroenteritis: Will admit to medical surgical floor, will continue judicious hydration, will obtain c diff, stool cx, procalcitonin requested, will trend CBC, will hold off on immediate antibiotic therapy or any CT imaging of the abdomen as abdomen is soft and there is no rebound or tenderness but if patient worsens or exam changes low threshold to obtain imaging if needed, anti-emetics/pain regimen PRN. #2. 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 Menjivar and GI Dr. Keene, complicated by history of issues with rectal and bleeding for ostomy, has been maintained on Keytruda, will request wound/waste recycler to evaluate stoma. Magnesium and phosphorus levels requested. #3. Chart Reported Diastolic CHF: 06/19/2021 echocardiogram with EF 55 to 60%, normal LV systolic function, mild aortic stenosis, CARLOS 1.5 cm?, negative bubble study at that time with no mention of diastolic function. Clarifying if patient is again back on her low-dose NOAC. Will continue patient's statin, Coreg, temporarily holding Lasix given GI losses recently, not on BROCK inhibitor/ARB. Chronic anemia, macrocytic: Admission hemoglobin 8.4, MCV 99.6, baseline hemoglobin has recently been similar primarily 8-9, continue closely monitor and repeat CBC in AM. Will monitor given hydration plan as noted. #4. Diabetes mellitus type II: Most recently noted hemoglobin A1c 10/14/2022 7.3%, will repeat hemoglobin A1c given timeline, not on any oral regimen or insulin therapy per current list, given presentation as noted allowing only clears initially, maintain on accu checks w/ ISS. #5. Chronic Kidney Disease Stage III, unclear subtype: Admission BUN/Cr 25/1.45, GFR 38, baseline renal function primarily 1.4-1.6 but has vacillated, repeat BMP in AM. #6. Sarcoidosis, unclear exact extent: Per records patient following with Pulmonary, no CT chest imaging noted in the system, encourage continued outpatient follow-up. #7. History CVA: Continue home Eliquis, statin therapy, hypertensive regimen with adjustments as noted. #8. Chronic COPD: Not on any chronic inhalers nor chronic oxygen supplementation, PRN albuterol, HOB, IS parameters. #9. Hypertension: Given recent GI losses with intractable nausea and vomiting and increased output for ostomy will temporally hold diuretic, continue Coreg as BP allows, PRN hydralazine. #10. Hyperlipidemia: Will continue home statin therapy. #11. Chronic bilateral lower extremity swelling/lymphedema: Mildly improved from previously, secondary to pain has declined any consideration of snug Brock wraps or elevation and does not tolerate SCDs well given discomfort elicited. #12. History VTE (LLE DVT): Status post IVC filter placement at [facility], cautiously continue on NOAC therapy with Eliquis as from records appears to have been restarted but had been off several months secondary to issues with recurrent bleeding. #13. Obesity: Weight loss and lifestyle changes encouraged. #14. DVT prophylaxis: Continue home Eliquis regimen as appears to have recently been restarted but clarifying to be cautious. #15. CODE status: Patient DOMINIC is her daughter and living will is currently in place. Discussed CODE status at length including difference between FULL code, DNR-CCA and DNR-CC status. Following discussions about the differences in these status, requested Full Code status at this time. She does note that she would not want to be on the ventilatory for a prolonged period if no quality of life. Advanced Care Planning Face to Face Time: 16 minutes. Charges/Coding Visit Charges Inpatient E&M: 94635 Init Hosp L2 Procedures Hospitalists Procedures: 35233 Advncd Care Plan 30 Min
[2023-12-27] MEDS: Morphine 4 MG/ML Syringe IV (00:32)
[2023-12-27 00:53] LABS: Magnesium 1.6 mg/dL (1.6-2.6)
[2023-12-27] MEDS: 0.9% Normal Saline (1000mL) 1,000 ML 100 ML IV ×2 (02:03→13:18)
[2023-12-27] MEDS: hydrALAZINE 20 MG/ML Vial 10 MG IV (02:04)
[2023-12-27] MEDS: Pantoprazole Sodium 40 MG in 0.9% Normal Saline (100mL MB+) 100 ML 330 MG IV ×3 (02:04→21:55)
[2023-12-27 03:23] LABS: Procalcitonin < 0.04 ng/mL (0.00-0.09)
[2023-12-27] MEDS: Magnesium Sulfate 2 GM in Dextrose 5%-Water (100mL Bag) 100 ML IV (03:29)
[2023-12-27] MEDS: Insulin Lispro 100 UNIT/ML INSULN.PEN SC ×4 (03:45→18:09)
[2023-12-27 04:01] LABS: Bedside Glucose 179 mg/dL (74-106)
[2023-12-27 05:25] LABS: Hematocrit 26.8 % (37-47); Hemoglobin 8.5 g/dL (12.0-15.0); Mean Corp Hgb Conc 31.7 g/dL (32-36); Mean Corpuscular Hgb 31.7 pg (27.0-32.0); Mean Platelet Vol. 9.3 fl (6.2-12.0); POSITIVE COUNT YES; POSITIVE MORPHOLOGY YES; Platelet Count 319 K/mm3 (150-450); RBC Distribution Width CV 16.5 % (11.6-14.6); RBC Distribution Width SD 58.7 fl (35.1-43.9); Red Blood Count 2.68 M/mm3 (4.2-5.4); White Blood Count 4.7 K/mm3 (4.4-11.0)
[2023-12-27 05:26] LABS: Differential Indicated MANUAL DIFF
[2023-12-27 05:46] LABS: ALB/GLOB Ratio 0.7 RATIO (0.9-2.4); AST(SGOT) 54 U/L (15-37); Alanine Aminotransfer ALT/SGPT 44 U/L (13-56); Albumin, Serum 2.4 g/dL (3.2-5.0); Alkaline Phosphatase 240 U/L (45-117); Anion Gap 6 (5-15); BUN 23 mg/dL (7-18); BUN/Creat Ratio 17.2 RATIO (10-20); Calcium,Total 8.6 mg/dL (8.5-10.1); Chloride 107 mmol/L (98-107); Creatinine, Serum 1.34 mg/dL (0.55-1.02); EST Glomerular Filtration Rate 42 mL/min (>60); Est Glom Filt Rate - Afr Amer 51 mL/min (>60); Estimated Creatinine Clearance 35.61 ml/min; Globulin 3.3 g/dL (2.2-4.2); Glucose 199 mg/dL (74-106); Potassium 4.5 mmol/L (3.5-5.1); Protein, Total 5.7 g/dL (6.4-8.2); Sodium Level 140 mmol/L (136-145)
[2023-12-27 06:13] LABS: Basophil 1 % (0-1); Eosinophil 3 % (0-5); Lymphocyte 19 % (19-41); Metamyelocyte 1 % (0-1); Monocyte 8 % (0-10); Neutrophil-Band 2 % (0-5); Neutrophil-Segmented 66 % (47-70); Total Cells Counted 100 (MANUAL DIFF)
[2023-12-27 06:15] LABS: Anisocytosis 3+; Macrocytosis 2+; Ovalocyte 1+; Platelet Estimate ADEQUATE (ADEQ); Polychromasia 1+
[2023-12-27 06:16] LABS: Absolute Neutrophil Count 3.2 X10^3/uL (2.0-7.7)
[2023-12-27 06:17] LABS: Absolute Lymphocyte Count 0.89 X10^3/uL (0.83-4.51)
[2023-12-27 08:01] LABS: Bedside Glucose 160 mg/dL (74-106)
--- NOTE | 2023-12-27 08:07 | PCM.PN.HOSP ---
Reason for Visit Reason for Visit: Diagnoses Noninfective gastroenteritis and colitis, unspecified (12/27/23) Subjective Subjective No further diarrhea. No further abdominal pain. Objective Data Objective Data Vital Signs: Vital Signs Temp Pulse Resp BP Pulse Ox O2 Del Method 36.6 C 73 18 149/76 H 99 Room Air 12/27/23 08:00 12/27/23 08:00 12/27/23 08:00 12/27/23 08:00 12/27/23 08:00 12/27/23 08:00 Oxygen Delivery Method Room Air Weight: 72.2 kg Body Mass Index (BMI) 32.1 Intake & Output: Intake and Output for Last 24 Hours 12/25/23 12/26/23 12/27/23 23:59 23:59 23:59 Intake Total 1000 / 1000 214 / 214 Balance 1000 / 1000 214 / 214 Lab / Micro Data 12/27/23 05:00 12/27/23 05:00 Labs: Laboratory Results - last 24 hr 12/26/23 22:15: WBC 5.3, RBC 2.62 L, Hgb 8.4 L, Hct 26.1 L, MCV 99.6 H, MCH 32.1 H, MCHC 32.2, RDW Std Deviation 57.9 H, RDW Coeff of Dann 16.3 H, Plt Count 300, MPV 9.3, Neut % (Auto) Not Reportable, Absolute Neuts (auto) 4.1, Absolute Lymphs (auto) 0.95, Total Counted 100, Neutrophils % (Manual) 74 H, Band Neutrophils % 3, Lymphocytes % (Manual) 18 L, Monocytes % (Manual) 5, Nucleated RBCs/100 WBC 1, Diff Path Review December, Platelet Estimate ADEQUATE, RBC Morphology N CYTIC, Polychromasia 1+, Sodium 139, Potassium 4.3, Chloride 105, Carbon Dioxide 27.0, Anion Gap 7, BUN 25 H, Creatinine 1.45 H, Estim Creat Clear Calc 32.81, Est GFR (MDRD) Af Amer 46 L, Est GFR (MDRD) Non-Af 38 L, BUN/Creatinine Ratio 17.2, Glucose 209 H, Lactic Acid 1.1, Calcium 8.0 L, Phosphorus 3.0, Magnesium 1.6, Total Bilirubin 0.90, AST 14 L, ALT 15, Alkaline Phosphatase 133 H, Total Protein 5.9 L, Albumin 2.6 L, Globulin 3.3, Albumin/Globulin Ratio 0.8 L, Lipase 36 12/26/23 22:54: Urine Color Yellow, Urine Clarity Clear, Urine pH 6.0, Ur Specific [place] 1.010, Urine Protein Negative, Urine Glucose (UA) Normal, Urine Ketones Negative, Urine Occult Blood Negative, Urine Nitrite Negative, Urine Bilirubin Negative, Urine Urobilinogen Normal, Ur Leukocyte Esterase 25 H, Urine RBC 0 SEEN, Urine WBC 0-5 SEEN, Ur Squamous Epith Cells 0 SEEN, Urine Bacteria 0 SEEN, Urine Mucus 0 SEEN 12/27/23 00:56: Procalcitonin < 0.04 12/27/23 03:28: POC Glucose 179 H 12/27/23 05:00: WBC 4.7, RBC 2.68 L, Hgb 8.5 L, Hct 26.8 L, MCV 100.0 H, MCH 31.7, MCHC 31.7 L, RDW Std Deviation 58.7 H, RDW Coeff of Dann 16.5 H, Plt Count 319, MPV 9.3, Neut % (Auto) Not Reportable, Absolute Neuts (auto) 3.2, Absolute Lymphs (auto) 0.89, Total Counted 100, Neutrophils % (Manual) 66, Band Neutrophils % 2, Lymphocytes % (Manual) 19, Monocytes % (Manual) 8, Eosinophils % (Manual) 3, Basophils % (Manual) 1, Metamyelocytes % 1, Diff Path Review May , Platelet Estimate ADEQUATE, Polychromasia 1+, Anisocytosis 3+, Macrocytosis 2+, Ovalocytes 1+, Sodium 140, Potassium 4.5, Chloride 107, Carbon Dioxide 27.0, Anion Gap 6, BUN 23 H, Creatinine 1.34 H, Estim Creat Clear Calc 35.61, Est GFR (MDRD) Af Amer 51 L, Est GFR (MDRD) Non-Af 42 L, BUN/Creatinine Ratio 17.2, Glucose 199 H, Calcium 8.6, Total Bilirubin 1.20 H, AST 54 H, ALT 44, Alkaline Phosphatase 240 H, Total Protein 5.7 L, Albumin 2.4 L, Globulin 3.3, Albumin/Globulin Ratio 0.7 L 12/27/23 07:36: POC Glucose 160 H Physical Exam Const alert and no apparent distress HEENT head/scalp atraumatic and moist oral mucous membranes Resp normal respiratory effort and no retractions Cardio regular rate, regular rhythm, S1 normal heart sound and S2 normal heart sound GI normal to inspection, nondistended, normoactive bowel sounds, soft to palpation, non-tender and non-distended Neuro Sensorium / Orientation: awake and alert Assessment & Plan Assessment/Plan (1) Gastroenteritis: PLAN: Plan Gastroenteritis v chemo-induced diarrhea v infectious. Doubt high-output ileostomy since she apparently did not have much bowel resected. IVF C diff pending, enteric panel pending check abdominal xray. Right sided hydronephrosis. noted since at least June has been to [facility]. 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 Menjivar and GI Dr. Keene, complicated by history of issues with rectal and bleeding for ostomy, has been maintained on Keytruda, will request wound/director of regional sales to evaluate stoma. Magnesium and phosphorus levels requested. Chart Reported Diastolic CHF: 06/19/2021 echocardiogram with EF 55 to 60%, normal LV systolic function, mild aortic stenosis, CARLOS 1.5 cm?, negative bubble study at that time with no mention of diastolic function. Clarifying if patient is again back on her low-dose NOAC. Will continue patient's statin, Coreg, temporarily holding Lasix given GI losses recently, not on BROCK inhibitor/ARB. chronic anemia, macrocytic: Admission hemoglobin 8.4, MCV 99.6, baseline hemoglobin has recently been similar primarily 8-9, continue closely monitor and repeat CBC in AM. Will monitor given hydration plan as noted. Diabetes mellitus type II: Most recently noted hemoglobin A1c 10/14/2022 7.3%, will repeat hemoglobin A1c given timeline, not on any oral regimen or insulin therapy per current list, given presentation as noted allowing only clears initially, maintain on accu checks w/ ISS. Chronic Kidney Disease Stage III, unclear subtype: Admission BUN/Cr 25/1.45, GFR 38, baseline renal function primarily 1.4-1.6 but has vacillated, repeat BMP in AM. Sarcoidosis, unclear exact extent: Per records patient following with Pulmonary, no CT chest imaging noted in the system, encourage continued outpatient follow-up. History CVA: Continue home Eliquis, statin therapy, hypertensive regimen with adjustments as noted. Chronic COPD: Not on any chronic inhalers nor chronic oxygen supplementation, PRN albuterol, HOB, IS parameters. Hypertension: Given recent GI losses with intractable nausea and vomiting and increased output for ostomy will temporally hold diuretic, continue Coreg as BP allows, PRN hydralazine. Hyperlipidemia: Will continue home statin therapy. Chronic bilateral lower extremity swelling/lymphedema: Mildly improved from previously, secondary to pain has declined any consideration of snug Brock wraps or elevation and does not tolerate SCDs well given discomfort elicited. History VTE (LLE DVT): Status post IVC filter placement at [facility], cautiously continue on NOAC therapy with Eliquis as from records appears to have been restarted but had been off several months secondary to issues with recurrent bleeding. Obesity: Weight loss and lifestyle changes encouraged. DVT prophylaxis: Continue home Eliquis regimen as appears to have recently been restarted but clarifying to be cautious. CODE status:Full code. STEFANO pt's dtr over the phone. Reviewed CT imaging with patients. Greater than 55 minutes of which greater than for percent of time was discussing with the patient and her daughter over the phone about current condition, potential etiologies, workup. Also reviewing prior imaging in particular the right-sided hydronephrosis that she has had at least dating back till June. Charges/Coding Visit Charges Inpatient E&M: 34270 [facility] Hosp L3
--- NOTE | 2023-12-27 08:10 | WOUNDNOTE ---
Was consulted for ostomy evaluation. patient has had stoma for approx 1 year. patient states she is concerned that the stool is sticking to the stoma. states her stool is typically loose. patient does take Imodium approx 5 times per day. there is a small amount of brown unformed stool noted in the appliance. patient did not bring any appliances with her today. states she can have family bring an appliance today. will wait to assess the stoma until the appliance is here. pt prefers [employer] over [place].
[2023-12-27 08:15] LABS: Hemoglobin A1c 6.4 % (3.8-5.6)
--- NOTE | 2023-12-27 10:06 | US_ITS ---
EXAM: US RETROPERITONEAL LIMITED, RENAL CLINICAL INDICATION: hydronephrosis TECHNIQUE: Limited grayscale and color Doppler sonographic evaluation of the retroperitoneum was performed. COMPARISON: No relevant prior studies available. FINDINGS: RIGHT KIDNEY: Mild right hydronephrosis. No definite acute obstructive uropathy. Echogenic liver parenchyma of the kidneys can be seen with medical renal disease. Correlate with renal function. Recommendation right kidney measures 8.1 cm in length and the left kidney measures 9.0 cm in length. Renal cortical thinning. No shadowing calculus. No perinephric collection is demonstrated. LEFT KIDNEY: See above. US/Kidney and Bladder IMPRESSION: Mild right hydronephrosis bilaterally. Echogenic kidneys bilaterally can be seen with medical renal disease. No acute findings in the retroperitoneum. Electronically Signed: Jackson Solis MD at 3:25 EDT ,
[2023-12-27] MEDS: Carvedilol 6.25 MG Tablet PO ×2 (10:10→21:56)
[2023-12-27] MEDS: APIXABAN 2.5 MG TABLET (WCH) PO ×2 (10:10→21:56)
[2023-12-27] MEDS: NYSTATIN 500,000 UNIT/5 ML UDC 500000 UNIT PO ×4 (10:10→21:57)
[2023-12-27] MEDS: Lactobacillis Acidophilus 1 CAP PO (10:10)
[2023-12-27] MEDS: Fluconazole 100 MG Tablet PO (10:10)
[2023-12-27] MEDS: Potassium Chloride Oral Tablet 20 MEQ PO (10:11)
[2023-12-27 10:18] LABS: Pathologist Review Reviewed
[2023-12-27 10:18] LABS: Pathologist Review Reviewed
--- NOTE | 2023-12-27 13:00 | RAD_ITS ---
INDICATION: abdominal pain EXAMINATION/TECHNIQUE: X-RAY - XR Abdomen 1 View COMPARISON: CT examination of 11/01/2023 FINDINGS: BOWEL GAS PATTERN: Scattered segments of gas-filled bowel are present. LEFT mid abdominal ostomy is present. No bowel obstruction. No pneumatosis. No bowel or stomach distention. FREE AIR: Not assessed on a single supine view. ORGANOMEGALY: Not seen. CALCIFICATIONS: No abnormal calcifications observed. LOWER CHEST: No acute pathology. BONES AND SOFT TISSUES: Diffuse lumbar spondylosis. No acute fracture or destructive bony process. Other: IVC filter is noted in similar position to the previous CT. RAD/Abdomen Single View (Portable) IMPRESSION: 1. LEFT midabdominal ostomy. Scattered gas-filled segments of bowel, pattern is nonspecific. 2. No bowel obstruction or pneumatosis. Electronically Signed: David Anderson MD at 22:35 EDT ,
[2023-12-27 13:46] LABS: Bedside Glucose 152 mg/dL (74-106)
--- NOTE | 2023-12-27 14:56 | CASEMGMT ---
Met with?patient to complete SKINNER form. SKINNER form explained to patient who voiced understanding and signed form. Original form placed in pt?s chart and copy provided to patient.? Tegan Boyce, Discharge Planning Asst
--- NOTE | 2023-12-27 15:52 | CHAPLAIN ---
Type of Pastoral Visit _x__ Initial Visit ___ Follow-up Visit ___ On-call Visit ___ General Patient Visit ___ Spiritual Assessment ___ Family Conference ___ Bereavement ___ Rapid Response ___ Code Blue ___ Other (describe below) Pastoral Care Referral From _x__ Patient ___ Family ___ Nurse ___ Physician ___ Sales Trainer ___ Handbag Framer ___ Other (describe below) Sacrament/Intervention _x__ Active listening ___ Anointing ___ Buddhism ___ Bereavement ___ Communion _x__ Alondra exploration ___ ___ Life review _x__ Prayer ___ Reconciliation ___ Sacrament of Sick _x__ Supportive presence ___ Wedding ___ Other (describe below) Pastoral Comments patient has been seen before and she gives updates on her health and care; pt presents with good attitude about her alondra, her hope for God's help, and a recognition of support by others; pt welcomes prayer for support; conversation is easy and pt is hopeful to be a witness to others in her journey
[2023-12-27 18:29] LABS: Bedside Glucose 204 mg/dL (74-106)
[2023-12-27] MEDS: Ensure Clear 120 ML Liquid PO (21:54)
[2023-12-27] MEDS: traZODone 50 MG Tablet PO (21:56)
[2023-12-27] MEDS: Atorvastatin Calcium 40 MG Tablet PO (21:59)
[2023-12-28 02:20] VITALS: BP 122/63; PULSE 81; RESP 18; TEMP 37; O2SAT 98
[2023-12-28] MEDS: Insulin Lispro 100 UNIT/ML INSULN.PEN SC ×4 (02:22→21:30)
[2023-12-28 03:04] LABS: Bedside Glucose 166 mg/dL (74-106)
[2023-12-28 05:50] VITALS: BMI 31.8
[2023-12-28 06:40] LABS: Bedside Glucose 151 mg/dL (74-106)
[2023-12-28] MEDS: Potassium Chloride Oral Tablet 20 MEQ PO (07:19)
[2023-12-28] MEDS: Lactobacillis Acidophilus 1 CAP PO (07:19)
[2023-12-28] MEDS: Carvedilol 6.25 MG Tablet PO ×2 (07:19→21:31)
[2023-12-28] MEDS: APIXABAN 2.5 MG TABLET (WCH) PO ×2 (07:20→21:31)
[2023-12-28] MEDS: Fluconazole 100 MG Tablet PO (07:20)
[2023-12-28 07:22] LABS: Hematocrit 24.7 % (37-47); Hemoglobin 7.6 g/dL (12.0-15.0); Mean Corp Hgb Conc 30.8 g/dL (32-36); Mean Corpuscular Hgb 31.3 pg (27.0-32.0); Mean Corpuscular Volume 101.6 fL (81-99); Mean Platelet Vol. 9.2 fl (6.2-12.0); POSITIVE MORPHOLOGY YES; Platelet Count 333 K/mm3 (150-450); RBC Distribution Width CV 17.2 % (11.6-14.6); RBC Distribution Width SD 61.9 fl (35.1-43.9); Red Blood Count 2.43 M/mm3 (4.2-5.4)
[2023-12-28 08:00] VITALS: BP 121/61; PULSE 84; RESP 18; TEMP 36.8; O2SAT 99
--- NOTE | 2023-12-28 08:00 | PCM.PN.HOSP ---
Reason for Visit Reason for Visit: Diagnoses Noninfective gastroenteritis and colitis, unspecified (12/27/23) Subjective Subjective Feeling somewhat better. Not tolerating clear/fulls because they are too sweet. Willing to try transitional diet. Objective Data Objective Data Vital Signs: Vital Signs Temp Pulse Resp BP Pulse Ox O2 Del Method 37.0 C 81 18 122/63 H 98 Room Air 12/28/23 02:20 12/28/23 02:20 12/28/23 02:20 12/28/23 02:20 12/28/23 02:20 12/28/23 07:52 Oxygen Delivery Method Room Air Weight: 71.6 kg Body Mass Index (BMI) 31.8 Intake & Output: Intake and Output for Last 24 Hours 12/26/23 12/27/23 12/28/23 23:59 23:59 23:59 Intake Total 1000 / 1000 2449 / 2449 Output Total 700 / 700 400 / 400 Balance 1000 / 1000 1749 / 1749 -400 / -400 Medical Nutrition Assessment Dietitian: Malnutrition Criteria Met Start: 12/27/23 12:21 Freq: Status: Active Protocol: Document 12/27/23 12:21 SLA (Rec: 12/27/23 12:21 SLA Desktop) Nutrition Malnutrition Evidence of Malnutrition Exists Yes Malnutrition (severe): Acute Illness/Injury Evidenced By Suboptimal Energy Intake ( Severe),Weight Loss (Severe) Clinical Problem Acute Disease or Injury Related Malnutrition Etiology related to GI dysfunction and inadequate energy intake Signs/Symptoms as evidenced by 3.8% unintended wt loss and 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 Lab / Micro Data 12/28/23 06:27 12/28/23 06:27 Labs: Laboratory Results - last 24 hr 12/26/23 22:15: Diff Path Review Reviewed 12/27/23 05:00: Diff Path Review Reviewed, Hemoglobin A1c 6.4 H 12/27/23 07:36: POC Glucose 160 H 12/27/23 13:22: POC Glucose 152 H 12/27/23 18:08: POC Glucose 204 H 12/28/23 02:22: POC Glucose 166 H 12/28/23 06:22: POC Glucose 151 H 12/28/23 06:27: WBC 7.0, RBC 2.43 L, Hgb 7.6 L, Hct 24.7 L, MCV 101.6 H, MCH 31.3, MCHC 30.8 L, RDW Std Deviation 61.9 H, RDW Coeff of Dann 17.2 H, Plt Count 333, MPV 9.2, Immature Gran % (Auto) 4.600 H, Neut % (Auto) 66.1, Lymph % (Auto) 14.5 L, [place] % (Auto) 13.2 H, Eos % (Auto) 0.7, Baso % (Auto) 0.9, Absolute Neuts (auto) 4.6, Absolute Lymphs (auto) 1.02, Nucleated RBC % 0.4 Micro: Microbiology 12/27/23 02:00 Interface Orders Enteric Bacteriology - Final 12/27/23 02:00 Stool Clostridioides difficile (PCR) - Final Radiography Diagnostic Testing: Radiology Impression Renal Ultrasound 12/27/23 10:06 IMPRESSION: Mild right hydronephrosis bilaterally. Echogenic kidneys bilaterally can be seen with medical renal disease. No acute findings in the retroperitoneum. Electronically Signed: Jackson Solis MD at 3:25 EDT , KUB X-Ray 12/27/23 13:00 IMPRESSION: 1. LEFT midabdominal ostomy. Scattered gas-filled segments of bowel, pattern is nonspecific. 2. No bowel obstruction or pneumatosis. Electronically Signed: David Anderson MD at 22:35 EDT , Physical Exam Const alert and no apparent distress HEENT head/scalp atraumatic and moist oral mucous membranes Resp normal respiratory effort, no retractions, no use of accessory muscles and clear to auscultation bilaterally Cardio regular rate, regular rhythm, S1 normal heart sound and S2 normal heart sound GI normal to inspection, nondistended, normoactive bowel sounds, soft to palpation and non-tender GI Narrative: negative Rowland's sign. Neuro Sensorium / Orientation: awake and alert Assessment & Plan Assessment/Plan (1) Gastroenteritis: PLAN: Plan Gastroenteritis improving v chemotherapy-induced diarrhea (was using folforinox, had not used Keytruda since August). Doubt high-output ileostomy since she apparently did not have much bowel resected. Infectious ruled-out. continue IVF C diff and enteric panel negative abdominal xray unremarkable. transitional diet. check RUQ US. Right sided hydronephrosis. noted since at least June has been to [facility]. Pt has not seen urology in past [place] here shows mild right hydronephrosis. 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 Menjivar and GI Dr. Keene, complicated by history of issues with rectal and bleeding for ostomy, has been maintained on Keytruda, will request wound/application services manager to evaluate stoma. Magnesium and phosphorus levels requested. Chronic HFpEF: 06/19/2021 echocardiogram with EF 55 to 60%. Compensated chronic anemia, macrocytic: Lower. Monitor. Diabetes mellitus type II: fair control. SSI CKD 3a: stable. Sarcoidosis: stable. follow up with pulmonaryPer records patient following with Pulmonary, no CT chest imaging noted in the system, encourage continued outpatient follow-up. History CVA: Continue home Eliquis, statin therapy, hypertensive regimen with adjustments as noted. Chronic COPD: stable. Hypertension: stable. continue carvedilol. Hyperlipidemia: Will continue home statin therapy. History VTE (LLE DVT): h/o IVC filter. on low-dose apixaban. Obesity: Weight loss and lifestyle changes encouraged. DVT prophylaxis: Continue home Eliquis regimen as appears to have recently been restarted but clarifying to be cautious. CODE status:Full code. Charges/Coding Visit Charges Inpatient E&M: 22739 Subs Hosp L2
[2023-12-28 08:02] LABS: Anion Gap 7 (5-15); BUN 16 mg/dL (7-18); BUN/Creat Ratio 11.3 RATIO (10-20); Chloride 108 mmol/L (98-107); Creatinine, Serum 1.41 mg/dL (0.55-1.02); EST Glomerular Filtration Rate 39 mL/min (>60); Est Glom Filt Rate - Afr Amer 48 mL/min (>60); Estimated Creatinine Clearance 33.72 ml/min; Glucose 139 mg/dL (74-106); Potassium 3.9 mmol/L (3.5-5.1); Sodium Level 137 mmol/L (136-145)
[2023-12-28 08:43] LABS: Differential Indicated MANUAL DIFF
[2023-12-28 08:51] LABS: Lymphocyte 8 % (19-41); Metamyelocyte 1 % (0-1); Monocyte 11 % (0-10); Neutrophil-Band 2 % (0-5); Neutrophil-Segmented 78 % (47-70); Total Cells Counted 100 (MANUAL DIFF)
[2023-12-28 08:52] LABS: Platelet Estimate ADEQUATE (ADEQ); Red Cell Morphology NORM C+C NORMAL (NORM C&C); Toxic Granulation 1+
[2023-12-28 08:53] LABS: Absolute Neutrophil Count 5.6 X10^3/uL (2.0-7.7); Scan Smear per Review Criteria MANUAL DIFF
[2023-12-28] MEDS: Pantoprazole Sodium 40 MG in 0.9% Normal Saline (100mL MB+) 100 ML 330 MG IV ×2 (09:22→21:37)
--- NOTE | 2023-12-28 11:55 | WOUNDNOTE ---
Ostomy appliance changed per patient request. patient was concerned about the stool sticking to the stoma. patient had shown this nurse the amount of powder she applies and then sprays with no sting skin barrier. this nurse feels this is just a build up of the powder and spray. educated patient on using a small amount of powder and brushing off the excess and then can spray with the no sting barrier spray. peristomal skin is intact. reapplied patient's 1 piece convex Coloplast appliance with an [employer] ring. pt tolerated well.
[2023-12-28 12:38] LABS: Bedside Glucose 183 mg/dL (74-106)
[2023-12-28 14:00] VITALS: BP 124/54; PULSE 76; RESP 18; TEMP 36.9; O2SAT 95
[2023-12-28 14:56] LABS: Pathologist Review Reviewed
--- NOTE | 2023-12-28 15:06 | CASEMGMT ---
Discharge Planning A list of HH providers including quality and resource use data and consistent with the patient's preferred geographic region, medical needs, and insurance network was created in [employer].? This list was provided to the RN YOLIS. Tegan Boyce, Discharge Planning Asst.
--- NOTE | 2023-12-28 15:20 | US_ITS ---
STUDY: ABDOMINAL ULTRASOUND - RIGHT UPPER QUADRANT REASON FOR VISIT: Female, 68 years old abdominal pain -- Right upper quadrant. TECHNIQUE: Ultrasound evaluation of the right upper quadrant was performed with real-time and static cesar-scale imaging. TECHNICAL QUALITY: Adequate. COMPARISON: None. FINDINGS: Liver: The liver measures 14.3 cm. There is a heterogeneous echogenicity of the liver. The bile ducts are within normal limits. There is hepatic color flow. The direction of portal flow is hepatopetal. Findings suggestive of a 1.7 cm x 0.9 cm x 1.9 cm hemangioma in the right lobe of the liver. Gallbladder: Normal distended gallbladder. The gallbladder wall is thickened and measures 6 mm. There is a negative sonographic Rowland''s sign. There is pericholecystic fluid. There are multiple echogenic structures within the gallbladder, consistent with multiple gallstones. Sludge is seen within the gallbladder lumen. Common Bile Duct (C.B.D.): The common bile duct measures 5.8 mm. Pancreas: Normal size of the head, body and tail of the pancreas. There is normal echogenicity of the pancreas. There is no demonstrated pancreatic mass or cyst. Right Kidney: There is atrophy of the right kidney. The right kidney measures 8.2 cm x 3.3 cm x 3.5 cm. There is thinning of the renal cortex. The right cortex measures 0.7 cm. There is no demonstrated renal mass or cyst. There is moderate hydronephrosis of the right kidney. US/Abdomen Limited IMPRESSION: Heterogeneous echotexture of the liver. Findings suggestive of hemangioma in the right lobe of the liver in the region of the dome of the liver. Multiple gallstones with small amount of pericholecystic fluid as well as thickening of the gallbladder wall. Decreased size of the right kidney and moderate degree of right-sided hydronephrosis. Electronically Signed: Carloz Velasquez MD at 10:42 EDT ,
--- NOTE | 2023-12-28 15:35 | CASEMGMT ---
RN YOLIS provided list created by discharge district administrative assistant of [facility] agencies insurance accepts. Pt stated she is currently receiving PT for her arm at and would like to get a script for outpatient PT to help with weakness at . She denies any other home going needs.
[2023-12-28 21:26] VITALS: BP 123/61; PULSE 81; RESP 18; TEMP 37.2; O2SAT 93
[2023-12-28] MEDS: Atorvastatin Calcium 40 MG Tablet PO (21:31)
[2023-12-28] MEDS: traZODone 50 MG Tablet PO (21:31)
[2023-12-28] MEDS: 0.9% Saline Lock 10 ML Syringe IV (21:33)
[2023-12-28] MEDS: 0.9% Normal Saline (250mL Bag) 250 ML 15 ML IV (21:36)
[2023-12-28 22:53] LABS: Bedside Glucose 172 mg/dL (74-106)
[2023-12-29 04:08] VITALS: BP 126/53; PULSE 77; RESP 16; TEMP 37.1; O2SAT 97
[2023-12-29 06:00] VITALS: BMI 31.6
[2023-12-29 06:29] LABS: Bedside Glucose 104 mg/dL (74-106)
[2023-12-29 06:59] VITALS: O2SAT 94
--- NOTE | 2023-12-29 08:33 | PCM.PN.HOSP ---
Reason for Visit Reason for Visit: Diagnoses Noninfective gastroenteritis and colitis, unspecified (12/27/23) Subjective Subjective Feels well. Tolerating diet. Objective Data Objective Data Vital Signs: Vital Signs Temp Pulse Resp BP Pulse Ox O2 Del Method 37.1 C 77 16 126/53 H 94 Room Air 12/29/23 04:08 12/29/23 04:08 12/29/23 04:08 12/29/23 04:08 12/29/23 06:59 12/29/23 06:59 Oxygen Delivery Method Room Air Weight: 71.2 kg Body Mass Index (BMI) 31.6 Intake & Output: Intake and Output for Last 24 Hours 12/27/23 12/28/23 12/29/23 23:59 23:59 23:59 Intake Total 2449 / 2449 955 / 955 Output Total 700 / 700 1050 / 1050 450 / 450 Balance 1749 / 1749 -95 / -95 -450 / -450 Medical Nutrition Assessment Dietitian: Malnutrition Criteria Met Start: 12/27/23 12:21 Freq: Status: Active Protocol: Document 12/27/23 12:21 SLA (Rec: 12/27/23 12:21 SLA Desktop) Nutrition Malnutrition Evidence of Malnutrition Exists Yes Malnutrition (severe): Acute Illness/Injury Evidenced By Suboptimal Energy Intake ( Severe),Weight Loss (Severe) Clinical Problem Acute Disease or Injury Related Malnutrition Etiology related to GI dysfunction and inadequate energy intake Signs/Symptoms as evidenced by 3.8% unintended wt loss and po 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 Lab / Micro Data 12/29/23 06:20 12/29/23 06:20 Labs: Laboratory Results - last 24 hr 12/28/23 06:27: Immature Gran % (Auto) RETAIL EVENT AND SALES ASSISTANT, Neut % (Auto) RETAIL EVENT AND SALES ASSISTANT, Lymph % (Auto) RETAIL EVENT AND SALES ASSISTANT, [place] % (Auto) RETAIL EVENT AND SALES ASSISTANT, Eos % (Auto) RETAIL EVENT AND SALES ASSISTANT, Baso % (Auto) RETAIL EVENT AND SALES ASSISTANT, Absolute Neuts (auto) 5.6, Absolute Lymphs (auto) 0.60 L, Total Counted 100, Neutrophils % (Manual) 78 H, Band Neutrophils % 2, Lymphocytes % (Manual) 8 L, Monocytes % (Manual) 11 H, Metamyelocytes % 1, Nucleated RBC % RETAIL EVENT AND SALES ASSISTANT, Diff Path Review Reviewed, Toxic Granulation 1+, Platelet Estimate ADEQUATE, RBC Morphology NORM C+C 12/28/23 12:16: POC Glucose 183 H 12/28/23 21:28: POC Glucose 172 H 12/29/23 06:12: POC Glucose 104 Micro: Microbiology 12/27/23 02:00 Interface Orders Enteric Bacteriology - Final 12/27/23 02:00 Stool Clostridioides difficile (PCR) - Final Physical Exam Const alert and no apparent distress Cardio regular rate, regular rhythm, S1 normal heart sound and S2 normal heart sound GI normal to inspection, nondistended, normoactive bowel sounds, soft to palpation and non-tender Assessment & Plan Assessment/Plan (1) Gastroenteritis: PLAN: Plan Gastroenteritis improving v chemotherapy-induced diarrhea (was using folforinox, had not used Keytruda since August). Doubt high-output ileostomy since she apparently did not have much bowel resected. Infectious ruled-out. continue IVF C diff and enteric panel negative abdominal xray unremarkable. transitional diet. RUQ US: Heterogenous echotexture of the liver. Hemangioma in the right lobe of the liver in the region of the dome liver. Multiple gallstones with small amount of pericholecystic fluid as well as thickening of the gallbladder wall. Clinically not felt to have acute cholecystitis. Right sided hydronephrosis. noted since at least June has been to [facility]. Pt has not seen urology in past US here shows mild right hydronephrosis. 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 Menjivar and GI Dr. Keene, complicated by history of issues with rectal and bleeding for ostomy, has been maintained on Keytruda, will request wound/fish hatchery superintendent to evaluate stoma. Magnesium and phosphorus levels requested. Chronic HFpEF: 06/19/2021 echocardiogram with EF 55 to 60%. Compensated chronic anemia, macrocytic: Lower. Monitor. Diabetes mellitus type II: fair control. SSI CKD 3a: stable. Sarcoidosis: stable. follow up with pulmonaryPer records patient following with Pulmonary, no CT chest imaging noted in the system, encourage continued outpatient follow-up. History CVA: Continue home Eliquis, statin therapy, hypertensive regimen with adjustments as noted. Chronic COPD: stable. Hypertension: stable. continue carvedilol. Hyperlipidemia: Will continue home statin therapy. History VTE (LLE DVT): h/o IVC filter. on low-dose apixaban. Obesity: Weight loss and lifestyle changes encouraged. DVT prophylaxis: Continue home Eliquis regimen as appears to have recently been restarted but clarifying to be cautious. CODE status:Full code.
[2023-12-29 08:39] LABS: Absolute Lymphocyte Count 1.01 X10^3/uL (0.83-4.51); Absolute Neutrophil Count 6.3 X10^3/uL (2.0-7.7); Basophil# 0.04 X10^3/uL; Basophil% 0.4 % (0-1); Eosinophil# 0.12 X10^3/uL; Eosinophils% 1.3 % (0-5); Hematocrit 24.5 % (37-47); Hemoglobin 7.6 g/dL (12.0-15.0); Lymphocyte # 1.01 X10^3/ul (0.83-4.51); Lymphocyte % 11.3 % (19-41); Mean Corpuscular Hgb 31.9 pg (27.0-32.0); Mean Corpuscular Volume 102.9 fL (81-99); Mean Platelet Vol. 9.2 fl (6.2-12.0); Monocyte# 1.02 X10^3/uL; Monocyte% 11.4 % (0-10); NRBC Flagged by Analyzer 0.2 % (0-5); Neutrophil # 6.34 X10^3/uL (2.7-7.7); POSITIVE MORPHOLOGY YES; Platelet Count 336 K/mm3 (150-450); RBC Distribution Width CV 17.3 % (11.6-14.6); RBC Distribution Width SD 64.1 fl (35.1-43.9); Red Blood Count 2.38 M/mm3 (4.2-5.4); White Blood Count 8.9 K/mm3 (4.4-11.0)
[2023-12-29 08:59] LABS: Differential Indicated SCAN CRITERIA MET
[2023-12-29 09:04] VITALS: BP 133/69; PULSE 80; RESP 16; TEMP 37.2; O2SAT 100
[2023-12-29 09:05] LABS: Anion Gap 3 (5-15); BUN 17 mg/dL (7-18); BUN/Creat Ratio 11.5 RATIO (10-20); Calcium,Total 8.1 mg/dL (8.5-10.1); Chloride 108 mmol/L (98-107); Creatinine, Serum 1.48 mg/dL (0.55-1.02); EST Glomerular Filtration Rate 37 mL/min (>60); Est Glom Filt Rate - Afr Amer 45 mL/min (>60); Estimated Creatinine Clearance 32.04 ml/min; Glucose 99 mg/dL (74-106); Potassium 3.9 mmol/L (3.5-5.1); Sodium Level 136 mmol/L (136-145)
[2023-12-29] MEDS: Carvedilol 6.25 MG Tablet PO (10:05)
[2023-12-29] MEDS: Fluconazole 100 MG Tablet PO (10:05)
[2023-12-29] MEDS: Lactobacillis Acidophilus 1 CAP PO (10:05)
[2023-12-29] MEDS: Potassium Chloride Oral Tablet 20 MEQ PO (10:05)
[2023-12-29] MEDS: APIXABAN 2.5 MG TABLET (WCH) PO (10:05)
[2023-12-29] MEDS: Pantoprazole Sodium 40 MG in 0.9% Normal Saline (100mL MB+) 100 ML 330 MG IV (10:07)
--- NOTE | 2023-12-29 11:57 | CASEMGMT ---
TAURUS CM into pt room, pt lying in bed in no distress. Provided pt with a rx for outpt therapy. She would like to set this up herself as she was already being seen for another issue. Pt denies any further homegoing needs.
[2023-12-29 12:40] LABS: Bedside Glucose 149 mg/dL (74-106)
--- NOTE | 2023-12-29 14:21 | DS.PCM_ITS ---
Providers Date of Admission: 12/27/23 Primary Care Physician: Dr. eKenan Alvarez, DO Consultations 12/27/23 01:34 Consult: Onc/Wound/hypo dipper Routine Comment: Reason for Consult:: Ostomy care/evaluation Reason For Visit: N/V/D, ? GASTRO Diagnosis Discharge Diagnosis (1) Gastroenteritis: Status: Acute Code(s): K52.9 - Noninfective gastroenteritis and colitis, unspecified Plan Gastroenteritis * improving * v chemotherapy-induced diarrhea (was using folforinox, had not used Keytruda since August). Doubt high-output ileostomy since she apparently did not have much bowel resected. Infectious ruled-out. * continue IVF * C diff and enteric panel negative * abdominal xray unremarkable. * transitional diet. * RUQ US: Heterogenous echotexture of the liver. Hemangioma in the right lobe of the liver in the region of the dome liver. Multiple gallstones with small amount of pericholecystic fluid as well as thickening of the gallbladder wall. Clinically not felt to have acute cholecystitis. Right sided hydronephrosis. * noted since at least June * has been to [facility]. Pt has not seen urology in past * US here shows mild right hydronephrosis. 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 Menjivar and GI Dr. Keene, complicated by history of issues with rectal and bleeding for ostomy, has been maintained on Keytruda, will request wound/skin toggler to evaluate stoma. Magnesium and phosphorus levels requested. * Chronic HFpEF: 06/19/2021 echocardiogram with EF 55 to 60%. Compensated * chronic anemia, macrocytic: Lower. Monitor. * Diabetes mellitus type II: fair control. SSI * CKD 3a: stable. * Sarcoidosis: stable. follow up with pulmonaryPer records patient following with Pulmonary, no CT chest imaging noted in the system, encourage continued outpatient follow-up. * History CVA: Continue home Eliquis, statin therapy, hypertensive regimen with adjustments as noted. * Chronic COPD: stable. * Hypertension: stable. continue carvedilol. * Hyperlipidemia: Will continue home statin therapy. * History VTE (LLE DVT): h/o IVC filter. on low-dose apixaban. * Obesity: Weight loss and lifestyle changes encouraged. DVT prophylaxis: Continue home Eliquis regimen as appears to have recently been restarted but clarifying to be cautious. CODE status:Full code. Medications at Discharge Home Medications carvedilol 25 mg tablet (Coreg) 6.25 mg PO BID Hypertension 11/22/19 cinnamon bark 500 mg capsule (Cinnamon) 1,000 mg PO BID SUPPLEMENT 06/19/21 vitamin B12 0.5 mg-folic acid 1 mg tablet 1 tab PO DAILY supplement 10/28/22 atorvastatin 40 mg tablet 40 mg PO DAILY HTN 07/08/23 lidocaine-prilocaine 2.5 %-2.5 % topical cream 1 applic topical DAILY PRN port access 07/08/23 furosemide 40 mg tablet 40 mg PO 0800 09/25/23 lactobacillus combo no.11 15 billion cell sprinkle capsule (Probiotic) 1 cap PO DAILY 09/25/23 trazodone 50 mg tablet 50 mg PO QHS 11/01/23 potassium chloride 20 mEq tablet,extended release 20 meq PO DAILY 11/08/23 apixaban 2.5 mg tablet (Eliquis) 2.5 mg PO BID 12/27/23 food supplemt, lactose-reduced (Ensure Clear oral liquid) 120 ml PO 4X/DAY #1,184 mL 12/29/23 Hospital Course Operations None Procedures None Summary of Care Provided Minutes Spent on Discharge: 32 Hospital Course: Patient presents with diarrhea. Infectious workup was negative. [place] to be related with her chemotherapy. Patient did well. Patient did have ultrasound that showed pericholecystic fluid but clinically did not have acute cholecystitis. Likely due to chemotherapy. Patient has done well. Patient be discharged home. Medical Records Data Medical Nutrition Assessment Dietitian: Malnutrition Criteria Met Start: 12/27/23 12:21 Freq: Status: Active Protocol: Document 12/27/23 12:21 SLA (Rec: 12/27/23 12:21 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 Status Active Problem Recommendation Dietitian Recommendations/Changes As medically able, rec MEGHAN to Transitional w/ goal of liberal regular diet d/t signs and symptoms of malnutrition Will provide 4 oz ensure clear w/ meals and medpass 4x/day for increased nutrition if consumed Monitor need for more aggressive nutrition support pending diet tolerance/wt status. Weight / BMI Weight Weight: 71.2 kg Body Mass Index (BMI) 31.6 ABG / Lab / Microbiology Data 12/29/23 06:20 12/29/23 06:20 Laboratory: Laboratory Results - last 24 hr 12/28/23 06:27: Diff Path Review Reviewed 12/28/23 21:28: POC Glucose 172 H 12/29/23 06:12: POC Glucose 104 12/29/23 06:20: WBC 8.9, RBC 2.38 L, Hgb 7.6 L, Hct 24.5 L, MCV 102.9 H, MCH 31.9, MCHC 31.0 L, RDW Std Deviation 64.1 H, RDW Coeff of Dann 17.3 H, Plt Count 336, MPV 9.2, Immature Gran % (Auto) 4.600 H, Neut % (Auto) 71.0 H, Lymph % (Auto) 11.3 L, [place] % (Auto) 11.4 H, Eos % (Auto) 1.3, Baso % (Auto) 0.4, Absolute Neuts (auto) 6.3, Absolute Lymphs (auto) 1.01, Nucleated RBC % 0.2, Differential Comment , Sodium 136, Potassium 3.9, Chloride 108 H, Carbon Dioxide 25.0, Anion Gap 3 L, BUN 17, Creatinine 1.48 H, Estim Creat Clear Calc 32.04, Est GFR (MDRD) Af Amer 45 L, Est GFR (MDRD) Non-Af 37 L, BUN/Creatinine Ratio 11.5, Glucose 99, Calcium 8.1 L 12/29/23 11:24: POC Glucose 149 H Microbiology: Microbiology 12/27/23 02:00 Interface Orders Enteric Bacteriology - Final 12/27/23 02:00 Stool Clostridioides difficile (PCR) - Final Radiography Diagnostic Testing: Radiology Impression Abdomen Ultrasound 12/28/23 15:20 IMPRESSION: Heterogeneous echotexture of the liver. Findings suggestive of hemangioma in the right lobe of the liver in the region of the dome of the liver. Multiple gallstones with small amount of pericholecystic fluid as well as thickening of the gallbladder wall. Decreased size of the right kidney and moderate degree of right-sided hydronephrosis. Electronically Signed: Carloz Velasquez MD at 10:42 EDT , D/C Instructions Discharge Diet: No restrictions Meaningful Use Info Meaningful Use Meaningful Use Diagnoses (Choose all that apply): None applicable Ischemic Stroke Statin Dosing Therapy Reference: STATIN DOSE THERAPY REFERENCE: * Patients > 75 years receive moderate or high dose statin therapy. * Patients 75 years or YOUNGER should receive HIGH intensity statin dose unless contraindicated. You will be required to document reason for non-treatment if statin daily dose does not meet guidelines. HIGH DOSE STATIN THERAPY DAILY Atorvastatin > than or = to 40 mg Rosuvastatin > than or = to 20 mg Amlodipine + Atorvastatin > than or = to 2.5/40 mg Ezetimibe + Simvastatin 10/80 mg Simvastatin 80mg Discharge Plan Admission Admit Date/Time: 12/27/23 00:22 Primary Reason for Your Visit: Gastroenteritis Attending Provider: Mario Gutierrez Primary Care Provider: Keenan Alvarez Consulting Providers: Alexia Boyd Discharge Orders/Prescriptions Prescriptions: New Ensure Clear Liquid 120 ml PO 4X/DAY Qty: 1184 0RF Continued carvedilol [Coreg] 25 mg tablet 6.25 mg PO BID Rx Instructions: must administer with a meal/food cinnamon bark [Cinnamon] 500 mg Capsule 1,000 mg PO BID vitamin F16-bnocw acid 0.5-1 mg Tablet 1 tab PO DAILY atorvastatin 40 mg tablet 40 mg PO DAILY Patient Comments: TAKE ONE TABLET BY MOUTH EVERY DAY lidocaine-prilocaine 2.5-2.5 % cream 1 applic topical DAILY PRN (Reason: port access) Patient Comments: APPLY 1 APPLICATION TO AFFECTED AREA NEEDED. furosemide 40 mg tablet 40 mg PO 0800 Patient Comments: TAKE 1 TABLET BY MOUTH EVERY DAY Probiotic 15 billion cell capsule, sprinkle 1 cap PO DAILY Rx Instructions: do not crush/chew/cut; swallow whole OR may open and sprinkle in cold drink/food trazodone 50 mg tablet 50 mg PO QHS potassium chloride 20 mEq tablet extended release 20 meq PO DAILY Eliquis 2.5 mg tablet 2.5 mg PO BID Referrals / Follow Up: Keenan Alvarez DO [Primary Care Provider] - Within 2 Weeks Disposition Disposition (needs filled in before D/C Order can be placed): Home, Self Care Charges/Coding Visit Charges Inpatient E&M: 88044 Disch Hosp >30min
--- NOTE | 2023-12-29 15:16 | PHA.DC.MR.R ---
Pharmacy MD Med Reconciliation Pharmacy Service has performed discharge medication reconciliation for this patient. The patient's discharge medication list was reviewed for discrepancies and discrepancies were resolved. Medications at Discharge Home Medications carvedilol 25 mg tablet (Coreg) 6.25 mg PO BID Hypertension 11/22/19 cinnamon bark 500 mg capsule (Cinnamon) 1,000 mg PO BID SUPPLEMENT 06/19/21 vitamin B12 0.5 mg-folic acid 1 mg tablet 1 tab PO DAILY supplement 10/28/22 atorvastatin 40 mg tablet 40 mg PO DAILY HTN 07/08/23 lidocaine-prilocaine 2.5 %-2.5 % topical cream 1 applic topical DAILY PRN port access 07/08/23 furosemide 40 mg tablet 40 mg PO 0800 09/25/23 lactobacillus combo no.11 15 billion cell sprinkle capsule (Probiotic) 1 cap PO DAILY 09/25/23 trazodone 50 mg tablet 50 mg PO QHS 11/01/23 potassium chloride 20 mEq tablet,extended release 20 meq PO DAILY 11/08/23 apixaban 2.5 mg tablet (Eliquis) 2.5 mg PO BID 12/27/23 food supplemt, lactose-reduced (Ensure Clear oral liquid) 120 ml PO 4X/DAY #1,184 mL 12/29/23
[2023-12-29] MEDS: 0.9% Saline Lock 10 ML Syringe IV (15:36)
[2023-12-29 15:41] VITALS: BP 139/72; PULSE 78; RESP 18; TEMP 36.9; O2SAT 98
== END 2023-12-29 16:23 | disposition home or self-care (01) ==
LOC: ED 23:59 → MS3 12-27 02:04
PROVIDERS: Admitting Provider Family Medicine; Emergency Provider Emergency Medicine
DX: K52.9 Noninfective gastroenteritis and colitis, unspecified (principal); C78.7 Secondary malignant neoplasm of liver and intrahepatic bile duct; C77.2 Secondary and unspecified malignant neoplasm of intra-abdominal lymph nodes; C20 Malignant neoplasm of rectum; I50.32 Chronic diastolic (congestive) heart failure; I13.0 Hypertensive heart and chronic kidney disease with heart failure and stage 1 through stage 4 chronic kidney disease, or unspecified chronic kidney disease; J44.9 Chronic obstructive pulmonary disease, unspecified; I42.9 Cardiomyopathy, unspecified; E11.22 Type 2 diabetes mellitus with diabetic chronic kidney disease; N18.30 Chronic kidney disease, stage 3 unspecified; Z86.718 Personal history of other venous thrombosis and embolism; I25.10 Atherosclerotic heart disease of native coronary artery without angina pectoris; D86.9 Sarcoidosis, unspecified; Z79.01 Long term (current) use of anticoagulants; D50.9 Iron deficiency anemia, unspecified; R31.9 Hematuria, unspecified; E78.5 Hyperlipidemia, unspecified; Z79.899 Other long term (current) drug therapy; Z92.3 Personal history of irradiation; Z92.21 Personal history of antineoplastic chemotherapy; E66.9 Obesity, unspecified; Z68.31 Body mass index [BMI] 31.0-31.9, adult; N13.30 Unspecified hydronephrosis
CPT/HCPCS: 36415; 36591; 74018; 76705; 76770; 80048; 80053; 81001; 82962; 83036; 83605; 83690; 83735; 84100; 84145; 85025; 87493; 87506; 94668; 96361; 96365; 96366; 96375; 96376; 97110; 97162; 97166; 97530; 97802; 99221; 99285; J7030; J7050; P9612; A4216; G0378; J2405

== ENCOUNTER 2024-01-04 08:19 | Outpatient (CLI) | payer MEDICARE, SELFPAY ==
[2024-01-04 08:42] VITALS: BP 119/64; PULSE 95; RESP 16; TEMP 36.4; O2SAT 98; BMI 33.1
[2024-01-04 09:03] VITALS: BP 105/55; PULSE 97; RESP 16; TEMP 36.9; O2SAT 100
[2024-01-04 10:03] VITALS: BP 108/64; PULSE 93; RESP 16; TEMP 36.8; O2SAT 100
[2024-01-04 11:14] VITALS: BP 124/70; PULSE 90; RESP 16; TEMP 36.4; O2SAT 98
[2024-01-04 12:14] VITALS: BP 143/76; PULSE 89; RESP 16; TEMP 36.3; O2SAT 98
[2024-01-04 12:36] VITALS: BP 153/89; PULSE 88; RESP 16; TEMP 36.3; O2SAT 99
[2024-01-04] MEDS: 0.9% Normal Saline (1000mL) 1,000 ML 500 ML IV (12:37)
[2024-01-04] MEDS: 0.9% NaCl Peripheral Flush Adult/Peds IV (14:51)
== END 2024-01-04 23:59 | disposition home or self-care (01) ==
PROVIDERS: Referring Provider Internal Medicine Hematology & Oncology; Visit Provider Internal Medicine Hematology & Oncology
DX: D50.0 Iron deficiency anemia secondary to blood loss (chronic) (principal)
CPT/HCPCS: 96360; 96361; 36430; 86850; 86870; 86900; 86901; 86902; 86920; 86922; J7030; P9016; A4216

== ENCOUNTER 2025-08-11 07:57 | Emergency (ER) | payer MEDICARE, SELFPAY ==
[2025-08-11 07:59] VITALS: BP 143/76; PULSE 71; RESP 18; TEMP 36.5; O2SAT 98; BMI 39.6
--- NOTE | 2025-08-11 08:00 | EDS_ITS ---
HPI HPI - Female History of Present Illness Chief Complaint: Female C/O Narrative Narrative: Patient is a 70-year-old female presenting to the emergency department for fecal matter coming out of her vagina. Patient has a history of rectal cancer metastasized to her liver, GI bleeding, anemia. Patient states about 3 years ago she had a very similar episode after she received radiation for her rectal cancer. She states that she had stool coming out of her vagina and they figured out that there was a fistula formation and she underwent surgery with colostomy placement. Patient states this is very similar to that episode. She states that her hospice nurse was cleaning her this morning. She states she always has some abdominal discomfort at the same if not a little worsened today. She denies any fever, chills, nausea or vomiting. She has both a Thibodeaux catheter as well as a colostomy. She has noticed changes to the colostomy which is included harder more formed stools. She is hospice DNR-CC. [facility] Medical History Adnexal mass Bleeding tendency History of stress test GI bleed Congestive heart failure (CHF) DVT (deep venous thrombosis) Stroke/cerebrovascular accident Hyperbilirubinemia Nephrolithiasis Hydronephrosis Leukocytosis Postphlebitic syndrome with inflammation Parastomal hernia Coronary artery disease Steroid long-term use Chronic kidney disease, stage III (moderate) Hypertension Diabetes mellitus Carotid artery stenosis with cerebral infarction Anticoagulant long-term use Sarcoidosis History of deep vein thrombosis (DVT) of lower extremity Bleeding per rectum 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 Cancer, metastatic to liver Lymphedema of left leg Edema of left lower extremity Edema of right lower extremity Left leg swelling Right leg swelling Radiation proctitis Soft tissue radionecrosis Lymphedema History of diabetes mellitus, type II History of deep venous thrombosis (DVT) of distal vein of right lower extremity History of deep venous thrombosis (DVT) of distal vein of left lower extremity Anticoagulant long-term use Anemia History of rectal cancer GI bleed Chronic anticoagulation Rectal bleeding Rectal cancer metastasized to liver Acute CVA (cerebrovascular accident) Wears dentures Cancer Arthritis (Unknown) Shortness of breath on exertion Low iron History of renal disease COPD (chronic obstructive pulmonary disease) History of CHF (congestive heart failure) Renal insufficiency Nonrheumatic tricuspid valve regurgitation Nonrheumatic mitral valve regurgitation Diastolic congestive heart failure Tricuspid regurgitation Snoring Congenital talipes calcaneovalgus of left foot Cardiomyopathy History of pleural effusion (10/21/17) Hyperlipidemia Essential hypertension Diabetes mellitus type II, uncontrolled Carotid artery stenosis History of CVA (cerebrovascular accident) (10/21/17) Preop cardiovascular exam Home Medications ?Medication ?Instructions ?Recorded ?Last Taken ?Type carvedilol 25 mg tablet (Coreg) 6.25 mg PO BID Hyperte nsion 11/22/19 09/27/22 History 0700 cinnamon bark 500 mg capsule 1,000 mg PO BID SUPPLEMEN T 06/19/21 09/27/22 History (Cinnamon) 0700 atorvastatin 40 mg tablet 40 mg PO DAILY HTN 07/08/23 Unknown History trazodone 50 mg tablet 50 mg PO QHS 11/01/23 Unknow n History potassium chloride 20 mEq 20 meq PO DAILY 11/08/23 Unk nown History tablet,extended release aspirin 81 mg tablet,delayed 81 mg PO DAILY 08/11/25 U nknown History release bumetanide 0.5 mg tablet 0.5 mg PO DAILY 08/11/25 Unk nown History cephalexin 500 mg capsule 500 mg PO Q6 7 days #28 CAPS ULES 08/11/25 Unknown Rx morphine concentrate 100 mg/5 mL mg 08/11/25 Unknown H istory (20 mg/mL) oral solution oxycodone-acetaminophen 5 mg-325 1 tab PO Q6H PRN PRN pain 08/11/25 Unknown History mg tablet pantoprazole 40 mg tablet,delayed 40 mg PO DAILY 08/11 Unknown History release Allergy/AdvReac Type Severity Reaction Status Date / Time latex Allergy Severe Hives Verified 08/11/25 08:04 codeine AdvReac Unknown unknown Verified 08/11/25 08:04 Family History Mother Bleeding disorder Diabetes CAD (coronary artery disease) Hypertension Hyperlipidemia Kidney disease Sister Asthma CAD (coronary artery disease) Hyperlipidemia Father Cancer CAD (coronary artery disease) Hypertension Hyperlipidemia CVA (cerebral vascular accident) Brother CAD (coronary artery disease) Hyperlipidemia Surgical History History of coronary artery stent placement History of cataract surgery History of colostomy History of colonoscopy History of foot surgery Hx of cataract surgery History of cardiac catheterization Social History household members: spouse Smoking Status: Never smoker alcohol intake: never substance use type: does not use ROS ROS ED ROS Narrative see HPI EXAM Physical Exam Narrative Exam Narrative: Vital signs: Reviewed General: Alert and oriented x 3. No acute distress, chronically ill-appearing, nontoxic. HEENT: Head is normocephalic and atraumatic, sinuses nontender, pupils equal round and reactive. Nares are patent. Oropharynx and throat exams normal. Neck: Supple without lymphadenopathy nontender Cardiovascular: Regular rate and rhythm, no murmurs. No rubs or gallops. Normal S1 and S2 Respiratory: Clear to auscultation bilaterally. No wheezes, rales, rhonchi Abdominal: Soft and nontender to palpation. There is a left sided colostomy with liquidy brown stool, no gross blood seen. There are candidal type rashes seen in the abdominal folds. Normal bowel sounds. No guarding or rebound. : There is a Thibodeaux catheter in place draining dark yellow urine. External pelvic exam was done and shows liquid stool seeping out of the vagina. Extremities: No tenderness. No bruising. Normal range of motion. Normal sensation. Skin: No rash or redness. The rest of the physical exam is unremarkable Const Vital Signs: 08/11/25 07:59 08/11/25 09:02 08/11/25 10:02 Temperature 97.7 F L 97.9 F 97.6 F L Temperature Source Temporal Temporal Temporal Pulse Rate 71 70 66 Respiratory Rate 18 18 18 Blood Pressure 143/76 H 142/65 H 126/56 H Blood Pressure Mean 98 90 79 Pulse Ox 98 98 95 Oxygen Delivery Method Room Air Room Air Room Air 08/11/25 11:45 08/11/25 12:23 08/11/25 14:00 Temperature 98.1 F Temperature Source Pulse Rate 68 73 Respiratory Rate 18 Blood Pressure 140/68 H 125/65 H 93/68 Blood Pressure Mean 92 85 76 Pulse Ox 97 98 Oxygen Delivery Method Room Air MDM MDM MDM Narrative Medical decision making narrative: Patient is a 70-year-old female presenting to the emergency department for possible fistula formation. Patient was seen and examined. Vitals are stable. Patient resting in bed comfortably in no acute distress. Likely cause of the patient's symptoms are fistula formation with her history of radiation to the abdomen. Patient would like labs and imaging done to determine the cause of her symptoms even though she is DNR comfort care. She is in no pain, reports some mild discomfort that she was offered analgesic for but declines. CBC with no leukocytosis and chronic anemia of 11.4. CMP with mild elevation in Cr of 1.26, which appears chronic. Elevated alk phos of 116, baseline elevated since December. CT shows airspace opacities in the lingula and middle lobes. Interstitial and tree-in-bud densities suggestive of pneumonia. Bladder wall thickening suggestive of acute cystitis. Right kidney atrophy with right moderate hydronephrosis and without ureteral stones or nephrolithiasis, likely chronic. Stable small right liver lobe cystic lesion measures up to 1.1 cm. Punctate of gas noted in the uterine cavity as long as the gas reported in the bladder. These findings along with the infectious process going on in the pelvis can be suggestive of fistula as clinically suggested by the provider. I suggest cystogram after cystitis treatment. Patient was updated on the findings. I ask if she would want surgery for possible fistula and she reports that I will need to talk to her healthcare power of attorney recruiter, her daughter. I did speak with her daughter over the phone, Padmini Inman, who after discussion would like to keep her hospice and does not want her to have surgery at this time. Daughter understands the symptoms will likely keep happening given the issue is not being fixed, she understands and has no questions. Patient has no significant leukocytosis and vitals have been stable while she has been here I do not think she would benefit from admission given her hospice status and family not wanting any surgical intervention. Patient was updated on the daughter's decision and she is also agreeable with this. She is now endorsing some discomfort and does take Percocet at home for pain and was given a dose of this here. Her CT is reading as possible pneumonia which is not consistent with her symptoms she has no fever, cough, respiratory findings. To obtain a clean urine sample her Thibodeaux catheter would need to be exchanged but she does not want done and I think is appropriate given her hospice status. Will treat her for possible cystitis given her CT findings and upon telling her she is endorsing some dysuria. Will place her on Keflex. She will be discharged back to her facility for continued cystitis management. I explained to her and her daughter if they change their mind and would like surgery or if she has changes to her symptoms she can always return. Clinical impression: Colouterine fistula cystitis hospice care patient History & Record Review Discussion w/independent historian: Patient and Family Additional record(s) reviewed:: Prior labs Lab Data Attestation: I reviewed the patient's lab results. Labs: Laboratory Results - last 24 hr 08/11/25 08:53 WBC 6.4 RBC 3.76 L Hgb 11.4 L Hct 35.1 L MCV 93.4 MCH 30.3 MCHC 32.5 RDW Std Deviation 46.3 H RDW Coeff of Dann 13.6 Plt Count 293 MPV 8.1 Immature Gran % (Auto) 0.300 Neut % (Auto) 62.2 Lymph % (Auto) 21.5 [place] % (Auto) 10.7 H Eos % (Auto) 4.5 Baso % (Auto) 0.8 Absolute Neuts (auto) 4.0 Absolute Lymphs (auto) 1.38 Nucleated RBC % 0 Sodium 139 Potassium 4.2 Chloride 106 Carbon Dioxide 23.6 Anion Gap 9 BUN 18 Creatinine 1.26 H Estim Creat Clear Calc 41.28 L Est GFR (MDRD) Non-Af 46 L BUN/Creatinine Ratio 14.4 Glucose 113 H Calcium 8.7 Total Bilirubin 0.65 AST 16 ALT 9 Alkaline Phosphatase 116 H Total Protein 6.0 Albumin 2.6 L Globulin 3.4 Albumin/Globulin Ratio 0.8 L Radiography Diagnostic Testing: Clinical Impression(s) from Imaging Studies Abdomen/Pelvis CT 08/11/25 08:14 IMPRESSION: Airspace opacities in the lingula and middle lobes. Interstitial and tree-in-bud densities suggestive of pneumonia. Bladder wall thickening suggestive of acute cystitis. Right kidney atrophy with right moderate hydronephrosis and without ureteral stones or nephrolithiasis, likely chronic. Reading Location: [facility] Discharge Plan Triage Chief Complaint: Female C/O ED Provider: Sophie Nix Dx/Rx/DC Orders Clinical Impression: Colouterine fistula, Cystitis, Hospice care patient Instructions: ED Cystitis Female Adult Prescriptions: New cephalexin 500 mg capsule 500 mg PO Q6 7 Days Qty: 28 0RF No Action carvedilol [Coreg] 25 mg tablet 6.25 mg PO BID Rx Instructions: must administer with a meal/food cinnamon bark [Cinnamon] 500 mg Capsule 1,000 mg PO BID atorvastatin 40 mg tablet 40 mg PO DAILY Patient Comments: TAKE ONE TABLET BY MOUTH EVERY DAY trazodone 50 mg tablet 50 mg PO QHS potassium chloride 20 mEq tablet extended release 20 meq PO DAILY morphine concentrate 100 mg/5 mL (20 mg/mL) solution Patient Comments: TAKE 0.25ML (5MG) BY MOUTH EVERY 3 HOURS NEEDED FOR SHORTNESS OF BREATH OR PAIN aspirin 81 mg tablet,delayed release (DR/EC) 81 mg PO DAILY oxycodone-acetaminophen 5-325 mg tablet 1 tab PO Q6H PRN PRN (Reason: pain) pantoprazole 40 mg tablet,delayed release (DR/EC) 40 mg PO DAILY bumetanide 0.5 mg tablet 0.5 mg PO DAILY Primary Care Provider: Keenan Alvarez Referrals: Keenan Alvarez, [Primary Care Provider, Medical] - As soon as possible Activity Restrictions/Additional Instructions: After discussion with you and your daughter, GAETANO, it was determined to not move forward with surgery to fix the possible fistula. You will continue to have symptoms of the fistula at home. If it anytime you develop any new or worsening symptoms or wish to have surgical repair you can always return for evaluation. Take the antibiotic for evidence of a bladder infection on the CT as prescribed, 4 times a day for 7 days. Follow-up with your primary care doctor as soon as possible. Print Language: [place]arag[place] Disposition Disposition: Home, Self Care
--- NOTE | 2025-08-11 08:14 | CT_ITS ---
PROCEDURE: ABDOMEN/PELVIS W IV CONT ONLY 08/11/2025 REASON FOR EXAM: LOWER ABDOMINAL PAIN TECHNIQUE: Procedure Code: [id number] Modality: CT Procedure: ABDOMEN/PELVIS W IV CONT ONLY Coronal and Sagittal reconstruction series were provided. CONTRAST: Isovue 370 VOLUME: 75 mL One or more dose reduction techniques were used (e.g., Automated exposure control, adjustment of the mA and/or kV according to patient size, use of iterative reconstruction technique. RADIATION DOSE SUMMARY: CTDlvol: 22.41 mGy DLP: 1140.20 mGycm COMPARISON: CT abdomen and pelvis November 01, 2023. FINDINGS: Lung bases: Airspace opacities in the lingula and middle lobes. Interstitial and tree-in-bud densities suggestive of pneumonia. Atherosclerotic calcifications of the coronary arteries. Liver: Unremarkable. Gallbladder: Distended gallbladder. No biliary dilation. Spleen: Unremarkable. Pancreas: Unremarkable. Adrenals: Unremarkable. Kidneys: No hydronephrosis. Small right kidney. Moderate right hydronephrosis. Bladder: Bladder wall thickening consistent with cystitis. Thibodeaux catheter in place. Reproductive Organs: Unremarkable. Bowel: No bowel wall thickening. No bowel obstruction. Status post left sided colostomy placement.. Appendix: Unremarkable. Lymph nodes: No lymphadenopathy. Vasculature: No aneurysm. Atherosclerotic calcifications of the aorta. Peritoneum / Retroperitoneum: No free air or free fluid. Bones: No acute bony abnormalities. Multilevel degenerate changes of the lumbar spine. CT/Abdomen/Pelvis W IV Cont ONLY IMPRESSION: Airspace opacities in the lingula and middle lobes. Interstitial and tree-in-b ud densities suggestive of pneumonia. Bladder wall thickening suggestive of acute cystitis. Right kidney atrophy with right moderate hydronephrosis and without ureteral st ones or nephrolithiasis, likely chronic. Reading Location: [id number]
[2025-08-11 09:00] LABS: Hematocrit 35.1 % (37-47); Hemoglobin 11.4 g/dL (12.0-15.0); Immature Granulocytes Count 0.020 X10^3/uL (0.0-0.0); Mean Corp Hgb Conc 32.5 g/dL (32-36); Mean Corpuscular Volume 93.4 fL (81-99); Mean Platelet Vol. 8.1 fl (6.2-12.0); NRBC Flagged by Analyzer 0 % (0-5); Platelet Count 293 K/mm3 (150-450); RBC Distribution Width CV 13.6 % (11.6-14.6); RBC Distribution Width SD 46.3 fl (35.1-43.9); Red Blood Count 3.76 M/mm3 (4.2-5.4); White Blood Count 6.4 K/mm3 (4.4-11.0)
[2025-08-11 09:02] VITALS: BP 142/65; PULSE 70; RESP 18; TEMP 36.6; O2SAT 98
[2025-08-11 09:21] LABS: AST(SGOT) 16 U/L (<=31); Alanine Aminotransfer ALT/SGPT 9 U/L (<=34); Albumin, Serum 2.6 g/dL (3.4-4.8); Alkaline Phosphatase 116 U/L (35-104); Anion Gap 9 (5-15); BUN 18 mg/dL (4-19); BUN/Creat Ratio 14.4 RATIO (10-20); Calcium,Total 8.7 mg/dL (7.6-11.0); Carbon Dioxide 23.6 mmol/L (21.0-32.0); Chloride 106 mmol/L (98-108); Estimated Creatinine Clearance 41.28 ml/min (50-250); Globulin 3.4 g/dL (2.2-4.2); Glucose 113 mg/dL (70-99); Potassium 4.2 mmol/L (3.3-5.1)
[2025-08-11 10:02] VITALS: BP 126/56; PULSE 66; RESP 18; TEMP 36.4; O2SAT 95
[2025-08-11 11:45] VITALS: BP 140/68; PULSE 68; RESP 18; TEMP 36.7; O2SAT 97
[2025-08-11 12:23] VITALS: BP 125/65; PULSE 73; O2SAT 98
[2025-08-11] MEDS: HYDROcodone Bitartrate/Apap 5/325 Tablet PO (12:24)
[2025-08-11 14:00] VITALS: BP 93/68
== END 2025-08-11 15:57 | disposition home or self-care (01) ==
PROVIDERS: Emergency Provider Student in an Organized Health Care Education/Training Program; Visit Provider Student in an Organized Health Care Education/Training Program
DX: N82.4 Other female intestinal-genital tract fistulae (principal); C78.7 Secondary malignant neoplasm of liver and intrahepatic bile duct; Z93.3 Colostomy status; C20 Malignant neoplasm of rectum; I13.0 Hypertensive heart and chronic kidney disease with heart failure and stage 1 through stage 4 chronic kidney disease, or unspecified chronic kidney disease; I50.32 Chronic diastolic (congestive) heart failure; J44.9 Chronic obstructive pulmonary disease, unspecified; E11.22 Type 2 diabetes mellitus with diabetic chronic kidney disease; N18.30 Chronic kidney disease, stage 3 unspecified; Z86.718 Personal history of other venous thrombosis and embolism; Z51.5 Encounter for palliative care; E78.5 Hyperlipidemia, unspecified; N30.90 Cystitis, unspecified without hematuria; I25.10 Atherosclerotic heart disease of native coronary artery without angina pectoris; Z79.82 Long term (current) use of aspirin; Z79.899 Other long term (current) drug therapy; D64.9 Anemia, unspecified
CPT/HCPCS: 36591; 74177; 80053; 85025; 99285; Q9967; A4216